=== PATIENT | female | born 1950 | race Caucasian/White ===

== ENCOUNTER → 2016-04-30 | Outpatient (REF) | payer BC ==
[~2016-04-30] MED LIST: ADVA115A INH; AMLO5TAB2 PO; AMOX875T PO; ATOR1TAB19 PO; BENI40TA3 PO; BUSP15TA47 PO; BUSP5TA PO; DITR1TAB PO; MONT10TA2 PO; PANT40TA2 PO; PROA1AER INH
[2016-04-30 11:49] LABS: MEAN CORPUSCULAR HEMOGLOBIN 31.1 pg (27.0-33.0); MEAN CORPUSCULAR VOLUME 94.4 fl (80.0-96.0); RED CELL DISTRIBUTION WIDTH 12.6 % (11.5-14.5); WHITE BLOOD COUNT 11.4 K/mm3 (4.0-10.0)
== END ==
LOC: M SFHCPLAZ 08:26
PROVIDERS: ATTEND Nurse Practitioner Adult Health
DX: I82.492 Acute embolism and thrombosis of other specified deep vein of left lower extremity (principal)

== ENCOUNTER → 2016-08-26 | Outpatient (REF) | payer BC ==
[2016-08-26 11:38] LABS: MEAN CORPUSCULAR HGB CONC 33.9 g/dl (32.0-36.5); MEAN CORPUSCULAR VOLUME 94.3 fl (80.0-96.0); RED CELL DISTRIBUTION WIDTH 11.9 % (11.5-14.5); WHITE BLOOD COUNT 7.6 K/mm3 (4.0-10.0)
[2016-08-26 12:10] LABS: ALBUMIN 3.8 GM/DL (3.2-5.2); ALBUMIN/GLOBULIN RATIO 1.27 (1.00-1.93); ALKALINE PHOSPHATASE 76 U/L (45-117); ALT/SGPT 14 U/L (12-78); ANION GAP 8 MEQ/L (8-16); AST/SGOT 7 U/L (15-37); BILIRUBIN,TOTAL 0.6 MG/DL (0.2-1.0); BLOOD UREA NITROGEN 16 MG/DL (7-18); CALCIUM LEVEL 9.4 MG/DL (8.8-10.2); CARBON DIOXIDE LEVEL 30 MEQ/L (21-32); CHLORIDE LEVEL 109 MEQ/L (98-107); CREATININE FOR GFR 0.58 MG/DL (0.55-1.02); GLOMERULAR FILTRATION RATE > 60.0 (>45); GLUCOSE, FASTING 94 MG/DL (80-110); POTASSIUM SERUM 3.9 MEQ/L (3.5-5.1); SODIUM LEVEL 147 MEQ/L (136-145); TOTAL PROTEIN 6.8 GM/DL (6.4-8.2)
== END ==
LOC: M SFHCPLAZ 07:47
PROVIDERS: ATTEND Internal Medicine
DX: J30.9 Allergic rhinitis, unspecified (principal); I10 Essential (primary) hypertension

== ENCOUNTER → 2017-01-13 | Outpatient (REF) | payer OTHER ==
[~2017-01-13] MED LIST changes: +BENI40TA26 PO; -BENI40TA3 PO; -PROA1AER INH; +PROAAER10 INH
== END ==
LOC: M LAB REF 12:58
PROVIDERS: ATTEND Physician Assistant
DX: N39.0 Urinary tract infection, site not specified (principal)

== ENCOUNTER → 2017-04-16 | Outpatient (REF) | payer MEDICARE ==
[2017-04-16 12:39] LABS: ALBUMIN 3.5 GM/DL (3.2-5.2); ALBUMIN/GLOBULIN RATIO 1.13 (1.00-1.93); ALKALINE PHOSPHATASE 69 U/L (45-117); ALT/SGPT 19 U/L (12-78); ANION GAP 7 MEQ/L (8-16); AST/SGOT 14 U/L (7-37); BILIRUBIN,TOTAL 0.7 MG/DL (0.2-1.0); BLOOD UREA NITROGEN 19 MG/DL (7-18); CALCIUM LEVEL 8.9 MG/DL (8.8-10.2); CARBON DIOXIDE LEVEL 30 MEQ/L (21-32); CHLORIDE LEVEL 107 MEQ/L (98-107); CHOLESTEROL LEVEL 192 MG/DL (<200); CREATININE FOR GFR 0.55 MG/DL (0.55-1.02); GLOMERULAR FILTRATION RATE > 60.0 (>45); GLUCOSE, FASTING 92 MG/DL (80-110); HDL CHOLESTEROL 80 MG/DL (>40); LDL CHOLESTEROL 74.6 MG/DL (<100); MAGNESIUM LEVEL 2.3 MG/DL (1.8-2.4); NON-HDL-C 112 MG/DL; POTASSIUM SERUM 3.6 MEQ/L (3.5-5.1); SODIUM LEVEL 144 MEQ/L (136-145); THYROID STIMULATING HORMONE 0.921 uIU/ML (0.358-3.740); TOTAL PROTEIN 6.6 GM/DL (6.4-8.2); TRIGLYCERIDES LEVEL 187 MG/DL (<150)
== END ==
LOC: M SFHCPLAZ 09:17
DX: I10 Essential (primary) hypertension (principal); E78.00 Pure hypercholesterolemia, unspecified; E06.3 Autoimmune thyroiditis
CPT/HCPCS: 83735

== ENCOUNTER → 2017-06-16 | Outpatient (CLI) | payer MEDICARE ==
[2017-06-16 13:14] LABS: ANION GAP 6 MEQ/L (8-16); BLOOD UREA NITROGEN 18 MG/DL (7-18); CALCIUM LEVEL 8.6 MG/DL (8.8-10.2); CARBON DIOXIDE LEVEL 29 MEQ/L (21-32); CHLORIDE LEVEL 111 MEQ/L (98-107); CREATININE FOR GFR 0.57 MG/DL (0.55-1.30); GLOMERULAR FILTRATION RATE > 60.0 (>45); GLUCOSE, FASTING 95 MG/DL (70-100); POTASSIUM SERUM 3.8 MEQ/L (3.5-5.1); SODIUM LEVEL 146 MEQ/L (136-145)
== END ==
LOC: M LAB 12:09
DX: Z01.818 Encounter for other preprocedural examination (principal); G56.02 Carpal tunnel syndrome, left upper limb
CPT/HCPCS: 80048

== ENCOUNTER → 2017-07-11 | Outpatient (REF) | payer MEDICARE ==
[2017-07-11 13:41] LABS: APPEARANCE, URINE HAZY (CLEAR); BACTERIA, URINE AUTO NEGATIVE (NEGATIVE); BILIRUBIN, URINE AUTO NEGATIVE (NEGATIVE); BLOOD, URINE BLOOD NEGATIVE (NEGATIVE); CALCIUM OXALATE CRYSTALS SMALL; COLOR, URINE YELLOW (YELLOW); GLUCOSE, URINE (UA) AUTO NEGATIVE (NEGATIVE); KETONE, URINE AUTO NEGATIVE (NEGATIVE); LEUKOCYTE ESTERASE, URINE AUTO TRACE (NEGATIVE); MUCUS, URINE LARGE (NEGATIVE); NITRITE, URINE AUTO NEGATIVE (NEGATIVE); PROTEIN, URINE AUTO NEGATIVE (NEGATIVE); RBC, URINE AUTO 0 /HPF (0-3); SPECIFIC GRAVITY URINE AUTO 1.024 (1.002-1.035); SQUAMOUS EPITHELIAL CELL UR AU 1 /HPF (0-6); UROBILINOGEN, URINE AUTO 0.2 mg/dL (0.0-2.0); WBC, URINE AUTO 1 /HPF (0-3)
== END ==
LOC: M LAB REF 13:14
DX: I10 Essential (primary) hypertension (principal); Z79.899 Other long term (current) drug therapy
CPT/HCPCS: 81001

== ENCOUNTER 2017-09-01 11:48 | Day surgery (SDC) | payer MEDICARE ==
[2017-09-01] MEDS ORDERED: LR 1,000 ML IV ×3 (12:00→17:30)
[2017-09-01] MEDS ORDERED: PROPOFOL 200 MG/20 ML VIAL As Ordered ×2 (14:43→14:46)
[2017-09-01] MEDS ORDERED: LIDOCAINE 2% INJ 100 MG/5 ML SDV (FOR ANES.) As Ordered (14:43)
[2017-09-01] MEDS ORDERED: MIDAZOLAM INJ 2 MG/2 ML VIAL (J2250) As Ordered (14:44)
[2017-09-01] MEDS ORDERED: fentaNYL 100 MCG/2 ML INJECTION (J3010) As Ordered (14:44)
[2017-09-01] MEDS ORDERED: dexameTHASONE 4 MG/ML 1ML VIAL (J1100) As Ordered (16:19)
[2017-09-01] MEDS ORDERED: ONDANSETRON 4MG/2ML VIAL (J2405) As Ordered (16:19)
[2017-09-01] MEDS: VASOPRESSIN INJ 20 UNITS/ML VIAL As Ordered (16:36)
[2017-09-01] MEDS ORDERED: PERCOCET 5MG/325MG TAB PO (17:30)
[2017-09-01] MEDS ORDERED: fentaNYL 100 MCG/2 ML INJECTION (J3010) IV (17:30)
[2017-09-01] MEDS ORDERED: NORCO, ANEXSIA 5/325MG TABLET (HYDROcodone/ACETAMINOPHEN) PO (17:30)
[2017-09-01] MEDS ORDERED: ONDANSETRON 4MG/2ML VIAL (J2405) IV (17:30)
[2017-09-01] MEDS ORDERED: IBUPROFEN 600 MG TAB PO (17:30)
[2017-09-01] MEDS ORDERED: METOCLOPRAMIDE INJ 10MG/2ML VIAL (J2765) IV (17:30)
== END 2017-09-01 18:46 | disposition home or self-care (01) ==
LOC: M SDC 11:48
DX: N39.3 Stress incontinence (female) (male) (principal); N36.41 Hypermobility of urethra; I10 Essential (primary) hypertension; E78.5 Hyperlipidemia, unspecified; K21.9 Gastro-esophageal reflux disease without esophagitis; F41.9 Anxiety disorder, unspecified; F32.9 Major depressive disorder, single episode, unspecified; J45.909 Unspecified asthma, uncomplicated; Z79.82 Long term (current) use of aspirin; Z79.51 Long term (current) use of inhaled steroids; Z79.899 Other long term (current) drug therapy
CPT/HCPCS: 57288

== ENCOUNTER → 2017-12-24 | Outpatient (REF) | payer MEDICARE ==
[2017-12-24 16:10] LABS: HEMATOCRIT 47.2 % (36.0-47.0); HEMOGLOBIN 15.8 g/dl (12.0-15.5); MEAN CORPUSCULAR HEMOGLOBIN 31.7 pg (27.0-33.0); MEAN CORPUSCULAR HGB CONC 33.5 g/dl (32.0-36.5); MEAN CORPUSCULAR VOLUME 94.8 fl (80.0-96.0); PLATELET COUNT, AUTOMATED 304 10^3/uL (150-450); RED BLOOD COUNT 4.98 10^6/uL (4.00-5.40); RED CELL DISTRIBUTION WIDTH 12.1 % (11.5-14.5); WHITE BLOOD COUNT 11.8 10^3/uL (4.0-10.0)
[2017-12-24 16:39] LABS: ALBUMIN 4.1 GM/DL (3.2-5.2); ALBUMIN/GLOBULIN RATIO 1.28 (1.00-1.93); ALKALINE PHOSPHATASE 75 U/L (45-117); ALT/SGPT 27 U/L (12-78); ANION GAP 8 MEQ/L (8-16); AST/SGOT 13 U/L (7-37); BILIRUBIN,TOTAL 0.8 MG/DL (0.2-1.0); BLOOD UREA NITROGEN 17 MG/DL (7-18); CALCIUM LEVEL 9.3 MG/DL (8.8-10.2); CARBON DIOXIDE LEVEL 28 MEQ/L (21-32); CHLORIDE LEVEL 106 MEQ/L (98-107); CREATININE FOR GFR 0.68 MG/DL (0.55-1.30); GLOMERULAR FILTRATION RATE > 60.0 (>45); GLUCOSE, FASTING 83 MG/DL (70-100); MAGNESIUM LEVEL 2.3 MG/DL (1.8-2.4); SODIUM LEVEL 142 MEQ/L (136-145); TOTAL PROTEIN 7.3 GM/DL (6.4-8.2); URIC ACID 6.3 MG/DL (2.6-6.0)
== END ==
LOC: M SFHCPLAZ 14:23
DX: G56.02 Carpal tunnel syndrome, left upper limb (principal); Z86.718 Personal history of other venous thrombosis and embolism; I10 Essential (primary) hypertension; E79.0 Hyperuricemia without signs of inflammatory arthritis and tophaceous disease
CPT/HCPCS: 83735

== ENCOUNTER → 2018-03-02 | Outpatient (CLI) | payer MEDICARE | LOC: M RAD 11:22 | DX: I83.892 Varicose veins of left lower extremity with other complications (principal); M79.662 Pain in left lower leg | CPT/HCPCS: 93971 ==

== ENCOUNTER 2018-04-18 18:00 | Inpatient (IN) | payer MEDICARE ==
[~2018-04-18] VITALS: Ht 157.5 cm; Wt 71.2 kg
[~2018-04-18 18:00] MED LIST changes: -AMLO5TAB2 PO; +AMLO5TAB6 PO; +ASPI81TA85 PO; -PANT40TA2 PO; +PANT40TA3 PO; +RANI1SYP PO; +TRAZ-160 PO
[2018-04-18 19:01] LABS: BASO # 0.1 10^3/uL (0.0-0.2); BASO % 0.5 % (0.0-1.0); EOS # 0.1 10^3/uL (0.0-0.50); EOS % 1.1 % (0.0-3.0); HEMATOCRIT 43.1 % (36.0-47.0); HEMOGLOBIN 14.5 g/dl (12.0-15.5); LYMPH # 1.8 10^3/uL (1.5-4.5); LYMPH % 13.7 % (24.0-44.0); MEAN CORPUSCULAR HEMOGLOBIN 30.9 pg (27.0-33.0); MEAN CORPUSCULAR HGB CONC 33.6 g/dl (32.0-36.5); MEAN CORPUSCULAR VOLUME 91.9 fl (80.0-96.0); MONO # 1.2 10^3/uL (0.0-0.8); MONO % 9.4 % (0.0-5.0); NEUTROPHILS # 9.8 10^3/uL (1.8-7.7); NEUTROPHILS % 74.8 % (36.0-66.0); PLATELET COUNT, AUTOMATED 423 10^3/uL (150-450); RED BLOOD COUNT 4.69 10^6/uL (4.00-5.40); WHITE BLOOD COUNT 13.2 10^3/uL (4.0-10.0)
[2018-04-18 19:27] LABS: BLOOD UREA NITROGEN 22 MG/DL (7-18); CALCIUM LEVEL 9.7 MG/DL (8.8-10.2); CARBON DIOXIDE LEVEL 25 MEQ/L (21-32); CHLORIDE LEVEL 105 MEQ/L (98-107); CK-MB VALUE MASS < 1.0 NG/ML (<3.6); CPK CREATINE PHOSPHOKINASE 28 U/L (26-192); GLOMERULAR FILTRATION RATE > 60.0 (>45); GLUCOSE, FASTING 143 MG/DL (70-100); MB/CK RELATIVE INDEX 3.57 (< OR =4); POTASSIUM SERUM 4.2 MEQ/L (3.5-5.1); SODIUM LEVEL 139 MEQ/L (136-145); TROPONIN I < 0.02 NG/ML (< 0.10)
[2018-04-18] MEDS ORDERED: ISOVUE-370 76% 100ML VIAL (Q9967) As Ordered ONE (19:30)
--- NOTE | 2018-04-18 19:45 | REPVR ---
EXAM: US Left Duplex Lower Extremity Veins, Limited EXAM DATE/TIME: 04/18/2018 7:15 PM CLINICAL HISTORY: 67 years old, female; Pain; Leg, upper; Left; Additional info: Leg pain and swelling TECHNIQUE: Real-time Duplex ultrasound of the Left Lower Extremity with 2-D boone scale, color Doppler flow and spectral waveform analysis. Limited exam focused on the left lower extremity veins. COMPARISON: US Duplex, Ext,LOWER veins,unilat LEFT 03/02/2018 11:37 AM FINDINGS: Left deep veins: Extensive deep venous thrombosis involving the left common femoral to left popliteal veins extending into the tibial-peroneal trunk/calf veins. Soft tissues: No popliteal cyst.. IMPRESSION: Extensive deep venous thrombosis involving the left common femoral to left popliteal veins extending into the tibial-peroneal trunk/calf veins. Electronically signed by: Danny Dickson On 04/18/2018 19:44:59 PM
[2018-04-18] MEDS ORDERED: KETOROLAC 30 MG/ML VIAL (J1885) IV ONE (20:00)
--- NOTE | 2018-04-18 20:42 | REPVR ---
EXAM: CT Angiography Chest With Contrast EXAM DATE/TIME: 04/18/2018 7:37 PM CLINICAL HISTORY: 67 years old, female; Signs and symptoms; Cough; Additional info: Cough, chest discomfort (h/o vte) left leg swelling TECHNIQUE: Axial computed tomographic angiography images of the chest with intravenous contrast using CT angiography protocol. All CT scans at this facility use at least one of these dose optimization techniques: automated exposure control; mA and/or kV adjustment per patient size (includes targeted exams where dose is matched to clinical indication); or iterative reconstruction. Coronal and sagittal reformatted images were created and reviewed. MIP reconstructed images were created and reviewed. CONTRAST: 75 ml of ISOVUE 370 administered intravenously. COMPARISON: CT ANGIO CHEST 05/20/2015 12:36 PM FINDINGS: Pulmonary arteries: Normal. No pulmonary emboli. Aorta: Normal. No aortic aneurysm. No aortic dissection. Lungs: Thin reticular opacity in the lingula indicates scar. Thin pleural based reticular opacity in the right middle lobe indicates scar. Pleural space: Unremarkable. No pleural effusion. Heart: Normal. No cardiomegaly. No pericardial effusion. Mediastinum: There is a moderate size sliding hiatal hernia. Gallbladder and bile ducts: Surgical clips noted in the gallbladder fossa. The gallbladder is absent. Lymph nodes: Unremarkable. No enlarged lymph nodes. Bones/joints: Unremarkable. No acute fracture. Soft tissues: Unremarkable. IMPRESSION: 1. No pulmonary embolism. 2. Scarring in the lingula and right middle lobe. 3. Moderate size sliding hiatal hernia. Electronically signed by: Natasha Danielle On 04/18/2018 20:42:20 PM
[2018-04-18] MEDS ORDERED: HEPARIN DRIP 25,000 UNITS in APPROPRIATE DILUENT 1 EA IV SCH (20:55)
[2018-04-18] MEDS: MONTELUKAST 10 MG TAB PO SCH (21:00)
[2018-04-18] MEDS ORDERED: OLMESARTAN MEDOXOMIL 20 MG TAB (BENICAR) PO SCH (21:00)
[2018-04-18] MEDS ORDERED: HEPARIN SOD (PORCINE) 5000 UNITS/ML VIAL IV PRN (21:00)
[2018-04-18] MEDS ORDERED: RANI150T PO (21:52)
[2018-04-18] MEDS ORDERED: FOSA70TA PO (21:54)
[2018-04-18] MEDS ORDERED: BISACODYL 5 MG TAB PO PRN (23:15)
[2018-04-18] MEDS ORDERED: MORPHINE 4 MG/ML 1ML VIAL/SYRINGE (J2270) IV PRN (23:15)
[2018-04-19] MEDS: busPIRone 5 MG TAB PO SCH ×3 (00:18→21:17)
[2018-04-19] MEDS: amLODIPine 5 MG TAB PO SCH ×2 (00:18→21:17)
[2018-04-19] MEDS: PERCOCET 5MG/325MG TAB PO PRN ×2 (00:19→14:53)
[2018-04-19 02:16] VITALS: BP 128/80
--- NOTE | 2018-04-19 02:57 | HPEPDOC ---
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 She denied fever, chills, chest pain, sob, dizziness, nausea, vomiting, diarrhea, dysuria . Patient said she is uptodate on breast and cervical caner screening , both wnl, but never had colonoscopy before. Per ED endorsement , vascular surgeon w3as consulted who rec starting pt on heparin and placing an official consult for AM, He might take patient for thrombectomy. PAST MEDICAL HISTORY: 1. melanoma in remission 2. previous dvt of the same leg PAST SURGICAL HISTORY: 1. melanoma resection of left thigh SOCIAL HISTORY: Tobacco use:[no] ETOH: [no] Illicit drug use: [no ] IV drug use: [no ] ALLERGIES: Please see below. HOME MEDICATIONS: Please see below. ROS - all 14 point review of system is negative except for whats listed in HPI Physical exam Gen: NAD, healthy appearing , HEENT: normocephalic , atraumatic, no discharge from ears or nose, no orophary ngeal erythema or exudate, neck is supple, no lymphadenopathy, trachea midline CVS: RRR, normal S1n S2, no murmurs, rubs, or gallops, no edema, no jvd Resp: LCTAB, no rhochi, wheezes or crackles Abd : soft nontender, normal bowel sounds, no rebound tenderness or guarding MSK: no swelling, full range of motion, strength 5/5 Neuro: AOAx3, no confusion, no focal deficit Psych: normal mood and affect, good judgment LABORATORY DATA: See below. IMAGING: CTA chest wnl doppler of lower extremity extensive dvt ASSESSMENT: . acute LLE dvt PLAN: c/w heparin drip (per vascular surgeon rec) aptt q6h - to be adjusted per protocol vascular surgery consult consider heme/onc consult consider GI consult for colonoscopy or it can be done outpt - I already discussed with patient the importance of having a colonoscopy done f/u protein c and s labs prn pain meds full code, from home Vital Signs Vital Signs Date Time Temp Pulse Resp B/P (MAP) Pulse Ox O2 Delivery O2 Flow Rate FiO2 04/18/18 22:45 101 131/62 (85) 96 04/18/18 22:45 97.3 18 Laboratory Data Labs 24H Laboratory Tests 2 04/18/18 18:56: Immature Granulocyte % (Auto) 0.5, White Blood Count 13.2H, Red Blood Count 4.69, Hemoglobin 14.5, Hematocrit 43.1, Mean Corpuscular Volume 91.9, Mean Corpuscular Hemoglobin 30.9, Mean Corpuscular Hemoglobin Concent 33.6, Red Cell Distribution Width 11.8, Platelet Count 423, Neutrophils (%) (Auto) 74.8H, Lymphocytes (%) (Auto) 13.7L, Monocytes (%) (Auto) 9.4H, Eosinophils (%) (Auto) 1.1, Basophils (%) (Auto) 0.5, Neutrophils # (Auto) 9.8H, Lymphocytes # (Auto) 1.8, Monocytes # (Auto) 1.2H, Eosinophils # (Auto) 0.1, Basophils # (Auto) 0.1, Nucleated Red Blood Cells % (auto) 0.0, Anion Gap 9, Glomerular Filtration Rate > 60.0, Blood Urea Nitrogen 22H, Creatinine 0.80, Sodium Level 139, Potassium Level 4.2, Chloride Level 105, Carbon Dioxide Level 25, Calcium Level 9.7, Total Creatine Kinase 28, Creatine Kinase MB < 1.0, Creatine Kinase MB Relative Index 3.57, Troponin I < 0.02 04/18/18 23:03: CBC/BMP Laboratory Tests 04/18/18 18:56 Red Blood Count 4.69, Mean Corpuscular Volume 91.9, Mean Corpuscular Hemoglobin 30.9, Mean Corpuscular Hemoglobin Concent 33.6, Red Cell Distribution Width 11.8, Neutrophils (%) (Auto) 74.8 H, Lymphocytes (%) (Auto) 13.7 L, Monocytes (%) (Auto) 9.4 H, Eosinophils (%) (Auto) 1.1, Basophils (%) (Auto) 0.5, Neutrophils # (Auto) 9.8 H, Lymphocytes # (Auto) 1.8, Monocytes # (Auto) 1.2 H, Eosinophils # (Auto) 0.1, Basophils # (Auto) 0.1, Calcium Level 9.7, Total Creatine Kinase 28 Home Medications Scheduled Alendronate Sodium (Fosamax) 70 Mg Tab, 70 MG PO 1XWK TAKES ON TUESDAYS Amlodipine Besylate (Amlodipine Besylate) 5 Mg Tab, 5 MG PO QHS Aspirin (Aspir-81) 81 Mg Tab, 81 MG PO DAILY Atorvastatin Calcium (Atorvastatin Calcium) 10 Mg Tab, 5 MG PO 3XW FRIDAY, FRIDAY, FRIDAY Buspirone HCl (Buspirone HCl) 15 Mg Tab, 15 MG PO BID Montelukast Sodium (Montelukast Sodium) 10 Mg Tab, 10 MG PO QHS Olmesartan Medoxomil (Benicar) 40 Mg Tab, 40 MG PO QHS Oxybutynin Chloride (Ditropan Xl) 10 Mg Tab, 10 MG PO DAILY Pantoprazole Sodium (Pantoprazole Sodium) 40 Mg Tab, 40 MG PO Q2D ALTERNATES WITH RANITIDINE Ranitidine HCl (Ranitidine HCl) 150 Mg Tab, 2 TAB PO DAILY ALTERNATES WITH PANTOPRAZOLE Salmeterol/Fluticasone (Advair Hfa 115-21 Mcg/Act) 1 Aer Aer, 2 PUFF INH BID Trazodone HCl (Trazodone HCl) 50 Mg Tab, 50 MG PO QHS Scheduled PRN Albuterol Sulfate (Proair Hfa) 108 Mcg/Act Aer, 2 PUFFS INH Q4H PRN for SHORTNESS OF BREATH Allergies Coded Allergies: Allopurinol (Unverified Allergy, Intermediate, HIVES, 08/28/17) Colchicine (Unverified Allergy, Intermediate, HIVES, 08/28/17) Bee Venom (Unverified Allergy, Unknown, 08/28/17) BILLIE HENDERSON MD Apr 18, 2018 23:16
[2018-04-19] MEDS ORDERED: HEPARIN SOD (PORCINE) 5000 UNITS/ML VIAL IV PRN (03:00)
[2018-04-19] MEDS: ACETAMINOPHEN TAB 650MG DOSE (2X325MG) PO PRN (03:03)
[2018-04-19] MEDS: HEPARIN DRIP 25,000 UNITS in APPROPRIATE DILUENT 1 EA IV SCH ×2 (04:12→23:19)
[2018-04-19 04:36] LABS: BASO # 0.1 10^3/uL (0.0-0.2); BASO % 0.6 % (0.0-1.0); EOS # 0.1 10^3/uL (0.0-0.50); EOS % 0.7 % (0.0-3.0); HEMATOCRIT 39.6 % (36.0-47.0); HEMOGLOBIN 13.4 g/dl (12.0-15.5); LYMPH # 2.1 10^3/uL (1.5-4.5); LYMPH % 17.9 % (24.0-44.0); MEAN CORPUSCULAR HEMOGLOBIN 30.9 pg (27.0-33.0); MEAN CORPUSCULAR HGB CONC 33.8 g/dl (32.0-36.5); MEAN CORPUSCULAR VOLUME 91.2 fl (80.0-96.0); MONO # 1.2 10^3/uL (0.0-0.8); MONO % 10.5 % (0.0-5.0); NEUTROPHILS # 8.1 10^3/uL (1.8-7.7); NEUTROPHILS % 69.9 % (36.0-66.0); PLATELET COUNT, AUTOMATED 370 10^3/uL (150-450); RED BLOOD COUNT 4.34 10^6/uL (4.00-5.40); WHITE BLOOD COUNT 11.5 10^3/uL (4.0-10.0)
[2018-04-19 04:53] LABS: BLOOD UREA NITROGEN 25 MG/DL (7-18); CALCIUM LEVEL 9.3 MG/DL (8.8-10.2); CARBON DIOXIDE LEVEL 24 MEQ/L (21-32); CHLORIDE LEVEL 104 MEQ/L (98-107); GLOMERULAR FILTRATION RATE > 60.0 (>45); GLUCOSE, FASTING 140 MG/DL (70-100); MAGNESIUM LEVEL 2.2 MG/DL (1.8-2.4); POTASSIUM SERUM 3.7 MEQ/L (3.5-5.1); SODIUM LEVEL 139 MEQ/L (136-145)
[2018-04-19 06:00] VITALS: BP 104/60
--- NOTE | 2018-04-19 06:02 | ECGEPIP ---
Stationary ECG Study [facility] - ED Test Date: 2018-04-18 Pat Name: ROLLY LEYVA Department: Room: - Gender: F Manager Book: af : [id number] Requested By: FLAVIO Avendano Order Number: [id number] Reading MD: Ender Iyer Measurements Intervals [place] Rate: 114 P: 2 MI: 133 QRS: -8 QRSD: 82 T: -3 QT: 318 QTc: 438 Interpretive Statements SINUS TACHYCARDIA WITH FREQUENT SUPRAVENTRICULAR PREMATURE COMPLEXES MODERATE VOLTAGE CRITERIA FOR LVH, CONSIDER NORMAL VARIANT NONSPECIFIC ST & T-WAVE ABNORMALITY RATE CHANGE COMPARED TO 06/16/17 Electronically Signed On 04-19-2018 6:02:06 EST by Ender Iyer
[2018-04-19] MEDS ORDERED: FAMOTIDINE 20 MG TAB PO SCH (09:00)
[2018-04-19] MEDS ORDERED: ALBUTEROL SULFATE 2.5 MG/0.5 ML INH NEB SOLN NEB PRN (09:30)
[2018-04-19] MEDS: D5W/0.9% SODIUM CHLORIDE 1,000 ML IV SCH ×2 (09:31→18:15)
[2018-04-19] MEDS: oxyBUTYnin *DITROPAN XL* 5 MG TABCR PO SCH (09:32)
[2018-04-19] MEDS: ADVAIR HFA 115/21MCG INHALER INH SCH ×2 (09:44→21:02)
[2018-04-19 14:00] VITALS: BP 104/56
[2018-04-19] MEDS: traZODone 50 MG TAB PO SCH (21:17)
[2018-04-19] MEDS: MONTELUKAST 10 MG TAB PO SCH (21:17)
[2018-04-19 22:00] VITALS: BP 129/65
--- NOTE | 2018-04-19 22:59 | IPNPDOC ---
Text Note Date of Service The patient was seen on 04/19/18. NOTE SUBJECTIVE: There is some pain and swelling in the left thigh. She did say that she had Flu like symptoms which started 5 days ago and since then she had poor appetite not eating or drinking well and was mostly in bed. Then she noted swelling and heaviness of her left leg so came to the ED. She also complained of small amount of rectal bleeding mixed with stools which she attributed to hemorrhoids. PHYSICAL EXAM: VITALS: As below Gen: NAD, healthy appearing , HEENT: normocephalic , atraumatic, moist mucus membranes, anicteric eyes. CVS: RRR, normal S1n S2, no murmurs, rubs, or gallops, no edema, no jvd Resp: LCTAB, no rhochi, wheezes or crackles Abd : soft nontender, normal bowel sounds, no rebound tenderness or guarding MSK: no swelling, full range of motion, strength 5/5 Neuro: AOAx3, no confusion, no focal deficit Psych: normal mood and affect, good judgment Extremities: swelling of innner aspect of left thigh, no edema. 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 She denied fever, chills, chest pain, sob, dizziness, nausea, vomiting, diarrhea, dysuria . Patient said she is upto date on breast and cervical caner screening , both wnl, but never had colonoscopy before. Per ED endorsement , vascular surgeon was consulted who rec starting pt on heparin and placing an official consult for AM, He might take patient for thrombectomy. Recurrent Acute LLE dvt second episode. Need to rule out underlying malignancy started on heparin gtt Dr Vaughn to see Malignancy work up to be done as outpatient will get CT abdomen pelvis with contrast will also need colonoscopy as outpatient PMD to coordinate this. CT angio no PE. hypercoagulable work up has been ordered. History of Melanoma in [address] Borges consulted will need underlying malignancy work up Hypertension continue amlodipine will hold olmesartan an Bp lowish and patient getting contrast studies. Hyperlipidemia continue statin Moderate persistent asthma continue advair and albuterol, montelukast Dysthymia continue buspirone Insomnia continue trazodone H/o Stress incontinence status post sling procedure on oxybutynin VS,Fishbone, I+O VS, Fishbone, I+O Laboratory Tests 04/18/18 18:56 Red Blood Count 4.69, Mean Corpuscular Volume 91.9, Mean Corpuscular Hemoglobin 30.9, Mean Corpuscular Hemoglobin Concent 33.6, Red Cell Distribution Width 11.8, Neutrophils (%) (Auto) 74.8 H, Lymphocytes (%) (Auto) 13.7 L, Monocytes (%) (Auto) 9.4 H, Eosinophils (%) (Auto) 1.1, Basophils (%) (Auto) 0.5, Neutrophils # (Auto) 9.8 H, Lymphocytes # (Auto) 1.8, Monocytes # (Auto) 1.2 H, Eosinophils # (Auto) 0.1, Basophils # (Auto) 0.1, Calcium Level 9.7, Total Creatine Kinase 28 04/19/18 04:01 Red Blood Count 4.34, Mean Corpuscular Volume 91.2, Mean Corpuscular Hemoglobin 30.9, Mean Corpuscular Hemoglobin Concent 33.8, Red Cell Distribution Width 11.7, Neutrophils (%) (Auto) 69.9 H, Lymphocytes (%) (Auto) 17.9 L, Monocytes (%) (Auto) 10.5 H, Eosinophils (%) (Auto) 0.7, Basophils (%) (Auto) 0.6, Neutrophils # (Auto) 8.1 H, Lymphocytes # (Auto) 2.1, Monocytes # (Auto) 1.2 H, Eosinophils # (Auto) 0.1, Basophils # (Auto) 0.1, Calcium Level 9.3 Vital Signs Date Time Temp Pulse Resp B/P (MAP) Pulse Ox O2 Delivery O2 Flow Rate FiO2 04/19/18 06:00 97.0 86 17 104/60 (75) 95 Room Air I&O- Last 24 Hours up to 6 AM 04/19/18 06:00 Intake Total 100 ml Balance 100 ml RAY,ELE MD Apr 19, 2018 08:50
[2018-04-20] MEDS: PERCOCET 5MG/325MG TAB PO PRN ×3 (03:29→20:23)
[2018-04-20] MEDS: D5W/0.9% SODIUM CHLORIDE 1,000 ML IV SCH ×2 (04:56→13:46)
[2018-04-20 05:59] VITALS: BP 121/61
[2018-04-20 06:32] LABS: BASO # 0.1 10^3/uL (0.0-0.2); BASO % 0.6 % (0.0-1.0); EOS # 0.1 10^3/uL (0.0-0.50); EOS % 0.6 % (0.0-3.0); HEMATOCRIT 34.2 % (36.0-47.0); HEMOGLOBIN 11.7 g/dl (12.0-15.5); LYMPH # 1.7 10^3/uL (1.5-4.5); MEAN CORPUSCULAR HEMOGLOBIN 30.9 pg (27.0-33.0); MEAN CORPUSCULAR HGB CONC 34.2 g/dl (32.0-36.5); MEAN CORPUSCULAR VOLUME 90.2 fl (80.0-96.0); MONO % 10.1 % (0.0-5.0); NEUTROPHILS # 7.3 10^3/uL (1.8-7.7); NEUTROPHILS % 71.3 % (36.0-66.0); PLATELET COUNT, AUTOMATED 313 10^3/uL (150-450); RED BLOOD COUNT 3.79 10^6/uL (4.00-5.40); WHITE BLOOD COUNT 10.2 10^3/uL (4.0-10.0)
[2018-04-20 06:50] LABS: BLOOD UREA NITROGEN 14 MG/DL (7-18); CALCIUM LEVEL 8.1 MG/DL (8.8-10.2); CARBON DIOXIDE LEVEL 23 MEQ/L (21-32); CHLORIDE LEVEL 109 MEQ/L (98-107); CREATININE FOR GFR 0.57 MG/DL (0.55-1.30); GLOMERULAR FILTRATION RATE > 60.0 (>45); GLUCOSE, FASTING 159 MG/DL (70-100); POTASSIUM SERUM 3.5 MEQ/L (3.5-5.1); SODIUM LEVEL 141 MEQ/L (136-145)
[2018-04-20] MEDS: ADVAIR HFA 115/21MCG INHALER INH SCH ×2 (07:25→19:24)
[2018-04-20] MEDS ORDERED: ISOVUE-370 76% 100ML VIAL (Q9967) As Ordered ONE (07:52)
--- NOTE | 2018-04-20 08:15 | CR ---
DATE OF CONSULTATION: 04/19/2018 REASON FOR REFERRAL: History of deep venous thrombosis tibial and peroneal veins March 2016, now with extensive left lower extremity deep venous thrombosis (DVT). Currently on anticoagulation with intravenous heparin. HISTORY OF PRESENT ILLNESS: Mrs. Miller is a 67-year-old woman who underwent surgery for a melanoma on her left thigh in August 2014. She was found to have a left peroneal and tibial vein deep venous thrombosis in March 2016 and was treated with rivaroxaban anticoagulation from March 2016 to September 2015. She was fine until a week ago when she started developing increased tiredness and increased left lower extremity swelling. She came to [facility] emergency room and had a vascular ultrasound, which unfortunately showed extensive DVT in the left common femoral to left popliteal veins, extending into the tibia/peroneal calf veins. She also had a CT angiography study which did not show any pulmonary embolism and did not show any significant lung findings other than scarring in the lingula and right mid lobe. She was referred to hematology for recurrent DVT. PAST MEDICAL HISTORY: Hypertension. As mentioned above, history melanoma left leg 2014. Asthma. ALLERGIES: ALLOPURINOL, COLCHICINE and BEE VENOM. FAMILY HISTORY: No history of thromboembolic disease but her mother does have a history of varicose veins. On physical exam, she was lying comfortably in bed not in distress. She had pinkish conjunctivae, anicteric sclerae. No oral mucosal lesions. No palpable cervical lymph nodes. Lungs were clear. No rales, rhonchi, or wheeze. S1, S2 regular. Abdomen was soft, nontender. No guarding. Positive bowel sounds. Extremities - no calf swelling, no calf tenderness, and no pedal edema on the right lower extremity. Edema on the whole left lower extremity. Dorsalis pedis pulses present. IMPRESSION AND PLAN: Mrs. Miller is a 67-year-old woman with a recent diagnosis of left lower extremity DVT. She has been started on anticoagulation for this. I recommended long-term anticoagulation as she has a proximal DVT which seems to be unprovoked. I also suggested a CT abdomen and pelvis to rule out a pelvic mass. Thank you very much for this referral.
[2018-04-20] MEDS: busPIRone 5 MG TAB PO SCH ×2 (08:52→20:21)
[2018-04-20] MEDS: PANTOPRAZOLE 40MG TAB (PROTONIX) PO SCH (08:52)
[2018-04-20] MEDS: oxyBUTYnin *DITROPAN XL* 5 MG TABCR PO SCH (08:52)
--- NOTE | 2018-04-20 09:39 | REP ---
CT ABDOMEN AND PELVIS WITH IV BUT WITHOUT ORAL CONTRAST: HISTORY: Pelvic mass. Concern for malignancy. CT CONTRAST DOSE: 100 mL of intravenous Isovue [address] STUDY: May 18, 2015. FINDINGS: Preliminary digital editorial specialist radiograph shows mild gaseous distension of the transverse colon. There is minimal pleuroparenchymal fibrosis in the lung bases. The liver and spleen are normal in size, homogeneous in texture. Gallbladder surgically absent. The common bile duct is normal post cholecystectomy at 7 mm. There is a cyst in the uncinate process of the head of the pancreas measuring 2.0 x 1.4 cm. This is slightly larger but not new when compared with the 2016 study when it measured 1.8 x 1.1 cm. No adrenal lesion is seen. There are tiny cortical cysts in the kidneys bilaterally. No hydronephrosis or mass lesion is observed. No retroperitoneal mass or adenopathy is seen. Pelvic CT images show that the uterus is surgically absent. Urinary bladder is small and contracted in appearance. No pelvic mass lesion is seen. No adenopathy is observed. No ovarian lesion is observed. There is evidence of deep venous thrombosis involving the left common, external, internal iliac vein as well as the left common femoral vein. There is edema in the proximal thigh on the left with enlargement of the proximal thighs soft tissues. Small and large intestinal bowel loops are unremarkable in the abdomen and pelvis. The appendix is surgically absent. IMPRESSION: Status post cholecystectomy and hysterectomy. 2.0 cm benign appearing cyst in the pancreatic head. Acute DVT left iliac and proximal femoral veins with edema. No pelvic mass lesion seen. Electronically Signed by Hood Chong MD 04/20/2018 10:57 A
--- NOTE | 2018-04-20 10:38 | IPNPDOC ---
Text Note Date of Service The patient was seen on 04/20/18. NOTE SUBJECTIVE: There is pain and swelling in the left thigh extending down to the leg only when she walks. The swelling goes down when she is in bed then comes back when she gets out of bed. Overall she is feeling better, she was able to eat a good breakfast. Her appetite is coming back. PHYSICAL EXAM: VITALS: As below Gen: NAD, healthy appearing , HEENT: normocephalic , atraumatic, moist mucus membranes, anicteric eyes. CVS: RRR, normal S1n S2, no murmurs, rubs, or gallops, no edema, no jvd Resp: LCTAB, no rhochi, wheezes or crackles Abd : soft nontender, normal bowel sounds, no rebound tenderness or guarding MSK: no swelling, full range of motion, strength 5/5 Neuro: AOAx3, no confusion, no focal deficit Psych: normal mood and affect, good judgment Extremities: swelling of innner aspect of left thigh, no edema. 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 She denied fever, chills, chest pain, sob, dizziness, nausea, vomiting, diarrhea, dysuria . Patient said she is upto date on breast and cervical caner screening , both wnl, but never had colonoscopy before. Per ED endorsement , vascular surgeon was consulted who rec starting pt on heparin and placing an official consult for AM, He might take patient for thrombectomy. Recurrent Acute LLE dvt second episode. Need to rule out underlying malignancy started on heparin gtt Dr Vaughn to see Malignancy work up to be done as outpatient CT abdomen pelvis with contrast negative fro any mass does show that the clot is extensive involving also the common internal and external iliac veins. will also need colonoscopy as outpatient PMD to coordinate this. CT angio no PE. hypercoagulable work up has been ordered. History of Melanoma in 2014 will need underlying malignancy work up seen by Dr Borges no additional reccomendations. Hypertension continue amlodipine will hold olmesartan an Bp lowish and patient getting contrast studies. Hyperlipidemia continue statin Moderate persistent asthma continue advair and albuterol, montelukast Dysthymia continue buspirone Insomnia continue trazodone H/o Stress incontinence status post sling procedure on oxybutynin VS,Fishbone, I+O VS, Fishbone, I+O Laboratory Tests 04/20/18 06:17 Red Blood Count 3.79 L, Mean Corpuscular Volume 90.2, Mean Corpuscular Hemoglobin 30.9, Mean Corpuscular Hemoglobin Concent 34.2, Red Cell Distribution Width 11.7, Neutrophils (%) (Auto) 71.3 H, Lymphocytes (%) (Auto) 17.0 L, Monocytes (%) (Auto) 10.1 H, Eosinophils (%) (Auto) 0.6, Basophils (%) (Auto) 0.6, Neutrophils # (Auto) 7.3, Lymphocytes # (Auto) 1.7, Monocytes # (Auto) 1.0 H, Eosinophils # (Auto) 0.1, Basophils # (Auto) 0.1, Calcium Level 8.1 L Vital Signs Date Time Temp Pulse Resp B/P (MAP) Pulse Ox O2 Delivery O2 Flow Rate FiO2 04/20/18 09:22 18 04/20/18 05:59 97.7 98 121/61 (81) 92 Room Air I&O- Last 24 Hours up to 6 AM 04/20/18 05:59 Intake Total 1600 ml Output Total 650 ml Balance 950 ml ELE FARIAS MD Apr 20, 2018 10:38
[2018-04-20 14:00] VITALS: BP 132/74
[2018-04-20] MEDS: traZODone 50 MG TAB PO SCH (20:21)
[2018-04-20] MEDS: amLODIPine 5 MG TAB PO SCH (20:21)
[2018-04-20] MEDS: MONTELUKAST 10 MG TAB PO SCH (20:21)
[2018-04-20] MEDS: ATORVASTATIN 5MG PER 1/2 TABLET PO SCH (20:21)
[2018-04-20 22:00] VITALS: BP 130/62
[2018-04-21] MEDS: D5W/0.9% SODIUM CHLORIDE 1,000 ML IV SCH ×3 (00:01→20:15)
[2018-04-21 06:00] VITALS: BP 141/67
[2018-04-21] MEDS: ADVAIR HFA 115/21MCG INHALER INH SCH (07:14)
[2018-04-21 08:49] LABS: BASO # 0.1 10^3/uL (0.0-0.2); BASO % 0.7 % (0.0-1.0); EOS # 0.1 10^3/uL (0.0-0.50); EOS % 1.4 % (0.0-3.0); HEMATOCRIT 35.1 % (36.0-47.0); HEMOGLOBIN 11.7 g/dl (12.0-15.5); LYMPH # 2.1 10^3/uL (1.5-4.5); LYMPH % 24.4 % (24.0-44.0); MEAN CORPUSCULAR HEMOGLOBIN 30.9 pg (27.0-33.0); MEAN CORPUSCULAR HGB CONC 33.3 g/dl (32.0-36.5); MEAN CORPUSCULAR VOLUME 92.6 fl (80.0-96.0); MONO % 11.9 % (0.0-5.0); NEUTROPHILS # 5.1 10^3/uL (1.8-7.7); NEUTROPHILS % 60.4 % (36.0-66.0); PLATELET COUNT, AUTOMATED 326 10^3/uL (150-450); RED BLOOD COUNT 3.79 10^6/uL (4.00-5.40); WHITE BLOOD COUNT 8.5 10^3/uL (4.0-10.0)
[2018-04-21 09:12] LABS: BLOOD UREA NITROGEN 5 MG/DL (7-18); CALCIUM LEVEL 8.4 MG/DL (8.8-10.2); CARBON DIOXIDE LEVEL 23 MEQ/L (21-32); CHLORIDE LEVEL 114 MEQ/L (98-107); CREATININE FOR GFR 0.49 MG/DL (0.55-1.30); GLOMERULAR FILTRATION RATE > 60.0 (>45); GLUCOSE, FASTING 110 MG/DL (70-100); POTASSIUM SERUM 3.3 MEQ/L (3.5-5.1); SODIUM LEVEL 146 MEQ/L (136-145)
[2018-04-21 09:13] LABS: INR 1.08; PROTHROMBIN TIME 14.1 SECONDS (12.1-14.4)
[2018-04-21] MEDS: busPIRone 5 MG TAB PO SCH ×2 (09:24→20:28)
[2018-04-21] MEDS: PERCOCET 5MG/325MG TAB PO PRN (09:25)
[2018-04-21] MEDS: oxyBUTYnin *DITROPAN XL* 5 MG TABCR PO SCH (09:25)
[2018-04-21 09:37] LABS: PARTIAL THROMBOPLASTIN TIME 70.2 SECONDS (25.4-37.6)
--- NOTE | 2018-04-21 10:00 | IPNPDOC ---
Date Seen The patient was seen on 04/21/18. Progress Note SUBJECTIVE: still c/o left thigh pain, but improved swelling. ambulating from bed to bathroom but w leg heaviness. still on iv heparin gtt, awaiting vascular surgery evaluation for thrombectomy. no c/o chest pain, sob. ct chest negative for pe. PHYSICAL EXAM: VITALS: As below Gen: NAD, healthy appearing , HEENT: normocephalic , atraumatic, moist mucus membranes, anicteric eyes. CVS: RRR, normal S1n S2, no murmurs, rubs, or gallops, no edema, no jvd Resp: LCTAB, no rhochi, wheezes or crackles Abd : soft nontender, normal bowel sounds, no rebound tenderness or guarding MSK: no swelling, full range of motion, strength 5/5 Neuro: AOAx3, no confusion, no focal deficit Psych: normal mood and affect, good judgment Extremities: swelling of innner aspect of left thigh, no edema. 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 She denied fever, chills, chest pain, sob, dizziness, nausea, vomiting, diarrhea, dysuria . Patient said she is upto date on breast and cervical caner screening , both wnl, but never had colonoscopy before. Per ED endorsement , vascular surgeon was consulted who rec starting pt on heparin and placing an official consult for AM, He might take patient for thrombectomy. Recurrent Acute LLE dvt second episode. Need to rule out underlying malignancy started on heparin gtt Dr Vaughn to see Malignancy work up to be done as outpatient CT abdomen pelvis with contrast negative fro any mass does show that the clot is extensive involving also the common internal and external iliac veins. will also need colonoscopy as outpatient PMD to coordinate this. CT angio no PE. hypercoagulable work up has been ordered. History of Melanoma in 2014 will need underlying malignancy work up seen by Dr Borges no additional reccomendations. Hypertension continue amlodipine will hold olmesartan an Bp lowish and patient getting contrast studies. Hyperlipidemia continue statin Moderate persistent asthma continue advair and albuterol, montelukast Dysthymia continue buspirone Insomnia continue trazodone H/o Stress incontinence status post sling procedure on oxybutynin VS, I&O, 24H, Fishbone Vital Signs/I&O Vital Signs Date Time Temp Pulse Resp B/P (MAP) Pulse Ox O2 Delivery O2 Flow Rate FiO2 04/21/18 09:25 18 04/21/18 06:00 98.5 90 141/67 (91) 91 Room Air I&O- Last 24 Hours up to 6 AM 04/21/18 06:00 Intake Total 2277 ml Output Total 1300 ml Balance 977 ml Laboratory Data 24H LABS Laboratory Tests 2 04/21/18 01:27: Activated Partial Thromboplast Time 108.2H 04/21/18 08:21: Activated Partial Thromboplast Time 70.2H, Immature Granulocyte % (Auto) 1.2, White Blood Count 8.5, Red Blood Count 3.79L, Hemoglobin 11.7L, Hematocrit 35.1L, Mean Corpuscular Volume 92.6, Mean Corpuscular Hemoglobin 30.9, Mean Corpuscular Hemoglobin Concent 33.3, Red Cell Distribution Width 11.9, Platelet Count 326, Neutrophils (%) (Auto) 60.4, Lymphocytes (%) (Auto) 24.4, Monocytes (%) (Auto) 11.9H, Eosinophils (%) (Auto) 1.4, Basophils (%) (Auto) 0.7, Neutroph ils # (Auto) 5.1, Lymphocytes # (Auto) 2.1, Monocytes # (Auto) 1.0H, Eosinophils # (Auto) 0.1, Basophils # (Auto) 0.1, Nucleated Red Blood Cells % (auto) 0.0, Prothrombin Time 14.1, Prothromb Time International Ratio 1.08, Anion Gap 9, Glomerular Filtration Rate > 60.0, Blood Urea Nitrogen 5#L, Creatinine 0.49L, Sodium Level 146H, Potassium Level 3.3L, Chloride Level 114H, Carbon Dioxide Level 23, Calcium Level 8.4L CBC/BMP Laboratory Tests 1/8/19 08:21 Red Blood Count 3.79 L, Mean Corpuscular Volume 92.6, Mean Corpuscular Hemoglobin 30.9, Mean Corpuscular Hemoglobin Concent 33.3, Red Cell Distribution Width 11.9, Neutrophils (%) (Auto) 60.4, Lymphocytes (%) (Auto) 24.4, Monocytes (%) (Auto) 11.9 H, Eosinophils (%) (Auto) 1.4, Basophils (%) (Auto) 0.7, Neutrophils # (Auto) 5.1, Lymphocytes # (Auto) 2.1, Monocytes # (Auto) 1.0 H, Eosinophils # (Auto) 0.1, Basophils # (Auto) 0.1, Calcium Level 8.4 L MING KESSLER MD Apr 21, 2018 10:00
[2018-04-21 10:59] LABS: DRVV SCREEN 62.4 SEC
[2018-04-21 11:07] LABS: PTT LUPUS TYPE ANTICOAG SCREEN 1.5 (0-1.2)
[2018-04-21 11:15] LABS: DRVV CONFIRM 51.9 SEC; LUPUS CONFIRM RATIO 1.3
[2018-04-21 11:28] LABS: NORMALIZED RATIO 1.15 (0.00-1.20)
[2018-04-21 14:00] VITALS: BP 143/65
[2018-04-21] MEDS ORDERED: POTASSIUM CHLORIDE 10 MEQ SR TABLET PO ONE (14:30)
[2018-04-21] MEDS: traZODone 50 MG TAB PO SCH (20:29)
[2018-04-21] MEDS: OLMESARTAN MEDOXOMIL 20 MG TAB (BENICAR) PO SCH (20:29)
[2018-04-21] MEDS: MONTELUKAST 10 MG TAB PO SCH (20:30)
[2018-04-21] MEDS: amLODIPine 5 MG TAB PO SCH (20:30)
[2018-04-21 22:00] VITALS: BP 153/80
[2018-04-22] VITALS (14 sets, daily range): BP systolic 99–177; BP diastolic 54–86
[2018-04-22 00:07] LABS: CARDIOLIPIN IGA ANTIBODY <9 APL U/mL (0-11); CARDIOLIPIN IGG ANTIBODY <9 GPL U/mL (0-14); CARDIOLIPIN IGM ANTIBODY 10 MPL U/mL (0-12); HOMOCYST(E)INE SERUM 11.3 umol/L (0.0-15.0)
[2018-04-22] MEDS: ADVAIR HFA 115/21MCG INHALER INH SCH ×3 (02:19→20:48)
[2018-04-22] MEDS: HEPARIN DRIP 25,000 UNITS in APPROPRIATE DILUENT 1 EA IV SCH ×2 (02:58→16:12)
[2018-04-22] MEDS: D5W/0.9% SODIUM CHLORIDE 1,000 ML IV SCH ×2 (05:36→17:22)
[2018-04-22 06:34] LABS: BASO # 0.1 10^3/uL (0.0-0.2); BASO % 0.6 % (0.0-1.0); EOS # 0.2 10^3/uL (0.0-0.50); EOS % 1.5 % (0.0-3.0); HEMATOCRIT 33.9 % (36.0-47.0); HEMOGLOBIN 11.6 g/dl (12.0-15.5); LYMPH % 19.3 % (24.0-44.0); MEAN CORPUSCULAR HEMOGLOBIN 30.8 pg (27.0-33.0); MEAN CORPUSCULAR HGB CONC 34.2 g/dl (32.0-36.5); MEAN CORPUSCULAR VOLUME 89.9 fl (80.0-96.0); MONO # 1.2 10^3/uL (0.0-0.8); MONO % 11.9 % (0.0-5.0); NEUTROPHILS # 6.7 10^3/uL (1.8-7.7); NEUTROPHILS % 65.3 % (36.0-66.0); PLATELET COUNT, AUTOMATED 366 10^3/uL (150-450); RED BLOOD COUNT 3.77 10^6/uL (4.00-5.40); WHITE BLOOD COUNT 10.3 10^3/uL (4.0-10.0)
[2018-04-22 06:51] LABS: INR 1.07; PROTHROMBIN TIME 14.1 SECONDS (12.1-14.4)
[2018-04-22 06:56] LABS: BLOOD UREA NITROGEN 2 MG/DL (7-18); CALCIUM LEVEL 8.2 MG/DL (8.8-10.2); CARBON DIOXIDE LEVEL 24 MEQ/L (21-32); CHLORIDE LEVEL 113 MEQ/L (98-107); CREATININE FOR GFR 0.48 MG/DL (0.55-1.30); GLOMERULAR FILTRATION RATE > 60.0 (>45); GLUCOSE, FASTING 115 MG/DL (70-100); POTASSIUM SERUM 3.2 MEQ/L (3.5-5.1); SODIUM LEVEL 143 MEQ/L (136-145)
[2018-04-22 08:06] LABS: ANTI THROMBIN 3 ANTIGEN IMMUNO 89 % (72-124); ANTI THROMBIN 3 FUNCT ACTIVITY 101 % (75-135)
[2018-04-22] MEDS: oxyBUTYnin *DITROPAN XL* 5 MG TABCR PO SCH (08:51)
[2018-04-22] MEDS: PANTOPRAZOLE 40MG TAB (PROTONIX) PO SCH (08:51)
[2018-04-22] MEDS: busPIRone 5 MG TAB PO SCH ×2 (08:51→20:11)
[2018-04-22] MEDS ORDERED: POTASSIUM CHLORIDE 10 MEQ SR TABLET PO ONE (09:00)
--- NOTE | 2018-04-22 10:44 | IPNPDOC ---
Date Seen The patient was seen on 04/22/18. Progress Note SUBJECTIVE: Pt was evaluated by Vascular Surgery, Dr. Vaughn last night, and thrombectomy is planned for today per the patient. Her left thigh is improved with decreased swelling, and pain. no redness. She is able to ambulate, but still with some discomfort and leg heaviness. NO c/o chest pain, sob, or palpitations. CT chest angio was negative for PE. PHYSICAL EXAM: VITALS: As below Gen: NAD, healthy appearing , HEENT: normocephalic , atraumatic, moist mucus membranes, anicteric eyes. CVS: RRR, normal S1n S2, no murmurs, rubs, or gallops, no edema, no jvd Resp: LCTAB, no rhochi, wheezes or crackles Abd : soft nontender, normal bowel sounds, no rebound tenderness or guarding MSK: no swelling, full range of motion, strength 5/5 Neuro: AOAx3, no confusion, no focal deficit Psych: normal mood and affect, good judgment Extremities: swelling of innner aspect of left thigh, no edema. LABORATORY DATA And RADIOLOGY : Reviewed ASSESSMENT AND PLAN:This is a 67 yo female with pmhx of melanoma of her left thigh s/p surgical resection in 2015, and left lower extremity dvt 2 yrs ago s/p treatment then, hypertension, Moderate persistent asthma, hyperlipidemia, hyperuricemia, hashimotos thyroiditis, dysthymia, stress incontinence status post urethral sling procedure in 2018, inflammatory arthritis, insomnia , carpal tunnel syndrome status post release in 2018, presented to the ED for left lower extremity swelling and difficulty ambulating for 4 days. She denied fever, chills, chest pain, sob, dizziness, nausea, vomiting, diarrhea, dysuria . Patient said she is upto date on breast and cervical caner screening , both wnl, but never had colonoscopy before. Per ED endorsement , vascular surgeon was consulted who rec starting pt on heparin and placing an official consult for AM, He might take patient for thrombectomy. Recurrent Acute LLE dvt second episode. Need to rule out underlying malignancy on heparin gtt Dr Vaughn to schedule thrombectomy Malignancy work up to be done as outpatient CT abdomen pelvis with contrast negative fro any mass does show that the clot is extensive involving also the common internal and external iliac veins. will also need colonoscopy as outpatient PMD to coordinate this. CT angio no PE. hypercoagulable work up has been ordered. History of Melanoma in 2015 will need underlying malignancy work up seen by Dr Borges no additional reccomendations. Hypertension continue amlodipine will hold olmesartan an Bp lowish and patient getting contrast studies. Hyperlipidemia continue statin Moderate persistent asthma continue advair and albuterol, montelukast Dysthymia continue buspirone Insomnia continue trazodone H/o Stress incontinence status post sling procedure on oxybutynin disposition: pt awaiting thrombectomy to be scheduled by vascular surgery. VS, I&O, 24H, Fishbone Vital Signs/I&O Vital Signs Date Time Temp Pulse Resp B/P (MAP) Pulse Ox O2 Delivery O2 Flow Rate FiO2 04/22/18 06:00 98.5 100 18 135/78 (97) 94 Room Air I&O- Last 24 Hours up to 6 AM 04/22/18 06:00 Intake Total 1554 ml Output Total 900 ml Balance 654 ml Laboratory Data 24H LABS Laboratory Tests 2 04/21/18 14:25: Activated Partial Thromboplast Time 68.7H 04/21/18 20:20: Activated Partial Thromboplast Time 67.8H 04/22/18 05:19: Activated Partial Thromboplast Time 58.0H, Immature Granulocyte % (Auto) 1.4, White Blood Count 10.3H, Red Blood Count 3.77L, Hemoglobin 11.6L, Hematocrit 33.9L, Mean Corpuscular Volume 89.9, Mean Corpuscular Hemoglobin 30.8, Mean Corpuscular Hemoglobin Concent 34.2, Red Cell Distribution Width 11.6, Platelet Count 366, Neutrophils (%) (Auto) 65.3, Lymphocytes (%) (Auto) 19.3L, Monocytes (%) (Auto) 11.9H, Eosinophils (%) (Auto) 1.5, Basophils (%) (Auto) 0.6, Neutrophils # (Auto) 6.7, Lymphocytes # (Auto) 2.0, Monocytes # (Auto) 1.2H, Eosinophils # (Auto) 0.2, Basophils # (Auto) 0.1, Nucleated Red Blood Cells % (auto) 0.0, Prothrombin Time 14.1, Prothromb Time International Ratio 1.07, Fibrinogen 699H, Anion Gap 6L, Glomerular Filtration Rate > 60.0, Blood Urea Nitrogen 2#L, Creatinine 0.48L, Sodium Level 143, Potassium Level 3.2L, Chloride Level 113H, Carbon Dioxide Level 24, Calcium Level 8.2L CBC/BMP Laboratory Tests 04/22/18 05:19 Red Blood Count 3.77 L, Mean Corpuscular Volume 89.9, Mean Corpuscular Hemoglobin 30.8, Mean Corpuscular Hemoglobin Concent 34.2, Red Cell Distribution Width 11.6, Neutrophils (%) (Auto) 65.3, Lymphocytes (%) (Auto) 19.3 L, Monocytes (%) (Auto) 11.9 H, Eosinophils (%) (Auto) 1.5, Basophils (%) (Auto) 0.6, Neutrophils # (Auto) 6.7, Lymphocytes # (Auto) 2.0, Monocytes # (Auto) 1.2 H, Eosinophils # (Auto) 0.2, Basophils # (Auto) 0.1, Calcium Level 8.2 L Microbiology Microbiology 04/21/18 Stool Occult Blood (RAFAELA) - Final, Complete MING KESSLER MD Apr 22, 2018 10:44
[2018-04-22] MEDS ORDERED: ALTEPLASE RECOMBINANT 10 MG in APPROPRIATE DILUENT 1 EA IV ONE (12:00)
[2018-04-22] MEDS ORDERED: ISOVUE-300 61% 50ML VIAL (Q9967) As Ordered ONE ×2 (12:33→14:20)
[2018-04-22] MEDS ORDERED: LIDOCAINE 2% MDV 20 ML VIAL As Ordered ONE ×2 (12:33→12:50)
[2018-04-22] MEDS ORDERED: fentaNYL 100 MCG/2 ML INJECTION (J3010) As Ordered ONE (12:57)
[2018-04-22] MEDS ORDERED: MIDAZOLAM INJ 2 MG/2 ML VIAL (J2250) As Ordered ONE (12:58)
[2018-04-22] MEDS ORDERED: ALTEPLASE 2 MG/2 ML VIAL (J2997 PER 1MG) As Ordered ONE (13:31)
[2018-04-22] MEDS: ALTEPLASE RECOMBINANT 25 MG in NS 225 ML IV SCH (16:11)
[2018-04-22 17:12] LABS: INR 1.11; PROTHROMBIN TIME 14.5 SECONDS (12.1-14.4)
[2018-04-22 17:13] LABS: PARTIAL THROMBOPLASTIN TIME 60.6 SECONDS (25.4-37.6)
[2018-04-22] MEDS: SODIUM CHLORIDE 0.9% INJ 10 ML SYR IV SCH (18:09)
[2018-04-22] MEDS: traZODone 50 MG TAB PO SCH (20:11)
[2018-04-22] MEDS: ATORVASTATIN 5MG PER 1/2 TABLET PO SCH (20:11)
[2018-04-22] MEDS: OLMESARTAN MEDOXOMIL 20 MG TAB (BENICAR) PO SCH (20:11)
[2018-04-22] MEDS: MONTELUKAST 10 MG TAB PO SCH (20:11)
[2018-04-22] MEDS: ACETAMINOPHEN TAB 650MG DOSE (2X325MG) PO PRN (20:11)
[2018-04-22] MEDS: amLODIPine 5 MG TAB PO SCH (20:12)
[2018-04-22 23:40] LABS: HEMATOCRIT 33.1 % (36.0-47.0)
[2018-04-22 23:52] LABS: PARTIAL THROMBOPLASTIN TIME 74.3 SECONDS (25.4-37.6)
[2018-04-23] VITALS (24 sets, daily range): BP systolic 107–161; BP diastolic 54–74
[2018-04-23 00:07] LABS: PROTEIN C RESISTANCE ACTIVATED 2.9 ratio (2.2-3.5)
[2018-04-23] MEDS: SODIUM CHLORIDE 0.9% INJ 10 ML SYR IV PRN (00:50)
[2018-04-23] MEDS: HEPARIN DRIP 25,000 UNITS in APPROPRIATE DILUENT 1 EA IV SCH (05:08)
[2018-04-23] MEDS: SODIUM CHLORIDE 0.9% INJ 10 ML SYR IV SCH ×2 (05:08→17:17)
[2018-04-23] MEDS: ACETAMINOPHEN TAB 650MG DOSE (2X325MG) PO PRN ×2 (05:08→23:32)
[2018-04-23 05:39] LABS: BASO # 0.1 10^3/uL (0.0-0.2); BASO % 0.6 % (0.0-1.0); EOS # 0.1 10^3/uL (0.0-0.50); HEMATOCRIT 34.3 % (36.0-47.0); HEMOGLOBIN 11.7 g/dl (12.0-15.5); LYMPH # 2.3 10^3/uL (1.5-4.5); LYMPH % 18.6 % (24.0-44.0); MEAN CORPUSCULAR HEMOGLOBIN 30.8 pg (27.0-33.0); MEAN CORPUSCULAR HGB CONC 34.1 g/dl (32.0-36.5); MEAN CORPUSCULAR VOLUME 90.3 fl (80.0-96.0); MONO # 1.5 10^3/uL (0.0-0.8); MONO % 12.3 % (0.0-5.0); NEUTROPHILS # 8.2 10^3/uL (1.8-7.7); NEUTROPHILS % 65.8 % (36.0-66.0); PLATELET COUNT, AUTOMATED 340 10^3/uL (150-450); WHITE BLOOD COUNT 12.5 10^3/uL (4.0-10.0)
[2018-04-23 05:50] LABS: PARTIAL THROMBOPLASTIN TIME 72.7 SECONDS (25.4-37.6)
[2018-04-23 06:03] LABS: BLOOD UREA NITROGEN 4 MG/DL (7-18); CALCIUM LEVEL 8.2 MG/DL (8.8-10.2); CARBON DIOXIDE LEVEL 25 MEQ/L (21-32); CHLORIDE LEVEL 111 MEQ/L (98-107); CREATININE FOR GFR 0.53 MG/DL (0.55-1.30); GLOMERULAR FILTRATION RATE > 60.0 (>45); GLUCOSE, FASTING 103 MG/DL (70-100); POTASSIUM SERUM 3.5 MEQ/L (3.5-5.1); SODIUM LEVEL 144 MEQ/L (136-145)
--- NOTE | 2018-04-23 07:46 | IPNPDOC ---
Date Seen The patient was seen on 04/23/18. Progress Note SUBJECTIVE: Pt had some bleeding at the PICC line site while on alteplase. s/p thrombectomy 04/22/18. c/o serous eye discharge, and sinus tenderness and congestion with mucupurulent drainage. no headache. no fever or chills. pt's left LE pain is improved, but worse when she ambulates to the commode with increased swelling and redness. PHYSICAL EXAM: VITALS: As below Gen: NAD, healthy appearing , HEENT: normocephalic , atraumatic, moist mucus membranes, anicteric eyes. maxillary sinus tenderness. CVS: RRR, normal S1n S2, no murmurs, rubs, or gallops, no edema, no jvd Resp: LCTAB, no rhochi, wheezes or crackles Abd : soft nontender, normal bowel sounds, no rebound tenderness or guarding MSK: no swelling, full range of motion, strength 5/5 Neuro: AOAx3, no confusion, no focal deficit Psych: normal mood and affect, good judgment Extremities: swelling of innner aspect of left thigh, no edema. LABORATORY DATA And RADIOLOGY : Reviewed ASSESSMENT AND PLAN:This is a 67 yo female with pmhx of melanoma of her left thigh s/p surgical resection in 2015, and left lower extremity dvt 2 yrs ago s/p treatment then, hypertension, Moderate persistent asthma, hyperlipidemia, hyperuricemia, hashimotos thyroiditis, dysthymia, stress incontinence status post urethral sling procedure in 2018, inflammatory arthritis, insomnia , carpal tunnel syndrome status post release in 2018, presented to the ED for left lower extremity swelling and difficulty ambulating for 4 days. She denied fever, chills, chest pain, sob, dizziness, nausea, vomiting, diarrhea, dysuria . Patient said she is upto date on breast and cervical caner screening , both wnl, but never had colonoscopy before. Per ED endorsement , vascular surgeon was consulted who rec starting pt on heparin and placing an official consult for AM, He might take patient for thrombectomy. Recurrent Acute LLE dvt second episode. Need to rule out underlying malignancy on heparin gtt Dr Vaughn s/p thrombectomy 04/23/18 on alteplase 04/22/18 with bleeding at PICC site, but controlled. Malignancy work up to be done as outpatient CT abdomen pelvis with contrast negative fro any mass does show that the clot is extensive involving also the common internal and external iliac veins. will also need colonoscopy as outpatient PMD to coordinate this. CT angio no PE. hypercoagulable work up has been ordered. Acute sinusitis on amoxicillin x 10 days. History of Melanoma in 2015 will need underlying malignancy work up seen by Dr Borges no additional reccomendations. Hypertension continue amlodipine will hold olmesartan an Bp lowish and patient getting contrast studies. Hyperlipidemia continue statin Moderate persistent asthma continue advair and albuterol, montelukast Dysthymia continue buspirone Insomnia continue trazodone H/o Stress incontinence status post sling procedure on oxybutynin disposition: pending clinical improvement , still on alteplase, per vascular surgery. VS, I&O, 24H, Hungbone Vital Signs/I&O Vital Signs Date Time Temp Pulse Resp B/P (MAP) Pulse Ox O2 Delivery O2 Flow Rate FiO2 04/23/18 06:00 93 133/63 (86) 94 Room Air 04/23/18 04:00 99.3 20 I&O- Last 24 Hours up to 6 AM 04/23/18 06:00 Intake Total 1644 ml Output Total 650 ml Balance 994 ml Laboratory Data 24H LABS Laboratory Tests 2 04/22/18 16:34: Prothrombin Time 14.5H, Prothromb Time International Ratio 1.11, Activated Partial Thromboplast Time 60.6H 04/22/18 16:35: Fibrinogen 676H 04/22/18 23:00: Activated Partial Thromboplast Time 74.3H, Fibrinogen 610H 04/23/18 05:12: Activated Partial Thromboplast Time 72.7H, Fibrinogen 663H, Immature Granulocyte % (Auto) 1.7, White Blood Count 12.5H, Red Blood Count 3.80L, Hemoglobin 11.7L, Hematocrit 34.3L, Mean Corpuscular Volume 90.3, Mean Corpuscular Hemoglobin 30.8, Mean Corpuscular Hemoglobin Concent 34.1, Red Cell Distribution Width 11.9, Platelet Count 340, Neutrophils (%) (Auto) 65.8, Lymphocytes (%) (Auto) 18.6L, Monocytes (%) (Auto) 12.3H, Eosinophils (%) (Auto) 1.0, Basophils (%) (Auto) 0.6, Neutrophils # (Auto) 8.2H, Lymphocytes # (Auto) 2.3, Monocytes # (Auto) 1.5H, Eosinophils # (Auto) 0.1, Basophils # (Auto) 0.1, Nucleated Red Blood Cells % (auto) 0.0, Anion Gap 8, Glomerular Filtration Rate > 60.0, Blood Urea Nitrogen 4#L, Creatinine 0.53L, Sodium Level 144, Potassium Level 3.5, Chloride Level 111H, Carbon Dioxide Level 25, Calcium Level 8.2L CBC/BMP Laboratory Tests 04/22/18 23:00 04/23/18 05:12 Red Blood Count 3.80 L, Mean Corpuscular Volume 90.3, Mean Corpuscular Hemoglobin 30.8, Mean Corpuscular Hemoglobin Concent 34.1, Red Cell Distribution Width 11.9, Neutrophils (%) (Auto) 65.8, Lymphocytes (%) (Auto) 18.6 L, Monocytes (%) (Auto) 12.3 H, Eosinophils (%) (Auto) 1.0, Basophils (%) (Auto) 0.6, Neutrophils # (Auto) 8.2 H, Lymphocytes # (Auto) 2.3, Monocytes # (Auto) 1.5 H, Eosinophils # (Auto) 0.1, Basophils # (Auto) 0.1, Calcium Level 8.2 L Microbiology Microbiology 04/21/18 Stool Occult Blood (RAFAELA) - Final, Complete MING KESSLER MD Apr 23, 2018 07:45
[2018-04-23] MEDS: ADVAIR HFA 115/21MCG INHALER INH SCH ×2 (08:44→21:49)
[2018-04-23] MEDS: POLYVINYL ALCOHOL OPHTH SOLN 15 ML(LIQUITEARS) OU SCH ×3 (09:02→21:07)
[2018-04-23] MEDS: oxyBUTYnin *DITROPAN XL* 5 MG TABCR PO SCH (09:03)
[2018-04-23] MEDS: busPIRone 5 MG TAB PO SCH ×2 (09:03→21:08)
[2018-04-23] MEDS: AMOXICILLIN 500 MG CAP PO SCH ×3 (09:03→21:08)
[2018-04-23] MEDS: ALTEPLASE RECOMBINANT 25 MG in NS 225 ML IV SCH (10:02)
[2018-04-23] MEDS: PERCOCET 5MG/325MG TAB PO PRN ×2 (10:50→19:49)
[2018-04-23 11:09] LABS: HEMATOCRIT 33.2 % (36.0-47.0); HEMOGLOBIN 11.3 g/dl (12.0-15.5)
[2018-04-23 11:49] LABS: PARTIAL THROMBOPLASTIN TIME 87.5 SECONDS (25.4-37.6)
[2018-04-23 17:14] LABS: HEMATOCRIT 32.1 % (36.0-47.0)
[2018-04-23 17:26] LABS: PARTIAL THROMBOPLASTIN TIME 89.6 SECONDS (25.4-37.6)
[2018-04-23] MEDS: MONTELUKAST 10 MG TAB PO SCH (21:09)
[2018-04-23] MEDS: amLODIPine 5 MG TAB PO SCH (21:09)
[2018-04-23] MEDS: traZODone 50 MG TAB PO SCH (21:09)
[2018-04-23] MEDS: OLMESARTAN MEDOXOMIL 20 MG TAB (BENICAR) PO SCH (21:10)
[2018-04-23 23:34] LABS: HEMATOCRIT 32.4 % (36.0-47.0); HEMOGLOBIN 11.1 g/dl (12.0-15.5)
[2018-04-23 23:50] LABS: PARTIAL THROMBOPLASTIN TIME 87.1 SECONDS (25.4-37.6)
[2018-04-24] VITALS (18 sets, daily range): BP systolic 100–179; BP diastolic 50–77
[2018-04-24] MEDS: SODIUM CHLORIDE 0.9% INJ 10 ML SYR IV SCH ×2 (05:02→17:11)
[2018-04-24] MEDS: AMOXICILLIN 500 MG CAP PO SCH ×3 (05:02→21:47)
[2018-04-24] MEDS: HEPARIN DRIP 25,000 UNITS in APPROPRIATE DILUENT 1 EA IV SCH (05:15)
[2018-04-24 05:28] LABS: BASO # 0.1 10^3/uL (0.0-0.2); BASO % 0.7 % (0.0-1.0); EOS # 0.2 10^3/uL (0.0-0.50); EOS % 1.7 % (0.0-3.0); HEMOGLOBIN 11.3 g/dl (12.0-15.5); LYMPH # 2.5 10^3/uL (1.5-4.5); LYMPH % 20.8 % (24.0-44.0); MEAN CORPUSCULAR HEMOGLOBIN 30.6 pg (27.0-33.0); MEAN CORPUSCULAR HGB CONC 34.2 g/dl (32.0-36.5); MEAN CORPUSCULAR VOLUME 89.4 fl (80.0-96.0); MONO # 1.3 10^3/uL (0.0-0.8); MONO % 10.4 % (0.0-5.0); NEUTROPHILS # 7.7 10^3/uL (1.8-7.7); NEUTROPHILS % 64.1 % (36.0-66.0); PLATELET COUNT, AUTOMATED 284 10^3/uL (150-450); RED BLOOD COUNT 3.69 10^6/uL (4.00-5.40)
[2018-04-24 05:46] LABS: PARTIAL THROMBOPLASTIN TIME 75.1 SECONDS (25.4-37.6)
[2018-04-24 06:19] LABS: BLOOD UREA NITROGEN 7 MG/DL (7-18); CALCIUM LEVEL 8.2 MG/DL (8.8-10.2); CARBON DIOXIDE LEVEL 26 MEQ/L (21-32); CHLORIDE LEVEL 110 MEQ/L (98-107); CREATININE FOR GFR 0.55 MG/DL (0.55-1.30); GLOMERULAR FILTRATION RATE > 60.0 (>45); GLUCOSE, FASTING 95 MG/DL (70-100); POTASSIUM SERUM 3.6 MEQ/L (3.5-5.1); SODIUM LEVEL 144 MEQ/L (136-145)
[2018-04-24] MEDS: ADVAIR HFA 115/21MCG INHALER INH SCH ×2 (07:32→20:06)
[2018-04-24] MEDS: busPIRone 5 MG TAB PO SCH ×2 (09:11→21:47)
[2018-04-24] MEDS: oxyBUTYnin *DITROPAN XL* 5 MG TABCR PO SCH (09:11)
[2018-04-24] MEDS: PANTOPRAZOLE 40MG TAB (PROTONIX) PO SCH (09:11)
[2018-04-24] MEDS: POLYVINYL ALCOHOL OPHTH SOLN 15 ML(LIQUITEARS) OU SCH ×3 (09:12→21:48)
[2018-04-24] MEDS: ACETAMINOPHEN TAB 650MG DOSE (2X325MG) PO PRN (09:14)
[2018-04-24] MEDS: ALTEPLASE RECOMBINANT 25 MG in NS 225 ML IV SCH (10:58)
[2018-04-24 11:25] LABS: HEMOGLOBIN 11.2 g/dl (12.0-15.5)
--- NOTE | 2018-04-24 12:11 | IPNPDOC ---
Date Seen The patient was seen on 04/24/18. Progress Note SUBJECTIVE: No complaints this morning. She denies any chest pain, shortness of breath, palpitations, and says the her left leg is feeling better with less swelling and heaviness. no paresthesias on the leg. Her ambulation is still limited but much improved from admission. Her PICC line on right arm continues to have intermittent bleeding controlled with a compressive dressing. H&H remains unchanged with hgb 11.2-11.3, with no indication for RBC transfusion. still on iv alteplace and iv heparin gtt managed by vascular surgery with plans for repeat imaging to check circulation s/p thrombectomy. PHYSICAL EXAM: VITALS: As below Gen: NAD, healthy appearing , HEENT: normocephalic , atraumatic, moist mucus membranes, anicteric eyes. maxillary sinus tenderness. CVS: RRR, normal S1n S2, no murmurs, rubs, or gallops, no edema, no jvd Resp: LCTAB, no rhochi, wheezes or crackles Abd : soft nontender, normal bowel sounds, no rebound tenderness or guarding MSK: no swelling, full range of motion, strength 5/5 Neuro: AOAx3, no confusion, no focal deficit Psych: normal mood and affect, good judgment Extremities: swelling of innner aspect of left thigh, no edema. 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 She denied fever, chills, chest pain, sob, dizziness, nausea, vomiting, diarrhea, dysuria . Patient said she is upto date on breast and cervical caner screening , both wnl, but never had colonoscopy before. Per ED endorsement , vascular surgeon was consulted who rec starting pt on heparin and placing an official consult for AM, He might take patient for thrombectomy. Recurrent Acute LLE dvt second episode. Need to rule out underlying malignancy on heparin gtt Dr Vaughn s/p thrombectomy 04/23/18 on alteplase 04/22/18 with bleeding at PICC site , but controlled. Malignancy work up to be done as outpatient CT abdomen pelvis with contrast negative fro any mass does show that the clot is extensive involving also the common internal and external iliac veins. will also need colonoscopy as outpatient PMD to coordinate this. CT angio no PE. hypercoagulable work up has been ordered. Acute Blood loss anemia at the PICC line site due to alteplase and iv heparin iv gtt for the LLE DVT s/p thrombectomy no acute indication for rbc transfusion hemoglobin is stable at 11.2 to 11.3 with no symptoms of anemia. She denies any chest pain, shortness of breath, palpitations, dizziness, or lightheadedness. Acute sinusitis on amoxicillin x 10 days. History of Melanoma in 2015 will need underlying malignancy work up seen by Dr Borges no additional reccomendations. Hypertension continue amlodipine will hold olmesartan an Bp lowish and patient getting contrast studies. Hyperlipidemia continue statin Moderate persistent asthma continue advair and albuterol, montelukast Dysthymia continue buspirone Insomnia continue trazodone H/o Stress incontinence status post sling procedure on oxybutynin disposition: pending clinical improvement , still on alteplase, per vascular surgery. VS, I&O, 24H, Sonam Vital Signs/I&O Vital Signs Date Time Temp Pulse Resp B/P (MAP) Pulse Ox O2 Delivery O2 Flow Rate FiO2 04/24/18 11:00 90 130/62 (84) 96 Room Air 04/24/18 10:00 16 04/24/18 08:00 99.0 I&O- Last 24 Hours up to 6 AM 04/24/18 05:59 Intake Total 2400 ml Output Total 750 ml Balance 1650 ml Laboratory Data 24H LABS Laboratory Tests 2 04/23/18 16:49: Activated Partial Thromboplast Time 89.6H, Fibrinogen 564H 04/23/18 23:05: Activated Partial Thromboplast Time 87.1H, Fibrinogen 512H 04/24/18 05:00: Activated Partial Thromboplast Time 75.1H, Fibrinogen 498H, Immature Granulocyte % (Auto) 2.3, White Blood Count 12.0H, Red Blood Count 3.69L, Hemoglobin 11.3L, Hematocrit 33.0L, Mean Corpuscular Volume 89.4, Mean Corpuscular Hemoglobin 30.6, Mean Corpuscular Hemoglobin Concent 34.2, Red Cell Distribution Width 1 1.9, Platelet Count 284, Neutrophils (%) (Auto) 64.1, Lymphocytes (%) (Auto) 20.8L, Monocytes (%) (Auto) 10.4H, Eosinophils (%) (Auto) 1.7, Basophils (%) (Auto) 0.7, Neutrophils # (Auto) 7.7, Lymphocytes # (Auto) 2.5, Monocytes # (Auto) 1.3H, Eosinophils # (Auto) 0.2, Basophils # (Auto) 0.1, Nucleated Red Blood Cells % (auto) 0.0, Anion Gap 8, Glomerular Filtration Rate > 60.0, Blood Urea Nitrogen 7#, Creatinine 0.55, Sodium Level 144, Potassium Level 3.6, Chloride Level 110H, Carbon Dioxide Level 26, Calcium Level 8.2L 04/24/18 11:00: Activated Partial Thromboplast Time 84.0H, Fibrinogen 500H CBC/BMP Laboratory Tests 04/23/18 16:49 04/23/18 23:05 04/24/18 05:00 Red Blood Count 3.69 L, Mean Corpuscular Volume 89.4, Mean Corpuscular Hemoglobin 30.6, Mean Corpuscular Hemoglobin Concent 34.2, Red Cell Distribution Width 11.9, Neutrophils (%) (Auto) 64.1, Lymphocytes (%) (Auto) 20.8 L, Monocytes (%) (Auto) 10.4 H, Eosinophils (%) (Auto) 1.7, Basophils (%) (Auto) 0.7, Neutrophils # (Auto) 7.7, Lymphocytes # (Auto) 2.5, Monocytes # (Auto) 1.3 H, Eosinophils # (Auto) 0.2, Basophils # (Auto) 0.1, Calcium Level 8.2 L 04/24/18 11:00 Microbiology Microbiology 04/23/18 Stool Occult Blood (RAFAELA) - Final, Complete 04/21/18 Stool Occult Blood (RAFAELA) - Final, Complete MING KESSLER MD Apr 24, 2018 12:11
[2018-04-24] MEDS ORDERED: LIDOCAINE 2% MDV 20 ML VIAL As Ordered ONE (12:15)
[2018-04-24] MEDS ORDERED: ISOVUE-300 61% 50ML VIAL (Q9967) As Ordered ONE (12:15)
[2018-04-24] MEDS: PERCOCET 5MG/325MG TAB PO PRN (13:49)
[2018-04-24 17:29] LABS: HEMATOCRIT 33.2 % (36.0-47.0); HEMOGLOBIN 11.4 g/dl (12.0-15.5)
[2018-04-24 17:40] LABS: PARTIAL THROMBOPLASTIN TIME 99.7 SECONDS (25.4-37.6)
[2018-04-24] MEDS: traZODone 50 MG TAB PO SCH (21:46)
[2018-04-24] MEDS: amLODIPine 5 MG TAB PO SCH (21:46)
[2018-04-24] MEDS: ATORVASTATIN 5MG PER 1/2 TABLET PO SCH (21:46)
[2018-04-24] MEDS: MONTELUKAST 10 MG TAB PO SCH (21:48)
[2018-04-24] MEDS: OLMESARTAN MEDOXOMIL 20 MG TAB (BENICAR) PO SCH (21:48)
[2018-04-25] VITALS (23 sets, daily range): BP systolic 116–167; BP diastolic 55–75
[2018-04-25 03:23] LABS: BASO # 0.1 10^3/uL (0.0-0.2); EOS # 0.3 10^3/uL (0.0-0.50); EOS % 2.2 % (0.0-3.0); HEMATOCRIT 29.5 % (36.0-47.0); HEMATOCRIT 30.3 % (36.0-47.0); HEMOGLOBIN 10.2 g/dl (12.0-15.5); HEMOGLOBIN 10.3 g/dl (12.0-15.5); LYMPH # 2.4 10^3/uL (1.5-4.5); LYMPH % 20.3 % (24.0-44.0); MEAN CORPUSCULAR HEMOGLOBIN 30.7 pg (27.0-33.0); MEAN CORPUSCULAR VOLUME 90.4 fl (80.0-96.0); MONO # 1.5 10^3/uL (0.0-0.8); MONO % 12.4 % (0.0-5.0); NEUTROPHILS # 7.1 10^3/uL (1.8-7.7); NEUTROPHILS % 60.1 % (36.0-66.0); PLATELET COUNT, AUTOMATED 209 10^3/uL (150-450); RED BLOOD COUNT 3.35 10^6/uL (4.00-5.40); WHITE BLOOD COUNT 11.8 10^3/uL (4.0-10.0)
[2018-04-25 03:34] LABS: PARTIAL THROMBOPLASTIN TIME 78.5 SECONDS (25.4-37.6)
[2018-04-25] MEDS: HEPARIN DRIP 25,000 UNITS in APPROPRIATE DILUENT 1 EA IV SCH (04:25)
[2018-04-25 04:47] LABS: BLOOD UREA NITROGEN 9 MG/DL (7-18); CALCIUM LEVEL 7.9 MG/DL (8.8-10.2); CARBON DIOXIDE LEVEL 28 MEQ/L (21-32); CHLORIDE LEVEL 109 MEQ/L (98-107); CREATININE FOR GFR 0.38 MG/DL (0.55-1.30); GLOMERULAR FILTRATION RATE > 60.0 (>45); GLUCOSE, FASTING 91 MG/DL (70-100); POTASSIUM SERUM 2.8 MEQ/L (3.5-5.1); SODIUM LEVEL 145 MEQ/L (136-145)
[2018-04-25] MEDS ORDERED: POTASSIUM CHLORIDE 10 MEQ SR TABLET PO ONE ×2 (05:00→06:00)
[2018-04-25] MEDS: SODIUM CHLORIDE 0.9% INJ 10 ML SYR IV SCH ×2 (06:17→17:35)
[2018-04-25] MEDS: AMOXICILLIN 500 MG CAP PO SCH ×3 (06:17→21:00)
[2018-04-25] MEDS ORDERED: SODIUM CHLORIDE NASAL 0.65% SPRAY BTL (OCEAN) PRN (07:30)
--- NOTE | 2018-04-25 07:31 | IPNPDOC ---
Date Seen The patient was seen on 04/25/18. Progress Note SUBJECTIVE: Per pt, increased perfusion with 75% of the blockage improved after yesterday's imaging. no recurrent bleeding from PICC line on right arm, currently with a compressive dressing.. She denies any chest pain, shortness of breath, palpitations, and says the her left leg is feeling better with less swelling and heaviness. no paresthesias on the leg. Her ambulation is much improved from admission and feels less heavy. H&H remains stable , with no indication for RBC transfusion. still on iv alteplace and iv heparin gtt managed by vascular surgery. She c/o nasal dryness on prn and tid ocean spray. PHYSICAL EXAM: VITALS: As below Gen: NAD, healthy appearing , HEENT: normocephalic , atraumatic, moist mucus membranes, anicteric eyes. maxillary sinus tenderness. CVS: RRR, normal S1n S2, no murmurs, rubs, or gallops, no edema, no jvd Resp: LCTAB, no rhochi, wheezes or crackles Abd : soft nontender, normal bowel sounds, no rebound tenderness or guarding MSK: no swelling, full range of motion, strength 5/5 Neuro: AOAx3, no confusion, no focal deficit Psych: normal mood and affect, good judgment Extremities: swelling of innner aspect of left thigh, no edema. 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 She denied fever, chills, chest pain, sob, dizziness, nausea, vomiting, diarrhea, dysuria . Patient said she is upto date on breast and cervical caner screening , both wnl, but never had colonoscopy before. Per ED endorsement , vascular surgeon was consulted who rec starting pt on heparin and placing an official consult for AM, He might take patient for thrombectomy. Recurrent Acute LLE dvt second episode. Need to rule out underlying malignancy on heparin gtt Dr Vaughn s/p thrombectomy 04/23/18 on alteplase 04/22/18 with bleeding at PICC site, but controlled. Malignancy work up to be done as outpatient CT abdomen pelvis with contrast negative fro any mass does show that the clot is extensive involving also the common internal and external iliac veins. will also need colonoscopy as outpatient PMD to coordinate this. CT angio no PE. hypercoagulable work up has been ordered. Acute Blood loss anemia at the PICC line site due to alteplase and iv heparin iv gtt for the LLE DVT s/p thrombectomy no acute indication for rbc transfusion hemoglobin is stable at 11.2 to 11.3 with no symptoms of anemia. She denies any chest pain, shortness of breath, palpitations, dizziness, or lightheadedness. Acute sinusitis on amoxicillin x 10 days. Nasal dryness prn ocean spray ocean spray TID History of Melanoma in 2014 will need underlying malignancy work up seen by Dr Borges no additional reccomendations. Hypertension continue amlodipine will hold olmesartan an Bp lowish and patient getting contrast studies. Hyperlipidemia continue statin Moderate persistent asthma continue advair and albuterol, montelukast Dysthymia continue buspirone Insomnia continue trazodone H/o Stress incontinence status post sling procedure on oxybutynin disposition: pending clinical improvement , still on alteplase, per vascular surgery. VS, I&O, 24H, Fishbone Vital Signs/I&O Vital Signs Date Time Temp Pulse Resp B/P (MAP) Pulse Ox O2 Delivery O2 Flow Rate FiO2 04/25/18 06:00 89 129/60 (83) 93 Room Air 04/25/18 04:00 99.7 20 I&O- Last 24 Hours up to 6 AM 04/25/18 05:59 Intake Total 1166 ml Output Total 900 ml Balance 266 ml Laboratory Data 24H LABS Laboratory Tests 2 04/24/18 11:00: Activated Partial Thromboplast Time 84.0H, Fibrinogen 500H 04/24/18 17:12: Activated Partial Thromboplast Time 99.7H, Fibrinogen 246 04/24/18 20:32: Activated Partial Thromboplast Time 130.2*H, Fibrinogen 202L 04/25/18 03:10: Activated Partial Thromboplast Time 78.5H, Fibrinogen 189L, Immature Granulocyte % (Auto) 4.0H, White Blood Count 11.8H, Red Blood Count 3.35L, Hemoglobin 10.3L, Hematocrit 30.3L, Mean Corpuscular Volume 90.4, Mean Corpuscular Hemoglobin 30.7, Mean Corpuscular Hemoglobin Concent 34.0, Red Cell Distribution Width 11.9, Platelet Count 209, Neutrophils (%) (Auto) 60.1, Lymphocytes (%) (Auto) 20.3L, Monocytes (%) (Auto) 12.4H, Eosinophils (%) (Auto) 2.2, Basophils (%) (Auto) 1.0, Neutrophils # (Auto) 7.1, Lymphocytes # (Auto) 2.4, Monocytes # (Auto) 1.5H, Eosinophils # (Auto) 0.3, Basophils # (Auto) 0.1, Nucleated Red Blood Cells % (auto) 0.0, Anion Gap 8, Glomerular Filtration Rate > 60.0, Blood Urea Nitrogen 9, Creatinine 0.38L, Sodium Level 145, Potassium Level 2.8#*L, Chloride Level 109H, Carbon Dioxide Level 28, Calcium Level 7.9L CBC/BMP Laboratory Tests 04/24/18 11:00 04/24/18 17:12 04/25/18 03:10 Red Blood Count 3.35 L, Mean Corpuscular Volume 90.4, Mean Corpuscular Hemoglobin 30.7, Mean Corpuscular Hemoglobin Concent 34.0, Red Cell Distribution Width 11.9, Neutrophils (%) (Auto) 60.1, Lymphocytes (%) (Auto) 20.3 L, Monocytes (%) (Auto) 12.4 H, Eosinophils (%) (Auto) 2.2, Basophils (%) (Auto) 1.0, Neutrophils # (Auto) 7.1, Lymphocytes # (Auto) 2.4, Monocytes # (Auto) 1.5 H, Eosinophils # (Auto) 0.3, Basophils # (Auto) 0.1, Calcium Level 7.9 L Microbiology Microbiology 04/24/18 Stool Occult Blood (RAFAELA) - Final, Complete 04/23/18 Stool Occult Blood (RAFAELA) - Final, Complete 04/21/18 Stool Occult Blood (RAFAELA) - Final, Complete MING KESSLER MD Apr 25, 2018 07:29
[2018-04-25] MEDS: oxyBUTYnin *DITROPAN XL* 5 MG TABCR PO SCH (08:05)
[2018-04-25] MEDS: LACTOBACILLUS ACIDOPHILUS CAP (BACID) PO SCH ×2 (08:05→17:34)
[2018-04-25] MEDS: busPIRone 5 MG TAB PO SCH ×2 (08:05→20:59)
[2018-04-25] MEDS: POLYVINYL ALCOHOL OPHTH SOLN 15 ML(LIQUITEARS) OU SCH ×3 (08:06→20:59)
[2018-04-25] MEDS: ADVAIR HFA 115/21MCG INHALER INH SCH ×2 (08:07→20:01)
[2018-04-25 09:23] LABS: HEMATOCRIT 31.1 % (36.0-47.0); HEMOGLOBIN 10.6 g/dl (12.0-15.5)
[2018-04-25] MEDS: PERCOCET 5MG/325MG TAB PO PRN (09:34)
[2018-04-25 09:35] LABS: PARTIAL THROMBOPLASTIN TIME 66.4 SECONDS (25.4-37.6)
[2018-04-25] MEDS ORDERED: MAG SULF 1GM/100ML (MAG RUN) 1 GM in APPROPRIATE DILUENT 1 EA IV ONE (09:45)
[2018-04-25 10:39] LABS: MAGNESIUM LEVEL 2.1 MG/DL (1.8-2.4)
[2018-04-25] MEDS: SODIUM CHLORIDE NASAL 0.65% SPRAY BTL (OCEAN) SCH ×3 (12:25→20:59)
[2018-04-25 12:48] LABS: BLOOD UREA NITROGEN 11 MG/DL (7-18); CALCIUM LEVEL 8.1 MG/DL (8.8-10.2); CARBON DIOXIDE LEVEL 28 MEQ/L (21-32); CHLORIDE LEVEL 110 MEQ/L (98-107); CREATININE FOR GFR 0.42 MG/DL (0.55-1.30); GLOMERULAR FILTRATION RATE > 60.0 (>45); GLUCOSE, FASTING 82 MG/DL (70-100); POTASSIUM SERUM 3.6 MEQ/L (3.5-5.1); SODIUM LEVEL 145 MEQ/L (136-145)
[2018-04-25 15:04] LABS: HEMATOCRIT 29.9 % (36.0-47.0); HEMOGLOBIN 10.1 g/dl (12.0-15.5)
[2018-04-25 15:13] LABS: PARTIAL THROMBOPLASTIN TIME 65.2 SECONDS (25.4-37.6)
[2018-04-25] MEDS: SODIUM CHLORIDE 0.9% INJ 10 ML SYR IV PRN (20:58)
[2018-04-25] MEDS: amLODIPine 5 MG TAB PO SCH (21:00)
[2018-04-25] MEDS: MONTELUKAST 10 MG TAB PO SCH (21:00)
[2018-04-25] MEDS: traZODone 50 MG TAB PO SCH (21:00)
[2018-04-25] MEDS: OLMESARTAN MEDOXOMIL 20 MG TAB (BENICAR) PO SCH (21:00)
[2018-04-25 21:14] LABS: HEMOGLOBIN 10.2 g/dl (12.0-15.5)
[2018-04-26] VITALS (23 sets, daily range): BP systolic 117–160; BP diastolic 56–81
[2018-04-26 03:50] LABS: HEMATOCRIT 29.2 % (36.0-47.0); HEMOGLOBIN 9.9 g/dl (12.0-15.5)
[2018-04-26] MEDS: HEPARIN DRIP 25,000 UNITS in APPROPRIATE DILUENT 1 EA IV SCH (04:01)
[2018-04-26 04:09] LABS: PARTIAL THROMBOPLASTIN TIME 58.1 SECONDS (25.4-37.6)
[2018-04-26 04:11] LABS: BLOOD UREA NITROGEN 9 MG/DL (7-18); CARBON DIOXIDE LEVEL 27 MEQ/L (21-32); CHLORIDE LEVEL 111 MEQ/L (98-107); GLOMERULAR FILTRATION RATE > 60.0 (>45); GLUCOSE, FASTING 100 MG/DL (70-100); POTASSIUM SERUM 3.2 MEQ/L (3.5-5.1); SODIUM LEVEL 146 MEQ/L (136-145)
[2018-04-26] MEDS ORDERED: POTASSIUM CHLORIDE 10 MEQ SR TABLET PO ONE (06:00)
[2018-04-26] MEDS: AMOXICILLIN 500 MG CAP PO SCH ×3 (06:37→21:11)
[2018-04-26] MEDS: SODIUM CHLORIDE 0.9% INJ 10 ML SYR IV SCH ×2 (06:38→17:24)
[2018-04-26] MEDS: ADVAIR HFA 115/21MCG INHALER INH SCH ×2 (07:55→21:41)
[2018-04-26] MEDS ORDERED: LEVALBUTEROL 1.25 MG/0.5 ML CONCENTRATE NEB INH PRN (08:00)
[2018-04-26] MEDS: LEVALBUTEROL 1.25 MG/0.5 ML CONCENTRATE NEB INH SCH ×5 (08:00→23:46)
--- NOTE | 2018-04-26 08:26 | REP ---
Portable chest x-ray: Sitting AP view. History: Hypoxia. Comparison study: May 18, 2015. Findings: A right-sided PICC line is seen with its tip at the expected location of the superior vena cava. There are clips in right upper quadrant. EKG electrodes are seen. Lungs are well inflated and clear. Heart is not enlarged. Pulmonary vasculature is not increased. Pleural angles are sharp. No significant bony abnormality. Impression: No active disease. Right-sided PICC line. Electronically Signed by Hood Chong MD 04/26/2018 08:18 A
[2018-04-26] MEDS: PANTOPRAZOLE 40MG TAB (PROTONIX) PO SCH (09:25)
[2018-04-26] MEDS: oxyBUTYnin *DITROPAN XL* 5 MG TABCR PO SCH (09:25)
[2018-04-26] MEDS: busPIRone 5 MG TAB PO SCH ×2 (09:25→21:11)
[2018-04-26] MEDS: LACTOBACILLUS ACIDOPHILUS CAP (BACID) PO SCH ×2 (09:25→17:24)
[2018-04-26] MEDS: POLYVINYL ALCOHOL OPHTH SOLN 15 ML(LIQUITEARS) OU SCH ×3 (09:26→21:09)
[2018-04-26] MEDS: SODIUM CHLORIDE NASAL 0.65% SPRAY BTL (OCEAN) SCH ×3 (09:26→21:09)
[2018-04-26 09:38] LABS: HEMATOCRIT 30.1 % (36.0-47.0); HEMOGLOBIN 10.1 g/dl (12.0-15.5)
[2018-04-26 09:46] LABS: PARTIAL THROMBOPLASTIN TIME 53.3 SECONDS (25.4-37.6)
[2018-04-26] MEDS: PERCOCET 5MG/325MG TAB PO PRN ×2 (09:52→21:10)
[2018-04-26 11:48] LABS: BASO # 0.1 10^3/uL (0.0-0.2); EOS # 0.3 10^3/uL (0.0-0.50); EOS % 2.4 % (0.0-3.0); HEMATOCRIT 29.7 % (36.0-47.0); HEMOGLOBIN 9.9 g/dl (12.0-15.5); LYMPH # 2.7 10^3/uL (1.5-4.5); LYMPH % 23.1 % (24.0-44.0); MEAN CORPUSCULAR HEMOGLOBIN 30.7 pg (27.0-33.0); MEAN CORPUSCULAR HGB CONC 33.3 g/dl (32.0-36.5); MEAN CORPUSCULAR VOLUME 92.2 fl (80.0-96.0); MONO # 1.4 10^3/uL (0.0-0.8); NEUTROPHILS # 6.6 10^3/uL (1.8-7.7); NEUTROPHILS % 57.7 % (36.0-66.0); PLATELET COUNT, AUTOMATED 199 10^3/uL (150-450); RED BLOOD COUNT 3.22 10^6/uL (4.00-5.40); WHITE BLOOD COUNT 11.5 10^3/uL (4.0-10.0)
[2018-04-26 15:01] LABS: HEMATOCRIT 29.1 % (36.0-47.0); HEMOGLOBIN 9.8 g/dl (12.0-15.5)
[2018-04-26 15:12] LABS: PARTIAL THROMBOPLASTIN TIME 50.1 SECONDS (25.4-37.6)
--- NOTE | 2018-04-26 16:32 | IPNPDOC ---
Date Seen The patient was seen on 04/26/18. Progress Note SUBJECTIVE: Pt c/o torre when walking from bed to commode. CT chest negative for PE and pt has been on heparin iv gtt and alteplase iv gtt, which was held temporarily. CXR 04/26/18: no edema or infiltrate. no cough no fever. on nebs. no chest pain, heaviness, or dizziness. PHYSICAL EXAM: VITALS: As below Gen: NAD, healthy appearing , HEENT: normocephalic , atraumatic, moist mucus membranes, anicteric eyes. maxillary sinus tenderness. CVS: RRR, normal S1n S2, no murmurs, rubs, or gallops, no edema, no jvd Resp: LCTAB, no rhochi, wheezes or crackles Abd : soft nontender, normal bowel sounds, no rebound tenderness or guarding MSK: no swelling, full range of motion, strength 5/5 Neuro: AOAx3, no confusion, no focal deficit Psych: normal mood and affect, good judgment Extremities: swelling of innner aspect of left thigh, no edema. LABORATORY DATA And RADIOLOGY : Reviewed ASSESSMENT AND PLAN:This is a 67 yo female with pmhx of melanoma of her left thigh s/p surgical resection in 2015, and left lower extremity dvt 2 yrs ago s/p treatment then, hypertension, Moderate persistent asthma, hyperlipidemia, hyperuricemia, hashimotos thyroiditis, dysthymia, stress incontinence status post urethral sling procedure in 2018, inflammatory arthritis, insomnia , carpal tunnel syndrome status post release in 2018, presented to the ED for left lower extremity swelling and difficulty ambulating for 4 days. She denied fever, chills, chest pain, sob, dizziness, nausea, vomiting, diarrhea, dysuria . Patient said she is upto date on breast and cervical caner screening , both wnl, but never had colonoscopy before. Per ED endorsement , vascular surgeon was consulted who rec starting pt on heparin and placing an official consult for AM, He might take patient for thrombectomy. Recurrent Acute LLE dvt second episode. Need to rule out underlying malignancy on heparin gtt Dr Vaughn s/p thrombectomy 04/23/18 on alteplase 04/22/18 with bleeding at PICC site, but controlled. Malignancy work up to be done as outpatient CT abdomen pelvis with contrast negative fro any mass does show that the clot is extensive involving also the common internal and external iliac veins. will also need colonoscopy as outpatient PMD to coordinate this. CT angio no PE. hypercoagulable work up has been ordered. Shortness of breath 04/26/18 no Edema or pna on 04/26/[address] chest negative for PE and had been on iv heparingtt and alteplase started on incentive spirometry and nebs. Acute Blood loss anemia at the PICC line site due to alteplase and iv heparin iv gtt for the LLE DVT s/p thrombectomy no acute indication for rbc transfusion hemoglobin is stable at 11.2 to 11.3 with no symptoms of anemia. She denies any chest pain, shortness of breath, palpitations, dizziness, or lightheadedness. Acute sinusitis on amoxicillin x 10 days. Nasal dryness prn ocean spray ocean spray TID History of Melanoma in 2014 will need underlying malignancy work up seen by Dr Borges no additional reccomendations. Hypertension continue amlodipine will hold olmesartan an Bp lowish and patient getting contrast studies. Hyperlipidemia continue statin Moderate persistent asthma continue advair and albuterol, montelukast Dysthymia continue buspirone Insomnia continue trazodone H/o Stress incontinence status post sling procedure on oxybutynin disposition: pending clinical improvement , still on alteplase, per vascular surgery. VS, I&O, 24H, Hungbone Vital Signs/I&O Vital Signs Date Time Temp Pulse Resp B/P (MAP) Pulse Ox O2 Delivery O2 Flow Rate FiO2 04/26/18 15:00 101 18 157/74 (101) 94 Room Air 04/26/18 12:00 99.3 I&O- Last 24 Hours up to 6 AM 04/26/18 05:59 Intake Total 794 ml Output Total 500 ml Balance 294 ml Laboratory Data 24H LABS Laboratory Tests 2 04/25/18 20:57: Activated Partial Thromboplast Time 57.6H, Fibrinogen 202L 04/26/18 03:38: Activated Partial Thromboplast Time 58.1H, Fibrinogen 192L, Immature Granulocyte % (Auto) 3.8H, White Blood Count 11.5H, Red Blood Count 3.22L, Hemoglobin 9.9L, Hematocrit 29.7L, Mean Corpuscular Volume 92.2, Mean Corpuscular Hemoglobin 30.7, Mean Corpuscular Hemoglobin Concent 33.3, Red Cell Distribution Width 12.0, Platelet Count 199, Neutrophils (%) (Auto) 57.7, Lymphocytes (%) (Auto) 23.1L, Monocytes (%) (Auto) 12.0H, Eosinophils (%) (Auto) 2.4, Basophils (%) (Auto) 1.0, Neutrophils # (Auto) 6.6, Lymphocytes # (Auto) 2.7, Monocytes # (Auto) 1.4H, Eosinophils # (Auto) 0.3, Basophils # (Auto) 0.1, Nucleated Red Blood Cells % (auto) 0.0, Anion Gap 8, Glomerular Filtration Rate > 60.0, Blood Urea Nitrogen 9, Creatinine 0.40L, Sodium Level 146H, Potassium Level 3.2L, Chloride Level 111H, Carbon Dioxide Level 27, Calcium Level 8.0L 04/26/18 09:20: Activated Partial Thromboplast Time 53.3H, Fibrinogen 214L 04/26/18 14:41: Activated Partial Thromboplast Time 50.1H, Fibrinogen 216L CBC/BMP Laboratory Tests 04/25/18 20:58 04/26/18 03:38 Red Blood Count 3.22 L, Mean Corpuscular Volume 92.2, Mean Corpuscular Hemoglobin 30.7, Mean Corpuscular Hemoglobin Concent 33.3, Red Cell Distribution Width 12.0, Neutrophils (%) (Auto) 57.7, Lymphocytes (%) (Auto) 23.1 L, Monocyte s (%) (Auto) 12.0 H, Eosinophils (%) (Auto) 2.4, Basophils (%) (Auto) 1.0, Neutrophils # (Auto) 6.6, Lymphocytes # (Auto) 2.7, Monocytes # (Auto) 1.4 H, Eosinophils # (Auto) 0.3, Basophils # (Auto) 0.1, Calcium Level 8.0 L 04/26/18 09:20 04/26/18 14:41 Microbiology Microbiology 04/24/18 Stool Occult Blood (RAFAELA) - Final, Complete 04/23/18 Stool Occult Blood (RAFAELA) - Final, Complete 04/21/18 Stool Occult Blood (RAFAELA) - Final, Complete MING KESSLER MD Apr 26, 2018 16:31
[2018-04-26 19:28] LABS: BLOOD UREA NITROGEN 8 MG/DL (7-18); CALCIUM LEVEL 8.1 MG/DL (8.8-10.2); CARBON DIOXIDE LEVEL 27 MEQ/L (21-32); CHLORIDE LEVEL 109 MEQ/L (98-107); CREATININE FOR GFR 0.39 MG/DL (0.55-1.30); GLOMERULAR FILTRATION RATE > 60.0 (>45); GLUCOSE, FASTING 95 MG/DL (70-100); MAGNESIUM LEVEL 1.9 MG/DL (1.8-2.4); NT-PRO BNP 215 PG/ML (<125); POTASSIUM SERUM 3.5 MEQ/L (3.5-5.1); SODIUM LEVEL 144 MEQ/L (136-145)
[2018-04-26 20:58] LABS: HEMATOCRIT 30.4 % (36.0-47.0); HEMOGLOBIN 10.2 g/dl (12.0-15.5)
[2018-04-26] MEDS: amLODIPine 5 MG TAB PO SCH (21:10)
[2018-04-26] MEDS: MONTELUKAST 10 MG TAB PO SCH (21:10)
[2018-04-26] MEDS: OLMESARTAN MEDOXOMIL 20 MG TAB (BENICAR) PO SCH (21:11)
[2018-04-26] MEDS: traZODone 50 MG TAB PO SCH (21:11)
[2018-04-26 21:22] LABS: PARTIAL THROMBOPLASTIN TIME 50.5 SECONDS (25.4-37.6)
[2018-04-27] VITALS (25 sets, daily range): BP systolic 108–152; BP diastolic 52–102
[2018-04-27] MEDS: HEPARIN DRIP 25,000 UNITS in APPROPRIATE DILUENT 1 EA IV SCH (03:43)
[2018-04-27] MEDS: SODIUM CHLORIDE 0.9% INJ 10 ML SYR IV PRN (03:44)
[2018-04-27 03:59] LABS: HEMATOCRIT 29.5 % (36.0-47.0); HEMOGLOBIN 9.9 g/dl (12.0-15.5); MEAN CORPUSCULAR HEMOGLOBIN 31.2 pg (27.0-33.0); MEAN CORPUSCULAR HGB CONC 33.6 g/dl (32.0-36.5); MEAN CORPUSCULAR VOLUME 93.1 fl (80.0-96.0); PLATELET COUNT, AUTOMATED 211 10^3/uL (150-450); RED BLOOD COUNT 3.17 10^6/uL (4.00-5.40); WHITE BLOOD COUNT 12.1 10^3/uL (4.0-10.0)
[2018-04-27] MEDS: LEVALBUTEROL 1.25 MG/0.5 ML CONCENTRATE NEB INH SCH ×5 (04:00→20:00)
[2018-04-27 04:11] LABS: PARTIAL THROMBOPLASTIN TIME 58.6 SECONDS (25.4-37.6)
[2018-04-27 04:19] LABS: BLOOD UREA NITROGEN 8 MG/DL (7-18); CALCIUM LEVEL 8.4 MG/DL (8.8-10.2); CARBON DIOXIDE LEVEL 28 MEQ/L (21-32); CHLORIDE LEVEL 110 MEQ/L (98-107); CREATININE FOR GFR 0.49 MG/DL (0.55-1.30); GLOMERULAR FILTRATION RATE > 60.0 (>45); GLUCOSE, FASTING 93 MG/DL (70-100); MAGNESIUM LEVEL 2.1 MG/DL (1.8-2.4); POTASSIUM SERUM 3.4 MEQ/L (3.5-5.1); SODIUM LEVEL 144 MEQ/L (136-145)
[2018-04-27] MEDS: SODIUM CHLORIDE 0.9% INJ 10 ML SYR IV SCH ×2 (06:00→17:52)
[2018-04-27] MEDS ORDERED: POTASSIUM CHLORIDE 10 MEQ SR TABLET PO ONE ×2 (06:30→11:30)
[2018-04-27] MEDS: AMOXICILLIN 500 MG CAP PO SCH ×3 (06:32→22:01)
--- NOTE | 2018-04-27 07:55 | IPNPDOC ---
Date Seen The patient was seen on 04/27/18. Progress Note SUBJECTIVE: Pt briefly desaturated into the mid80's yesterday while in bed and bounced back without intervention. pt has been using her spirometry per RN. CT chest negative for PE and pt has been on heparin iv gtt. s/p alteplase iv gtt, which was been held temporarily x 3days. CXR 04/26/18: no edema or infiltrate. no cough no fever. on nebs. no chest pain, heaviness, or dizziness. PHYSICAL EXAM: VITALS: As below Gen: NAD, healthy appearing , HEENT: normocephalic , atraumatic, moist mucus membranes, anicteric eyes. maxillary sinus tenderness. CVS: RRR, normal S1n S2, no murmurs, rubs, or gallops, no edema, no jvd Resp: LCTAB, no rhochi, wheezes or crackles Abd : soft nontender, normal bowel sounds, no rebound tenderness or guarding MSK: no swelling, full range of motion, strength 5/5 Neuro: AOAx3, no confusion, no focal deficit Psych: normal mood and affect, good judgment Extremities: swelling of innner aspect of left thigh, no edema. 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 She denied fever, chills, chest pain, sob, dizziness, nausea, vomiting, diarrhea, dysuria . Patient said she is upto date on breast and cervical caner screening , both wnl, but never had colonoscopy before. Per ED endorsement , vascular surgeon was consulted who rec starting pt on heparin and placing an official consult for AM, He might take patient for thrombectomy. Recurrent Acute LLE dvt second episode. Need to rule out underlying malignancy on heparin gtt Dr Vaughn s/p thrombectomy 04/23/18 on alteplase 04/22/18 with bleeding at PICC site, but controlled. Malignancy work up to be done as outpatient CT abdomen pelvis with contrast negative fro any mass does show that the clot is extensive involving also the common internal and external iliac veins. will also need colonoscopy as outpatient PMD to coordinate this. CT angio no PE. hypercoagulable work up has been ordered. Shortness of breath 04/26/18 no Edema or pna on 04/26/[address] chest negative for PE and had been on iv heparingtt and alteplase started on incentive spirometry and nebs. Acute Blood loss anemia at the PICC line site due to alteplase and iv heparin iv gtt for the LLE DVT s/p thrombectomy no acute indication for rbc transfusion hemoglobin is stable at 11.2 to 11.3 with no symptoms of anemia. She denies any chest pain, shortness of breath, palpitations, dizziness, or lightheadedness. Acute sinusitis on amoxicillin x 10 days. Nasal dryness prn ocean spray ocean spray TID History of Melanoma in 2014 will need underlying malignancy work up seen by Dr Borges no additional reccomendations. Hypertension continue amlodipine will hold olmesartan an Bp lowish and patient getting contrast studies. Hyperlipidemia continue statin Moderate persistent asthma continue advair and albuterol, montelukast Dysthymia continue buspirone Insomnia continue trazodone H/o Stress incontinence status post sling procedure on oxybutynin disposition: pending clinical improvement , per vascular surgery. VS, I&O, 24H, Sonam Vital Signs/I&O Vital Signs Date Time Temp Pulse Resp B/P (MAP) Pulse Ox O2 Delivery O2 Flow Rate FiO2 04/27/18 06:00 85 131/63 (85) 92 Room Air 04/27/18 04:00 98.4 20 I&O- Last 24 Hours up to 6 AM 04/27/18 06:00 Intake Total 1344.5 ml Output Total 750 ml Balance 594.5 ml Laboratory Data 24H LABS Laboratory Tests 2 04/26/18 09:20: Activated Partial Thromboplast Time 53.3H, Fibrinogen 214L 04/26/18 14:41: Activated Partial Thromboplast Time 50.1H, Fibrinogen 216L 04/26/18 17:27: Anion Gap 8, Glomerular Filtration Rate > 60.0, Blood Urea Nitrogen 8, Creatinine 0.39L, Sodium Level 144, Potassium Level 3.5, Chloride Level 109H, Carbon Dioxide Level 27, Calcium Level 8.1L, Magnesium Level 1.9, RR-[id number]-R-Type Natriuretic Peptide 215H 04/26/18 20:37: Activated Partial Thromboplast Time 50.5H, Fibrinogen 234 04/27/18 03:48: Nucleated Red Blood Cells % (auto) 0.0, Activated Partial Thromboplast Time 58.6H, Fibrinogen 248, Anion Gap 6L, Glomerular Filtration Rate > 60.0, Blood Urea Nitrogen 8, Creatinine 0.49L, Sodium Level 144, Potassium Level 3.4L, Chloride Level 110H, Carbon Dioxide Level 28, Calcium Level 8.4L, Magnesium Level 2.1 CBC/BMP Laboratory Tests 04/26/18 09:20 04/26/18 14:41 04/26/18 17:27 Calcium Level 8.1 L 04/26/18 20:40 04/27/18 03:48 Red Blood Count 3.17 L, Mean Corpuscular Volume 93.1, Mean Corpuscular Hemoglobi n 31.2, Mean Corpuscular Hemoglobin Concent 33.6, Red Cell Distribution Width 12.3, Calcium Level 8.4 L Microbiology Microbiology 04/24/18 Stool Occult Blood (RAFAELA) - Final, Complete 04/23/18 Stool Occult Blood (RAFAELA) - Final, Complete 04/21/18 Stool Occult Blood (RAFAELA) - Final, Complete MING KESSLER MD Apr 27, 2018 07:55
[2018-04-27] MEDS: busPIRone 5 MG TAB PO SCH ×2 (08:02→20:19)
[2018-04-27] MEDS: oxyBUTYnin *DITROPAN XL* 5 MG TABCR PO SCH (08:02)
[2018-04-27] MEDS: POLYVINYL ALCOHOL OPHTH SOLN 15 ML(LIQUITEARS) OU SCH ×3 (08:02→20:22)
[2018-04-27] MEDS: SODIUM CHLORIDE NASAL 0.65% SPRAY BTL (OCEAN) SCH ×3 (08:02→20:22)
[2018-04-27] MEDS: LACTOBACILLUS ACIDOPHILUS CAP (BACID) PO SCH ×2 (08:02→17:51)
[2018-04-27] MEDS: ADVAIR HFA 115/21MCG INHALER INH SCH ×2 (08:33→21:33)
[2018-04-27 10:21] LABS: HEMATOCRIT 30.3 % (36.0-47.0); HEMOGLOBIN 10.2 g/dl (12.0-15.5)
[2018-04-27 10:40] LABS: PARTIAL THROMBOPLASTIN TIME 61.1 SECONDS (25.4-37.6)
[2018-04-27 10:55] LABS: ALBUMIN 2.5 GM/DL (3.2-5.2); ALT/SGPT 45 U/L (12-78); BILIRUBIN,TOTAL 0.3 MG/DL (0.2-1.0); BLOOD UREA NITROGEN 9 MG/DL (7-18); CALCIUM LEVEL 8.4 MG/DL (8.8-10.2); CARBON DIOXIDE LEVEL 25 MEQ/L (21-32); CHLORIDE LEVEL 109 MEQ/L (98-107); CREATININE FOR GFR 0.58 MG/DL (0.55-1.30); GLOMERULAR FILTRATION RATE > 60.0 (>45); GLUCOSE, FASTING 167 MG/DL (70-100); POTASSIUM SERUM 3.4 MEQ/L (3.5-5.1); SODIUM LEVEL 146 MEQ/L (136-145)
[2018-04-27] MEDS ORDERED: NS 1,000 ML IV SCH (11:00)
[2018-04-27] MEDS: PERCOCET 5MG/325MG TAB PO PRN (11:37)
[2018-04-27] MEDS: ACETAMINOPHEN TAB 650MG DOSE (2X325MG) PO PRN (13:49)
[2018-04-27 14:14] LABS: ANTINUCLEAR ANTIBODIES DIRECT Negative (Negative)
[2018-04-27] MEDS ORDERED: ISOVUE-300 61% 50ML VIAL (Q9967) As Ordered ONE (15:48)
[2018-04-27] MEDS ORDERED: MIDAZOLAM INJ 2 MG/2 ML VIAL (J2250) As Ordered ONE (16:21)
[2018-04-27] MEDS ORDERED: fentaNYL 100 MCG/2 ML INJECTION (J3010) As Ordered ONE (16:21)
[2018-04-27 18:44] LABS: HEMATOCRIT 30.2 % (36.0-47.0); HEMOGLOBIN 9.9 g/dl (12.0-15.5)
[2018-04-27 18:59] LABS: PARTIAL THROMBOPLASTIN TIME 72.3 SECONDS (25.4-37.6)
[2018-04-27] MEDS: traZODone 50 MG TAB PO SCH (20:19)
[2018-04-27] MEDS: ATORVASTATIN 5MG PER 1/2 TABLET PO SCH (20:19)
[2018-04-27] MEDS: MONTELUKAST 10 MG TAB PO SCH (20:20)
[2018-04-27] MEDS: amLODIPine 5 MG TAB PO SCH (20:20)
[2018-04-27] MEDS: OLMESARTAN MEDOXOMIL 20 MG TAB (BENICAR) PO SCH (20:21)
[2018-04-28] VITALS (10 sets, daily range): BP systolic 106–131; BP diastolic 51–71
[2018-04-28] MEDS: PERCOCET 5MG/325MG TAB PO PRN (00:18)
[2018-04-28] MEDS: LEVALBUTEROL 1.25 MG/0.5 ML CONCENTRATE NEB INH SCH ×4 (04:00→13:00)
[2018-04-28] MEDS: SODIUM CHLORIDE 0.9% INJ 10 ML SYR IV SCH (06:03)
[2018-04-28] MEDS: AMOXICILLIN 500 MG CAP PO SCH ×2 (06:03→14:02)
[2018-04-28 06:18] LABS: HEMATOCRIT 29.4 % (36.0-47.0); HEMOGLOBIN 9.5 g/dl (12.0-15.5); MEAN CORPUSCULAR HEMOGLOBIN 30.3 pg (27.0-33.0); MEAN CORPUSCULAR HGB CONC 32.3 g/dl (32.0-36.5); MEAN CORPUSCULAR VOLUME 93.6 fl (80.0-96.0); PLATELET COUNT, AUTOMATED 193 10^3/uL (150-450); RED BLOOD COUNT 3.14 10^6/uL (4.00-5.40); WHITE BLOOD COUNT 14.2 10^3/uL (4.0-10.0)
[2018-04-28 06:42] LABS: BLOOD UREA NITROGEN 8 MG/DL (7-18); CALCIUM LEVEL 7.9 MG/DL (8.8-10.2); CARBON DIOXIDE LEVEL 27 MEQ/L (21-32); CHLORIDE LEVEL 107 MEQ/L (98-107); CREATININE FOR GFR 0.48 MG/DL (0.55-1.30); GLOMERULAR FILTRATION RATE > 60.0 (>45); GLUCOSE, FASTING 96 MG/DL (70-100); POTASSIUM SERUM 4.1 MEQ/L (3.5-5.1); SODIUM LEVEL 142 MEQ/L (136-145)
[2018-04-28] MEDS ORDERED: RIVAROXABAN 15 MG TAB (XARELTO) PO SCH (08:00)
[2018-04-28] MEDS: ADVAIR HFA 115/21MCG INHALER INH SCH (08:30)
[2018-04-28] MEDS: busPIRone 5 MG TAB PO SCH (08:42)
[2018-04-28] MEDS: LACTOBACILLUS ACIDOPHILUS CAP (BACID) PO SCH (08:42)
[2018-04-28] MEDS: oxyBUTYnin *DITROPAN XL* 5 MG TABCR PO SCH (08:42)
[2018-04-28] MEDS: PANTOPRAZOLE 40MG TAB (PROTONIX) PO SCH (08:43)
[2018-04-28] MEDS: SODIUM CHLORIDE NASAL 0.65% SPRAY BTL (OCEAN) SCH (08:43)
[2018-04-28] MEDS: POLYVINYL ALCOHOL OPHTH SOLN 15 ML(LIQUITEARS) OU SCH (08:44)
[2018-04-28] MEDS ORDERED: RIVAROXABAN 20 MG TAB (XARELTO) PO ONE (09:30)
[2018-04-28] MEDS ORDERED: XARE15TA PO (09:39)
[2018-04-28] MEDS ORDERED: AMOX500C PO (11:05)
[2018-04-28] MEDS ORDERED: PERCOCET PO (11:05)
--- NOTE | 2018-04-29 22:58 | DS.PDOC ---
Discharge Summary General Date of Admission Apr 18, 2018 at 23:10 Date of Discharge 04/28/18 Attending Physician: ELE FARIAS MD Specialist/Consultants Involve: Christian Vaughn MD Specialist/Consultants Involve Dr Borges. Discharge Summary PROCEDURES PERFORMED DURING STAY: Thrombectomy on left lower extremity on 04/23/18 DISCHARGE DIAGNOSES: Acute recurrent Left lower extremity extensive DVT. 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 HISTORY OF PRESENT ILLNESS: see history and physical HOSPITAL COURSE: Gen: NAD, healthy appearing , HEENT: normocephalic , atraumatic, moist mucus membranes, anicteric eyes. maxillary sinus tenderness. CVS: RRR, normal S1n S2, no murmurs, rubs, or gallops, no edema, no jvd Resp: LCTAB, no rhochi, wheezes or crackles Abd : soft nontender, normal bowel sounds, no rebound tenderness or guarding MSK: no swelling, full range of motion, strength 5/5 Neuro: AOAx3, no confusion, no focal deficit Psych: normal mood and affect, good judgment Extremities: swelling of innner aspect of left thigh, no edema. 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 She denied fever, chills, chest pain, sob, dizziness, nausea, vomiting, diarrhea, dysuria . Pat chikis said she is upto date on breast and cervical caner screening , both wnl, but never had colonoscopy before. Per ED endorsement , vascular surgeon was consulted who rec starting pt on heparin and placing an official consult for AM, He might take patient for thrombectomy. Recurrent Acute LLE dvt second episode. Dr Vaughn s/p thrombectomy 04/23/18 Malignancy work up to be done as outpatient CT abdomen pelvis with contrast negative fro any mass does show that the clot is extensive involving also the common internal and external iliac veins. will also need colonoscopy as outpatient PMD to coordinate this. CT angio no PE. hypercoagulable work up has been unremarkable. will give xarelto Shortness of breath 04/26/18 no Edema or pna on 04/26/[address] chest negative for PE possibly chronic asthma started on incentive spirometry and nebs. Acute Blood loss anemia at the PICC line site due to alteplase and iv heparin iv gtt for the LLE DVT s/p thrombectomy no acute indication for rbc transfusion hemoglobin is stable Acute sinusitis on amoxicillin will complete course. Nasal dryness prn ocean spray ocean spray TID History of Melanoma in 2014 will need underlying malignancy work up seen by Dr Borges no additional reccomendations. Hypertension continue amlodipine will hold olmesartan an Bp lowish and patient getting contrast studies. Hyperlipidemia continue statin Moderate persistent asthma continue advair and albuterol, montelukast Dysthymia continue buspirone Insomnia continue trazodone H/o Stress incontinence status post sling procedure on oxybutynin DISCHARGE MEDICATIONS: Please see below. ALLERGIES: Please see below. PHYSICAL EXAMINATION ON DISCHARGE: VITAL SIGNS: Please see below. GENERAL: NAD, healthy appearing HEENT: normocephalic , atraumatic, moist mucus membranes, anicteric eyes. maxillary sinus tenderness. CVS: RRR, normal S1n S2, no murmurs, rubs, or gallops, no edema, no jvd Resp: LCTAB, no rhochi, wheezes or crackles Abd : soft nontender, normal bowel sounds, no rebound tenderness or guarding MSK: no swelling, full range of motion, strength 5/5 Neuro: AOAx3, no confusion, no focal deficit Psych: normal mood and affect, good judgment Extremities: swelling of innner aspect of left thigh, no edema. LABORATORY DATA: Please see below. PROGNOSIS: good ACTIVITY: [As tolerated]. DIET: As tolerated DISCHARGE PLAN: Home DISPOSITION: 01 Home, Self-Care. DISCHARGE INSTRUCTIONS: 1. Follow up with PMD in 1 week 2. follow up with Dr Vaughn in 1 week DISCHARGE CONDITION: [Stable]. TIME SPENT ON DISCHARGE: Greater than 30 minutes. Vital Signs/I&Os Vital Signs Date Time Temp Pulse Resp B/P (MAP) Pulse Ox O2 Delivery O2 Flow Rate FiO2 04/28/18 12:00 99.0 105 18 122/60 (80) 96 Room Air I&O- Last 24 Hours up to 6 AM 04/29/18 06:00 Intake Total 150 ml Output Total 0 ml Balance 150 ml Laboratory Data CBC/BMP Item Value Date Time White Blood Count 14.2 10^3/uL H 04/28/18 0553 Red Blood Count 3.14 10^6/uL L 04/28/18 0553 Hemoglobin 9.5 g/dl L 04/28/18 0553 Hematocrit 29.4 % L 04/28/18 0553 Mean Corpuscular Volume 93.6 fl 04/28/18 0553 Mean Corpuscular Hemoglobin 30.3 pg 04/28/18 0553 Mean Corpuscular Hemoglobin Concent 32.3 g/dl 04/28/18 0553 Red Cell Distribution Width 12.9 % 04/28/18 0553 Platelet Count 193 10^3/uL 04/28/18 0553 Sodium Level 142 MEQ/L 04/28/18 0553 Potassium Level 4.1 MEQ/L # 04/28/18 0553 Chloride Level 107 MEQ/L 04/28/18 0553 Carbon Dioxide Level 27 MEQ/L 04/28/18 0553 Anion Gap 8 MEQ/L 04/28/18 0553 Blood Urea Nitrogen 8 MG/DL 04/28/18 0553 Creatinine 0.48 MG/DL L 04/28/18 0553 Glomerular Filtration Rate > 60.0 04/28/18 0553 Fasting Glucose 96 MG/DL 04/28/18 0553 Calcium Level 7.9 MG/DL L 04/28/18 0553 Magnesium Level 2.0 MG/DL 04/28/18 0553 Total Protein 6.0 GM/DL L 04/27/18 0946 Albumin 2.5 GM/DL L 04/27/18 0946 Albumin/Globulin Ratio 0.71 L 04/27/18 0946 Microbiology Microbiology 04/27/18 Stool Occult Blood (RAFAELA) - Final, Complete 04/24/18 Stool Occult Blood (RAFAELA) - Final, Complete 04/23/18 Stool Occult Blood (RAFAELA) - Final, Complete 04/21/18 Stool Occult Blood (RAFAELA) - Final, Complete Discharge Medications Scheduled Alendronate Sodium (Fosamax) 70 Mg Tab, 70 MG PO 1XWK, (Reported) TAKES ON TUESDAYS Amlodipine Besylate (Amlodipine Besylate) 5 Mg Tab, 5 MG PO QHS, (Reported) Amoxicillin (Amoxicillin) 500 Mg Cap, 500 MG PO Q8H Atorvastatin Calcium (Atorvastatin Calcium) 10 Mg Tab, 5 MG PO 3XW, (Reported) FRIDAY, FRIDAY, FRIDAY Buspirone HCl (Buspirone HCl) 15 Mg Tab, 15 MG PO BID, (Reported) Montelukast Sodium (Montelukast Sodium) 10 Mg Tab, 10 MG PO QHS, (Reported) Olmesartan Medoxomil (Benicar) 40 Mg Tab, 40 MG PO QHS, (Reported) Oxybutynin Chloride (Ditropan Xl) 10 Mg Tab, 10 MG PO DAILY, (Reported) Pantoprazole Sodium (Pantoprazole Sodium) 40 Mg Tab, 40 MG PO Q2D, (Reported) ALTERNATES WITH RANITIDINE Ranitidine HCl (Ranitidine HCl) 150 Mg Tab, 2 TAB PO DAILY, (Reported) ALTERNATES WITH PANTOPRAZOLE Rivaroxaban (Xarelto) 15 Mg Tab, 15 MG PO BID Salmeterol/Fluticasone (Advair Hfa 115-21 Mcg/Act) 1 Aer Aer, 2 PUFF INH BID, (Reported) Trazodone HCl (Trazodone HCl) 50 Mg Tab, 50 MG PO QHS, (Reported) Scheduled PRN Albuterol Sulfate (Proair Hfa) 108 Mcg/Act Aer, 2 PUFFS INH Q4H PRN for SHORTNESS OF BREATH, (Reported) Oxycodone/Acetaminophen (Percocet 5MG/325MG Tablet) 1 Tab Tab, 1 TAB PO Q8HP PRN for PAIN SCALE 6-10 Allergies Coded Allergies: Allopurinol (Unverified Allergy, Intermediate, HIVES, 08/28/17) Colchicine (Unverified Allergy, Intermediate, HIVES, 08/28/17) Bee Venom (Unverified Allergy, Unknown, 08/28/17) ELE FARIAS MD Apr 29, 2018 22:58
--- NOTE | 2018-05-11 07:49 | REPIR ---
DATE OF PROCEDURE: 04/22/2018 ATTENDING SURGEON: Dr. Sera Vaughn MANAGEMENT LIAISON: Javier Moe and Jana Dominguez PREOPERATIVE DIAGNOSES: 1. Left lower extremity deep venous thrombosis. 2. Left lower extremity pain. 3. Left lower extremity swelling. POSTOPERATIVE DIAGNOSES: 1. Left lower extremity deep venous thrombosis. 2. Left lower extremity pain. 3. Left lower extremity swelling. PROCEDURES: Ultrasound-guided left brachial vein cannulation. Inferior vena cava catheter placement with venogram. Inferior vena cava filter placement with a left retrievable vena cava filter. 39 cm dual-lumen peripherally inserted central catheter (PICC) line insertion. Fluoroscopic guidance for PICC line insertion. INDICATION: The patient is a 67-year-old female admitted with swelling and pain in her left lower extremity and found to have extensive DVT in the left lower extremity. The patient is unable to ambulate due to the swelling and pain in her left lower extremity and has severe venous congestion and discoloration with phlegmasia cerulea dolens. The patient will undergo left lower extremity venous thrombolysis with placement of a retrievable inferior vena cava filter and a PICC line for IV blood draws and medication instillation. The procedure was described and explained to the patient in detail, including drawing pictures demonstrating the procedure and the pertinent anatomy. Risks, benefits and alternative options were discussed with the patient. Alternative treatment options included, but were not limited to, no intervention. Benefits included, but were not limited to, resolution of thrombus within the left lower extremity with decreased swelling and pain and improved ability to ambulate, as well as placement of a filter for prevention of pulmonary embolus during thrombolysis and placement of a central venous catheter for medication instillation and blood draws preventing peripheral venipuncture during thrombolysis. Risks included but were not limited to infection, bleeding, renal failure requiring hemodialysis, possible need for open surgical intervention, cerebrovascular accident, myocardial infarction, pulmonary embolus, DVT, retroperitoneal hematoma, intracranial bleeding, adverse reaction to the prepping and draping materials, adverse reaction to the sedation medications and local anesthetic, possible need for transfusion of blood products, loss of limb, loss of life, poor outcome, poor satisfaction and poor results. Risks of not performing the procedure included, but were not limited to, continued swelling and pain in the left lower extremity with difficulty ambulating. The patient's questions were answered. The patient voices understanding and acceptance of these risks, benefits and alternative treatment options and consents to proceed. No promises or guarantees were made to the patient regarding the procedure, results and/or outcome. ANESTHESIA: Local with sedation with 1 mg Versed, 50 mcg of fentanyl and 10 mL of 2% lidocaine. FLUORO TIME: 7.4 minutes. CONTRAST: 6 mL of ISOVUE-300. SEDATION TIME: Was from 1300 p.m. to 14:05 p.m. for a total of 65 minutes of sedation. The sedation and cardiopulmonary monitoring were performed by the nurse in the room under my direct supervision. I was present for and directed the entire case. There were no sedation related complications and the patient returned to pre-sedation status at the completion of the procedure. COMPLICATIONS: None. DRAINS: None. SPECIMENS: None. IMPLANTS: Celect retrievable inferior vena cava filter placed in the inferior vena cava below the level of the renal veins. PROCEDURE: The patient was taken to the angiography suite, placed supine on the angiography room table, and then prepped and draped in a standard surgical fashion. Ultrasound was used evaluate the veins in the left upper extremity and the brachial vein was noted to be widely patent, easily compressible, free of thrombus and of adequate size for placement of the filter and the PICC line. Ultrasound was then used to direct cannulation of the left brachial vein with real-time concurrent visualization of the entry of the needle into the brachial vein with a hard copy image preserved. Prior to performing the cannulation, the skin and subcutaneous tissue were anesthetized with 2% lidocaine. The micropuncture wire was advanced through the micropuncture needle, which was upsized to a micropuncture sheath. A Bentson wire was advanced through the micropuncture sheath, which was upsized to the introducer sheath for the inferior vena cava filter. The catheter and wire were advanced into the inferior vena cava just above the bifurcation of the iliac veins and a venogram was performed. 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 The location of the renal veins was identified and the filter was then placed below the renal veins under fluoroscopic guidance. The sheath was removed and a PICC line cut to length after the distance from the cannulation to the superior vena cava/right atrial junction was measured and correlated with 39 cm. The PICC line was cut to 39 cm, then advanced through the introducer sheath and positioned with the tip in the superior vena cava/right atrial junction under fluoroscopic guidance. Both ports of the PICC line were aspirated, noted to aspirate easily, and then flushed with heparinized saline. Dressings were then applied. The patient tolerated the procedure well. All instrument, sponge and needle counts were correct at the end the case. There were no complications. Dr. Vaughn was present for and directed the entire case. The patient was then placed prone on the angiography room table for left lower extremity venous thrombolysis. RADIOLOGY SUPERVISION INTERPRETATION: The ultrasound showed the left brachial vein at the antecubital fossa to be widely patent, easily compressible, and free of thrombus. Ultrasound was used to guide cannulation of the left brachial vein with a micropuncture needle with real-time concurrent visualization of the entry of the needle into the brachial vein with a hard copy image preserved. A catheter was then placed in the inferior vena cava and inferior vena cavogram was performed showing reflux of contrast into the right common iliac vein with good flow from the right common iliac vein into the inferior vena cava and the position of the renal veins was noted. 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 The inferior vena cava filter was placed below the level of the renal veins under fluoroscopic guidance. The PICC line was then measured to the superior vena cava/right atrial junction which was 39 cm. The PICC line was cut and fluoroscopic guidance was used to place the PICC line with the tip in the superior vena cava right atrial junction. The PICC line was stable for use for access.
--- NOTE | 2018-05-11 08:10 | REPIR ---
DATE OF PROCEDURE: 04/22/2018 ATTENDING PHYSICIAN: Dr. Sera Vaughn MANAGER ACTIVITIES: Javier Christie and Jana Dominguez PREOPERATIVE DIAGNOSES: Left lower extremity deep vein thrombosis (DVT), left lower extremity swelling, left lower extremity pain, left lower extremity phlegmasia cerulea. POSTOPERATIVE DIAGNOSES: Left lower extremity deep vein thrombosis (DVT), left lower extremity swelling, left lower extremity pain, left lower extremity phlegmasia cerulea. PROCEDURE: Ultrasound-guided left lesser saphenous vein cannulation, left lower extremity venogram, placement of a 50 cm infusion catheter with initiation of left lower extremity thrombolysis. 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 The patient will undergo a left lower extremity venous thrombolysis with possible angioplasty, stent and/or atherectomy. The procedure was described and explained to the patient in detail, including drawing of pictures demonstrating the procedure and pertinent anatomy. Risks, benefits and alternative options were discussed with the patient. Alternative treatment options included, but were not limited to no intervention. Benefits included, but were not limited to resolution of thrombus in the left lower extremity with decreased swelling and pain. Risks included, but were not limited to infection, bleeding, renal failure requiring hemodialysis, possible need for open surgical intervention, adverse reaction to the prepping and draping materials, adverse reaction to the sedation and local anesthetic medication, possible need for transfusion of blood products cerebrovascular accident, myocardial infarction, pulmonary embolus, DVT, loss of limb, loss to life, poor outcome, poor results and poor satisfaction. Risks of not performing the procedure included, but were not limited to continued left lower extremity swelling, pain and difficulty with ambulation with possible worsening of the symptoms with loss of limb and/or loss of life. The patient's questions were answered. The patient voices understanding and acceptance of these risks, benefits and alternative treatment options and consents to proceed. There were no promises or guarantees made to the patient regarding the procedure results and/or outcome. ANESTHESIA: Local with 10 mL of 2% lidocaine. FLUORO TIME: 3.7 minutes. CONTRAST: 2 mL of Isovue-300, TPA 10 mg COMPLICATIONS: None. DRAINS: None. SPECIMENS: None. IMPLANTS: None. DESCRIPTION OF PROCEDURE: The patient was taken to the angiography suite and after undergoing an inferior vena cava filter placement with PICC line placement, the patient was placed in the prone position. The ultrasound was used to evaluate the veins in the left calf after the patient was prepped and draped in a standard surgical fashion and a time-out had been conducted by myself and the team members in the room. The ultrasound showed the left lesser saphenous vein to be patent, enlarged and easily compressible with no thrombus noted. Ultrasound was then used to guide cannulation of the left lesser saphenous vein in the mid calf after anesthetizing the overlying skin with 2% lidocaine. The ultrasound guidance was performed using real-time concurrent visualization of the entry of the micropuncture needle into the lesser saphenous vein with a hard copy image preserved. The micropuncture wire was advanced to the micropuncture needle, which was upsized to a micropuncture sheath. An angled Glidewire was advanced to the micropuncture sheath, which was upsized to #5-Hebrew sheath. A venogram was performed showing collateral veins in the calf and thigh with no visualization of the superficial femoral vein. The distal popliteal vein was noted to be patent, filling via collaterals. Entry was made through the lesser saphenous vein into the popliteal vein and then the wire was used to traverse through the superficial femoral vein, into the common femoral vein, external iliac vein and common iliac vein with difficulty passing through the origin of the common iliac vein. This was eventually crossed and the wire was passed into the inferior vena cava past the inferior vena cava filter. A venogram was performed showing position within the inferior vena cava, after which a 50 cm infusion catheter was placed across the inferior vena cava, left common iliac veins, left external iliac vein, left common femoral vein, left superficial femoral vein and into the left popliteal vein and thrombolysis was initiated. The patient received a 10 mg bolus of TPA through the infusion catheter, after which the TPA drip was initiated. Dressings were then applied. The patient tolerated the procedure well. All instrument, sponge, and needle counts were correct at the end the case. There were no complications. Dr. Vaughn was present for and directed the entire case. The patient was transferred to the intensive care unit (ICU) in stable condition for left lower extremity venous thrombolysis. The procedure results and findings were discussed with the patient in the ICU with all of her questions answered. RADIOLOGIC SUPERVISION INTERPRETATION: The ultrasound showed the left lesser saphenous vein to be widely patent, easily compressible and free of thrombus, although enlarged. Ultrasound was used to guide cannulation of the left lesser saphenous vein with real-time concurrent visualization of the entry of the needle into the vein with a hard copy image preserved. The venogram showed thrombus within the superficial femoral vein, common femoral vein, external iliac veins and no filling of the common iliac vein, which was crossed with reentry into the inferior vena cava with a venogram showing positioning in the inferior vena cava, after which the infusion catheter was placed from the inferior vena cava, across the left common iliac vein, left external iliac vein, left common femoral vein, left superficial femoral vein and into the left popliteal vein with thrombolysis initiated.
--- NOTE | 2018-05-11 10:01 | REPIR ---
DATE OF PROCEDURE: 04/24/2018 PREOPERATIVE DIAGNOSIS: Left lower extremity deep venous thrombosis (DVT). POSTOPERATIVE DIAGNOSIS: Left lower extremity deep venous thrombosis (DVT). PROCEDURE: Left lower extremity venous lysis followup, exchange left lower extremity infusion catheter, left lower extremity venogram, continuation of left lower extremity venous thrombolysis. SURGEON: Dr. Sera Vaughn. CHANNEL MACHINE OPERATOR: Anca Otrega and Jana Dominguez. ANESTHESIA: None. ESTIMATED BLOOD LOSS: Minimal. IV FLUIDS: 100 mL FLUORO TIME: 0.3 minutes. CONTRAST: 4 mL COMPLICATIONS: None DRAINS: None. SPECIMENS: None. IMPLANTS: None. INDICATION: The patient is a 67-year-old female with left lower extremity DVT and swelling and pain who was undergoing thrombolysis. The patient will now undergo a venous lysis followup. Risks, benefits, alternative options were discussed with the patient DESCRIPTION OF PROCEDURE: The patient was taken to the angiography suite, placed prone on the angiography room table and then prepped and draped in standard sutures surgical fashion. A Bentson wire was advanced through the infusion catheter which was removed and a venogram performed showing superficial femoral artery now to be patent as well as common femoral artery. There was still thrombus within the proximal common femoral artery, external iliac artery and common iliac artery. The 50 cm infusion catheter was replaced with a new 50 cm infusion catheter and thrombolysis was reinitiated. Dressings were then applied. The patient tolerated the procedure well. All instrument, sponge and needle counts were correct at the end the case. There were no complications. Dr. Vaughn was present for directed the entire case. The patient was transferred to the ICU for continued left lower extremity venous thrombolysis.
--- NOTE | 2018-05-11 10:17 | REPIR ---
DATE OF PROCEDURE: 04/27/2018 ATTENDING SURGEON: Dr. Sera Vaughn SUPERVISOR [employer]: Jana Dominguez and Lakshmi Chandler PREOPERATIVE DIAGNOSIS: Left lower extremity deep vein thrombosis (DVT), left lower extremity swelling, left lower extremity pain, left lower extremity venous thrombolysis. POSTOPERATIVE DIAGNOSIS: Left lower extremity deep vein thrombosis (DVT), left lower extremity swelling, left lower extremity pain, left lower extremity venous thrombolysis. PROCEDURE: Left lower extremity venous thrombolysis followup, left lower extremity venogram, left common femoral vein angioplasty with 10 x 80 mm balloon and 12 x 80 mm balloon, left external iliac vein angioplasty with 10 x 80 mm balloon and 12 x 80 mm balloon, left common iliac vein angioplasty with 10 x 80 mm balloon and 12 x 80 mm balloon, inferior vena cava angioplasty with 10 x 80 mm balloon and 12 x 80 mm balloon. INDICATION: The patient is a 67-year-old female with left lower extremity DVT who has been undergoing thrombolysis. The patient now presents for thrombolysis followup after significant improvement in her left lower extremity swelling and pain. The patient will undergo a venogram with possible angioplasty stent and/or atherectomy. Risks, benefits and alternative treatment options were discussed with the patient. ANESTHESIA: Local with sedation with 2 mg of Versed, 100 mcg of fentanyl and 11 mL of 1% lidocaine. FLUORO TIME: 8.9 minutes. CONTRAST: 9 mL of Isovue-300. SEDATION TIME: from 1630 to 1709 for a total of 39 minutes. The sedation was administered by the registered nurse in the room. The cardiopulmonary monitoring was performed by the registered nurse in the room. The cardiopulmonary monitoring and sedation administration were done under my direct supervision. I was present for and directed the entire case. The patient had no sedation related complications. The patient returned to pre sedation levels at the completion of the procedure. COMPLICATIONS: None. DRAINS: None. SPECIMENS: None. IMPLANTS: None. DESCRIPTION OF PROCEDURE: The patient was taken to the angiography suite, placed prone on the angiography room table and then prepped and draped in a standard surgical fashion. The infusion catheter was removed over a Bentson wire. A venogram was performed showing resolution of the thrombus, but there was now stenosis remaining in the left common femoral vein, external iliac vein, common iliac vein at the junction of the inferior vena cava. The inferior vena cava, common iliac vein on the left, external iliac vein on the left and common femoral vein on the left underwent angioplasty with a 10 x 80 mm balloon with a followup venogram showing residual stenosis. These were all then further angioplastied with a 12 x 80 mm balloon with a completion venogram showing resolution of the stenoses with excellent flow into the central venous system and no residual stenosis remaining. The catheters and wires were removed. The sheath was removed and manual compression applied at the puncture site for hemostasis. Dressings were then applied. The patient tolerated the procedure well. All instrument, sponge and needle counts were correct at the end the case. There were no complications. Dr. Vaughn was present for and directed the entire case. The patient was transferred to the ICU in stable condition.
== END 2018-04-28 14:45 | disposition home or self-care (01) | DRG 253 ==
LOC: M ED 18:00 → M ED INP 23:10 → M MSPAV 04-19 02:14 → M ICU 04-22 11:43
PROVIDERS: ADMIT Internal Medicine; ATTEND Internal Medicine Nephrology
PROC: 06H03DZ Insertion of Intraluminal Device into Inferior Vena Cava, Percutaneous Approach (ICD-10-PCS; principal; 2018-04-22)
PROC: 3E03317 Introduction of Other Thrombolytic into Peripheral Vein, Percutaneous Approach (ICD-10-PCS; 2018-04-22)
PROC: B51C1ZZ Fluoroscopy of Left Lower Extremity Veins using Low Osmolar Contrast (ICD-10-PCS; 2018-04-22)
PROC: 02HV33Z Insertion of Infusion Device into Superior Vena Cava, Percutaneous Approach (ICD-10-PCS; 2018-04-22)
PROC: B5181ZA Fluoroscopy of Superior Vena Cava using Low Osmolar Contrast, Guidance (ICD-10-PCS; 2018-04-22)
PROC: 06PY33Z Removal of Infusion Device from Lower Vein, Percutaneous Approach (ICD-10-PCS; 2018-04-24)
PROC: 06HY33Z Insertion of Infusion Device into Lower Vein, Percutaneous Approach (ICD-10-PCS; 2018-04-24)
PROC: B51C1ZZ Fluoroscopy of Left Lower Extremity Veins using Low Osmolar Contrast (ICD-10-PCS; 2018-04-24)
PROC: 067D3ZZ Dilation of Left Common Iliac Vein, Percutaneous Approach (ICD-10-PCS; 2018-04-27)
PROC: 067G3ZZ Dilation of Left External Iliac Vein, Percutaneous Approach (ICD-10-PCS; 2018-04-27)
PROC: 067N3ZZ Dilation of Left Femoral Vein, Percutaneous Approach (ICD-10-PCS; 2018-04-27)
PROC: 067Y3ZZ Dilation of Lower Vein, Percutaneous Approach (ICD-10-PCS; 2018-04-27)
PROC: B51C1ZZ Fluoroscopy of Left Lower Extremity Veins using Low Osmolar Contrast (ICD-10-PCS; 2018-04-27)
DX: I82.412 Acute embolism and thrombosis of left femoral vein (principal); J45.41 Moderate persistent asthma with (acute) exacerbation; D62 Acute posthemorrhagic anemia; I87.1 Compression of vein; I82.432 Acute embolism and thrombosis of left popliteal vein; I10 Essential (primary) hypertension; G47.00 Insomnia, unspecified; E78.5 Hyperlipidemia, unspecified; F41.9 Anxiety disorder, unspecified; J01.90 Acute sinusitis, unspecified; N39.3 Stress incontinence (female) (male); Z79.899 Other long term (current) drug therapy; Z88.8 Allergy status to other drugs, medicaments and biological substances; Z91.038 Other insect allergy status; Z79.82 Long term (current) use of aspirin; F34.1 Dysthymic disorder

== ENCOUNTER → 2018-05-25 | Outpatient (CLI) | payer MEDICARE ==
[~2018-05-25] MED LIST changes: +AMOX500C PO; +FOSA70TA PO; +PERCOCET PO; +RANI150T PO; +XARE15TA PO
[2018-05-25 18:03] LABS: HEMATOCRIT 39.9 % (36.0-47.0); HEMOGLOBIN 12.6 g/dl (12.0-15.5); MEAN CORPUSCULAR HEMOGLOBIN 29.3 pg (27.0-33.0); MEAN CORPUSCULAR HGB CONC 31.6 g/dl (32.0-36.5); MEAN CORPUSCULAR VOLUME 92.8 fl (80.0-96.0); PLATELET COUNT, AUTOMATED 333 10^3/uL (150-450); WHITE BLOOD COUNT 7.5 10^3/uL (4.0-10.0)
[2018-05-25 18:10] LABS: BLOOD UREA NITROGEN 13 MG/DL (7-18); CALCIUM LEVEL 9.6 MG/DL (8.8-10.2); CARBON DIOXIDE LEVEL 26 MEQ/L (21-32); CHLORIDE LEVEL 108 MEQ/L (98-107); CREATININE FOR GFR 0.58 MG/DL (0.55-1.30); GLOMERULAR FILTRATION RATE > 60.0 (>45); GLUCOSE, FASTING 103 MG/DL (70-100); POTASSIUM SERUM 3.8 MEQ/L (3.5-5.1); SODIUM LEVEL 143 MEQ/L (136-145)
== END ==
LOC: M WUC 12:28
PROVIDERS: ATTEND Internal Medicine
DX: Z86.718 Personal history of other venous thrombosis and embolism (principal)

== ENCOUNTER 2018-07-05 11:46 | Emergency (ER) | payer MEDICARE ==
[~2018-07-05] VITALS: Ht 157.5 cm; Wt 67.5 kg
[2018-07-05] MEDS ORDERED: CHLO125TA PO (12:41)
[2018-07-05 13:17] VITALS: BP 144/64
== END 2018-07-05 13:27 | disposition home or self-care (01) ==
LOC: M ED 11:46
DX: S00.31XA Abrasion of nose, initial encounter (principal); S80.02XA Contusion of left knee, initial encounter; W00.9XXA Unspecified fall due to ice and snow, initial encounter; Y92.099 Unspecified place in other non-institutional residence as the place of occurrence of the external cause; Y93.9 Activity, unspecified; Y99.9 Unspecified external cause status; I10 Essential (primary) hypertension; J45.909 Unspecified asthma, uncomplicated; M81.0 Age-related osteoporosis without current pathological fracture; E06.3 Autoimmune thyroiditis; Z79.899 Other long term (current) drug therapy; Z88.8 Allergy status to other drugs, medicaments and biological substances; Z91.030 Bee allergy status

== ENCOUNTER → 2018-08-11 | Outpatient (CLI) | payer MEDICARE ==
[~2018-08-11] MED LIST changes: +CHLO125TA PO
--- NOTE | 2018-08-11 09:30 | REP ---
LEFT LOWER EXTREMITY DUPLEX DOPPLER VENOUS ULTRASOUND WITH EVALUATION FOR VENOUS REFLUX: Real-time compression and duplex Doppler interrogation of the left lower extremity deep vein system is performed. There is partial thrombosis of the left common femoral vein and central left superficial femoral vein with occlusive thrombus of the mid to distal left superficial femoral vein and popliteal vein. There is thrombosis of lesser saphenous vein. Evaluation for venous reflux on the left demonstrates reflux in the central aspect of the common femoral vein. There is reflux in the greater saphenous vein at the saphenofemoral function with a duration of 4.4 seconds. Greater saphenous vein at the saphenofemoral junction measures 7 mm. There is no reflux in the greater saphenous vein at the mid thigh which measures 4 mm, nor the knee which measures 3 mm. Large collateral venous structure communicating with the proximal greater saphenous vein. Electronically Signed by Osei Rose MD 08/12/2018 11:37 A
== END ==
LOC: M RAD 06:59
PROVIDERS: ATTEND Surgery Vascular Surgery
DX: I82.412 Acute embolism and thrombosis of left femoral vein (principal)

== ENCOUNTER 2018-09-02 15:23 | Emergency (ER) | payer MEDICARE ==
[~2018-09-02] VITALS: Ht 157.5 cm; Wt 68.2 kg
[2018-09-02] MEDS ORDERED: XARE20TA PO (15:33)
[2018-09-02 16:53] LABS: BASO # 0.1 10^3/uL (0.0-0.2); EOS # 0.2 10^3/uL (0.0-0.50); EOS % 1.9 % (0.0-3.0); HEMATOCRIT 42.3 % (36.0-47.0); HEMOGLOBIN 14.2 g/dl (12.0-15.5); LYMPH # 2.4 10^3/uL (1.5-4.5); LYMPH % 30.1 % (24.0-44.0); MEAN CORPUSCULAR HEMOGLOBIN 29.6 pg (27.0-33.0); MEAN CORPUSCULAR HGB CONC 33.6 g/dl (32.0-36.5); MEAN CORPUSCULAR VOLUME 88.3 fl (80.0-96.0); MONO # 0.9 10^3/uL (0.0-0.8); MONO % 11.1 % (0.0-5.0); NEUTROPHILS # 4.3 10^3/uL (1.8-7.7); NEUTROPHILS % 54.9 % (36.0-66.0); PLATELET COUNT, AUTOMATED 359 10^3/uL (150-450); RED BLOOD COUNT 4.79 10^6/uL (4.00-5.40); WHITE BLOOD COUNT 7.8 10^3/uL (4.0-10.0)
[2018-09-02 16:54] LABS: INR 1.52; PROTHROMBIN TIME 18.5 SECONDS (12.1-14.4)
[2018-09-02 17:09] LABS: ALBUMIN 3.9 GM/DL (3.2-5.2); ALT/SGPT 16 U/L (12-78); BILIRUBIN,DIRECT 0.1 MG/DL (0.0-0.2); BILIRUBIN,TOTAL 0.5 MG/DL (0.2-1.0); BLOOD UREA NITROGEN 24 MG/DL (7-18); CALCIUM LEVEL 9.5 MG/DL (8.8-10.2); CARBON DIOXIDE LEVEL 25 MEQ/L (21-32); CHLORIDE LEVEL 108 MEQ/L (98-107); CK-MB VALUE MASS < 1.0 NG/ML (<3.6); CPK CREATINE PHOSPHOKINASE 35 U/L (26-192); GLOMERULAR FILTRATION RATE > 60.0 (>45); GLUCOSE, FASTING 110 MG/DL (70-100); MB/CK RELATIVE INDEX 2.86 (< OR =4); NT-PRO BNP 59 PG/ML (<125); POTASSIUM SERUM 3.4 MEQ/L (3.5-5.1); SODIUM LEVEL 141 MEQ/L (136-145); THYROID STIMULATING HORMONE 0.626 uIU/ML (0.358-3.740); TOTAL PROTEIN 7.2 GM/DL (6.4-8.2); TROPONIN I < 0.02 NG/ML (< 0.10)
[2018-09-02] MEDS ORDERED: ISOVUE-370 76% 100ML VIAL (Q9967) As Ordered ONE (18:36)
--- NOTE | 2018-09-02 18:59 | REP ---
Clinical: Acute chest pain. Technique: Axial contrast enhanced images from the thoracic inlet to the upper abdomen coronal and sagittal re-formations using pulmonary embolus protocol. 100 ml Isovue 370 intravenous contrast material administered without complication. Comparison: 04/18/2018. Findings: Satisfactory enhancement of the pulmonary vasculature is achieved and no filling defects are identified to suggest pulmonary embolus. Thoracic aorta is normal and without aneurysm or dissection. Heart and pericardium are normal. No axillary, hilar, or mediastinal adenopathy. Bilateral lung mehta demonstrate mild chronic age-related interstitial changes and minimal basilar fibroatelectatic changes. No consolidation. No effusion. No pneumothorax. Musculoskeletal structures demonstrate age-related changes without focal osseous abnormality. Upper abdomen demonstrates normal bilateral adrenal glands and evidence of prior cholecystectomy. Impression: 1. No pulmonary embolus. Normal thoracic aorta. 2. Minimal bibasilar fibroatelectatic changes. No further acute mediastinal or pleuroparenchymal process appreciated. Electronically Signed by Danny Patel MD 09/02/2018 06:50 P
[2018-09-02 19:20] VITALS: BP 150/70
--- NOTE | 2018-09-03 07:24 | ECGEPIP ---
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
== END 2018-09-02 19:23 | disposition home or self-care (01) ==
LOC: M ED 15:23
DX: R07.89 Other chest pain (principal); R06.02 Shortness of breath; R53.83 Other fatigue; Z85.820 Personal history of malignant melanoma of skin; Z86.711 Personal history of pulmonary embolism; Z86.718 Personal history of other venous thrombosis and embolism; Z79.899 Other long term (current) drug therapy; Z79.01 Long term (current) use of anticoagulants; Z88.8 Allergy status to other drugs, medicaments and biological substances; Z91.030 Bee allergy status
CPT/HCPCS: 36415; 71275; 80048; 80076; 82550; 82553; 83880; 84443; 84484; 85025; 85610; 93005; 93041; 94760; 99284; Q9967

== ENCOUNTER → 2018-09-10 | Outpatient (CLI) | payer MEDICARE ==
[~2018-09-10] MED LIST changes: -TRAZ-160 PO; +TRAZ-252 PO; +XARE20TA PO
[2018-09-10 13:09] LABS: HEMOGLOBIN 13.9 g/dl (12.0-15.5); MEAN CORPUSCULAR HGB CONC 33.9 g/dl (32.0-36.5); MEAN CORPUSCULAR VOLUME 88.6 fl (80.0-96.0); PLATELET COUNT, AUTOMATED 317 10^3/uL (150-450); RED BLOOD COUNT 4.63 10^6/uL (4.00-5.40); WHITE BLOOD COUNT 8.6 10^3/uL (4.0-10.0)
[2018-09-10 14:14] LABS: ALBUMIN 3.7 GM/DL (3.2-5.2); ALT/SGPT 16 U/L (12-78); BILIRUBIN,TOTAL 0.7 MG/DL (0.2-1.0); BLOOD UREA NITROGEN 19 MG/DL (7-18); CALCIUM LEVEL 9.5 MG/DL (8.8-10.2); CARBON DIOXIDE LEVEL 26 MEQ/L (21-32); CHLORIDE LEVEL 109 MEQ/L (98-107); CHOLESTEROL LEVEL 222 MG/DL (<200); CHOLESTEROL RISK RATIO 3.762 (<5); CREATININE FOR GFR 0.83 MG/DL (0.55-1.30); GLOMERULAR FILTRATION RATE > 60.0 (>45); GLUCOSE, FASTING 97 MG/DL (70-100); HDL CHOLESTEROL 59 MG/DL (>40); LDL CHOLESTEROL 137 MG/DL (<100); MAGNESIUM LEVEL 2.1 MG/DL (1.8-2.4); NON-HDL-C 163 MG/DL; POTASSIUM SERUM 4.9 MEQ/L (3.5-5.1); SODIUM LEVEL 143 MEQ/L (136-145); TOTAL PROTEIN 7.2 GM/DL (6.4-8.2); TRIGLYCERIDES LEVEL 130 MG/DL (<150)
[2018-09-10 15:34] LABS: TOTAL 25(OH) VITAMIN D 23.7 NG/ML (30.0-100.0)
== END ==
LOC: M WUC 10:33
PROVIDERS: ATTEND Internal Medicine
DX: J45.40 Moderate persistent asthma, uncomplicated (principal); I10 Essential (primary) hypertension; E78.00 Pure hypercholesterolemia, unspecified; E06.3 Autoimmune thyroiditis; Z92.241 Personal history of systemic steroid therapy; Z79.51 Long term (current) use of inhaled steroids

== ENCOUNTER → 2018-11-23 | Outpatient (REF) | payer MEDICARE ==
[2018-11-23 16:38] LABS: FOLATE 11.2 NG/ML
== END ==
LOC: M SFHCPLAZ 14:22
PROVIDERS: ATTEND Internal Medicine
DX: R53.82 Chronic fatigue, unspecified (principal)
CPT/HCPCS: 82607; 82746; G0463

== ENCOUNTER → 2018-12-16 | Outpatient (CLI) | payer MEDICARE ==
[2018-12-16 13:59] LABS: ALBUMIN 3.8 GM/DL (3.2-5.2); ALT/SGPT 18 U/L (12-78); BILIRUBIN,TOTAL 0.6 MG/DL (0.2-1.0); BLOOD UREA NITROGEN 12 MG/DL (7-18); CARBON DIOXIDE LEVEL 31 MEQ/L (21-32); CHLORIDE LEVEL 104 MEQ/L (98-107); CHOLESTEROL LEVEL 198 MG/DL (<200); CREATININE FOR GFR 0.71 MG/DL (0.55-1.30); GLOMERULAR FILTRATION RATE > 60.0 (>45); GLUCOSE, FASTING 91 MG/DL (70-100); HDL CHOLESTEROL 60 MG/DL (>40); LDL CHOLESTEROL 91 MG/DL (<100); MAGNESIUM LEVEL 2.2 MG/DL (1.8-2.4); NON-HDL-C 138 MG/DL; POTASSIUM SERUM 3.4 MEQ/L (3.5-5.1); SODIUM LEVEL 141 MEQ/L (136-145); TOTAL PROTEIN 6.7 GM/DL (6.4-8.2); TRIGLYCERIDES LEVEL 236 MG/DL (<150)
== END ==
LOC: M WUC 10:41
PROVIDERS: ATTEND Internal Medicine
DX: E78.00 Pure hypercholesterolemia, unspecified (principal); I10 Essential (primary) hypertension

== ENCOUNTER → 2019-01-18 | Outpatient (CLI) | payer MEDICARE ==
[~2019-01-18] MED LIST changes: +ISOVUE-370 76% 100ML VIAL (Q9967) As Ordered ONE
--- NOTE | 2019-01-18 15:55 | REP ---
CT of the abdomen and pelvis with IV contrast, without bowel contrast for chronic venous insufficiency. Comparison is 04/20/2018. The visualized lung mehta are unremarkable. The hepatic parenchyma is homogeneous. There are surgical clips in the gallbladder fossa. This is unchanged. There is a 2.1 x 1.1 cm cyst in the uncinate process of the pancreas. This measured 2.0 x 1.4 cm previously. The pancreas is otherwise unremarkable. The spleen is homogeneous and unremarkable. The adrenals, kidneys and abdominal aorta are unremarkable. There is no periaortic adenopathy or mass. There is no bowel distension or obstruction. Pelvis: There is a hysterectomy. Vaginal cuff and adnexa are unremarkable. The ovarian veins are nondilated. This On the comparison study the left femoral and iliac veins were dilated and there was edema in the left thigh. This is compatible with venous thrombosis. These findings are no longer present on the current study. No evidence of venous thrombosis on the study today on the left on the right. The bladder is unremarkable. The pelvic bowel loops are unremarkable. Impression: On the comparison study, there are findings compatible with deep vein thrombus in the left femoral and iliac veins and and soft tissue edema of the left thigh. These findings have resolved and are no longer present today. No evidence of deep venous thrombosis today. There is no distension of the ovarian veins. This is unchanged. Cholecystectomy and hysterectomy. 2.1 cm cyst in the pancreatic uncinate process, not significantly changed. in the pancreatic uncinate process as described, unchanged. Electronically Signed by Osie Mg MD 01/18/2019 03:47 P
== END ==
LOC: M RAD 12:30
PROVIDERS: ATTEND Surgery Vascular Surgery
DX: I87.2 Venous insufficiency (chronic) (peripheral) (principal)
CPT/HCPCS: 74177; Q9967

== ENCOUNTER → 2019-02-15 | Outpatient (CLI) | payer MEDICARE ==
[~2019-02-15] MED LIST changes: -ISOVUE-370 76% 100ML VIAL (Q9967) As Ordered ONE
--- NOTE | 2019-02-15 13:24 | REP ---
PA and lateral chest: Comparison is 05/18/2015. 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 The lung mehta are clear. Cardiac size is normal. The lola and mediastinum are unremarkable. There is mild thoracic scoliosis convex right. There are surgical clips in the abdominal right upper quadrant. Impression: There are no acute cardiopulmonary findings. 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 Electronically Signed by Osei Mg MD 02/15/2019 01:15 P
== END ==
LOC: M WUC 12:41
PROVIDERS: ATTEND Physician Assistant
DX: J20.9 Acute bronchitis, unspecified (principal)

== ENCOUNTER → 2019-03-19 | Outpatient (REF) | payer MEDICARE | LOC: M LAB REF 12:43 | PROVIDERS: ATTEND Nurse Practitioner Family | DX: J45.41 Moderate persistent asthma with (acute) exacerbation (principal) ==

== ENCOUNTER → 2019-06-14 | Outpatient (CLI) | payer MEDICARE ==
[~2019-06-14] MED LIST changes: -MONT10TA2 PO; +MONT10TA4 PO
[2019-06-14 13:43] LABS: HEMATOCRIT 41.9 % (36.0-47.0); HEMOGLOBIN 14.3 g/dl (12.0-15.5); MEAN CORPUSCULAR HEMOGLOBIN 32.2 pg (27.0-33.0); MEAN CORPUSCULAR HGB CONC 34.1 g/dl (32.0-36.5); MEAN CORPUSCULAR VOLUME 94.4 fl (80.0-96.0); PLATELET COUNT, AUTOMATED 315 10^3/uL (150-450); RED BLOOD COUNT 4.44 10^6/uL (4.00-5.40)
[2019-06-14 14:26] LABS: ALBUMIN 3.8 GM/DL (3.2-5.2); ALT/SGPT 19 U/L (12-78); BILIRUBIN,TOTAL 0.6 MG/DL (0.2-1.0); BLOOD UREA NITROGEN 16 MG/DL (7-18); CALCIUM LEVEL 8.9 MG/DL (8.8-10.2); CARBON DIOXIDE LEVEL 28 MEQ/L (21-32); CHLORIDE LEVEL 108 MEQ/L (98-107); CHOLESTEROL LEVEL 174 MG/DL (<200); CHOLESTEROL RISK RATIO 3.346 (<5); GLOMERULAR FILTRATION RATE > 60.0 (>45); GLUCOSE, FASTING 94 MG/DL (70-100); HDL CHOLESTEROL 52 MG/DL (>40); LDL CHOLESTEROL 89 MG/DL (<100); MAGNESIUM LEVEL 2.2 MG/DL (1.8-2.4); NON-HDL-C 122 MG/DL; POTASSIUM SERUM 3.8 MEQ/L (3.5-5.1); SODIUM LEVEL 142 MEQ/L (136-145); THYROID STIMULATING HORMONE 0.834 uIU/ML (0.358-3.740); TOTAL PROTEIN 6.7 GM/DL (6.4-8.2); TRIGLYCERIDES LEVEL 163 MG/DL (<150)
== END ==
LOC: M WUC 09:51
PROVIDERS: ATTEND Internal Medicine
DX: I10 Essential (primary) hypertension (principal); E78.00 Pure hypercholesterolemia, unspecified; J45.40 Moderate persistent asthma, uncomplicated; R53.82 Chronic fatigue, unspecified

== ENCOUNTER → 2019-09-28 | Outpatient (REF) | payer MEDICARE ==
[~2019-09-28] MED LIST changes: +AMLO1TAB24 PO; -AMLO5TAB6 PO; -ASPI81TA85 PO; +ASPI81TA86 PO; +B-122500 PO; +BUSP30TA PO; +CARV6.25 PO; +LEXA1TAB PO; +LOTE5DRO3 OU; +LOVE0.01 SC; +MONT10TA10 PO; -MONT10TA4 PO; +PANT40TA29 PO; -PANT40TA3 PO; +PIND25TA PO; +PROBCAP14 PO
== END ==
LOC: M WUC 16:16
PROVIDERS: ATTEND Physician Assistant
DX: Z20.828 Contact with and (suspected) exposure to other viral communicable diseases (principal)

== ENCOUNTER 2019-10-23 11:41 | Inpatient (IN) | payer MEDICARE ==
[2019-10-20 18:40] VITALS: BP 153/72
[2019-10-22 18:40] VITALS: BP 153/72
[~2019-10-23] VITALS: Ht 157.5 cm; Wt 78.0 kg
[~2019-10-23 11:41] MED LIST changes: -AMLO1TAB24 PO; +AMLO5TAB6 PO; +ASPI81TA85 PO; -ASPI81TA86 PO; -B-122500 PO; -BUSP30TA PO; -CARV6.25 PO; -LEXA1TAB PO; -LOTE5DRO3 OU; -LOVE0.01 SC; -MONT10TA10 PO; +MONT10TA4 PO; -PANT40TA29 PO; +PANT40TA3 PO; -PIND25TA PO; -PROBCAP14 PO
[2019-10-23] MEDS ORDERED: LOTE5DRO3 OU (12:01)
[2019-10-23] MEDS ORDERED: BUSP30TA PO (12:01)
[2019-10-23] MEDS ORDERED: B-122500 PO (12:01)
[2019-10-23] MEDS ORDERED: PROBCAP14 PO (12:01)
[2019-10-23] MEDS ORDERED: PIND25TA PO (12:01)
[2019-10-23] MEDS ORDERED: ACETAMINOPHEN 325 MG TAB PO ONE (12:30)
[2019-10-23 13:34] LABS: BASO # 0.1 10^3/uL (0.0-0.2); BASO % 0.9 % (0.0-1.0); EOS # 0.2 10^3/uL (0.0-0.5); EOS % 2.3 % (0.0-3.0); HEMATOCRIT 44.7 % (36.0-47.0); HEMOGLOBIN 15.4 g/dl (12.0-15.5); LYMPH # 1.9 10^3/uL (1.5-5.0); LYMPH % 21.5 % (24.0-44.0); MEAN CORPUSCULAR HEMOGLOBIN 31.6 pg (27.0-33.0); MEAN CORPUSCULAR HGB CONC 34.5 g/dl (32.0-36.5); MEAN CORPUSCULAR VOLUME 91.8 fl (80.0-96.0); MONO # 0.9 10^3/uL (0.0-0.8); MONO % 9.9 % (0.0-5.0); NEUTROPHILS # 5.6 10^3/uL (1.5-8.5); NEUTROPHILS % 64.5 % (36.0-66.0); PLATELET COUNT, AUTOMATED 222 10^3/uL (150-450); RED BLOOD COUNT 4.87 10^6/uL (4.00-5.40); WHITE BLOOD COUNT 8.7 10^3/uL (4.0-10.0)
[2019-10-23 13:55] LABS: INR 1.85; PROTHROMBIN TIME 21.1 SECONDS (11.8-14.0)
[2019-10-23 13:56] LABS: PARTIAL THROMBOPLASTIN TIME 34.5 SECONDS (25.0-38.4)
[2019-10-23 14:11] LABS: ALT/SGPT 22 U/L (12-78); BILIRUBIN,DIRECT 0.2 MG/DL (0.0-0.2); BILIRUBIN,TOTAL 0.7 MG/DL (0.2-1.0); BLOOD UREA NITROGEN 18 MG/DL (7-18); CALCIUM LEVEL 9.5 MG/DL (8.8-10.2); CARBON DIOXIDE LEVEL 26 MEQ/L (21-32); CHLORIDE LEVEL 111 MEQ/L (98-107); CHOLESTEROL LEVEL 200 MG/DL (<200); CHOLESTEROL RISK RATIO 3.076 (<5); GLOMERULAR FILTRATION RATE > 60.0 (>45); GLUCOSE, FASTING 97 MG/DL (70-100); HDL CHOLESTEROL 65 MG/DL (>40); LDL CHOLESTEROL 111 MG/DL (<100); LIPASE 184 U/L (73-393); NON-HDL-C 135 MG/DL; POTASSIUM SERUM 4.3 MEQ/L (3.5-5.1); SODIUM LEVEL 142 MEQ/L (136-145); TOTAL PROTEIN 7.3 GM/DL (6.4-8.2); TRIGLYCERIDES LEVEL 118 MG/DL (<150)
[2019-10-23] MEDS ORDERED: CARVedilol 12.5 MG TAB PO ONE ×2 (14:15→16:00)
[2019-10-23] MEDS ORDERED: ISOVUE-370 76% 100ML VIAL As Ordered ONE (14:44)
[2019-10-23] MEDS ORDERED: FUROSEMIDE 40MG/4ML VIAL (J1940) IV ONE (16:00)
--- NOTE | 2019-10-23 16:10 | ECGEPIP ---
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
[2019-10-23] MEDS ORDERED: LABETALOL 100MG/20ML VIAL IV STA (16:18)
[2019-10-23] MEDS ORDERED: ALBUTEROL 90 MCG/ACT 8GM HFA INHALER INH PRN (16:30)
[2019-10-23] MEDS ORDERED: CHLORTHALIDONE 12.5MG PER 1/2 TABLET PO PRN (16:30)
[2019-10-23] MEDS ORDERED: hydrALAZINE 20MG/ML 1ML VIAL (J0360 PER 20MG) IV SCH (17:00)
[2019-10-23] MEDS ORDERED: ONDANSETRON 4MG/2ML VIAL As Ordered ONE (17:38)
[2019-10-23] MEDS ORDERED: NS 1,000 ML IV ONE (18:00)
[2019-10-23] MEDS ORDERED: ONDANSETRON 4MG/2ML VIAL IV ONE (18:00)
[2019-10-23] MEDS ORDERED: PERCOCET 5MG/325MG TAB PO PRN (18:15)
[2019-10-23] MEDS ORDERED: ACETAMINOPHEN TAB 650MG DOSE (2X325MG) PO PRN (18:15)
--- NOTE | 2019-10-23 19:03 | HPEPDOC ---
[facility] Medical History & Physical Date of Admission Oct 23, 2019 Date of Service: Oct 23, 2019 Primary Care Physician: Carlos Enamorado Attending Physician: MING KESSLER MD History and Physical CHIEF COMPLAINT: left leg cramping HISTORY OF PRESENT ILLNESS: Sujata Miller is a 68-year-old female who presented to the emergency department today due to cramping in her left lower e xtremity. She has a history of DVT in her left ear extremity for which she takes Inderal to regularly. She states she takes her medications every day and does not miss doses. She first developed a DVT in the left leg when she was . This resolved and she was off medication for a number of years. She then developed recurrent DVT in the left lower extremity Dr. Vaughn performed a thrombectomy in April 2018. She was also evaluated by hematology/oncology at that time and they suggested long-term anticoagulation due to unprovoked DVT. Additionally, she had hypercoagulability workup including factor V Leiden, factor II mutation, antithrombin 3 activity and antigen, protein C antigen activity, protein S activity and antigen, APC resistance, and lupus anticoagulant. She did have a mildly elevated protein S antigen level at 153. She also had a elevated lupus antigen screen with subsequent negative GRETCHEN and anti-cardiolipin antibodies. Since that time she was maintained on Xarelto with no further issues until today when she experienced like cramping. She states the swelling in her left leg is about the same as it typically is. It is always slightly larger than the right leg. She does not have any current pain in the left leg. During evaluation in the emergency department, she was also found to be hypertensive with blood pressures up to 220/110. She received multiple doses of carvedilol and a dose of IV furosemide for this. During my evaluation of the patient in the emergency department, she became suddenly nauseous and appeared pale. Her blood pressure at that time had dropped to 92/44. She was treated with IV Zosyn and a 1 L normal saline bolus with good effect and her blood pressure improved to 150s/60s. PAST MEDICAL HISTORY: 1. 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 Asthma 3. Hypertension 4. Hypercholesterolemia 5. Allergic rhinitis 6. Melanoma s/p resection 7. Insomnia 8. GERD 9. Osteoporosis 10. Hiatal hernia/GERD PAST SURGICAL HISTORY: 1. Appendectomy 2. Cholecystectomy 3. Lumpectomy left breast, benign 4. Hysterectomy 5. Weiner procedure for bladder incontinence 6. Melanoma excision left thigh 7. L hand carpal tunnel release 8. Ureteral sling 9. L leg thrombectomy SOCIAL HISTORY: Never smoker. Drinks 1 glass of wine most nights. No illicit drug use. Retired, previously worked for [employer]. FAMILY HISTORY: Father passed at age 80 of an VA. Mother with atrial fibrillation, HTN. Family history of pancreas cancers. One aunt with breast cancer. ALLERGIES: Please see below. REVIEW OF SYSTEMS: CONSTITUTIONAL: Denies fevers, chills, night sweats, fatigue, unexpected change in weight. HEENT: Denies change in vision, change in hearing. CARDIOVASCULAR: Denies chest pain, palpitations, shortness of breath, lightheadedness. RESPIRATORY: Denies dyspnea, cough, wheezing. GASTROINTESTINAL: Denies nausea, vomiting, abdominal pain, diarrhea, constipati on, blood in stool. GENITOURINARY: Denies dysuria, urinary frequency, urinary urgency. SKIN: Denies rash, lesions. MUSCULOSKELETAL: Endorses leg cramp per HPI. NEUROLOGICAL: Denies headache, dizziness, weakness. PSYCHIATRIC: Denies change in mood. HOME MEDICATIONS: Please see below. PHYSICAL EXAMINATION: VITAL SIGNS: See below GENERAL: Alert, comfortable, in no acute distress HEENT: Normocephalic, atraumatic, sclerae anicteric moist mucous membranes NECK: Supple, trachea midline, no lymphadenopathy, no JVD CARDIOVASCULAR: Regular rate and irregular rhythm, normal S1 and S2. No murmurs, rubs, or gallops RESPIRATORY: Clear to auscultation bilaterally with equal air entry bilaterally. No wheezing, rhonchi, or rales. ABDOMEN: Soft, nontender, nondistended, bowel sounds present EXTREMITIES: Left lower extremity with mild swelling compared to right lower extremity. No erythema or warmth. No visible veins. Well-healed scar on the left mid thigh Pulses 2+/4 in bilateral upper and lower extremities SKIN: [place], warm, dry NEUROLOGIC: Alert and oriented x3 to person, place and time. Cranial nerves 2-12 grossly intact. Diminished sensation over the left mid thigh to the knee which is chronic. Otherwise, no focal deficits noticed. PSYCHIATRIC: Mood and affect appropriate LABORATORY DATA: See below. IMAGING: No official reports available for review. Lower extremity ultrasound CTA chest. CT abdomen/pelvis MICROBIOLOGY: Please see below. ASSESSMENT: 68-year-old female who presented with cramping in the left lower extremity, admitted for worsening DVT and failure of Xarelto as well as hypertensive urgency PLAN: 1. Recurrent left lower extremity DVT Previously on Xarelto, this will be discontinued as she has failed this agent. Started patient on Eliquis as 10 mg twice a day for 7 days, then switch to 5 mg twice a day for maintenance dosing. Case discussed with Dr. Nettles who will see the patient in outpatient follow-up and suggested adding 81 mg aspirin daily. Compression stockings, patient has full length stockings at home, which she should wear if she can have them brought in Hematology/oncology consulted for recurrent DVT, appreciate their input and recommendations. Previous hypercoagulability workup done in April 2018 negative CTA negative for pulmonary embolism 2. Hypertensive urgency Treated with 2 doses of 25 mg carvedilol in the ED and 40 mg IV furosemide. Patient subsequently became hypotensive and was putting out large amounts of urine, improved after 1 L normal saline bolus. Would avoid extensive use of diuretics in this patient due to hypotension in the ED Continue home Benicar. We do not carry pindolol in the hospital, so this has been substituted with carvedilol. Hold home chlorthalidone, she takes this only when necessary for increased leg swelling Monitor on telemetry. CT had ordered in the ED, but unable to complete due to recent contrast administration, reordered for tomorrow morning. 3. Asthma and allergic rhinitis. Continue home until the cast, Advair inhaler, and albuterol when necessary No evidence of acute exacerbation of asthma 4. Insomnia, mood disorder. Continue home BuSpar and trazodone 5. Hiatal hernia/GERD. Continue home Protonix and probiotic 6. Osteoporosis. On bisphosphonate therapy, if she is still admitted on Wednesday 10/25 she will be due for a dose of Fosamax DVT Prophylaxis:on eliquis Disposition: Admitted inpatient to PCU, expect greater than 2 midnights stay, pending stabilization of blood pressure HOSPITALIST ATTENDING PHYSICIAN ADDENDUM: I have independently interviewed and examined the patient at the bedside,and agree with the documented physical findings, and management plans as indicated above. Sports Statistician Dr. Borges, consulted for recurrent hypercoagulable state despite adherance to full anticoagulation. Vascualr Surgeon, Dr. Mccartney consulted for thrombectomy as outpt. Pt had IVC filter placement and removal by Dr. Vaughn in the past. it was unclear why the IVC filter was removed. Vital Signs Vital Signs Date Time Temp Pulse Resp B/P (MAP) Pulse Ox O2 Delivery O2 Flow Rate FiO2 10/23/19 18:15 69 18 154/66 (95) 95 Room Air 10/23/19 13:24 99.3 Laboratory Data Labs 24H Laboratory Tests 2 10/23/19 13:23: Immature Granulocyte % (Auto) 0.9, Neutrophils (%) (Auto) 64.5, Lymphocytes (%) (Auto) 21.5L, Monocytes (%) (Auto) 9.9H, Eosinophils (%) (Auto) 2.3, Basophils (%) (Auto) 0.9, Neutrophils # (Auto) 5.6, Lymphocytes # (Auto) 1.9, Monocytes # (Auto) 0.9H, Eosinophils # (Auto) 0.2, Basophils # (Auto) 0.1, Nucleated Red Blood Cells % (auto) 0.0, Prothrombin Time 21.1H, Prothromb Time International Ratio 1.85, Activated Partial Thromboplast Time 34.5, Anion Gap 5L, Glomerular Filtration Rate > 60.0, Calcium Level 9.5, Total Bilirubin 0.7, Direct Bilirubin 0.2, Aspartate Amino Transf (AST/SGOT) 15, Alanine Aminotransferase (ALT/SGPT) 22, Alkaline Phosphatase 72, Total Protein 7.3, Albumin 4.0, Albumin/Globulin Ratio 1.2, Triglycerides Level 118, Total Cholesterol 200, LDL Cholesterol 111H, Non-HDL Cholesterol (LDL + VLDL) 135, Total HDL Cholesterol 65, Cholesterol/HDL Ratio 3.076, Lipase 184 10/23/19 13:24: Urine Color YELLOW, Urine Appearance CLEAR, Urine pH 5.0, Urine Specific [place] 1.018, Urine Protein NEGATIVE, Urine Glucose (UA) NEGATIVE, Urine Ketones NEGATIVE, Urine Blood NEGATIVE, Urine Nitrite NEGATIVE, Urine Bilirubin NEGATIVE, Urine Urobilinogen 0.2, Urine Leukocyte Esterase NEGATIVE, Urine WBC (Auto) 0, Urine RBC (Auto) 2, Urine Hyaline Casts (Auto) 0, Urine Bacteria (Auto) NEGATIVE, Urine Squamous Epithelial Cells 0, Urine Mucus (Auto) SMALL, Urine Sperm (Auto) CBC/BMP Laboratory Tests 10/23/19 13:23 Home Medications Scheduled Alendronate Sodium (Fosamax) 70 Mg Tab, 70 MG PO 1XWK TAKES ON TUESDAYS Atorvastatin Calcium (Atorvastatin Calcium) 10 Mg Tab, 5 MG PO 3XW FRIDAY, FRIDAY, FRIDAY Buspirone HCl (Buspirone HCl) 30 Mg Tablet, 30 MG PO BID Cyanocobalamin (Vitamin B-12) (Vitamin B12) 2,500 Mcg Tablet, 1,000 MCG PO DAILY Fluticasone Propion/Salmeterol (Advair Hfa 115-21 Mcg Inhaler) 1 Aer Aer, 2 PUFF INH BID Lactobacillus Acidophilus (Probiotic) 1 Each Capsule, 1 CAP PO DAILY Loteprednol Etabonate (Loteprednol Etabonate) 5 Ml Drops.susp, 1 DROP OU QID Montelukast Sodium (Montelukast Sodium) 10 Mg Tab, 10 MG PO DAILY Olmesartan Medoxomil (Benicar) 40 Mg Tab, 40 MG PO DAILY Pantoprazole Sodium (Pantoprazole Sodium) 40 Mg Tab, 40 MG PO DAILY Pindolol (Pindolol) 5 Mg Tablet, 2.5 MG PO BID Rivaroxaban (Xarelto) 20 Mg Tablet, 20 MG PO DAILY Trazodone HCl (Trazodone HCl) 50 Mg Tab, 50 MG PO QHS Scheduled PRN Albuterol Sulfate (Proair Hfa) 108 Mcg/Act Aer, 2 PUFFS INH Q4H PRN for SHORTNESS OF BREATH Chlorthalidone (Chlorthalidone) 12.5 Mg Halftab, 12.5 MG PO DAILY PRN for FLUID RETENTION TAKES NEEDED FOR LEG SWELLING AND FLUID RETENTION Allergies Coded Allergies: allopurinol (Verified Allergy, Unknown, 09/02/18) bee venom protein (honey bee) (Verified Allergy, Unknown, 09/02/18) colchicine (Verified Allergy, Unknown, 09/02/18) ASIYA LONGO D.O. Oct 23, 2019 19:03 MING KESSLER MD Oct 24, 2019 14:54
[2019-10-23 20:00] VITALS: BP 138/63
[2019-10-23] MEDS: ADVAIR HFA 115/21MCG INHALER INH SCH (20:38)
[2019-10-23] MEDS: traZODone 50 MG TAB PO SCH (21:17)
[2019-10-23] MEDS: CARVedilol 6.25 MG TAB PO SCH (21:18)
[2019-10-23 22:04] VITALS: BP 133/61
[2019-10-23] MEDS: ONDANSETRON 4 MG TAB PO PRN (22:13)
[2019-10-23] MEDS: busPIRone 10 MG TAB PO SCH (22:13)
[2019-10-24] VITALS: BP 108/58
[2019-10-24 04:00] VITALS: BP 132/63
[2019-10-24 05:02] LABS: HEMATOCRIT 43.2 % (36.0-47.0); HEMOGLOBIN 14.5 g/dl (12.0-15.5); MEAN CORPUSCULAR HEMOGLOBIN 30.7 pg (27.0-33.0); MEAN CORPUSCULAR HGB CONC 33.6 g/dl (32.0-36.5); MEAN CORPUSCULAR VOLUME 91.5 fl (80.0-96.0); PLATELET COUNT, AUTOMATED 226 10^3/uL (150-450); RED BLOOD COUNT 4.72 10^6/uL (4.00-5.40)
[2019-10-24 05:32] LABS: BLOOD UREA NITROGEN 18 MG/DL (7-18); CALCIUM LEVEL 8.8 MG/DL (8.8-10.2); CARBON DIOXIDE LEVEL 26 MEQ/L (21-32); CHLORIDE LEVEL 107 MEQ/L (98-107); GLOMERULAR FILTRATION RATE > 60.0 (>45); GLUCOSE, FASTING 97 MG/DL (70-100); POTASSIUM SERUM 3.9 MEQ/L (3.5-5.1); SODIUM LEVEL 140 MEQ/L (136-145)
[2019-10-24] MEDS: ADVAIR HFA 115/21MCG INHALER INH SCH ×2 (07:39→20:44)
[2019-10-24 08:00] VITALS: BP 133/66
--- NOTE | 2019-10-24 08:33 | REPVR ---
PROCEDURE INFORMATION: Exam: CT Head Without Contrast Exam date and time: 10/24/2019 6:15 AM Age: 68 years old Clinical indication: Pain; Headache; Additional info: Hypertensive urgency R/O ich TECHNIQUE: Imaging protocol: Computed tomography of the head without contrast. Radiation optimization: All CT scans at this facility use at least one of these dose optimization techniques: automated exposure control; mA and/or kV adjustment per patient size (includes targeted exams where dose is matched to clinical indication); or iterative reconstruction. COMPARISON: No relevant prior studies available. FINDINGS: Brain: Examination of the brain demonstrates normal structure and attenuation.The cortical loeng / white matter interfaces are preserved throughout the brain.No acute infarction, masses or hemorrhage is seen. No acute intracranial abnormality is identified.There is no hyperdense MCA sign. Examination of the posterior fossa demonstrates no significant abnormality. Ventricles: The ventricular system is not dilated and is appropriate for the patient's age. Bones/joints: Unremarkable. No acute fracture. Sinuses: Visualized sinuses are unremarkable. No fluid levels. Mastoid air cells: Visualized mastoid air cells are well aerated. Soft tissues: Unremarkable. IMPRESSION: 1. No acute infarction, masses or hemorrhage is seen. No acute intracranial abnormality is identified. 2. [place] Stroke Program Early CT Score (ASPECTS) = 10 Electronically signed by: Matthew Bernard On 10/24/2019 08:32:53 AM
[2019-10-24] MEDS: OLMESARTAN MEDOXOMIL 20 MG TAB (BENICAR) PO SCH (08:47)
[2019-10-24] MEDS: ONDANSETRON 4 MG TAB PO PRN (08:51)
[2019-10-24] MEDS: PANTOPRAZOLE 40MG TAB (PROTONIX) PO SCH (08:51)
[2019-10-24] MEDS: CYANOCOBALAMIN 500 MCG TAB PO SCH (08:51)
[2019-10-24] MEDS: busPIRone 10 MG TAB PO SCH ×2 (08:51→21:35)
[2019-10-24] MEDS: LACTOBACILLUS ACIDOPHILUS CAP (BACID) PO SCH (08:51)
[2019-10-24] MEDS: MONTELUKAST 10 MG TAB PO SCH (08:51)
[2019-10-24] MEDS: ASPIRIN 81 MG ENTERIC TAB PO SCH (08:51)
[2019-10-24] MEDS: CARVedilol 6.25 MG TAB PO SCH ×4 (09:00→21:34)
[2019-10-24] MEDS ORDERED: ENOXAPARIN 80MG/0.8ML SYRINGE (J1650 PER 10MG) SC SCH (09:00)
[2019-10-24] MEDS ORDERED: APIXABAN 5 MG TAB (ELIQUIS) PO SCH (09:00)
--- NOTE | 2019-10-24 09:47 | REP ---
LEFT LOWER EXTREMITY DOPPLER VENOUS ULTRASOUND: 10/23/2019. CLINICAL HISTORY: Pain, known prior DVT. COMPARISON: 08/11/2018, 03/02/2018. FINDINGS: Standard duplex techniques were utilized to evaluate the left lower extremity. The left common femoral vein shows some nonocclusive clot, and there is occlusive clot through the superficial femoral vein to the popliteal vein. Flow seen in the greater saphenous vein without visible thrombus. On the previous study, the greater saphenous vein was patent. IMPRESSION: 1. Occlusive DVT in the superficial femoral and popliteal veins of the deep system and nonocclusive common femoral vein thrombus. This is the same pattern as seen on the previous study of 08/11/2018. There is good flow in the greater saphenous vein. This represents chronic DVT or blnzy-ev-[id number] DVT. Electronically Signed by Catalino Garcia MD 10/24/2019 06:34 P
--- NOTE | 2019-10-24 11:53 | REP ---
CT ANGIOGRAM CHEST: 10/23/2019. COMPARISON: 09/02/2018 CT. CLINICAL HISTORY: DVT in left lower extremity. Evaluate for pulmonary emboli or other. TECHNIQUE: Bolus of 100 mL Isovue 370 with scanning using our standard CT angiogram protocol along with both coronal and sagittal MIP and standard reformats. FINDINGS: There is minor dependent atelectatic change in the lung mehta posteriorly and some curvilinear atelectatic change in the lateral segment of the right middle lobe. I do not see dense consolidation, pleural effusion, pulmonary nodule, or parenchymal lung mass. Findings similar to the previous study. There is also some inferior lingular segment subsegmental atelectatic change adjacent to the left heart border in the anterior left lung base. Heart size mildly prominent with left atrial enlargement and left ventricular mild enlargement. No pericardial thickening or effusion. There is a small hiatal hernia evident. The aorta is without aneurysm or dissection. Calcifications in the arch and descending portion are mild. The main, right, and left pulmonary arteries are prominent but without filling defects or vessel cutoff. They are well opacified. The lobar, segmental, and subsegmental arteries are bilaterally without filling defect or vessel cutoff. There is no pathologic sized mediastinal, hilar, axillary, or supraclavicular adenopathy. Sternum, manubrium, medial clavicles, visualized portions of scapula and humeral heads, as well as the ribs and thoracic vertebral bodies show no acute bony finding. In the upper abdomen, there is no hepatosplenomegaly, focal hepatic or splenic lesion, nor biliary dilatation. Clips from prior cholecystectomy noted. Adrenal glands and visualized portion of the pancreas are unremarkable. IMPRESSION: 1. There is no CT evidence of pulmonary thromboembolism. 2. No aortic aneurysm or dissection, mediastinal or hilar adenopathy nor parenchymal lung findings of acute nature. Stable CT. 3. Upper abdomen without any new or acute finding. Electronically Signed by Catalino Garcia MD 10/24/2019 06:52 P
--- NOTE | 2019-10-24 11:54 | IPNPDOC ---
Text Note Date of Service The patient was seen on 10/24/19. NOTE SUBJECTIVE: -Feels well this morning, no complaints OBJECTIVE: VITAL SIGNS: See below GENERAL: Alert, NAD HEENT: NCAT, PERRLA, EOMI, MMM NECK: Supple, trachea midline, no lymphadenopathy, no JVD CARDIOVASCULAR: RRR, normal S1 and S2. No noted murmurs, rubs, or gallops RESPIRATORY: CTAB. No wheezing, rhonchi, or rales. ABDOMEN: Normoactive bowel sounds, soft, NTND EXTREMITIES: Left lower extremity with mild swelling compared to right lower extremity. No erythema or warmth. No palpable cords, WWP, 2+ DP pulses SKIN: [place], warm, no rashes or lesions NEUROLOGIC: AOx3. CN 2-12 grossly intact. moving all extremities PSYCHIATRIC: AOx3 LABORATORY DATA: Reviewed WBC 11 Hgb 14.5 platelets 226 na 140 K 3.9 Cr 0.8 IMAGING: Lower extremity ultrasound: LLE DVT CTA chest: negative for PE CT abdomen/pelvis: read pending MICROBIOLOGY: Please see below. ASSESSMENT: 68-year-old female who presented with cramping in the left lower extremity, admitted for worsening DVT and failure of Xarelto as well as hypertensive urgency PLAN: 1. 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 Case discussed with Dr. Nettles who will see the patient in outpatient follow-up and suggested adding 81 mg aspirin daily. Compression stockings Hematology/oncology consulted for recurrent DVT, appreciate their input and recommendations. Previous hypercoagulability workup done in April 2018 negative CTA negative for pulmonary embolism 2. HTN Continue home Benicar. We do not carry pindolol in the hospital, so this has been substituted with carvedilol. Hold home chlorthalidone, she takes this only when necessary for increased leg swelling 3. Asthma and allergic rhinitis. Continue home montelukast, Advair inhaler, and albuterol PRN No evidence of acute exacerbation of asthma 4. Insomnia, mood disorder. Continue home Buspar and trazodone 5. Hiatal hernia/GERD. Continue home Protonix and probiotic 6. Osteoporosis. On bisphosphonate therapy, if she is still admitted on Wednesday 10/25 she will be due for a dose of Fosamax DVT Prophylaxis: On full anticoagulation [facility] Sonam PRECIADO I+O Sonam PRECIADO I+O Laboratory Tests 10/23/19 13:23 10/24/19 04:33 10/24/19 04:34 Vital Signs Date Time Temp Pulse Resp B/P (MAP) Pulse Ox O2 Delivery O2 Flow Rate FiO2 10/24/19 08:47 125/69 10/24/19 08:00 97.5 64 20 97 Room Air I&O- Last 24 Hours up to 6 AM 10/24/19 06:00 Intake Total 350 ml Output Total 425 ml Balance -75 ml LATRICE MURDOCK MD Oct 24, 2019 09:06
[2019-10-24 12:00] VITALS: BP 121/64
--- NOTE | 2019-10-24 12:07 | REP ---
CT ABDOMEN/PELVIS WITH IV CONTRAST ONLY: 10/23/2019. COMPARISON: 01/18/2019 CLINICAL HISTORY: Diffuse abdominal pain, positive left thigh DVT. Evaluate for any clots in the abdomen TECHNIQUE: Bolus of 100 mL Isovue 370 scanning through the abdomen/pelvis with coronal and sagittal reconstructions provided. FINDINGS: CT ABDOMEN: Lung bases with some minor dependent atelectatic changes. Small hiatal hernia. Liver and spleen are not enlarged. There is no biliary dilatation or ascites. No hepatic mass. Clips from prior cholecystectomy noted. Common duct without calcified stone or mass. There is a 1.3 cm cyst in the uncinate portion of the pancreas, unchanged from the previous CT and another on 04/20/2018. No other pancreatic finding, atrophy, mass, or calcification. No peripancreatic fluid collection or adenopathy. Adrenal glands are normal. Kidneys show symmetric function without obstruction, hydronephrosis, mass, or stone. The aorta is without aneurysm. There is no periaortic, other retroperitoneal, or mesenteric pathologic-sized lymphadenopathy. Small bowel loops are unremarkable. Abdominal portion of the colon is without inflammatory change to suggest colitis, diverticulitis, stricture, or mass. There is no evidence for perforation or free air on lung window review of CT abdomen and pelvis. Bone windows show minor degenerative changes in the spine, stable, and the visualized ribs intact. CT PELVIS: The bony sacrum, SI joints, pelvis and hips were all without acute finding. Distal left colon, sigmoid and rectum unremarkable, and small bowel loops in the pelvis are intact. There is no evidence of an appendix. No inflammatory changes about the cecum. There is no ventral or inguinal hernia finding. No pelvic mass or adenopathy. The common femoral veins have similar size bilaterally but are not opacified. There is no dilatation of the right common iliac. The left common and external iliac are small in caliber. IMPRESSION: 1. No CT evidence of deep vein thrombosis in the common femoral veins, which are symmetric in size although some nonocclusive thrombus seen in the left on ultrasound. However, the external iliac and common iliac vein on the left are small caliber while the right is normal caliber. This may reflect chronic low flow. I do not see significant collaterals. 2. The upper abdomen organs show only a 13 mm cyst in the uncinate portion of pancreas, unchanged from the two previous studies and evidence for prior cholecystectomy. There are no inflammatory changes about the colon and small bowel loops. Appendix and gallbladder absent. 3. The liver, spleen, and kidneys unremarkable. 4. No aortic aneurysm or dissection. 5. Stable examination from 01/18/2019. Electronically Signed by Catalino Garcia MD 10/24/2019 06:53 P
[2019-10-24 12:15] VITALS: BP 133/82
--- NOTE | 2019-10-24 15:13 | CR.PDOC ---
General Date of Consultation: Oct 24, 2019 Referring Provider: MING KESSLER MD Primary Care Physician: Carlos Enamorado Attending Physician: LATRICE MURDOCK MD Consultation REASON FOR CONSULTATION/CHIEF COMPLAINT: Recurrent DVT while on anticoagulation. HISTORY OF PRESENT ILLNESS: Ms. Sujata Miller is a 68-year-old woman who underwent surgery for a melanoma on her left thigh in August 2014. She developed a left peroneal and tibial vein deep venous thrombosis a year later in March 2016 and was treated with rivaroxaban anticoagulation from March 2016 to September 2015. She had a DVT recurrence April 2018 when she developed leg pain and swelling with a duplex ultrasound left lower extremity 04/18/2018 showing extensive DVT involving the left common femoral to left popliteal veins, extending into the tibialperoneal trunk/calf veins. She was given IV heparin at that time and underwent thrombectomy and was sent home on rivaroxaban (Xarelto). She has been on this since that time. She presented to the emergency room yesterday because of cramping in her left lower extremity. She had a Doppler ultrasound left lower extremity 10/23/2019 which showed occlusive DVT in the superficial femoral and popliteal veins and nonocclusive common femoral vein thrombus. She was switched from Xarelto to eliquis and also started on aspirin. Ms. Miller reports no major issues with anticoagulation, specifically bleeding. She also reports that she was taking Xarelto just before breakfast. As far as she knows she hasn't missed any doses of Xarelto. She reports that she has had regular annual mammography, but has never had a colonoscopy. She has had sigmoidoscopy and also does cologuard testing under Dr. Enamorado. ALLERGIES: Please see below. HOME MEDICATIONS: Please see below. PAST MEDICAL HISTORY: 1. 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 Asthma 3. Hypertension 4. Hypercholesterolemia 5. Allergic rhinitis 6. Melanoma s/p resection 7. Insomnia 8. GERD 9. Osteoporosis 10. Hiatal hernia/GERD PAST SURGICAL HISTORY: 1. Appendectomy 2. Cholecystectomy 3. Lumpectomy left breast, benign 4. Hysterectomy 5. Weiner procedure for bladder incontinence 6. Melanoma excision left thigh 7. L hand carpal tunnel release 8. Ureteral sling 9. L leg thrombectomy FAMILY HISTORY: No history of DVT/PE in the family. SOCIAL HISTORY: Marital status and/or living arrangements: Employment: Retired at age 65 from working at [employer]. Tobacco use: Never smoker. ETOH: Denies alcohol abuse REVIEW OF SYSTEMS: CONSTITUTIONAL: Normal appetite. Denies chills, fever, malaise, night sweats, weakness, fatigue, weight loss, lethargy. HEENT: Denies eye pain, vision changes, conjunctivae inflammation. Denies head aches, ear pain, dysphagia, sinus congestion. CARDIOVASCULAR: Denies chest pain, palpitations, orthopnea, lightheadedness, edema. RESPIRATORY: Denies dyspnea, cough, pleuritic chest pain. GENITOURINARY: Denies dysuria, frequency, incontinence, hematuria MUSCULOSKELETAL: Denies neck pain, shoulder pain, arm pain, back pain, hand pain, leg pain, muscle pain, spasms, gout, joint swelling, muscle stiffness. GASTROINTESTINAL: Denies vomiting, abdominal pain, diarrhea, constipation, melena, hematochezia. She had nausea shortly after admission, when she was given an antihypertensive medication for significant elevation in BP. SKIN: No skin rash, no jaundice, no bruising. NEUROLOGICAL: Denies weakness, numbness, incoordination, change in speech, confusion, seizures, headaches. PSYCHIATRIC: Reports normal mood. Denies anxiety. ENDOCRINE: Denies polydipsia, polyphagia, polyuria. HEMATOLOGIC/LYMPHATIC: Denies excessive bleeding, petechiae, purpura, enlarged lymph nodes, and bruising. PHYSICAL EXAMINATION: VITAL SIGNS: Please see below. GENERAL APPEARANCE: Alert, cooperative, in no acute distress. Oriented 3. HEENT: Pupils equal and reactive to light. Conjunctivae and lids normal. EOMI. Atraumatic, moist oral mucosa. Pharynx normal. Tongue midline. RESPIRATORY: Clear to auscultation. Normal air movement. No rales. No rhonchi. No wheezing. No diminished sounds. CARDIOVASCULAR: Rate normal. Regular rhythm. Normal S1. Normal S2. No gallops. No murmurs. No rubs. ABDOMEN: Normal bowel sounds. Soft. Nontender. No palpable masses. No hepatosplenomegaly. No hernia. EXTREMITIES: Normal pulses. No clubbing. No cyanosis. No edema. No tenderness. No swelling. NEUROLOGICAL: Normal speech. Oriented 3. Moved all extremities spontaneously area is PSYCHIATRIC: Mental status normal. Morbid normal. No anxiety. LABORATORY DATA: Please see below. ASSESSMENT/PLAN: Left lower extremity DVT recurrence while on anticoagulation with Rivaroxaban (Xarelto). I recommend switching patient to low molecular weight heparin at this time. No clinical data to support that switching from Xarelto to eliquis would be of benefit, unless patient has Xarelto malabsorption. Ms. Miller has no objection to switching to low molecular weight heparin. Above discussed with Dr. Murdock, Hospitalist. Thrombophilia testing 04/2018 included: Negative prothrombin gene mutation. Normal anticardiolipin antibodies. Lupus anticoagulant screen positive but subsequent testing for lupus anticoagulant ratio was normal and therefore Lupus anticoagulant negative. No Protein S deficiency. No protein C deficiency. No anti-thrombin III deficiency. Negative Factor V Leiden mutation. Normal homocystine level. Will arrange follow-up appointment with me one to 2 weeks after discharge. Thank you for referring Ms. Sujata Miller. Vital Signs/I&O Vital Signs Date Time Temp Pulse Resp B/P (MAP) Pulse Ox O2 Delivery O2 Flow Rate FiO2 10/24/19 12:15 97.9 66 16 133/82 (99) 93 10/24/19 12:00 Room Air I&O- Last 24 Hours up to 6 AM 10/24/19 06:00 Intake Total 1350 ml Output Total 425 ml Balance 925 ml Laboratory Data Labs 24H Laboratory Tests 2 10/24/19 04:33: Anion Gap 7L, Glomerular Filtration Rate > 60.0, Calcium Level 8.8 10/24/19 04:34: Nucleated Red Blood Cells % (auto) 0.0 CBC/BMP Laboratory Tests 10/24/19 04:33 10/24/19 04:34 Allergies Coded Allergies: allopurinol (Verified Allergy, Unknown, 09/02/18) bee venom protein (honey bee) (Verified Allergy, Unknown, 09/02/18) colchicine (Verified Allergy, Unknown, 09/02/18) Home Medications Scheduled Alendronate Sodium (Fosamax) 70 Mg Tab, 70 MG PO 1XWK, (Reported) TAKES ON TUESDAYS Atorvastatin Calcium (Atorvastatin Calcium) 10 Mg Tab, 5 MG PO 3XW, (Reported) FRIDAY, FRIDAY, FRIDAY Buspirone HCl (Buspirone HCl) 30 Mg Tablet, 30 MG PO BID, (Reported) Cyanocobalamin (Vitamin B-12) (Vitamin B12) 2,500 Mcg Tablet, 1,000 MCG PO DAILY, (Reported) Fluticasone Propion/Salmeterol (Advair Hfa 115-21 Mcg Inhaler) 1 Aer Aer, 2 PUFF INH BID, (Reported) Lactobacillus Acidophilus (Probiotic) 1 Each Capsule, 1 CAP PO DAILY, (Reported) Loteprednol Etabonate (Loteprednol Etabonate) 5 Ml Drops.susp, 1 DROP OU QID, (Reported) Montelukast Sodium (Montelukast Sodium) 10 Mg Tab, 10 MG PO DAILY, (Reported) Olmesartan Medoxomil (Benicar) 40 Mg Tab, 40 MG PO DAILY, (Reported) Pantoprazole Sodium (Pantoprazole Sodium) 40 Mg Tab, 40 MG PO DAILY, (Reported) Pindolol (Pindolol) 5 Mg Tablet, 2.5 MG PO BID, (Reported) Rivaroxaban (Xarelto) 20 Mg Tablet, 20 MG PO DAILY, (Reported) Trazodone HCl (Trazodone HCl) 50 Mg Tab, 50 MG PO QHS, (Reported) Scheduled PRN Albuterol Sulfate (Proair Hfa) 108 Mcg/Act Aer, 2 PUFFS INH Q4H PRN for SHORTNESS OF BREATH, (Reported) Chlorthalidone (Chlorthalidone) 12.5 Mg Halftab, 12.5 MG PO DAILY PRN for FLUID RETENTION, (Reported) TAKES NEEDED FOR LEG SWELLING AND FLUID RETENTION JAMEL WELCH MD Oct 24, 2019 15:13
[2019-10-24 20:28] VITALS: BP 131/68
[2019-10-24] MEDS ORDERED: ENOXAPARIN 120MG/0.8ML SYRINGE (J1650 PER 10MG) SC SCH (21:00)
[2019-10-24] MEDS ORDERED: MIRALAX *UNIT DOSE* 17GM PACKET PO PRN (21:00)
[2019-10-24] MEDS: traZODone 50 MG TAB PO SCH (21:34)
[2019-10-25 06:17] LABS: HEMATOCRIT 43.1 % (36.0-47.0); HEMOGLOBIN 14.6 g/dl (12.0-15.5); MEAN CORPUSCULAR HEMOGLOBIN 31.1 pg (27.0-33.0); MEAN CORPUSCULAR HGB CONC 33.9 g/dl (32.0-36.5); MEAN CORPUSCULAR VOLUME 91.7 fl (80.0-96.0); PLATELET COUNT, AUTOMATED 226 10^3/uL (150-450); WHITE BLOOD COUNT 9.8 10^3/uL (4.0-10.0)
[2019-10-25 06:41] LABS: BLOOD UREA NITROGEN 17 MG/DL (7-18); CALCIUM LEVEL 9.5 MG/DL (8.8-10.2); CARBON DIOXIDE LEVEL 27 MEQ/L (21-32); CHLORIDE LEVEL 107 MEQ/L (98-107); CREATININE FOR GFR 0.78 MG/DL (0.55-1.30); GLOMERULAR FILTRATION RATE > 60.0 (>45); GLUCOSE, FASTING 93 MG/DL (70-100); POTASSIUM SERUM 3.6 MEQ/L (3.5-5.1); SODIUM LEVEL 142 MEQ/L (136-145)
[2019-10-25] MEDS: OLMESARTAN MEDOXOMIL 20 MG TAB (BENICAR) PO SCH (06:59)
[2019-10-25] MEDS: CARVedilol 6.25 MG TAB PO SCH ×2 (07:00→08:38)
[2019-10-25] MEDS ORDERED: LOVE0.01 SC (07:08)
[2019-10-25] MEDS: ADVAIR HFA 115/21MCG INHALER INH SCH (07:45)
[2019-10-25] MEDS: CYANOCOBALAMIN 500 MCG TAB PO SCH (08:35)
[2019-10-25] MEDS: LACTOBACILLUS ACIDOPHILUS CAP (BACID) PO SCH (08:35)
[2019-10-25] MEDS: PANTOPRAZOLE 40MG TAB (PROTONIX) PO SCH (08:35)
[2019-10-25] MEDS: busPIRone 10 MG TAB PO SCH (08:35)
[2019-10-25] MEDS: MONTELUKAST 10 MG TAB PO SCH (08:35)
[2019-10-25] MEDS: ASPIRIN 81 MG ENTERIC TAB PO SCH (08:35)
[2019-10-25 08:38] VITALS: BP 145/75
[2019-10-25 08:40] VITALS: BP 145/75
[2019-10-25] MEDS ORDERED: ATORVASTATIN 5MG PER 1/2 TABLET PO SCH (09:00)
--- NOTE | 2019-10-25 10:32 | DS.PDOC ---
Discharge Summary General Date of Admission Oct 23, 2019 at 16:20 Date of Discharge 10/25/2019 Attending Physician: LATRICE MURDOCK MD Discharge Summary PROCEDURES PERFORMED DURING STAY: None ADMITTING DIAGNOSES: 1. Left DVT DISCHARGE DIAGNOSES: 1. 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 Hypertensive urgency with a history of essential hypertension 3. Asthma 4. Hypercholesterolemia 5. Allergic rhinitis 6. Melanoma s/p resection 7. Insomnia 8. GERD 9. Osteoporosis 10. Hiatal hernia/GERD COMPLICATIONS/CHIEF COMPLAINT: Hypertensive Urgency,Left Leg Dvt. HISTORY OF PRESENT ILLNESS: Sujata Miller is a 68-year-old W who presented to the emergency department due to cramping in her left lower extremity. She has a history of DVT in her left ear extremity and takes Xarelto. She first developed a DVT in the left leg many years ago that resolved and she was off medication for a number of years. She then developed another DVT in the left lower extremity for which Dr. Vaughn perf ormed a thrombectomy in April 2018. She was also evaluated by hematology/oncology at that time and they suggested long-term anticoagulation due to unprovoked DVT and was placed on xarelto. Additionally, she had immediate hypercoagulability workup including factor V Leiden, factor II mutation, anti thrombin 3 activity and antigen, protein C antigen activity, protein S activity and antigen, APC resistance, and lupus anticoagulant. She did have a mildly elevated protein S antigen level at 153. She also had a elevated lupus antigen screen with subsequent negative GRETCHEN and anti-cardiolipin antibodies. Since that time she was maintained on Xarelto with no further issues until this presentation when she experienced worsening cramping. HOSPITAL COURSE: In the ED, she was hypertensive with blood pressures up to 220/110. She received multiple doses of carvedilol and a dose of IV furosemide for this that was c/b hypotension requiring 1L NS with normalization of her BP. She was Dr. Car was called from the ED and recommended anticoagulation as well as continuing ASA 81 and outpatient follow up. Heme/onc was also consulted and recommended switching from the initial Eliquis to full dose lovenox and outpatient follow up. She is now being discharged home and will follow up with PCP, hematology and vascular surgery. DISCHARGE MEDICATIONS: Please see below. ALLERGIES: Please see below. PHYSICAL EXAMINATION ON DISCHARGE: VITAL SIGNS: Please see below. GENERAL: Alert, NAD HEENT: NCAT, PERRLA, EOMI, MMM NECK: Supple, trachea midline, no lymphadenopathy, no JVD CARDIOVASCULAR: RRR, normal S1 and S2. No noted murmurs, rubs, or gallops RESPIRATORY: CTAB. No wheezing, rhonchi, or rales. ABDOMEN: Normoactive bowel sounds, soft, NTND EXTREMITIES: Left lower extremity with mild swelling compared to right lower extremity. No erythema or warmth. No palpable cords, WWP, 2+ DP pulses SKIN: [place], warm, no rashes or lesions NEUROLOGIC: AOx3. CN 2-12 grossly intact. moving all extremities PSYCHIATRIC: AOx3 LABORATORY DATA: Please see below. IMAGING: LLE doppler venous US: Occlusive DVT in the superficial femoral and popliteal veins of the deep system and nonocclusive common femoral vein thrombus. This is the same pattern as seen on the previous study of 08/11/2018. There is good flow in the greater saphenous vein. This represents chronic DVT or [id number] DVT. CTA chest: 1. There is no CT evidence of pulmonary thromboembolism. 2. No aortic aneurysm or dissection, mediastinal or hilar adenopathy nor parenchymal lung findings of acute nature. Stable CT. 3. Upper abdomen without any new or acute finding. CT A/P: 1. No CT evidence of deep vein thrombosis in the common femoral veins, which are symmetric in size although some nonocclusive thrombus seen in the left on ultrasound. However, the external iliac and common iliac vein on the left are small caliber while the right is normal caliber. This may reflect chronic low flow. I do not see significant collaterals. 2. The upper abdomen organs show only a 13 mm cyst in the uncinate portion of pancreas, unchanged from the two previous studies and evidence for prior cholecystectomy. There are no inflammatory changes about the colon and small bowel loops. Appendix and gallbladder absent. 3. The liver, spleen, and kidneys unremarkable. 4. No aortic aneurysm or dissection. 5. Stable examination from 01/18/2019. CT head without contrast: 1. No acute infarction, masses or hemorrhage is seen. No acute intracranial abnormality is identified. PROGNOSIS: Good ACTIVITY: As tolerated DIET: Regular DISCHARGE PLAN: Home on lovenox SQ once daily with hematology follow up as well as vascular surgery and PCP. DISPOSITION: Home DISCHARGE INSTRUCTIONS: 1. Home on lovenox SQ once daily with hematology follow up as well as vascular surgery and PCP. ITEMS TO FOLLOWUP ON ON OUTPATIENT: 1. Recurrent LLE DVT DISCHARGE CONDITION: Stable TIME SPENT ON DISCHARGE: 36 minutes. Vital Signs/I&Os Vital Signs Date Time Temp Pulse Resp B/P (MAP) Pulse Ox O2 Delivery O2 Flow Rate FiO2 10/24/19 12:15 97.9 66 16 133/82 (99) 93 10/24/19 12:00 Room Air I&O- Last 24 Hours up to 6 AM 10/24/19 06:00 Intake Total 1350 ml Output Total 425 ml Balance 925 ml Laboratory Data Labs 24H Laboratory Tests 2 10/24/19 04:33: Anion Gap 7L, Glomerular Filtration Rate > 60.0, Calcium Level 8.8 10/24/19 04:34: Nucleated Red Blood Cells % (auto) 0.0 CBC/BMP Laboratory Tests 10/24/19 04:33 10/24/19 04:34 Discharge Medications Scheduled Alendronate Sodium (Fosamax) 70 Mg Tab, 70 MG PO 1XWK, (Reported) TAKES ON TUESDAYS Atorvastatin Calcium (Atorvastatin Calcium) 10 Mg Tab, 5 MG PO 3XW, (Reported) FRIDAY, FRIDAY, FRIDAY Buspirone HCl (Buspirone HCl) 30 Mg Tablet, 30 MG PO BID, (Reported) Cyanocobalamin (Vitamin B-12) (Vitamin B12) 2,500 Mcg Tablet, 1,000 MCG PO DAILY, (Reported) Enoxaparin Sodium (Lovenox) 120 Mg/0.8 Ml Syringe, 110 MG SC Q24H Fluticasone Propion/Salmeterol (Advair Hfa 115-21 Mcg Inhaler) 1 Aer Aer, 2 PUFF INH BID, (Reported) Lactobacillus Acidophilus (Probiotic) 1 Each Capsule, 1 CAP PO DAILY, (Reported) Loteprednol Etabonate (Loteprednol Etabonate) 5 Ml Drops.susp, 1 DROP OU QID, (Reported) Montelukast Sodium (Montelukast Sodium) 10 Mg Tab, 10 MG PO DAILY, (Reported) Olmesartan Medoxomil (Benicar) 40 Mg Tab, 40 MG PO DAILY, (Reported) Pantoprazole Sodium (Pantoprazole Sodium) 40 Mg Tab, 40 MG PO DAILY, (Reported) Pindolol (Pindolol) 5 Mg Tablet, 2.5 MG PO BID, (Reported) Trazodone HCl (Trazodone HCl) 50 Mg Tab, 50 MG PO QHS, (Reported) Scheduled PRN Albuterol Sulfate (Proair Hfa) 108 Mcg/Act Aer, 2 PUFFS INH Q4H PRN for SHORTNESS OF BREATH, (Reported) Chlorthalidone (Chlorthalidone) 12.5 Mg Halftab, 12.5 MG PO DAILY PRN for FLUID RETENTION, (Reported) TAKES NEEDED FOR LEG SWELLING AND FLUID RETENTION Allergies Coded Allergies: allopurinol (Verified Allergy, Unknown, 09/02/18) bee venom protein (honey bee) (Verified Allergy, Unknown, 09/02/18) colchicine (Verified Allergy, Unknown, 09/02/18) LATRICE MURDOCK MD Oct 24, 2019 17:34
[2019-10-25] MEDS ORDERED: CARV6.25 PO (11:28)
[2019-10-27 10:59] LABS: DRVV SCREEN 60.8 SEC
[2019-10-27 11:02] LABS: PTT LUPUS TYPE ANTICOAG SCREEN 1.5 (0-1.2)
[2019-10-27 11:15] LABS: DRVV CONFIRM 57.3 SEC; LUPUS CONFIRM RATIO 1.5
== END 2019-10-25 12:40 | disposition home or self-care (01) | DRG 301 ==
LOC: M ED 11:41 → M ED INP 16:20 → ENRESERV 16:52 → M PCU 18:37 → M MS5PR 10-24 12:15
PROVIDERS: ADMIT General Practice; ATTEND Internal Medicine
DX: I82.412 Acute embolism and thrombosis of left femoral vein (principal); I16.0 Hypertensive urgency; J45.909 Unspecified asthma, uncomplicated; K44.9 Diaphragmatic hernia without obstruction or gangrene; K21.9 Gastro-esophageal reflux disease without esophagitis; M81.0 Age-related osteoporosis without current pathological fracture; G47.00 Insomnia, unspecified; J30.9 Allergic rhinitis, unspecified; E78.00 Pure hypercholesterolemia, unspecified; I10 Essential (primary) hypertension; Z79.01 Long term (current) use of anticoagulants; Z79.899 Other long term (current) drug therapy; Z88.8 Allergy status to other drugs, medicaments and biological substances; Z91.030 Bee allergy status; Z85.820 Personal history of malignant melanoma of skin

== ENCOUNTER → 2019-12-17 | Outpatient (CLI) | payer MEDICARE ==
[~2019-12-17] MED LIST changes: +AMLO1TAB24 PO; -AMLO5TAB6 PO; -ASPI81TA85 PO; +ASPI81TA86 PO; +B-122500 PO; +BUSP30TA PO; +CARV6.25 PO; +LOTE5DRO3 OU; +LOVE0.01 SC; +PANT40TA29 PO; -PANT40TA3 PO; +PIND25TA PO; +PROBCAP14 PO
[2019-12-17 13:05] LABS: HEMATOCRIT 41.8 % (36.0-47.0); HEMOGLOBIN 14.4 g/dl (12.0-15.5); MEAN CORPUSCULAR HEMOGLOBIN 31.5 pg (27.0-33.0); MEAN CORPUSCULAR HGB CONC 34.4 g/dl (32.0-36.5); MEAN CORPUSCULAR VOLUME 91.5 fl (80.0-96.0); PLATELET COUNT, AUTOMATED 275 10^3/uL (150-450); RED BLOOD COUNT 4.57 10^6/uL (4.00-5.40); WHITE BLOOD COUNT 7.2 10^3/uL (4.0-10.0)
[2019-12-17 13:51] LABS: ALBUMIN 3.7 GM/DL (3.2-5.2); ALT/SGPT 25 U/L (12-78); BILIRUBIN,TOTAL 0.5 MG/DL (0.2-1.0); BLOOD UREA NITROGEN 11 MG/DL (7-18); CALCIUM LEVEL 8.6 MG/DL (8.8-10.2); CARBON DIOXIDE LEVEL 28 MEQ/L (21-32); CHLORIDE LEVEL 109 MEQ/L (98-107); CHOLESTEROL LEVEL 219 MG/DL (<200); CHOLESTEROL RISK RATIO 4.469 (<5); CREATININE FOR GFR 0.69 MG/DL (0.55-1.30); GLOMERULAR FILTRATION RATE > 60.0 (>45); GLUCOSE, FASTING 96 MG/DL (70-100); HDL CHOLESTEROL 49 MG/DL (>40); LDL CHOLESTEROL 131 MG/DL (<100); MAGNESIUM LEVEL 2.2 MG/DL (1.8-2.4); NON-HDL-C 170 MG/DL; POTASSIUM SERUM 3.4 MEQ/L (3.5-5.1); SODIUM LEVEL 145 MEQ/L (136-145); TOTAL PROTEIN 6.8 GM/DL (6.4-8.2); TRIGLYCERIDES LEVEL 193 MG/DL (<150); URIC ACID 5.8 MG/DL (2.6-6.0)
== END ==
LOC: M WUC 10:05
PROVIDERS: ATTEND Internal Medicine
DX: E79.0 Hyperuricemia without signs of inflammatory arthritis and tophaceous disease (principal); J45.901 Unspecified asthma with (acute) exacerbation; E78.00 Pure hypercholesterolemia, unspecified

== ENCOUNTER → 2019-12-23 | Outpatient (CLI) | payer MEDICARE ==
--- NOTE | 2020-01-13 08:37 | REP ---
ULTRASOUND RIGHT UPPER EXTREMITY SOFT TISSUES HISTORY: Lump antecubital region. FINDINGS: Real-time sonographic evaluation of the right upper extremity soft tissue is performed in the antecubital region at the site of the palpable lump. At that location, there is an oval solid nodule which is predominantly hypoechoic in echotexture with some ill-defined central hyperechoic echotexture. There is internal arterial blood flow with duplex Doppler evaluation. The mass measures 3.1 x 0.9 x 2.1 cm. IMPRESSION: Nonspecific solid mass in the right antecubital region. Since the mass is solid, differential diagnosis would include benign and malignant etiologies. Recommend either MRI with and without contrast or ultrasound-guided biopsy. MTDD
== END ==
LOC: M RAD 11:48
PROVIDERS: ATTEND Internal Medicine Medical Oncology
DX: R22.31 Localized swelling, mass and lump, right upper limb (principal)

== ENCOUNTER → 2020-01-11 | Outpatient (CLI) | payer MEDICARE ==
--- NOTE | 2020-01-19 13:00 | REP ---
BILATERAL LOWER EXTREMITY DUPLEX DOPPLER VENOUS ULTRASOUND COMPARISON: Duplex Doppler venous ultrasound left lower extremity 10/23/2019. FINDINGS: Real-time compression and duplex Doppler interrogation of bilateral lower extremity deep venous systems is performed. On the right, there is excellent compressibility of the common femoral, superficial femoral, and popliteal veins with no evidence of intraluminal thrombus. There is good augmentation but limited phasicity. This could indicate a more proximal venous obstruction. Evaluation of the left lower extremity demonstrates nonocclusive thrombus in the left common femoral vein, unchanged since the prior exam of 10/23/2019. There is again occlusive thrombus throughout the superficial femoral and popliteal veins, unchanged since the prior exam. Note is made of a large Giacomini vein posteriorly extending into the lower thigh from the calf. MTDD
== END ==
LOC: M RAD 13:56
PROVIDERS: ATTEND Physician Assistant
DX: Z86.718 Personal history of other venous thrombosis and embolism (principal); I87.2 Venous insufficiency (chronic) (peripheral)

== ENCOUNTER → 2020-02-29 | Outpatient (REF) | payer MEDICARE | LOC: M LAB REF 14:59 | PROVIDERS: ATTEND Physician Assistant | DX: R30.0 Dysuria (principal) ==

== ENCOUNTER → 2020-04-05 | Outpatient (CLI) | payer MEDICARE ==
[~2020-04-05] MED LIST changes: +LEXA1TAB PO; -MONT10TA4 PO; +MONT5TAB2 PO
== END ==
LOC: M LABSMTC 11:43
PROVIDERS: ATTEND Anesthesiology
DX: Z11.59 Encounter for screening for other viral diseases (principal)

== ENCOUNTER 2020-04-10 12:54 | Day surgery (SDC) | payer MEDICARE ==
[~2020-04-10] VITALS: Ht 157.5 cm; Wt 70.2 kg
[~2020-04-10 12:54] MED LIST changes: +LIDOCAINE 2% 100MG/5ML SDV (FOR ANES.) As Ordered ONE; +LR 1,000 ML IV ONE; +MIDAZOLAM INJ 2MG/2ML VIAL (J2250 PER 1MG) As Ordered ONE; +ONDANSETRON 4MG/2ML VIAL As Ordered ONE; +dexameTHASONE 4 MG/ML 1ML VIAL (J1100 PER 1MG) As Ordered ONE; +fentaNYL 100 MCG/2 ML INJECTION (J3010) As Ordered ONE; +propofoL 500 MG/50 ML VIAL As Ordered ONE
[2020-04-10 13:30] LABS: HEMOGLOBIN 14.4 g/dl (12.0-15.5); MEAN CORPUSCULAR HEMOGLOBIN 30.4 pg (27.0-33.0); MEAN CORPUSCULAR HGB CONC 32.7 g/dl (32.0-36.5); PLATELET COUNT, AUTOMATED 284 10^3/uL (150-450); RED BLOOD COUNT 4.73 10^6/uL (4.00-5.40); WHITE BLOOD COUNT 7.8 10^3/uL (4.0-10.0)
[2020-04-10 14:01] LABS: BLOOD UREA NITROGEN 15 MG/DL (7-18); CALCIUM LEVEL 9.5 MG/DL (8.8-10.2); CARBON DIOXIDE LEVEL 28 MEQ/L (21-32); CHLORIDE LEVEL 110 MEQ/L (98-107); CREATININE FOR GFR 0.72 MG/DL (0.55-1.30); GLOMERULAR FILTRATION RATE > 60.0 (>45); GLUCOSE, FASTING 103 MG/DL (70-100); POTASSIUM SERUM 4.3 MEQ/L (3.5-5.1); SODIUM LEVEL 143 MEQ/L (136-145)
[2020-04-10] MEDS ORDERED: LIDOCAINE W/EPINEPHRINE 1% 20ML VIAL As Ordered ONE ×2 (14:04→15:20)
[2020-04-10] MEDS: LIDOCAINE 1% SDV 30ML VIAL As Ordered ONE (15:02)
[2020-04-10 17:15] VITALS: BP 164/94
--- NOTE | 2020-04-11 06:05 | ECGEPIP ---
[facility] Test Date: 2020-04-10 Pat Name: ROLLY LEYVA Department: Room: - Gender: Female Tunnel Heading Inspector: RF : 1950 Requested By: Ty Zhao Order Number: [id number] Reading MD: Carlos Enamorado Measurements Intervals [place] Rate: 69 P: -6 NE: 140 QRS: -4 QRSD: 88 T: 7 QT: 391 QTc: 422 Interpretive Statements Normal sinus rhythm with occasional PACs Suspect left ventricular hypertrophy Early anterior R-wave progression Nonspecific repolarization abnormalities No significant change since prior tracing of 10/23/2019 Electronically Signed on 04-11-2020 6:05:00 EST by Carlos Enamorado
--- NOTE | 2020-04-11 07:13 | RO ---
OPERATIVE NOTE DATE OF OPERATION: 04/10/2020 PREOPERATIVE DIAGNOSIS: Right antecubital fossa mass. POSTOPERATIVE DIAGNOSIS: Lobulated fibrofatty tissue, right antecubital fossa; possible lipoma. PROCEDURE PERFORMED: Exploration and excision of fibrofatty tissue, right antecubital fossa. SURGEON: Eddie Mulligan MD ANESTHESIA: Monitored anesthesia care with local of 1% Xylocaine. INDICATIONS FOR PROCEDURE: The patient is a 69-year-old woman who had noted some prominence of the fibrofatty tissues on the medial aspect of the antecubital fossa just above the skin fold. An ultrasound was done which suggested a small, solid mass of uncertain etiology. On palpation, there was not a discrete mass palpable, only some prominence of the fibrofatty tissues suggesting a possible lipoma. She is now for exploration and excision of this mass. OPERATIVE PROCEDURE: The patient was brought to the operating room and placed on the table in the supine position. She received sedation from anesthesia. The right upper extremity was prepped circumferentially and draped sterilely. Local anesthesia of 1% Xylocaine was infiltrated over the medial aspect of the antecubital fossa just above the skin fold in an area where there appeared to be some more prominent fibrofatty tissue. An approximately 3.5-4 cm longitudinal skin incision was made over this area. The incision was deepened using a combination of cautery and sharp dissection with tenotomy scissors. The skin was elevated off of the underlying fibrofatty tissue. The fibrofatty tissue was dissected free from the underlying tissues. A vein coursing just deep to the fibrofatty tissue was preserved. There did not appear to be a discrete mass in this portion of tissue. There was some slightly firmer lobulated fatty tissue just below this layer. The superficial fascia overlying this tissue was opened and this second portion of fibrofatty tissue, about 2.5-3 cm in length was also dissected free circumferentially with care to achieve hemostasis. Both fragments of tissue were sent as a specimen for permanent pathology. Palpation did not identify any other areas suggestive of a mass. After ensuring hemostasis, the skin edges were approximated by placement of dermal sutures of 3-0 Vicryl. The skin edges were approximated with a running subcuticular 4-0 Vicryl and Steri-Strips were applied. The wound was covered with several 4x4's and the arm was wrapped with a Kerlix held in place with some Coban. She tolerated the procedure well. She was awakened in the operating room and transported to advanced recovery in stable condition.
== END 2020-04-10 17:08 | disposition home or self-care (01) ==
LOC: M SDC 12:54
PROVIDERS: ATTEND Surgery
DX: D17.21 Benign lipomatous neoplasm of skin and subcutaneous tissue of right arm (principal); I10 Essential (primary) hypertension; E03.9 Hypothyroidism, unspecified; E78.5 Hyperlipidemia, unspecified; K21.9 Gastro-esophageal reflux disease without esophagitis; D64.9 Anemia, unspecified; J45.909 Unspecified asthma, uncomplicated; Z86.718 Personal history of other venous thrombosis and embolism; Z91.030 Bee allergy status; Z88.8 Allergy status to other drugs, medicaments and biological substances; Z79.01 Long term (current) use of anticoagulants; Z79.899 Other long term (current) drug therapy; F41.9 Anxiety disorder, unspecified; F32.9 Major depressive disorder, single episode, unspecified
CPT/HCPCS: 25076; 36415; 80048; 85027; 88304; 93005; J1100; J2250; J2405; J3010

== ENCOUNTER → 2020-04-28 | Outpatient (CLI) | payer MEDICARE ==
[~2020-04-28] MED LIST changes: -LIDOCAINE 2% 100MG/5ML SDV (FOR ANES.) As Ordered ONE; -LR 1,000 ML IV ONE; -MIDAZOLAM INJ 2MG/2ML VIAL (J2250 PER 1MG) As Ordered ONE; -ONDANSETRON 4MG/2ML VIAL As Ordered ONE; -dexameTHASONE 4 MG/ML 1ML VIAL (J1100 PER 1MG) As Ordered ONE; -fentaNYL 100 MCG/2 ML INJECTION (J3010) As Ordered ONE; -propofoL 500 MG/50 ML VIAL As Ordered ONE
== END ==
LOC: M LABSMTC 09:57
PROVIDERS: ATTEND Anesthesiology
DX: Z01.812 Encounter for preprocedural laboratory examination (principal); Z20.822 Contact with and (suspected) exposure to COVID-19

== ENCOUNTER 2020-05-03 09:04 | Day surgery (SDC) | payer MEDICARE ==
[~2020-05-03] VITALS: Ht 157.5 cm; Wt 70.3 kg
[~2020-05-03 09:04] MED LIST changes: +LIDOCAINE 2% 100MG/5ML SDV (FOR ANES.) As Ordered ONE; +MONT10TA10 PO; -MONT5TAB2 PO; +NS 1,000 ML IV ONE; +fentaNYL 100 MCG/2 ML INJECTION (J3010) As Ordered ONE; +propofoL 500 MG/50 ML VIAL As Ordered ONE
--- OUTSIDE RECORDS SUMMARY | 2020-05-03 09:11 | CCD ---
Continuity of Care Document (CCD) Created on: 04/27/2020 Sujata iMller External Reference #: [id number] : 1950 Sex: Female Author Author Sujata PALOMINO M.D Organization Unknown Address [address] [place] [address] Phone [phone] Care Team Providers Care Alteration Inspector Name Role Phone Carlos Enamorado M.D. AUTM [phone] Problems Active Problems Provider Date Screening for malignant neoplasm of colon Rodo lino M.D. Onset: 04/20/2020 Social History Type Date Description Comments Sex Unknown ETOH Use Denies alcohol use Tobacco Use Start: Unknown Patient has never smoked Allergies, Adverse Reactions, Alerts Description No Known Drug Allergies Medications Active Medications SIG Qnty Indications Ordering Provide r Date Sutab [phone] Tablets as directed 1box Rodo Palomino M.D. 04/20/2020 Carvedilol 6.25mg Tablets Carlos Enamorado M.D. Trazodone HCL 50mg Tablets Carlos Enamorado M.D. Atorvastatin Calcium 10mg Tablets Carlos Enamorado M.D. Alendronate Sodium 70mg Tablets Carlos Enamorado M.D. Buspirone HCL 30mg Tablets Carlos Enamorado M.D. Enoxaparin Sodium 120mg/0.8ML Solution Unknown Advair HFA 115-21mcg/Act Aerosol Unknown Albuterol Sulfate 1.25mg/3ML Nebulizer Unknown Lasix 20mg Tablets 1 tab by mouth every morning Unknown Pantoprazole Sodium 40mg Tablets DR Unknown Singulair 10mg Tablets Unknown Benicar 40mg Tablets Unknown Immunizations Description No Information Available Vital Signs Date Vital Result Comment 04/20/2020 1:11pm Height 62 inches 5'2" Weight 155.00 lb BP Systolic 127 mmHg BP Diastolic 77 mmHg Heart Rate 67 /min BMI (Body Mass Index) 28.3 kg/m2 Weight 70.308 kg Body Temperature 97.5 F Results Description No Information Available Procedures Description No Information Available Medical Devices Description No Information Available Encounters Description No Information Available Assessments Date Code Description Provider 04/20/2020 Z12.11 Encounter for screening for nasra gnant neoplasm of colon Rodo Palomino M.D. 04/20/2020 R12 Heartburn Rodo medina M.D. Plan of Treatment Future Appointment(s):* 05/03/2020 10:00 am - Rodo Palomino M.D. at Main Office 04/20/2020 - Rodo Palomino M.D.* Z12.11 Encounter for screening for malignant neoplasm of colon* Comments:* 69 yo wf who presents for a screening colonoscopy, and an egd for heartburn. No c/o abdominal pain, weight loss, change in bowel habits, or rectal bleeding. No family h/o colon cancer. No h/o chest pain, or sob. Plan:1.Schedule patient for a colonoscopy + egd.2.Informed consent given to the patient.3.Pt. advised to stop aspirin,plavix, and anticoagulants at least 3 to 7 days prior to the procedure. * R12 Heartburn* Comments:* Schedule EGD.Informed consent given. Functional Status Description No Information Available Mental Status Description No Information Available Referrals Description No Information Available
--- OUTSIDE RECORDS SUMMARY | 2020-05-03 09:11 | CCD ---
Author Author [facility] Organization [facility] Address Unknown Phone Unavailable Care Team Providers Care Car Dealer Name Role Phone Carlos Enamorado Unavailable PROBLEMS Type Condition ICD9-CM Code QVQ65-AR Code Onset Dates Condition S tatus SNOMED Code Notes Problem Inflammatory arthritis M19.90 Active 5641539 I t is believed that she has inflammatory arthritis. She no longer sees a event sales assistant. She has various arthralgias which are palliated with Tylenol. She is seeing orthopedics periodically. Most recent visit was in May 2019. 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 She apparently saw an address change clerk in the past but no longer requires follow- up by that provider. Problem Hyperuricemia E79.0 Active 43216249 Hyperuric emia was documented with the level of 9.7 in September 2012. She did not tolerate allopurinol. On chlorthalidone she had an elevated uric acid again but off that medication her uric acid was normal, under 7, most recently checked in December 2017. Problem Allergic rhinitis J30.9 Active 60332689 Has a history and immunotherapy is of benefit. She takes s Singulair daily. She should use her intranasal steroid regularly, probably twice daily. The use of azelastine intranasally is of questionable benefit, in my mind. Problem Dysthymia F34.1 Active 11982608 She was start ed on Zoloft in December 2013 but switched to Wellbutrin in February 2014. She has stopped both. Buspirone was added in July 2014, with great benefit. I had intensified the dose to15 mg twice a day as of February 2015, and increased the BuSpar dose to 30 mg twice daily as of September 2018. Problem Female stress incontinence N39.3 Active 21852 006 She no longer takes Ditropan because there was minimal benefit. She had a ureteral sling procedure in October 2017. Problem Personal history of malignant melanoma of skin Z85 .820 Active [id number] Resected from left thigh in July 2014. There is no evidence of recurrence. Problem Primary insomnia F51.01 Active 5691474 We will have her continue trazodone, which has been quite effective and was started in March 2016. Ambien and melatonin have not been effective. Problem History of deep venous thrombosis Z86.718 Active [id number] She had a DVT of her left leg in March 2016. It was in the popliteal fossa and below. She had a course of Xarelto at that time, completing therapy in October 2016, substituting a baby aspirin. She had another clot in April 2018 in her left leg, had a thrombectomy because of the extent of clot, and an IVC filter was placed. She had another clot in 10/2019 and was placed on lovenox; she is following with Dr. Borges and will see her in April. CT of the abdomen was negative, and hematology consultation was negative. Hypercoagulability studies were negative. The patient had a negative Cologuard test in January 2018. She has ongoing vascular surgery follow-up. Problem Moderate persistent asthma without complication J4 5.40 Active [id number] She has a history of asthma which flares when she has bronchitis. She sees her de icer installer regularly. She is using Advair and montelukast daily, and albuterol as needed. She had several courses of prednisone since 2018 at least. Problem Venous insufficiency of left lower extremity I87.2 Active 299000317 She has chronic ongoing venous insufficiency of her left leg related to her prior DVT. She is using support stockings. She should elevate her leg as before. She takes chlothalidone daily and Lasix 20 mg as needed for edema. She has seen a vascular surgeon in [place] in January 2019 and she is getting regular follow-up with him; he is considering surgical procedure in the future. Problem Gastroesophageal reflux K21.9 Active 33959802 4 She had been on Protonix therapy for some time but was admitted with chest pain in Spring 2015 which was felt to be associated with reflux disease. Ranitidine was added to her Protonix therapy after that. She is concerned about the long-term side effects of Protonix and is adjusting the frequency of that medication according to symptoms. She was taking a PPI and H2 eric, each on alternate days, until ranitidine was recall. She is currently taking Protonix on a daily basis again I believe. She has some nocturnal symptoms and might consider using Gaviscon at bedtime. Problem Chronic fatigue R53.82 Active 76236045 B12 and folate levels were ordered as of November 2018. Her B12 level was 296 and I suggested she take a B12 supplement. She thought she developed a rash from that but she may try that again. She may need to be evaluated for sleep apnea. Thyroid testing has been normal as recently as June 2019 Problem Essential (primary) hypertension I10 Active 03399271 She is on Benicar, pindolol and chlorthalidone .Amlodipine was stopped in favor of chlorthalidone as of May 2018. She has left leg swelling intermittently, related to her DVT. She is on a beta eric with BABS because of some orthostatic symptoms as of September 2018. She has Lasix available for edema. Problem History of steroid therapy Z92.241 Active 65634 9683 DEXA study revealed osteoporosis in January 2018 and she is on alendronate. Problem Hypercholesterolemia E78.00 Active 21282121 Sh e is on Lipitor 5 mg 3 times a week. She has reasonable control of her lipids except for a minimal triglyceride elevation as of June 2019. She had a normal stress echocardiogram in 2015. Problem Age-related osteoporosis without current pathological fracture M81.0 Active 07292257 She has a history of steroid therapy. A bone density study in January 2018 demonstrated osteoporosis of the femurs bilaterally. She is now on alendronate. Problem Episodic lightheadedness R42 Active 6231456 08 She has episodic lightheadedness. She has no orthostatic blood pressure drop. She is on pindolol with great benefit as of September 2018. ALLERGIES Allergen (clinical drug ingredient) Drug/Non Drug Allergy do cumented on EMR Reaction Allergy Type Onset Date Status sertraline Zoloft([facility] Code:[address]-38) felt whippy Drug Allergy Active Allopurinol Hives Drug Allergy Active Bees Anaphylaxis Non Drug Allergy Active colchicine Colchicine([facility] Code:[address]-12) Hives Drug Allergy Active ENCOUNTERS from 1950 to 2020-04-19 Encounter Location Date Provider Diagnosis [facility] [place] [address] Apr, Carlos Enamorado History of deep venous thrombosis Z86.71 8 IMMUNIZATIONS Vaccine Route Administration Date Status Influenza (Pharmacy Given) Unknown Feb 18, 2020 Admin istered Influenza (Pharmacy Given) Unknown Feb 02, 2019 Admin istered Depo-Medrol 40mg (Methylpredisolone Acetate) IM Intramuscular No v 2018 Administered Influenza (High Dose 65 & up) Unknown Feb 28, 2017 Ad ministered Pneumococcal Adult 0.5mL (Pneumovax 23) IM Intramuscular Dec Administered Pneumococcal 0.5mL (Prevnar 13) Unknown Feb 28, 2017 Administered Influenza (6mo & up) Fluzone Unknown Jan 16, 2016 Adm inistered SOCIAL HISTORY Tobacco Use: Social History Observation Description Date Details (start date - stop date) Never Smoker Sex Assigned At : Social History Observation Description Sex Assigned At Unknown Education: Question Answer Notes Level of Education: High School Audit Question Answer Notes Total Score: 1 Interpretation: Alcohol Education Scientologist: Question Answer Notes Scientologist 21 Scientologist Sexual Hx: Question Answer Notes Had sex in the last 12 months (vaginal, oral, or anal)? No Have you ever had an STD? No Drug and Alcohol Question Answer Notes Total Score: 0 Interpretation: No problems reported Alcohol Screening: Question Answer Notes Did you have a drink containing alcohol in the past year? Ye s Points 1 Interpretation Negative How often did you have six or more drinks on one occas ion in the past year? Never (0 points) How many drinks did you have on a typica l day when you were drinking in the past year? 1 or 2 (0 points) How often did you have a drink containing alcohol in t he past year? Monthly or less (1 point) Tobacco Use: Question Answer Notes Are you a: never smoker REASON FOR REFERRAL No Information VITAL SIGNS No information MEDICATIONS Medication SIG (Take, Route, Frequency, Duration) Notes Start Da te End Date Status Chlorthalidone 25 mg 1/2 tablet Orally Once a day prn 2018 Active Alendronate Sodium 70 MG 1 tablet Orally Weekly Active Lovenox 120 MG/0.8ML 110 mg Subcutaneous once daily for 30 Days Active Albuterol Sulfate 1.25 MG/3ML 3 ml as needed Inhalation qid prn cough wheezing May, Active Nebulizer - as directed mouthe piece and tubing J45.909 qid prn for 30 day(s) May, Active Cyanocobalamin 1000 MCG 1 tablet Orally Once a day Active Loteprednol Etabonate 0.5 % 1 drop into affected eye O phthalmic Four times a day for 7 day(s) Not-Taking Pantoprazole Sodium 40 mg 1 tablet Orally Once a day Active Carvedilol 6.25 MG 1 tablet with food Orally Twice a day Active Montelukast Sodium 10 MG 1 tablet in the evening Orally Once a day Active BusPIRone HCl 30 MG 1 tab Orally twice daily Active Lactobacillus - as directed Orally A ctive ProAir HFA 108 (90 Base) MCG/ACT 2 puffs Inhalation as needed every 4 hours for cough Active Atorvastatin Calcium 10MG 1/2 tab orally three times a week Active Lexapro 10 MG 1 tablet Orally Once a day Active TraZODone HCl 50 MG 1 tablet at bedtime as needed Orally Once a day Active Advair HFA 115-21 MCG/ACT 2 puffs Inhalation Twice a day Active Benicar 40 mg 1 tablet Orally Once a day Active PROCEDURES No Information RESULTS No Results REASON FOR VISIT refill-lovenox MEDICAL (GENERAL) HISTORY Type Description Date Medical History Essential (primary) hypertension Medical History Candace's thyroiditis Medical History Inflammatory arthritis Medical History History of deep venous thrombosis Medical History Hypercholesterolemia Medical History Hyperuricemia Medical History Allergic rhinitis Medical History Dysthymia Medical History Moderate persistent asthma without compl ication Medical History Primary insomnia Medical History Age-related osteoporosis without current pathological fracture Medical History melanoma Surgical History Weiner procedure for bladder incontinence years ago Surgical History Appendectomy 1972 Surgical History Hysterectomy without oophorectomy 1984 Surgical History Breast biopsy, left 2000 Surgical History Cholecystectomy years ago Surgical History melanoma excision upper left thigh 08/31 14 Surgical History Left hand carpal tunnel release 07/2017 Surgical History Ureteral sling-Dr. Crisostomo 10/2017 Surgical History Thrombectomy of left lower e xtremity with IVC filter placement- Dr. Vaughn 04/23/2018 Hospitalization History Recurrent left lower extremity exten sive DVT 04/18-04/28/2018 Hospitalization History [facility] recurrent DVT in left leg, hyper tension urgency 10/22- Goals Section No Information Health Concerns No Information MEDICAL EQUIPMENT No Information MENTAL STATUS No Information FUNCTIONAL STATUS No Information ASSESSMENTS Encounter Date Diagnosis Assessment Notes Treatment Notes Treatm ent Clinical Notes Apr, History of deep venous thrombosis (ICD-10 - Z86. 718) PLAN OF TREATMENT Medication Medication Name Sig Start Date Stop Date Carvedilol 6.25 MG 1 tablet with food Orally Twice a day TraZODone HCl 50 MG 1 tablet at bedtime as needed Orally Once a day Cyanocobalamin 1000 MCG 1 tablet Orally Once a day Pantoprazole Sodium 40 mg 1 tablet Orally Once a day Montelukast Sodium 10 MG 1 tablet in the evening Orally Once a d ay BusPIRone HCl 30 MG 1 tab Orally twice daily Lovenox 120 MG/0.8ML 110 mg Subcutaneous once daily for 30 Days Advair HFA 115-21 MCG/ACT 2 puffs Inhalation Twice a day Lactobacillus - as directed Orally Albuterol Sulfate 1.25 MG/3ML 3 ml as needed Inhalation qid prn cough wheezing May, Atorvastatin Calcium 10MG 1/2 tab orally three times a week Lexapro 10 MG 1 tablet Orally Once a day Benicar 40 mg 1 tablet Orally Once a day ProAir HFA 108 (90 Base) MCG/ACT 2 puffs Inhalation as needed every 4 hours for cough Chlorthalidone 25 mg 1/2 tablet Orally Once a day prn Nov, Alendronate Sodium 70 MG 1 tablet Orally Weekly Next Appt Details Provider Name:Carlos Enamorado, 2020-06-27 02 :00:00 PM, [address] [place], [address], Insurance Providers Payer Name Payer Address Payer Phone Insured Name Patient Relati onship to Insured Coverage Start Date Coverage End Date MEDICARE COMPLETE [employer] [address] [address] [facility] [phone] ROLLY MILLER self
--- OUTSIDE RECORDS SUMMARY | 2020-05-03 09:11 | CCD | Continuity of Care Document ---
Author Author Sujata PALOMINO M.D Organization Unknown Address [address] [place] [address] Phone [phone] Care Team Providers Care Power Press Tender Name Role Phone Carlos Enamorado M.D. AUTM [phone] Problems Active Problems Provider Date Screening for malignant neoplasm of colon Rodo lino M.D. Onset: 04/20/2020 Social History Type Date Description Comments Sex Unknown ETOH Use Denies alcohol use Tobacco Use Start: Unknown Patient has never smoked Allergies, Adverse Reactions, Alerts Description No Known Drug Allergies Medications Active Medications SIG Qnty Indications Ordering Provide r Date Sutab [id number] Tablets as directed 1box Rodo Palomino M.D. [...] Medical Devices Description No Information Available Encounters Type Date Location Provider Dx Diagnosis Office Visit 04/20/2020 1:00p Main Office Rodo Palomino M.D. Z 12.11 Encounter for screening for malignant neoplasm of colon R12 Heartburn Assessments Date Code Description Provider 04/20/2020 Z12.11 [...]
--- OUTSIDE RECORDS SUMMARY | 2020-05-03 09:12 | CCD | Continuity of Care Document ---
Author Author Sujata ALVAREZ M.D. Organization Unknown Address [address] [facility] [facility], [address] [place] [address] Phone [phone] Care Team Providers Care Clinical Administrative Coordinator Name Role Phone Carlos Enamorado M.D. AUTM [phone] Amy Borges M.D. AUTM [phone] Problems Active Problems Provider Date Acute exacerbation of chronic obstructive airways disease La sanchez Gtz MD Onset: 01/20/2013 Sleep apnea Lupillo Gtz MD Onset: 07/21/2012 Asthma without status asthmaticus Lupillo Gtz MD Onset: 05/04/2012 Cough Lupillo Gtz MD Onset: 05/04/2012 Allergic rhinitis Lupillo Gtz MD Onset: 05/04/2012 Disturbance of consciousness Lupillo Gtz MD Onset: 04/15 Overweight Lupillo Gtz MD Onset: 05/04/2012 Allergic asthma without status asthmaticus Sera Vaughn M.D. Onset: 01/31/2020 Essential hypertension Sera Vaughn M.D. Onset: 020 Social History Type Date Description Comments Sex Unknown ETOH Use Denies alcohol use Tobacco Use Start: Unknown Denies Smoking Recreational Drug Use Denies Drug Use Smoking Status Reviewed: 02/17/20 Denies Smoking Allergies, Adverse Reactions, Alerts Active Allergies Reaction Severity Comments Date Allopurinol Urticaria 01/20/2013 Bee Sting 03/31/2012 Colchicine 05/12/2018 Augmentin Nausea Mild Denies history o f hives or anaphylaxis with taking Augmentin 03/17/2019 Medications Active Medications SIG Qnty Indications Ordering Provide r Date Singulair 10mg Tablets 1 po q hs 30tabs Unknown Benicar 20mg Tablets 1 by mouth every day Unknown Buspirone HCL 30mg Tablets 1 by mouth twice a day Unknown Atorvastatin Calcium 10mg Tablets 1/2 by mouth 3 times a week Unknown Pantoprazole Sodium 40mg Tablets D R 1 by mouth Every 2 Days Unknown Fosamax 70mg Tablets every we ek Unknown Trazodone HCL 50mg Tablets 1 QHS Unknown Albuterol Sulfate (2 .5mg/3ML) 0.083% Nebulizer 1 vial four times a day as needed 360ml J45.40 Clark Baez N.P. Budesonide 0.5mg/2ML Suspension inhale twice a day with neb prn Unknown 000 Vitamin B12 TR 1000mcg Tablets ER 1 by mouth every day Unknown Coreg 6.25mg Tablets 1 by mouth twice a day Unknown Enoxaparin Sodium 120mg/0.8ML Solu tion 110units injection daily Cesar Hernandez Proair HFA 108(90Base) mcg/Act Aer osol 2 puffs four times a day as needed Unknown Lexapro 10mg Tablets 1 by mouth every day Unknown Immunizations CPT Code Status Date Vaccine Lot # 36629 Given 01/10/2016 Influenza Virus Split 3 Yrs And Above For Intramuscular Use Q2036 Given 02/17/2013 Influenza Vaccine 3 Years Of Age Or Older (Flulaval) Q2036 Given 12/10/2011 Influenza Vaccine 3 Years Of Age Or Older (Flulaval) Vital Signs Date Vital Result Comment 04/17/2020 2:15pm BP Systolic 128 mmHg BP Diastolic 60 mmHg Height 61 inches 5'1" Weight 155.12 lb BMI (Body Mass Index) 29.3 kg/m2 [place] Body Weight 105 lb Weight 70.365 kg BSA (Body Surface Area) 1.70 m2 03/27/2020 9:14am BP Systolic 146 mmHg BP Diastolic 80 mmHg Height 61 inches 5'1" Weight 155.25 lb BMI (Body Mass Index) 29.3 kg/m2 [place] Body Weight 105 lb Weight 70.421 kg BSA (Body Surface Area) 1.70 m2 Results Test Acquired Date Facility Test Result H/L Range Note Laboratory test finding 04/10/2020 [facility] [address] [place] [address] [phone] Pathology Request For Service (SEE NOTE) 1 Complete Blood Count 04/10/2020 [facility] [address] [place] [address] [phone] White Blood Count 7.8 10 Normal 4.0-10.0 Red Blood Count 4.73 10 Normal 4.00-5.40 Hemoglobin 14.4 g/dL Normal 12.0-15.5 Hematocrit 44.0 % Normal 36.0-47.0 Mean Corpuscular Volume 93.0 fl Normal 80.0-96.0 Mean Corpuscular Hemoglobin 30.4 pg Normal 27.0-33.0 Mean Corpuscular HGB Conc 32.7 g/dL Normal 32.0-36.5 Red Cell Distribution Width 12.2 % Normal 11.5-14.5 Platelet Count, Automated 284 10 Normal 150-450 Nucleated Red Blood Cell % 0.0 % Normal 0-0 Basic Metabolic Profile 04/10/2020 [facility] [address] [place] [address] [phone] Glucose, Fasting 103 mg/dL High 70-100 Blood Urea Nitrogen 15 mg/dL Normal 7-18 Creatinine For GFR 0.72 mg/dL Normal 0.55-1.30 Glomerular Filtration Rate > 60.0 Normal >45 2 Sodium Level 143 mEq/L Normal 136-145 Potassium Serum 4.3 mEq/L Normal 3.5-5.1 Chloride Level 110 mEq/L High 98-107 Carbon Dioxide Level 28 mEq/L Normal 21-32 Anion Gap 5 mEq/L Low 8-16 Calcium Level 9.5 mg/dL Normal 8.8-10.2 1 FINAL DIAGNOSIS Submitted as "fatty mass from right antecubital fossa": Mature adipose tissue, compatible with lipoma. 04/12/2020 - 954 CLINICAL DIAGNOSIS Antecubital fossa mass 04/11/2020 - 943 GROSS DIAGNOSIS Received in formalin labeled "fatty mass from right antecubital fossa" and consists of fragments of adipose tissue, 5 x 4 x 1 cm in aggregate. The specimen is grossly unremarkable. Ophthalmic Surgical Assistant sections submitted in one. -OA 04/12/2020 - 0955 Signed LUANN STONE MD 04/12/2020 0955 2 Units are mL/min/1.73 m2 Chronic Kidney Disease Staging per NKF: Stage I & II GFR >=60 Normal to Mildly Decreased Stage III GFR 30-59 Moderately Decreased Stage IV GFR 15-29 Severely Decreased Stage V GFR <15 Very Little GFR Left ESRD GFR <15 on MONITORING COORDINATOR Procedures Date Code Description Status 04/10/2020 64767 Excision Tumor Forearm/Wrist Sub cutaneous Completed Medical Devices Description No Information Available Encounters Type Date Location Provider Dx Diagnosis Office Visit 02/16/2020 9:30a [facility] BEREKET Beasley Z86.718 Personal history of other venous thrombo sis and embolism Z79.01 snf (current) use of a nticoagulants I87.2 Venous insufficiency (chroni c) (peripheral) Office Visit 01/31/2020 9:15a [facility] Eddie aparicio M.D. D17.21 Benign lipomatous neoplasm of skin, subc u of right arm Office Visit 11/05/2019 10:30a [facility] Lawrchelo Gtz MD J45.40 Moderate persistent asthma, uncomplicate d J30.9 Allergic rhinitis, unspecifi ed Office Visit 10/26/2019 9:15a [facility] BEREKET Beasley I82.402 Acute embolism and thombos unsp deep vei ns of l low extrem Z86.718 Personal history of other ve nous thrombosis and embolism Z79.01 management professional (current) use of a nticoagulants Assessments Date Code Description Provider 04/10/2020 D17.21 Benign lipomatous ne oplasm of skin and subcutaneous tissue of right arm Eddie Alvarez M.D. 03/27/2020 D17.21 Benign lipomatous ne oplasm of skin and subcutaneous tissue of right arm Eddie Alvarez M.D. 02/16/2020 Z86.718 Personal history of other venous thrombosis and embolism BEREKET Hernandez 02/16/2020 Z79.01 management professional (current) use of antic oagulants BEREKET Hernandez 02/16/2020 I87.2 Venous insufficiency (chronic) ( peripheral) BEREKET Hernandez 01/31/2020 D17.21 Benign lipomatous ne oplasm of skin and subcutaneous tissue of right arm Eddie Alvarez M.D. 11/05/2019 J45.40 Moderate persistent asthma, unco mplicated Lupillo Gtz MD 11/05/2019 J30.9 Allergic rhinitis, unspecified L kalli Gtz MD 10/26/2019 I82.402 Acute embolism and t hrombosis of unspecified deep veins of left lower extremity BEREKET Hernandez 10/26/2019 Z86.718 Personal history of other venous thrombosis and embolism BEREKET Hernandez 10/26/2019 Z79.01 management professional (current) use of antic oagulants BEREKET Hernadnez Plan of Treatment Future Appointment(s):* 05/24/2020 11:45 am - Lupillo Gtz MD at [facility] 03/27/2020 - Eddie Alvarez M.D.* D17.21 Benign lipomatous neoplasm of skin and subcutaneous tissue of right arm* Comments:* Patient was counseled that the lesion is no more prominent than it was previously. I cannot feel a discrete mass that I can put a finger on though there may be a slight prominence to the underlying tissues. The radiologist had identified a solid but hypoechoic structure that would be consistent with a lipoma. It may be that this represents a definite lipoma or this could just represent some lobulated fibrofatty subcutaneous tissue. The patient and I discussed the option of ex ploring this and removing tissue versus continuing to observe this and she prefers to go ahead with excision. I Counseled her that I would recommend doing this in an operating room with her under some sedation and local anesthesia. She was counseled regarding the risks versus benefits of the procedure and still desires to proceed. She will be scheduled for an exploration of this area with excision in the operating room. I will request preoperative clearance from her primary physician particularly in regard to her anticoagulation. Functional Status Description No Information Available Mental Status Description No Information Available Referrals Refer to Reason for Referral Status Appt Date Eddie Alvarez M.D. Created [facility] [address] [place] [id number] [phone] Eddie Alvarez M.D. SOLID MASS RIGHT ANTECUBITAL SPACE Closed 01/31/2020 [facility] [address] [address] [phone]
--- OUTSIDE RECORDS SUMMARY | 2020-05-03 09:13 | CCD ---
Author Author [facility] Organization [facility] Address Unknown Phone Unavailable Care Team Providers Care Merchandise Team Manager Name Role Phone Nick Palomino MD Unavailable Unavailable Nick Palomino MD Unavailable Unavailable Nick Palomino MD Unavailable Unavailable Nick Palomino MD Unavailable Unavailable Nick Palomino MD Unavailable Unavailable Nick Palomino MD Unavailable Unavailable Ncik Palomino MD Unavailable Unavailable Nick Palomino MD Unavailable Unavailable Nick Palomino MD Unavailable Unavailable Nick Palomino MD Unavailable Unavailable Nick Palomino MD Unavailable Unavailable Nick Palomnio MD Unavailable Unavailable Nick Palomino MD Unavailable Unavailable Nick Palomino MD Unavailable Unavailable Nick Palomino MD Unavailable Unavailable Nick Palomino MD Unavailable Unavailable Nick Palomino MD Unavailable Unavailable GeorgetteNick MD Unavailable Unavailable GeorgetteNick MD Unavailable Unavailable GeorgetteNick MD Unavailable Unavailable GeorgetteNick MD Unavailable Unavailable Georgette S Rodo DORSEY Unavailable Unavailable Georgette S Rodo DORSEY Unavailable Unavailable Georgette S Rodo DORSEY Unavailable Unavailable Georgette S Rodo DORSEY Unavailable Unavailable Georgette S Rodo DORSEY Unavailable Unavailable Georgette S Rodo DORSEY Unavailable Unavailable Georgette S Rodo DORSEY Unavailable Unavailable Georgette S Rodo DORSEY Unavailable Unavailable Georgette S Rodo DORSEY Unavailable Unavailable Georgette S Rodo DORSEY Unavailable Unavailable Georgette S Rodo DORSEY Unavailable Unavailable Georgette S Rodo DORSEY Unavailable Unavailable Georgette S Rodo DORSEY Unavailable Unavailable Georgette, S Rodo DORSEY Unavailable Unavailable GeorgetteNick navas MD Unavailable Unavailable GeorgetteNick navas MD Unavailable Unavailable GeorgetteNick navas MD Unavailable Unavailable Nick Palomino MD Unavailable Unavailable Nick Palomino MD Unavailable Unavailable Nick Palomino MD Unavailable Unavailable Nick Palomino MD Unavailable Unavailable Nick Palomino MD Unavailable Unavailable Nick Palomino MD Unavailable Unavailable Nick Palomino MD Unavailable Unavailable Nick Palomino MD Unavailable Unavailable Nick Palomino MD Unavailable Unavailable Nick Palomino MD Unavailable Unavailable Dannie Womack MD Unavailable Unavailable Dannie Womack MD Unavailable Unavailable Dannie Womack MD Unavailable Unavailable Dannie Womack MD Unavailable Unavailable Dannie Womack MD Unavailable Unavailable Dannie Womack MD Unavailable Unavailable Dannie Womack MD Unavailable Unavailable Dannie Womack MD Unavailable Unavailable WomackDannie france MD Unavailable Unavailable Dannie Womack MD Unavailable Unavailable WomackDannie france MD Unavailable Unavailable Dannie Womack MD Unavailable Unavailable Dannie Womack MD Unavailable Unavailable Dannie Womack MD Unavailable Unavailable Dannie Womack MD Unavailable Unavailable Dannie Womack MD Unavailable Unavailable Dannie Womack MD Unavailable Unavailable Dannie Womack MD Unavailable Unavailable Dannie Womack MD Unavailable Unavailable Dannie Womack MD Unavailable Unavailable Dannie Womack MD Unavailable Unavailable Dannie Womack MD Unavailable Unavailable Dannie Womack MD Unavailable Unavailable Dannie Womack MD Unavailable Unavailable Dannie Womack MD Unavailable Unavailable Dannie Womack MD Unavailable Unavailable Dannie Womack MD Unavailable Unavailable Womack, Dannie Shi MD Unavailable Unavailable Womack, Dannie Shi MD Unavailable Unavailable Womack, Dannie Shi MD Unavailable Unavailable Womack, L Jose Guadalupe DORSEY Unavailable Unavailable Womack, Dannie Shi MD Unavailable Unavailable Womack, Dannie Shi MD Unavailable Unavailable Womack, Dannie Shi MD Unavailable Unavailable Womack, Dannie Shi MD Unavailable Unavailable Womack, Dannie Shi MD Unavailable Unavailable Womack, Dannie Shi MD Unavailable Unavailable Womack, Dannie Shi MD Unavailable Unavailable Womack, Dannie Shi MD Unavailable Unavailable Womack, Dannie Shi MD Unavailable Unavailable Womack, Dannie Shi MD Unavailable Unavailable Womack, Dannie Shi MD Unavailable Unavailable Womack, Dannie Shi MD Unavailable Unavailable Womack, Dannie Shi MD Unavailable Unavailable Womack, Dannie Shi MD Unavailable Unavailable Womack, Dannie Shi MD Unavailable Unavailable Womack, Dannie Shi MD Unavailable Unavailable DON, VINCENT SUSANA APPLICATION ADMINISTRATOR-C Unavailable Unavailable DON, VINCENT SUSANA APPLICATION ADMINISTRATOR-C Unavailable Unavailable DON, VINCENT SUSANA APPLICATION ADMINISTRATOR-C Unavailable Unavailable DON, VINCENT SUSANA APPLICATION ADMINISTRATOR-C Unavailable Unavailable DON, VINCENT SUSANA APPLICATION ADMINISTRATOR-C Unavailable Unavailable DON, VINCENT SUSANA APPLICATION ADMINISTRATOR-C Unavailable Unavailable DON, VINCENT SUSANA APPLICATION ADMINISTRATOR-C Unavailable Unavailable DON, VINCENT SUSANA APPLICATION ADMINISTRATOR-C Unavailable Unavailable DON, VINCENT SUSANA APPLICATION ADMINISTRATOR-C Unavailable Unavailable DON, VINCENT SUSANA APPLICATION ADMINISTRATOR-C Unavailable Unavailable DON, VINCENT SUSANA APPLICATION ADMINISTRATOR-C Unavailable Unavailable DON, VINCENT SUSANA APPLICATION ADMINISTRATOR-C Unavailable Unavailable DON, VINCENT SUSANA APPLICATION ADMINISTRATOR-C Unavailable Unavailable DON, VINCENT SUSANA APPLICATION ADMINISTRATOR-C Unavailable Unavailable DON, VINCENT SUSANA APPLICATION ADMINISTRATOR-C Unavailable Unavailable Dunlap, L Shaina RPA Unavailable Unavailable Dunlap, L Shaina RPA Unavailable Unavailable Dunlap, L Shaina RPA Unavailable Unavailable Dunlap, L Shaina RPA Unavailable Unavailable Dunlap, L Shaina RPA Unavailable Unavailable Dunlap, L Shaina RPA Unavailable Unavailable Dunlap, L Shaina RPA Unavailable Unavailable Dunlap, L Shaina RPA Unavailable Unavailable Dunlap, L Shaina RPA Unavailable Unavailable Dunlap, L Shaina RPA Unavailable Unavailable Dunlap, L Shaina RPA Unavailable Unavailable Dunlap, L Shaina RPA Unavailable Unavailable Dunlap, L Shaina RPA Unavailable Unavailable Dunlap, L Shaina RPA Unavailable Unavailable Dunlap, L Shaina RPA Unavailable Unavailable Dunlap, L Shaina RPA Unavailable Unavailable Dunlap, L Shaina RPA Unavailable Unavailable Dunlap, L Shaina RPA Unavailable Unavailable Dunlap, L Shaina RPA Unavailable Unavailable Dunlap, L Shaina RPA Unavailable Unavailable Dunlap, L Shaina RPA Unavailable Unavailable Dunlap, L Shaina RPA Unavailable Unavailable Dunlap, L Shaina RPA Unavailable Unavailable Dunlap, L Shaina RPA Unavailable Unavailable Dunlap, L Shaina RPA Unavailable Unavailable Dunlap, L Shaina RPA Unavailable Unavailable Dunlap, L Shaina RPA Unavailable Unavailable Dunlap, L Shaina RPA Unavailable Unavailable Dunlap, L Shaina RPA Unavailable Unavailable Dunlap, L Shaina RPA Unavailable Unavailable Dunlap, L Shaina RPA Unavailable Unavailable Dunlap, L Shaina RPA Unavailable Unavailable ANTONIO, O VIRY MD Unavailable Unavailable ANTONIO, O VIRY MD Unavailable Unavailable ANTONIO, O VIRY MD Unavailable Unavailable ANTONIO, O VIRY MD Unavailable Unavailable ANTONIO, O VIRY DORSEY Unavailable Unavailable ANTONIO, O VIRY DORSEY Unavailable Unavailable ANTONIO, O VIRY DORSEY Unavailable Unavailable ANTONIO, O VIRY DORSEY Unavailable Unavailable ANTONIO, O VIRY DORSEY Unavailable Unavailable ANTONIO, O VIRY DORSEY Unavailable Unavailable ANTONIO, O VIRY DORSEY Unavailable Unavailable ANTONIO, O VIRY DORSEY Unavailable Unavailable ANTONIO, O VIRY DORSEY Unavailable Unavailable ANTONIO, O VIRY DORSEY Unavailable Unavailable ANTONIO, O VIRY MD Unavailable Unavailable ANTONIO, O VIRY MD Unavailable Unavailable ANTONIO, O VIRY MD Unavailable Unavailable ANTONIO, O VIRY MD Unavailable Unavailable ANTONIO, O VIRY MD Unavailable Unavailable ANTONIO, O VIRY MD Unavailable Unavailable ANTONIO, O VIRY MD Unavailable Unavailable ANTONIO, O VIRY MD Unavailable Unavailable ANTONIO, O VIRY MD Unavailable Unavailable ANTONIO, O VIRY DORSEY Unavailable Unavailable ANTONIO, O VIRY MD Unavailable Unavailable ANTONIO, O VIRY DORSEY Unavailable Unavailable ANTONIO, O VIRY DORSEY Unavailable Unavailable ANTONIO, O VIRY DORSEY Unavailable Unavailable ANTONIO, O VIRY DORSEY Unavailable Unavailable ANTONIO, O VIRY DORSEY Unavailable Unavailable ANTONIO, O VIRY DORSEY Unavailable Unavailable ANTONIO, O VIRY DORSEY Unavailable Unavailable ANTONIO, O VIRY DORSEY Unavailable Unavailable ANTONIO, O VIRY MD Unavailable Unavailable ANTONIO, O VIRY MD Unavailable Unavailable ANTONIO, O VIRY MD Unavailable Unavailable ANTONIO, O VIRY MD Unavailable Unavailable ANTONIO, O VIRY MD Unavailable Unavailable ANTONIO, O VIRY MD Unavailable Unavailable ANTONIO, O VIRY DORSEY Unavailable Unavailable ANTONIO, O VIRY DORSEY Unavailable Unavailable NarayananViolette bossina WEB PUBLISHER Unavailable Unavailable Narayanan, Wendy WEB PUBLISHER Unavailable Unavailable Narayanan, Wendy WEB PUBLISHER Unavailable Unavailable Narayanan, Wendy WEB PUBLISHER Unavailable Unavailable Narayanan, Wendy WEB PUBLISHER Unavailable Unavailable Narayanan, Wendy WEB PUBLISHER Unavailable Unavailable Narayanan, Wendy WEB PUBLISHER Unavailable Unavailable Narayanan, Wendy WEB PUBLISHER Unavailable Unavailable Narayanan, Wendy WEB PUBLISHER Unavailable Unavailable Narayanan, Wendy WEB PUBLISHER Unavailable Unavailable Narayanan, Wendy WEB PUBLISHER Unavailable Unavailable Koch, Griselda Tanya PA Unavailable Unavailable Koch, Griselda Tanya PA Unavailable Unavailable Koch, Griselda Tanya PA Unavailable Unavailable Koch, Griselda Tanya PA Unavailable Unavailable Koch, Griselda Tanya PA Unavailable Unavailable Koch, Griselda Tanya PA Unavailable Unavailable Koch, Griselda Tanya PA Unavailable Unavailable Koch, Griselda Tanya PA Unavailable Unavailable Koch, Griselda Tanya PA Unavailable Unavailable Koch, Griselda Tanya PA Unavailable Unavailable Ana M Gtz MD Unavailable Unavailable Ana M Gtz MD Unavailable Unavailable Ana M Gtz MD Unavailable Unavailable Ana M Gtz MD Unavailable Unavailable Ana M Gtz MD Unavailable Unavailable Ana M Gtz MD Unavailable Unavailable Ana M Gtz MD Unavailable Unavailable Ana M Gtz MD Unavailable Unavailable Ana M Gtz MD Unavailable Unavailable Ana M Gtz MD Unavailable Unavailable Ana M Gtz MD Unavailable Unavailable Ana M Gtz MD Unavailable Unavailable Ana M Gtz MD Unavailable Unavailable Ana M Gtz MD Unavailable Unavailable Ana M Gtz MD Unavailable Unavailable Ana M Gtz MD Unavailable Unavailable Ana M Gtz MD Unavailable Unavailable Ana M Gtz MD Unavailable Unavailable Ana M Gtz MD Unavailable Unavailable Ana M Gtz MD Unavailable Unavailable Ana M Gtz MD Unavailable Unavailable Ana M Gtz MD Unavailable Unavailable Ana M Gtz MD Unavailable Unavailable Ana M Gtz MD Unavailable Unavailable Ana M Gtz MD Unavailable Unavailable Ana M Gtz MD Unavailable Unavailable Ana M Gtz MD Unavailable Unavailable Ana M Gtz MD Unavailable Unavailable Ana M Gtz MD Unavailable Unavailable Ana M Gtz MD Unavailable Unavailable Ana M Gtz MD Unavailable Unavailable Ana M Gtz MD Unavailable Unavailable Ana M Gtz MD Unavailable Unavailable Ana M Gtz MD Unavailable Unavailable Ana M Gtz MD Unavailable Unavailable Ana M Gtz MD Unavailable Unavailable Ana M Gtz MD Unavailable Unavailable Ana M Gtz MD Unavailable Unavailable Ana M Gtz MD Unavailable Unavailable Ana M Gtz MD Unavailable Unavailable Ana M Gtz MD Unavailable Unavailable Gtz, Ana M Wesley MD Unavailable Unavailable Gtz, Ana M Wesley MD Unavailable Unavailable Gtz, Ana M Wesley MD Unavailable Unavailable Gtz, Ana M Wesley MD Unavailable Unavailable Gtz, Ana M Wesley MD Unavailable Unavailable Gtz, Ana M Wesley MD Unavailable Unavailable Gtz, Ana M Wesley MD Unavailable Unavailable Gtz, Ana M Wesley MD Unavailable Unavailable Gtz, Ana M Wesley MD Unavailable Unavailable Gtz, Ana M Wesley MD Unavailable Unavailable Womack, Dannie Shi MD Unavailable Unavailable Womack, Dannie Shi MD Unavailable Unavailable Womack, Dannie Shi MD Unavailable Unavailable Womack, Dannie Shi MD Unavailable Unavailable Womack, Dannie Shi MD Unavailable Unavailable Womack, Dannie Shi MD Unavailable Unavailable Womack, Dannie Shi MD Unavailable Unavailable Womack, Dannie Shi MD Unavailable Unavailable Womack, Dannie Shi MD Unavailable Unavailable Womack, Dannie Shi MD Unavailable Unavailable Womack, Dannie Shi MD Unavailable Unavailable Womack, Dannie Shi MD Unavailable Unavailable Womack, Dannie Shi MD Unavailable Unavailable Womack, Dannie Shi MD Unavailable Unavailable Womack, Dannie Shi MD Unavailable Unavailable Womack, Dannie Shi MD Unavailable Unavailable Womack, Dannie Shi MD Unavailable Unavailable Womack, Dannie Shi MD Unavailable Unavailable Womack, Dannie Shi MD Unavailable Unavailable Womack, Dannie Shi MD Unavailable Unavailable Womack, Dannie Shi MD Unavailable Unavailable Womack, Dannie Shi MD Unavailable Unavailable Womack, Dannie Shi MD Unavailable Unavailable Womack, Dannie Shi MD Unavailable Unavailable Womack, Dannie Shi MD Unavailable Unavailable Womack, Dannie Shi MD Unavailable Unavailable Womack, Dannie Shi MD Unavailable Unavailable Womack, Dannie Shi MD Unavailable Unavailable Womack, Dannie Shi MD Unavailable Unavailable Womack, Dannie Shi MD Unavailable Unavailable Womack, Dannie Shi MD Unavailable Unavailable Womack, Dannie Shi MD Unavailable Unavailable Womack, Dannie Shi MD Unavailable Unavailable Womack, Dannie Shi MD Unavailable Unavailable Womack, Dannie Shi MD Unavailable Unavailable Womack, Dannie Shi MD Unavailable Unavailable Womack, Dannie Shi MD Unavailable Unavailable Womack, Dannie Shi MD Unavailable Unavailable Womack, Dannie Shi MD Unavailable Unavailable Womack, Dannie Shi MD Unavailable Unavailable Womack, Dannie Shi MD Unavailable Unavailable Womack, Dannie Shi MD Unavailable Unavailable Womack, Dannie Shi MD Unavailable Unavailable Womack, Dannie Shi MD Unavailable Unavailable Womack, Dannie Shi MD Unavailable Unavailable Womack, Dannie Shi MD Unavailable Unavailable Womack, Dannie Shi MD Unavailable Unavailable Scott, L Tiana FERMENTATION MANAGER Unavailable Unavailable Scott, L Tiana FERMENTATION MANAGER Unavailable Unavailable Scott, L Tiana FERMENTATION MANAGER Unavailable Unavailable [place], L Tiana FERMENTATION MANAGER Unavailable Unavailable [place], L Tiana FERMENTATION MANAGER Unavailable Unavailable Scott, L Tiana FERMENTATION MANAGER Unavailable Unavailable [place], L Tiana FERMENTATION MANAGER Unavailable Unavailable Scott, L Tiana FERMENTATION MANAGER Unavailable Unavailable [place], L Tiana FERMENTATION MANAGER Unavailable Unavailable Scott, L Tiana FERMENTATION MANAGER Unavailable Unavailable [place], L Tiana FERMENTATION MANAGER Unavailable Unavailable Scott, L Tiana FERMENTATION MANAGER Unavailable Unavailable Scott, L Tiana FERMENTATION MANAGER Unavailable Unavailable Scott, L Tiana FERMENTATION MANAGER Unavailable Unavailable [place], L Tiana FERMENTATION MANAGER Unavailable Unavailable Scott, L Tiana FERMENTATION MANAGER Unavailable Unavailable Scott, L Tiana FERMENTATION MANAGER Unavailable Unavailable [place], L Tiana FERMENTATION MANAGER Unavailable Unavailable [place], L Tiana FERMENTATION MANAGER Unavailable Unavailable [place], L Tiana FERMENTATION MANAGER Unavailable Unavailable [place], L Tiana FERMENTATION MANAGER Unavailable Unavailable [place], L Tiana FERMENTATION MANAGER Unavailable Unavailable Scott, L Tiana FERMENTATION MANAGER Unavailable Unavailable Scott, L Tiana FERMENTATION MANAGER Unavailable Unavailable [place], L Tiana FERMENTATION MANAGER Unavailable Unavailable Scott, L Tiana FERMENTATION MANAGER Unavailable Unavailable Scott, L Tiana FERMENTATION MANAGER Unavailable Unavailable [place], L Tiana FERMENTATION MANAGER Unavailable Unavailable [place], L Tiana FERMENTATION MANAGER Unavailable Unavailable [place], L Tiana FERMENTATION MANAGER Unavailable Unavailable Scott, L Tiana FERMENTATION MANAGER Unavailable Unavailable [place], L Tiana FERMENTATION MANAGER Unavailable Unavailable LETTIERE, A LETICIA PA Unavailable Unavailable LETTIERE, A LETICIA PA Unavailable Unavailable LETTIERE, A LETICIA PA Unavailable Unavailable LETTIERE, A LETICIA PA Unavailable Unavailable LETTIERE, A LETICIA PA Unavailable Unavailable LETTIERE, A LETICIA PA Unavailable Unavailable LETTIERE, A LETICIA PA Unavailable Unavailable LETTIERE, A LETICIA PA Unavailable Unavailable LETTIERE, A LETICIA PA Unavailable Unavailable LETTIERE, A LETICIA PA Unavailable Unavailable LETTIERE, A LETICIA PA Unavailable Unavailable LETTIERE, A LETICIA PA Unavailable Unavailable LETTIERE, A LETICIA PA Unavailable Unavailable LETTIERE, A LETICIA PA Unavailable Unavailable LETTIERE, A LETICIA PA Unavailable Unavailable LETTIERE, A LETICIA PA Unavailable Unavailable LETTIERE, A LETICIA PA Unavailable Unavailable LETTIERE, A LETICIA PA Unavailable Unavailable LETTIERE, A LETICIA PA Unavailable Unavailable LETTIERE, A LETICIA PA Unavailable Unavailable LETTIERE, A LETICIA PA Unavailable Unavailable LETTIERE, A LETICIA PA Unavailable Unavailable LETTIERE, A LETICIA PA Unavailable Unavailable LETTIERE, A LETICIA PA Unavailable Unavailable LETTIERE, A LETICIA PA Unavailable Unavailable LETTIERE, A LETICIA PA Unavailable Unavailable LETTIERE, A LETICIA PA Unavailable Unavailable LETTIERE, A LETICIA PA Unavailable Unavailable LETTIERE, A LETICIA PA Unavailable Unavailable Re-disclosure Warning The records that you are about to access may contain information from federally-assisted alcohol or drug abuse programs. If such information is present, then the following federally mandated warning applies: This information has been disclosed to you from records protected by federal confidentiality rules (42 CFR part 2). The federal rules prohibit you from making any further disclosure of this information unless further disclosure is expressly permitted by the written consent of the person to whom it pertains or as otherwise permitted by 42 CFR part 2. A general authorization for the release of medical or other information is NOT sufficient for this purpose. The Federal rules restrict any use of the information to criminally investigate or prosecute any alcohol or drug abuse patient.The records that you are about to access may contain highly sensitive health information, the redisclosure of which is protected by Article 27-F of the [facility] Public Health law. If you continue you may have access to information: Regarding HIV / AIDS; Provided by facilities licensed or operated by the [facility] Office of Mental Health; or Provided by the [facility] Office for People With Developmental Disabilities. If such information is present, then the following [facility] mandated warning applies: This information has been disclosed to you from confidential records which are protected by state law. State law prohibits you from making any further disclosure of this information without the specific written consent of the person to whom it pertains, or as otherwise permitted by law. Any unauthorized further disclosure in violation of state law may result in a fine or nursing home sentence or both. A general authorization for the release of medical or other information is NOT sufficient authorization for further disc losure. Allergies and Adverse Reactions Type Description Substance Reaction Status Data Source(s ) Drug allergy Colchicine Colchicine Hives Active eCW1 ([facility]) Drug allergy Allopurinol Drug allergy Hives Active eCW1 ([facility]) Drug allergy Zoloft S[facility]) Bees Bees Bees Anaphylaxis Active eCW1 ([facility]) Bees Bees Bees Anaphylaxis Active eCW1 ([facility]) Bees Bees Bees Anaphylaxis Active eCW1 ([facility]) Augmentin Augmentin Amoxicillin 500 MG / Clavulanate 125 MG Oral Tablet [Augmentin] Pt unaware of reaction Active eCW1 ([facility]) Family History Family Member Name Family Member Gender Family Member Status Date o f Status Description Data Source(s) Unknown Male Problem MEDENT ([facility]) Unknown Unknown Problem MEDENT ([facility]) MGM, maternal uncle Unknown Unknown Problem MEDENT ([facility] [employer]) Unknown Male Problem MEDENT ([facility] () Unknown Male Problem MEDENT ([facility]) Unknown Male Problem MEDENT ([facility]) () Encounters Encounter Providers Location Date Indications Data Source(s ) Outpatient Attender: Rodo Palomino MD Main Office 04/20/2020 12:00:00 PM EST MEDENT ([facility]) Unknown [address] [facility] [id number] 04/18/2020 12:00:00 AM EST eCW1 ([facility]) Outpatient [address] [facility] [address] 03/30/2020 12:00:00 AM EST eCW1 ([facility]) Outpatient Attender: LETICIA Mooney Prim loree 03/08/2020 12:50:00 PM EST MEDENT ([facility]) Outpatient Attender: LETICIA Mooney Prim loree 02/29/2020 11:50:00 AM EST MEDENT ([facility]) Outpatient Attender: LETICIA Mooney Prim loree 02/24/2020 03:15:00 PM EST MEDENT ([facility]) [facility] [address] [place] [address] 02/24/2020 12:00:00 AM EST eCW1 ([facility]) Outpatient Attender: Shaina Ko/Olga/Kalpesh/R eindl 02/16/2020 08:30:00 AM EST MEDENT ([facility]) Outpatient Attender: VIRY Ko/Olga/Kalpesh/Re indl 01/31/2020 09:15:00 AM EDT MEDENT ([facility]) [facility] [address] [facility] [address] 12/22/2019 12:00:00 AM EDT eCW1 ([facility]) Outpatient Attender: LETICIA Mooney Prim loree 11/17/2019 02:00:00 PM EDT MEDENT ([facility]) Outpatient Attender: Lupillo Ko/Meservey/Kalpesh/R eindl 11/05/2019 10:30:00 AM EDT MEDENT ([facility]) Office Visit, Est Pt., Level 2 FC [address] [place] [address] 11/01/2019 12:00:00 AM EDT eCW1 ([facility]) Outpatient Attender: Shaina Ko/Meservey/Kalpesh/R eindl 10/26/2019 09:15:00 AM EDT MEDENT ([facility]) [place] [address] [facility] [address] 10/26/2019 12:00:00 AM EDT eCW1 ([facility]) [place] [address] [facility] [address] 10/26/2019 12:00:00 AM EDT eCW1 ([facility]) Outpatient Attender: Tanya Mooney Prim loree 10/10/2019 12:20:00 PM EDT MEDENT ([facility]) Outpatient Attender: LETICIA Mooney Prim loree 09/28/2019 01:50:00 PM EDT MEDENT ([facility]) Outpatient Attender: LETICIA Mooney Prim loree 08/26/2019 11:50:00 AM EDT MEDENT ([facility]) [facility] [address] [facility] [address] 08/22/2019 12:00:00 AM EDT eCW1 ([facility]) [address] [address] 08/03/2019 12:00:00 AM EDT eCW1 ([facility]) [address] [address] 06/22/2019 12:00:00 AM EDT eCW1 ([facility]) Outpatient Attender: Tiana SIGALA Main Office 06/17/2019 12:00:0 0 PM EST MEDENT ([facility]) Outpatient Attender: Jose Guadalupe Womack MD Physical Therapy 06/01/2019 1 2:30:00 PM EST MEDENT ([facility]) Outpatient Referrer: Jose Guadalupe Womack MD 05/25/2019 12:15:00 PM EST [facility] Outpatient Referrer: Jose Guadalupe Womack MD 05/25/2019 12:14:00 PM EST [facility] Outpatient Referrer: Jose Guadalupe Womack MD 05/17/2019 11:17:00 AM EST [facility] [facility] Out[facility] Referrer: Jose Guadalupe Womack MD 05/17/2019 11:06:00 AM EST [facility] 05/17/2019 11:05:00 AM EST [facility] Attender: Jose Guadalupe Womack MD Physical Therapy 05/14/2019 1 2:00:00 PM EST MED[facility] ([facility]) [address] [address] 05/11/2019 12:00:00 AM EST eCW1 ([facility]) Outpatient Attender: Wendy griffin 04/22/2019 11:00:00 AM EST MEDENT ([facility]) [address] [address] 04/20/2019 12:00:00 AM EST eCW1 ([facility]) Outpatient Attender: LETICIA ralph 04/16/2019 03:45:00 PM EST MEDENT ([facility]) Outpatient Attender: SUSANA Ko/Olga/Kalpesh/Zack lynne 03/17/2019 01:15:00 PM EST MEDENT ([facility]) Outpatient Attender: LETICIA ralph 03/12/2019 01:35:00 PM EST MEDENT ([facility], [facility]) [facility] [address] [address] 03/08/2019 12:00:00 AM EST eCW1 ([facility]) [facility] [address] [address] 03/08/2019 12:00:00 AM EST eCW1 ([facility]) Immunizations Vaccine Date Status Description Data Source(s) IIV3. This is one of two codes replacing CVX 15, which is being retired. 02/18/2020 03:09:00 PM EST completed eCW1 ([facility]) IIV3. This is one of two codes replacing CVX 15, which is being retired. 02/18/2020 03:09:00 PM EST completed eCW1 ([facility]) Medications Medication Brand Name Start Date Product Form Dose Route Admi nistrative Instructions Pharmacy Instructions Status Indications Reaction Description Data Source(s) Pj Oliva 04/20/2020 12:00:00 AM EST active MEDENT ([facility]) Oseltamivir 75 MG Oral Capsule Oseltamivir Phosphate 03/08/2020 12:00:00 AM EST ORAL active MEDENT ( [facility], [facility]) Codeine Phosphate 2 MG/ML / Guaifenesin 20 MG/ML Oral Soluti on Cheratussin ac 02/29/2020 12:00:00 AM EST ORAL completed MEDENT ([facility]) Phenazopyridine hydrochloride 200 MG Delayed Release O ral Tablet Phenazopyridine HCL 02/29/2020 12:00:00 AM EST ORAL active MEDENT ([facility]) Fluconazole 150 MG Oral Tablet Fluconazole 02/29/2020 12:00:00 AM EST ORAL active MEDENT ([facility], [facility]) cefdinir 300 MG Oral Capsule Cefdinir 02/24/2020 12:00:00 AM EST ORAL completed MEDENT ([facility]) Prednisone 20 MG Oral Tablet Prednisone 02/24/2020 12:00:00 AM EST active MEDENT ([facility]) cefdinir 300 MG Oral Capsule Cefdinir 11/17/2019 12:00:00 AM EDT ORAL completed MEDENT ([facility]) Benadryl/Diphenhydramine Hci Injectionto 50 MG 10/10/2019 12:00:00 AM EDT completed MEDENT ([facility]) Medication administered onsite Prednisone 20 MG Oral Tablet Prednisone 10/10/2019 12:00:00 AM EDT completed MEDENT ([facility]) cefdinir 300 MG Oral Capsule Cefdinir 09/28/2019 12:00:00 AM EDT ORAL completed MEDENT ([facility]) Allergy Injection Single 07/20/2019 12:00:00 AM EDT completed MEDENT ([facility]) Medication administered onsite Prednisone 10 MG Oral Tablet Prednisone 07/05/2019 12:00:00 AM EDT ORAL completed MEDENT ([facility], ) Allergy Injection Single 06/30/2019 12:00:00 AM EDT completed MEDENT ([facility]) Medication administered onsite Doxycycline Monohydrate 100 MG Oral Capsule Doxycycline [place] hydrate 06/17/2019 12:00:00 AM EST ORAL active M EDENT ([facility]) Azelastine HCL (Nasal) Azelastine HCL (Nasal) 06/17/2019 12:00:[address] active [facility] ([facility]) Fluticasone Propionate Nasal [place] Fluticasone Propionate Na jocelynn [place] 06/17/2019 12:00:00 AM EST active [facility] ([facility]) Fluconazole 150 MG Oral Tablet [Diflucan] Diflucan 06/17/2019 1 2:00:00 AM EST active [facility] ([facility]) Allergy Injection Single 06/09/2019 12:00:00 AM EST completed [facility] ([facility]) Medication administered onsite Allergy Injection Single 06/09/2019 12:00:00 AM EST completed [facility] ([facility]) Medication administered onsite Allergy Injection Single 05/18/2019 12:00:00 AM EST completed [facility] ([facility]) Medication administered onsite gabapentin 100 MG Oral Capsule Gabapentin 05/14/2019 12:00:00 AM EST active MEDENT ([facility] ) Diazepam 5 MG Oral Tablet [Valium] Valium 05/14/2019 12:00:00 AM EST active MEDENT ([facility] ) Acetaminophen 325 MG / Hydrocodone Pastor trate 5 MG Oral Tablet Hydrocodone- Acetaminophen 5-325 MG Hydrocodone-Acetaminophen 5-325 MG 05/11/2019 12:00:00 AM EST active 1 tablet as neede d eCW1 ([facility]) Acetaminophen 325 MG / Hydrocodone Pastor trate 5 MG Oral Tablet Hydrocodone- Acetaminophen 5-325 MG Hydrocodone-Acetaminophen 5-325 MG 05/11/2019 12:00:00 AM EST active 1 tablet as neede d eCW1 ([facility]) MethylPREDNISolone 4 MG MethylPREDNISolone 4 MG 05/11/2019 12:00:00 A M EST active as directed eCW1 ([facility]) Acetaminophen 325 MG / Hydrocodone Pastor trate 5 MG Oral Tablet Hydrocodone- Acetaminophen 5-325 MG Hydrocodone-Acetaminophen 5-325 MG 05/11/2019 12:00:00 AM EST 1.0 {tablet_as_needed} suspended Hydrocodone-Acetaminophen 5- 325 MG eCW1 ([facility]) Acetaminophen 325 MG / Hydrocodone Pastor trate 5 MG Oral Tablet Hydrocodone- Acetaminophen 5-325 MG Hydrocodone-Acetaminophen 5-325 MG 05/11/2019 12:00:00 AM EST 1.0 {tablet_as_needed} suspended Hydrocodone-Acetaminophen 5- 325 MG eCW1 ([facility]) Azelastine HCL (Nasal) Azelastine HCL (Nasal) 04/22/2019 12:00:[address] completed MEDENT ([facility], [facility]) Prednisone 20 MG Oral Tablet Prednisone 04/22/2019 12:00:00 AM EST completed MEDENT ([facility], [facility]) Amoxicillin 875 MG / Clavulanate 125 MG Oral Tablet Amoxicillin-Pot Clavulanate 875-125 MG Amoxicillin-Pot Clavulanate 875-125 MG 04/20/2019 12:00:00 AM ES T active 1 tablet eCW1 ([facility]) Allergy Injection Single 04/20/2019 12:00:00 AM EST completed [facility] ([facility]) Medication administered onsite Allergy Injection Single 03/25/2019 12:00:00 AM EST completed [facility] ([facility]) Medication administered onsite Prednisone 10 MG Oral Tablet Prednisone 03/17/2019 12:00:00 AM EST ORAL completed MEDENT ([facility], ) Amoxicillin 875 MG / Clavulanate 125 MG Oral Tablet Am oxicillin/Clavulanate Potassium 03/17/2019 12:00:00 AM EST completed MEDENT ([facility], ) Codeine Phosphate 2 MG/ML / Guaifenesin 20 MG/ML Oral Soluti on Cheratussin ac 03/12/2019 12:00:00 AM EST ORAL completed MEDENT ([facility], [facility]) Budesonide 0.25 MG/ML Inhalant Solution [Pulmicort] Pu lmicort 0.5 MG/2ML Pulmicort 0.5 MG/2ML 03/08/2019 12:00:00 AM EST ac tive 2 ml eCW1 ([facility]) arformoterol 0.0075 MG/ML Inhalant Solution [Brovana] Brovana 15 MCG/2ML Brovana 15 MCG/2ML 03/08/2019 12:00:00 AM EST active 2 ml eCW1 ([facility]) Budesonide 0.25 MG/ML Inhalant Solution [Pulmicort] Pu lmicort 0.5 MG/2ML Pulmicort 0.5 MG/2ML 03/08/2019 12:00:00 AM EST ac tive 2 ml eCW1 ([facility]) Prednisone 10 MG Oral Tablet Prednisone 02/12/2019 12:00:00 AM EDT ORAL completed MEDENT ([facility], ) fluticasone 50 mcg/actuation nasal spray,suspension Fl uticasone propionate 0.05 MG/ACTUAT Metered Dose Nasal [place] 06/18/2018 11:56:23 AM EST 0 puff completed fluticasone [place] ([facility]) doxycycline hyclate 100 MG Oral Tablet Doxycycline Hyc late 100 MG Doxycycline Hyclate 100 MG active 1 tablet e CW1 ([facility]) Insurance Providers Payer name Policy type / Coverage type Policy ID Covered republican ID Covered republican's relationship to bah Policy Bah Plan Information MEDICARE COMPLETE [id number] SP [id number] MEDICARE COMPLETE [id number] SP [id number] MEDICARE COMPLETE [id number] SP [id number] MEDICARE COMPLETE-[facility] O [id number] S [id number] MEDICARE [id number] SP [id number] MEDICARE COMPLETE [id number] SP [id number] MEDICARE COMPLETE [id number] SP [id number] MEDICARE COMPLETE-[facility] O [id number] S [id number] ANSI-Medicare Part B [id number] ANSI-Commercial [id number] MEDICARE COMPLETE [id number] SP [id number] [facility] Medicare Commercial [id number] Self [id number] BC/BS [place] [facility] Part B [id number] Self [id number] Blue Choice Health Maintenance Organization (HMO) [id number] Self [id number] ANSI-Medicare Part B [id number] ANSI-Commercial [id number] ANSI-Commercial [id number] ANSI-Medicare Part B [id number] ANSI-Commercial [id number] ANSI-Medicare Part B [id number] BCBS/Blue Card Medigap Part B [id number] Self [id number] [facility]/Medicare Solu Commercial [id number] Self [id number] ANSI-Medicare Part B [id number] ANSI-Commercial [id number] BCBS 2..[id number] Blue Cross/Blue Shield 2..[id number] [employer] [id number] Medic are Part B [id number] ANSI-Medicare Part B [id number] ANSI-Commercial [id number] BCBS/Blue Card Medigap Part B [id number] Self [id number] United HLCR/Medicare Solu Commercial [id number] Self [id number] BCBS/Blue Card Medigap Part B [id number] Self [id number] United HLCR/Medicare Solu Commercial [id number] Self [id number] ANSI-Medicare Part B [id number] ANSI-Commercial [id number] BCBS/Blue Card Medigap Part B [id number] Self [id number] [place] HLCR/Medicare Solu Commercial [id number] Self [id number] BCBS/Blue Card Medigap Part B [id number] Self [id number] United HLCR/Medicare Solu Commercial [id number] Self [id number] ANSI-Commercial [id number] ANSI-Medicare Part B [id number] ANSI-Commercial [id number] ANSI-Medicare Part B [id number] BCBS/Blue Card Medigap Part B [id number] Self [id number] United HLCR/Medicare Solu Commercial [id number] Self [id number] MEDICARE COMPLETE-[facility] [id number] S [id number] ANSI-Commercial [id number] ANSI-Medicare Part B [id number] BCBS/Blue Card Medigap Part B [id number] Self [id number] [place] HLCR/Medicare Solu Commercial [id number] Self [id number] ANSI-Medicare Part B [id number] ANSI-Commercial [id number] BCBS/Blue Card Medigap Part B [id number] Self [id number] [place] HLCR/Medicare Solu Commercial [id number] Self [id number] [employer] Medicare Health Maintenance Organization (HMO) [id number] Self [id number] MEDICARE COMPLETE [id number] 93 [id number] BCBS/Blue Card Medigap Part B [id number] Self [id number] [place] HLCR/Medicare Solu Commercial [id number] Self [id number] BCBS/Blue Card Medigap Part B [id number] Self [id number] United HLCR/Medicare Solu Commercial [id number] Self [id number] [place] Medigap Part B [id number] Self [id number] [place] Medigap Part B [id number] Self [id number] [place] Medigap Part B [id number] Self [id number] [facility] Commercial [id number] Self [id number] BCBS/Blue Card Medigap Part B [id number] Self [id number] [place] HLCR/Medicare Solu Commercial [id number] Self [id number] [place] Medigap Part B [id number] Self [id number] BS [place] Medigap Part B [id number] Self [id number] BCBS/Blue Card Medigap Part B [id number] Self [id number] [place] HLCR/Medicare Solu Commercial [id number] Self [id number] BCBS/Blue Card Medigap Part B [id number] Self [id number] [facility] [id number] Self [id number] [employer] Medicare Commercial [id number] Self [id number] [place] BC/BS Other Medigap Part B [id number] Self [id number] [place] BCBS [place] Commercial [id number] Self [id number] [facility] [id number] SP [id number] [place] HLCR/Medicare Solu Medigap Part B [id number] Self [id number] BCBS/Blue Card Commercial [id number] Self [id number] [facility] O [id number] S [id number] [facility] O UNAVAILABLE S UNAVAILABLE United HLCR/Medicare Solu Medigap Part B [id number] Self [id number] BCBS/Blue Card Commercial [id number] Self [id number] [place] HLCR/Medicare Solu Medigap Part B [id number] Self [id number] BCBS/Blue Card Commercial [id number] Self [id number] [place] Commercial [id number] Self [id number] BCBS [place] PPO 302/307 [id number] SP [id number] BCBS [place] PPO 302/307 [id number] SP [id number] [place] BCBS B [id number] S [id number] BCBS/Blue Card Commercial Self BS/PP0/Prefix [id number]&[id number] Commercial Self BCBS [place] [facility] 303/803 [id number] SP [id number] BCBS E[place] [facility] 303/803 P [id number] S [id number] Problems, Conditions, and Diagnoses Code Display Name Description Problem Type Effective Dates Data Source(s) 020156734 Screening for malignant neoplasm of colo n Screening for malignant neoplasm of colon Problem 04/20/2020 12:00:00 AM EST MEDENT ([facility]) [id number] Essential hypertension Essential hypertension Problem 01/31/2020 12:00:00 AM EDT MEDENT ([facility], ) [id number] Allergic asthma without status asthmatic us Allergic asthma without status asthmaticus Problem 01/31/2020 12:00:00 AM EDT MEDENT ([facility], ) [id number] Essential hypertension Essential hypertension Problem 06/17/2019 12:00:00 AM EST MEDENT ([facility] ) Surgeries/Procedures Procedure Description Date Indications Data Source(s) EXC TUMOR SOFT TISSUE FOREARM &/WRIST SUBQ <3CM 2019 12:00:00 AM EST MEDENT ([facility], ) Therapeutic, Prophylactic Or Diagnostic Injection Subq/Im 10/10/2019 12:00:00 AM EDT MEDENT ([facility] PROF MUELLER ALLG IMMNTX X W/PRV ALLGIC XTRCS 1 NJX 07/19 12:00:00 AM EDT MEDENT ([facility]) PROF MUELLER ALLG IMMNTX X W/PRV ALLGIC XTRCS 1 NJX 06/29 12:00:00 AM EDT MEDENT ([facility]) Office Visit, Est Pt., Level 2 FC 06/22/2019 12:00:00 AM EDT eCW1 ([facility]) Office Visit, Est Pt., Level 4 PC 06/22/2019 12:00:00 AM EDT eCW1 ([facility]) PROF MUELLER ALLG IMMNTX X W/PRV ALLGIC XTRCS 1 NJX 06/09 12:00:00 AM EST MEDENT ([facility]) PROF AMI HERNANDEZ IMMNTX X W/PRV ALLGIC XTRCS 1 NJX 06/09 12:00:00 AM EST MEDENT ([facility]) PROF AMI HERNANDEZ IMMNTX X W/PRV ALLGIC XTRCS 1 NJX 05/18 12:00:00 AM EST MEDENT ([facility]) X-Ray Spine Lumbosacral Complete Inc Bending Views Min Of 6 05/14/2019 12:00:00 AM EST MEDENT ([facility]) X-Ray Hip Unilateral With Pelvis 2-3 Views 05/14/2019 12:00:00 AM EST MEDENT ([facility]) Spirometry 04/26/2019 12:00:00 AM EST M EDENT ([facility], ) PROF AMI HERNANDEZ IMMNTX X W/PRV ALLGIC XTRCS 1 NJX 04/20 12:00:00 AM EST MEDENT ([facility]) Office Visit, Est Pt., Level 3 PC 04/20/2019 12:00:00 AM EST eCW1 ([facility]) Therapeutic, Prophylactic Or Diagnostic Injection Subq/Im 04/16/2019 12:00:00 AM EST MEDENT ([facility]) PREPJ& ALLERGEN IMMUNOTHERAPY 1/PATHOLOGY SECRETARY/TRANSCRIPTIONIST ANTIGEN 04/02/2019 12:00:00 AM EST MEDENT ([facility]) PROF AMI HERNANDEZ IMMNTX X W/PRV ALLGIC XTRCS 1 NJX 03/25 12:00:00 AM EST MED[facility] ([facility]) Results ID Date Data Source [id number] 04/28/2020 10:00:00 AM EST [facility] Name Value Range Interpretation Code Description Data Kassandra rce(s) Supporting Document(s) SARS coronavirus 2 RNA Not Detected [facility] This lab was ordered by [facility] and reported by [facility]. ID Date Data Source [id number] 04/10/2020 03:25:00 PM EST MEDENT ([facility], ) Name Value Range Interpretation Code Description Data Kassandra rce(s) Supporting Document(s) Surgical pathology study Laboratory test result [facility] ([facility]) FINAL DIAGNOSIS Submitted as "fatty mass from right antecubital fossa": Mature adipose tissue, compatible with lipoma. 04/12/2020954 CLINICAL DIAGNOSIS Antecubital fossa mass 04/11/2020943 GROSS DIAGNOSIS Received in formalin labeled "fatty mass from right antecubital fossa" and consists of fragments of adipose tissue, 5 x 4 x 1 cm in aggregate. The specimen is grossly unremarkable. [employer] sections submitted in one. -OA 04/12/2020954 Signed LUANN STONE MD 04/12/2020954 ID Date Data Source [id number] 04/10/2020 01:11:00 PM EST [facility] ([facility]) Name Value Range Interpretation Code Description Data Kassandra rce(s) Supporting Document(s) Glucose, Fasting 103 mg/dL 70-100 Above high normal [facility] Blood Urea Nitrogen 15 mg/dL 7-18 Normal (applies to non-nume charley results) [facility] ([facility]) Sodium Level 143 meq/L 136-145 Normal (applies to non-numeric res ults) [facility] ([facility]) Creatinine For GFR 0.72 mg/dL 0.55-1.30 Normal (applies to non -numeric results) [facility] ([facility]) Glomerular Filtration Rate Laboratory test result Normal (applies to non- numeric results) [facility] ([facility]) <content>Units are mL/min/1.73 m2</content>
<content></content>
<content>Chronic Kidney Disease Staging per NKF:</content>
<content></content>
<content>Stage I & II GFR >=60 Normal to Mildly Decreased</content>
<content>Stage III GFR 30- 59 Moderately Decreased</content>
<content>Stage IV GFR 15-29 Severely Decreased</content>
<content>Stage V GFR <15 Very Little GFR Left</content>
<content>ESRD GFR <15 on POWER LINEWORKER</content>
<content></content> Potassium Serum 4.3 meq/L 3.5-5.1 Normal (applies to non-numeric results) [facility]) Anion Gap 5 meq/L 8-16 Below low normal [facility]) Carbon Dioxide Level 28 meq/L 21-32 Normal (applies to non-num edgar results) [facility]) Chloride Level 110 meq/L 98-107 Above high normal [facility] ([facility]) Calcium Level 9.5 mg/dL 8.8-10.2 Normal (applies to non-numeric re sults) [facility]) ID Date Data Source [id number] 04/10/2020 01:11:00 PM EST [facility]) Name Value Range Interpretation Code Description Data Kassandra rce(s) Supporting Document(s) White Blood Count 7.8 10 4.0-10.0 Normal (applies to non-numeri c results) [facility]) Red Blood Count 4.73 10 4.00-5.40 Normal (applies to non-numeric results) [facility]) Mean Corpuscular Volume 93.0 fl 80.0-96.0 Normal ( applies to non-numeric results) [facility]) Hematocrit 44.0 % 36.0-47.0 Normal (applies to non-numeric resul ts) [facility]) Hemoglobin 14.4 g/dL 12.0-15.5 Normal (applies to non-numeric resul ts) [facility]) Mean Corpuscular HGB Conc 32.7 g/dL 32.0-36.5 Normal (applies to non-numeric results) [facility]) Red Cell Distribution Width 12.2 % 11.5-14.5 Norm al (applies to non-numeric results) [facility]) Mean Corpuscular Hemoglobin 30.4 pg 27.0-33.0 Norm al (applies to non-numeric results) [facility]) Platelet Count, Automated 284 10 150-450 Normal (applies to non-numeric results) [facility] ([facility], ) Nucleated Red Blood Cell % 0.0 % 0-0 Normal (applies to n on-numeric results) [facility] ([facility], ) ID Date Data Source [id number] 04/05/2020 10:00:00 AM EST [facility] Name Value Range Interpretation Code Description Data Kassandra rce(s) Supporting Document(s) SARS coronavirus 2 RNA [facility] This lab was ordered by [facility] and reported by [facility]. ID Date Data Source [id number] 03/20/2020 12:00:00 AM EST [facility] Name Value Range Interpretation Code Description Data Kassandra rce(s) Supporting Document(s) SARS coronavirus 2 Ag [facility] This lab was ordered by [facility] and reported by [facility]. ID Date Data Source [id number] 02/29/2020 12:16:00 PM EST [facility] ([facility]) Name Value Range Interpretation Code Description Data Kassandra rce(s) Supporting Document(s) Bacteria identified in Urine by Culture Laboratory test result [facility] ([facility]) patient notified. ID Date Data Source [id number] 01/24/2020 12:00:00 AM EDT [facility] Carlos Enamorado MD Patient Name: ROLLY [id number] [facility] Date of : [address] [place] [address] Date of Exam: 01/24/2020YIN Garcia [id number]#: Fax: [id number] EXAM: MAMMO SCREENING WITH CADCLINICAL INFORMATION: Screening.Based on the personal and family history information your patient suppliedat the time of imaging, her lifetime risk of breast cancer estimated by theTyrer-Cuzick model is 2.9%. Given that this patient has less than 20% TCrisk score, no further medical management is currently recommended at thistime.Your patient's personal and/or family history of cancer submitted at thetime of imaging is suggestive of a hereditary cancer syndrome. She meetsthe criteria for genetic testing established by [facility] and [employer] guidelines. She should pursue arisk assessment with a hereditary cancer specialist which may includetesting based on these criteria. The benefits and limitations of genetictesting would be discussed, including potential changes to medicalmanagement based on the results. Your patient declined myRisk genetictesting at this time.Digital screening (2D) mammography was performed bilaterally in the CC andMLO projections. Additionally, breast tomosynthesis (3D mammography) wasperformed bilaterally in the CC and MLO projections. Today's exam wascompared to the prior exam(s).By history, the patient has no complaints of a palpable breast abnormalityor other significant breast complaints.The patient states that a clinical breast exam was not performed.The breasts are unchanged in size and shape. There are no shell-soft tissuedensities or spiculated masses. There is no internal architecturaldistortion. There are no suspicious shell-calcific clusters. Skinthickening or nipple retraction is not present. Benign calcifications areagain seen bilaterally.The Volpara volumetric breast density category is B, there are scatteredareas of fibroglandular density.IMPRESSION:BI-RADS Category 2 - Benign Finding(s). Stable mammogram. There is noevidence of malignant alteration of the breasts. Followup examinationrecommended in one year.This mammogram was read with the assistance of Alem SNOW, an FDAapproved computer aided detection system for mammography.Negative x-ray reports should not delay surgical consultation if a dominantor clinically suspicious mass is present.Not all breast cancers can be identified by mammography. Therefore, werecommend that you continue to perform regular breast self-examination andphysical examination and then promptly contact your physician of anyconcerns or changes.Adenosis and dense breasts may obscure an underlying neoplasm.Gali Youssef, ТАТЬЯНА/jmcTwill you for referring ROLLY MILLER to our office. Electronically Signed - GALI YOUSSEF DO 01/24/20 15:58 Name Value Range Interpretation Code Description Data Kassandra rce(s) Supporting Document(s) ID Date Data Source [id number] 09/28/2019 02:09:00 PM EDT MEDENT ([facility], [facility]) Name Value Range Interpretation Code Description Data Kassandra rce(s) Supporting Document(s) Coronavirus 2019 Nasopharygeal Laboratory test result MEDENT ([facility], [facility]) Patient notified. ID Date Data Source [id number] 09/28/2019 02:09:00 PM EDT [facility] Name Value Range Interpretation Code Description Data Kassandra rce(s) Supporting Document(s) SARS CORONAVIRUS 2 RNA [facility] This lab was ordered by [facility] and reported by [facility]. ID Date Data Source [id number] 05/25/2019 12:00:00 AM EST [facility] Jose Guadalupe Womack MD Patient Name: ROLLY MILLER [id number] [facility] Date of : 1950[place] [address] Date of Exam: 05/25/2019#: Fax: [phone] EXAM: MRI LUMBAR SPINE WITHOUT CONTRASTPROCEDURE INFORMATION:Exam: MR Lumbar Spine Without Contrast.Exam date and time: 05/25/2019 12:59 PM Age: 68 years oldClinical indication: Low back painTECHNIQUE: Imaging protocol: Multiplanar magnetic resonance images of thelumbar spine without intravenous contrast.COMPARISON: No relevant prior studies available.FINDINGS:Vertebrae: The alignment is anatomic. The vertebral body heights aremaintained. No compression fracture. No suspicious marrow replacinglesions.Spinal cord: The demonstrated cord is normal in signal intensity. The conusmedullaris terminates normally.L1- L2: Disc desiccation with anterior endplate spurring. Mild annularbulging. A CSF space remains about the conus. The exiting roots aredemonstrated. Facets intact.L2-L3: Mild annular bulging impressing on the ventral aspect of the sacslightly asymmetric toward the right. There is a small annular fissureposterior laterally toward the right, series 601, image 18. No discherniation. No central canal or neural foraminal stenosis. Facets intact.L3- L4: Disc desiccation bulging asymmetrically toward the neural foramen onthe left. Left foraminal protrusion with the left L3 root may be minimallydisplaced. Please correlate clinically. No central canal stenosis.L4-L5: No disc herniation. Mild facet degenerative change with mildligamentous infolding. No central canal stenosis. No neural foraminalencroachment.L5-S1: Disc desiccation. Mild annular bulging impressing on the ventralepidural fat. The thecal sac normal in size. The exiting L5 and traversingS1 roots normally demonstrated. Mild to moderate facet degenerative changewithout central canal or neural foraminal stenosis.Soft tissues: No paraspinal soft tissue mass.IMPRESSION:1. Multilevel degenerative changes within the lumbar spine.2. At L1-L2, disc desiccation with anterior endplate spurring. Mild annularbulging.3. At L2-L3, mild annular bulging impressing on the ventral aspect of thesac slightly asymmetric toward the right. There is a small annular fissureposterior laterally toward the right.4. At L3-L4, disc desiccation bulging asymmetrically toward the neuralforamen on the left. Left foraminal protrusion with the left L3 root may beminimally displaced.5. At L4-L5, mild facet degenerative change with mild ligamentousinfolding.6. At L5-S1, mild annular bulging impressing on the ventral epidural fat.Mild to moderate facet degenerative change without central canal or neuralforaminal stenosis.Thank you for allowing us to participate in the care of your patient.Dictated and Authenticated by: Danny Dickson MD 05/26/2019 11:20 AMEastern Time ([place] & [place])Justina/Marlena you for referring ROLLY MILLER to our office. Electronically Signed - [facility] 05/26/19 12:50 Name Value Range Interpretation Code Description Data Kassandra rce(s) Supporting Document(s) ID Date Data Source [id number] 03/19/2019 09:00:00 AM EST MED[facility] ([facility], ) Name Value Range Interpretation Code Description Data Kassandra rce(s) Supporting Document(s) Gram Stain (SEE NOTE) Normal (applies to non-numeric resul ts) MEDENT ([facility]) QUALITY: GOOD MANY WBCS FEW EPITHELIAL CELLS MODERATE GRAM POSITIVE COCCI IN PAIRS, CHAINS AND CLUSTERS FEW GRAM NEGATIVE RODS Sputum Culture FULL REPORT IN L <SEE NOTE> Norm al (applies to non-numeric results) MED[facility] ([facility]) FULL REPORT IN LAB NOTES (eCW and Medent ). NORMAL TOMER PRESENT Procedure Social History Code Duration Value Status Description Data Source(s ) Smoking 03/30/2020 12:00:00 AM EST Never Smoker completed Never S moker eCW1 ([facility]) Smoking 03/30/2020 12:00:00 AM EST Never Smoker completed Never S moker eCW1 ([facility]) Smoking 03/08/2020 12:00:00 AM EST Patient has never smoked co mpleted Patient has never smoked MEDENT ([facility], [facility]) Smoking 11/01/2019 12:00:00 AM EDT Never Smoker completed Never S moker eCW1 ([facility]) Smoking 06/22/2019 12:00:00 AM EDT Never Smoker completed Never S moker eCW1 ([facility]) Smoking 06/22/2019 12:00:00 AM EDT Never Smoker completed Never S moker eCW1 ([facility]) Vital Signs ID Date Data Source UNK Name Value Range Interpretation Code Description Data Source(s) Body weight 155.00 [lb_av] 155.00 [lb_av] MEDEN T ([facility]) Body height 62 [in_i] 62 [in_i] [facility] ([facility]) 5'2" Body temperature 97.5 [degF] 97.5 [degF] [facility] ([facility]) Body weight 70.308 kg 70.308 kg [facility] ([facility]) Body mass index (BMI) [Ratio] 28.3 kg/m2 28.3 k g/m2 [facility] ([facility]) Heart rate 67 /min 67 /min [facility] ([facility]) Diastolic blood pressure 77 mm[Hg] 77 mm[Hg] [facility] ([facility]) Systolic blood pressure 127 mm[Hg] 127 mm[Hg] M EDENT ([facility]) Body surface area Derived from formula 1.70 m2 1.70 m2 [facility] ([facility]) Body weight 70.365 kg 70.365 kg [facility] ([facility]) [place] body weight 105 [lb_av] 105 [lb_av] MEDEN T ([facility]) Body mass index (BMI) [Ratio] 29.3 kg/m2 29.3 k g/m2 [facility] ([facility]) Body weight 155.12 [lb_av] 155.12 [lb_av] [facility] ([facility]) Body height 61 [in_i] 61 [in_i] MEDENT ([facility]) 5'1" Diastolic blood pressure 60 mm[Hg] 60 mm[Hg] [facility] Systolic blood pressure 128 mm[Hg] 128 mm[Hg] M EDENT ([facility]) Diastolic blood pressure 80 mm[Hg] 80 mm[Hg] eCW1 ([facility]) Systolic blood pressure 142 mm[Hg] 142 mm[Hg] e CW1 ([facility]) Body temperature 96.5 [degF] 96.5 [degF] eCW1 ( [facility]) Respiratory rate 20 /min 20 /min eCW1 ([facility]) Heart rate 89 /min 89 /min eCW1 ([facility]) Body mass index (BMI) [Ratio] 28.35 kg/m2 28.35 kg/m2 eCW1 ([facility]) Body height 62 [in_i] 62 [in_i] eCW1 ([facility]) Body weight 155 [lb_av] 155 [lb_av] eCW1 ([facility]) Body surface area Derived from formula 1.70 m2 1.70 m2 [facility] ([facility]) Body weight 70.421 kg 70.421 kg [facility] ([facility]) [place] body weight 105 [lb_av] 105 [lb_av] MEDEN T ([facility]) Body mass index (BMI) [Ratio] 29.3 kg/m2 29.3 k g/m2 [facility] ([facility]) Body weight 155.25 [lb_av] 155.25 [lb_av] MEDEN T ([facility]) Body height 61 [in_i] 61 [in_i] [facility] ([facility]) 5'1" Diastolic blood pressure 80 mm[Hg] 80 mm[Hg] [facility] ([facility]) Systolic blood pressure 146 mm[Hg] 146 mm[Hg] [facility] Body mass index (BMI) [Ratio] 27.1 kg/m2 27.1 k g/m2 [facility] ([facility]) Body height 62 [in_i] 62 [in_i] [facility] ([facility]) 5'2" Body weight 148.00 [lb_av] 148.00 [lb_av] MEDEN T ([facility], [facility]) Body temperature 98.3 [degF] 98.3 [degF] [facility] ([facility], [facility]) Oxygen saturation in Arterial blood by Pulse oximetry 98 % 98 % [facility] ([facility], [facility]) Respiratory rate 18 /min 18 /min [facility] ( [facility], [facility]) Heart rate 70 /min 70 /min [facility] ([facility], [facility]) Diastolic blood pressure 98 mm[Hg] 98 mm[Hg] [facility] ([facility], [facility]) Systolic blood pressure 160 mm[Hg] 160 mm[Hg] [facility], [facility]) Body weight 148.00 [lb_av] 148.00 [lb_av] MEDEN T ([facility], [facility]) Body temperature 98.0 [degF] 98.0 [degF] [facility] ([facility], [facility]) Oxygen saturation in Arterial blood by Pulse oximetry 99 % 99 % [facility] ([facility], [facility]) Respiratory rate 16 /min 16 /min [facility] ( [facility], [facility]) Heart rate 56 /min 56 /min [facility] ([facility], [facility]) Diastolic blood pressure 89 mm[Hg] 89 mm[Hg] [facility] ([facility], [facility]) Systolic blood pressure 172 mm[Hg] 172 mm[Hg] [facility], [facility]) Body mass index (BMI) [Ratio] 27.1 kg/m2 27.1 k g/m2 [facility] ([facility], [facility]) Body height 62 [in_i] 62 [in_i] [facility] ([facility], [facility]) 5'2" Body weight 148.00 [lb_av] 148.00 [lb_av] MEDEN T ([facility], [facility]) Body temperature 97.9 [degF] 97.9 [degF] [facility] ([facility], [facility]) Oxygen saturation in Arterial blood by Pulse oximetry 97 % 97 % [facility] ([facility], [facility]) Respiratory rate 16 /min 16 /min [facility] ( [facility], [facility]) Heart rate 73 /min 73 /min [facility] ([facility], [facility]) Diastolic blood pressure 86 mm[Hg] 86 mm[Hg] [facility] ([facility], [facility]) Systolic blood pressure 138 mm[Hg] 138 mm[Hg] [facility], [facility]) Body surface area Derived from formula 1.69 m2 1.69 m2 [facility] ([facility], ) Body weight 69.628 kg 69.628 kg [facility] ([facility]) [place] body weight 105 [lb_av] 105 [lb_av] MEDEN T ([facility]) Body mass index (BMI) [Ratio] 29.0 kg/m2 29.0 k g/m2 [facility] ([facility]) Body weight 153.50 [lb_av] 153.50 [lb_av] MEDEN T ([facility]) Body height 61 [in_i] 61 [in_i] [facility] ([facility]) 5'1" Diastolic blood pressure 62 mm[Hg] 62 mm[Hg] [facility] ([facility]) Systolic blood pressure 120 mm[Hg] 120 mm[Hg] [facility] ([facility]) Body weight 67.586 kg 67.586 kg [facility] ([facility]) [place] body weight 105 [lb_av] 105 [lb_av] MEDEN T ([facility]) Body mass index (BMI) [Ratio] 28.2 kg/m2 28.2 k g/m2 [facility] ([facility]) Body weight 149.00 [lb_av] 149.00 [lb_av] MEDEN T ([facility]) Body height 61 [in_i] 61 [in_i] [facility] ([facility]) 5'1" Diastolic blood pressure 80 mm[Hg] 80 mm[Hg] [facility] ([facility]) Systolic blood pressure 130 mm[Hg] 130 mm[Hg] [facility] ([facility]) Body mass index (BMI) [Ratio] 28.5 kg/m2 28.5 k g/m2 [facility] ([facility]) Body height 62 [in_i] 62 [in_i] [facility] ([facility]) 5'2" Body weight 156.00 [lb_av] 156.00 [lb_av] MEDEN T ([facility]) Body temperature 96.8 [degF] 96.8 [degF] [facility] ([facility], [facility]) Oxygen saturation in Arterial blood by Pulse oximetry 98 % 98 % [facility] ([facility], [facility]) Respiratory rate 20 /min 20 /min [facility] ( [facility], [facility]) Heart rate 65 /min 65 /min [facility] ([facility], [facility]) Diastolic blood pressure 110 mm[Hg] 110 mm[Hg] MED[facility] ([facility], [facility]) Systolic blood pressure 203 mm[Hg] 203 mm[Hg] M EDENT ([facility], [facility]) Body weight 71.215 kg 71.215 kg [facility] ([facility]) [place] body weight 105 [lb_av] 105 [lb_av] [facility] ([facility]) Body mass index (BMI) [Ratio] 29.7 kg/m2 29.7 k g/m2 [facility] ([facility]) Body weight 157.00 [lb_av] 157.00 [lb_av] [facility] ([facility]) Body height 61 [in_i] 61 [in_i] [facility] ([facility]) 5'1" Body temperature 98.7 [degF] 98.7 [degF] [facility] ([facility]) Oxygen saturation in Arterial blood by Pulse oximetry 97 % 97 % [facility] ([facility]) Room Air Heart rate 85 /min 85 /min [facility] ([facility]) Diastolic blood pressure 80 mm[Hg] 80 mm[Hg] [facility] ([facility]) Systolic blood pressure 124 mm[Hg] 124 mm[Hg] [facility]) Diastolic blood pressure 110 mm[Hg] 110 mm[Hg] eCW1 ([facility]) Systolic blood pressure 150 mm[Hg] 150 mm[Hg] e CW1 ([facility]) Body temperature 98.1 [degF] 98.1 [degF] eCW1 ( [facility]) Respiratory rate 18 /min 18 /min eCW1 ([facility]) Heart rate 66 /min 66 /min eCW1 ([facility]) Body mass index (BMI) [Ratio] 28.79 kg/m2 28.79 kg/m2 eCW1 ([facility]) Body height 62 [in_i] 62 [in_i] [facility] ([facility]) Body weight 157.4 [lb_av] 157.4 [lb_av] W1 ([facility]) Body weight 69.571 kg 69.571 kg [facility] ([facility]) Body mass index (BMI) [Ratio] 29.0 kg/m2 29.0 k g/m2 [facility] ([facility]) Body weight 153.38 [lb_av] 153.38 [lb_av] MEDEN T ([facility]) Body height 61 [in_i] 61 [in_i] [facility] ([facility]) 5'1" Diastolic blood pressure 62 mm[Hg] 62 mm[Hg] [facility] ([facility]) Systolic blood pressure 102 mm[Hg] 102 mm[Hg] [facility] ([facility]) Body mass index (BMI) [Ratio] 28.9 kg/m2 28.9 k g/m2 [facility] ([facility], [facility]) Body height 62 [in_i] 62 [in_i] [facility] ([facility], [facility]) 5'2" Body weight 158.00 [lb_av] 158.00 [lb_av] MEDEN T ([facility], [facility]) Body temperature 98.5 [degF] 98.5 [degF] [facility] ([facility], [facility]) Oxygen saturation in Arterial blood by Pulse oximetry 96 % 96 % [facility] ([facility], [facility]) Respiratory rate 17 /min 17 /min [facility] ( [facility], [facility]) Heart rate 76 /min 76 /min [facility] ([facility], [facility]) Diastolic blood pressure 88 mm[Hg] 88 mm[Hg] [facility] ([facility], [facility]) Systolic blood pressure 163 mm[Hg] 163 mm[Hg] [facility], [facility]) Body mass index (BMI) [Ratio] 28.9 kg/m2 28.9 k g/m2 MED[facility] ([facility], [facility]) Body height 62 [in_i] 62 [in_i] [facility] ([facility], [facility]) 5'2" Body weight 158.00 [lb_av] 158.00 [lb_av] MEDEN T ([facility], [facility]) Body temperature 98.3 [degF] 98.3 [degF] MEDENT ([facility], [facility]) Oxygen saturation in Arterial blood by Pulse oximetry 97 % 97 % MED[facility] ([facility], [facility]) Respiratory rate 17 /min 17 /min MEDENT ( [facility], [facility]) Heart rate 73 /min 73 /min [facility] ([facility], [facility]) Diastolic blood pressure 102 mm[Hg] 102 mm[Hg] [facility] ([facility], [facility]) Systolic blood pressure 200 mm[Hg] 200 mm[Hg] [facility] ([facility], [facility]) Body mass index (BMI) [Ratio] 28.3 kg/m2 28.3 k g/m2 [facility] ([facility], [facility]) Body height 62 [in_i] 62 [in_i] [facility] ([facility]) 5'2" Body weight 155.00 [lb_av] 155.00 [lb_av] MEDEN T ([facility], [facility]) Body temperature 98.2 [degF] 98.2 [degF] [facility] ([facility], [facility]) Oxygen saturation in Arterial blood by Pulse oximetry 97 % 97 % [facility] ([facility], [facility]) Respiratory rate 20 /min 20 /min [facility] ( [facility], [facility]) Heart rate 74 /min 74 /min [facility] ([facility], [facility]) Diastolic blood pressure 87 mm[Hg] 87 mm[Hg] [facility] ([facility], [facility]) Systolic blood pressure 155 mm[Hg] 155 mm[Hg] [facility], [facility]) Body height 62 [in_us] 62 [in_us] eCW1 ([facility]) Body weight Measured 162.2 [lb_av] 162.2 [lb_av ] eCW1 ([facility]) Diastolic blood pressure 86 mm[Hg] 86 mm[Hg] eCW1 ([facility]) Systolic blood pressure 132 mm[Hg] 132 mm[Hg] e CW1 ([facility]) Body temperature 97.2 [degF] 97.2 [degF] eCW1 ( [facility]) Respiratory rate 18 /min 18 /min eCW1 ([facility]) Heart rate 84 /min 84 /min eCW1 ([facility]) Body mass index (BMI) [Ratio] 29.66 kg/m2 29.66 kg/m2 eCW1 ([facility]) Body mass index (BMI) [Ratio] 29.2 kg/m2 29.2 k g/m2 MEDENT ([facility]) Diastolic blood pressure 93 mm[Hg] 93 mm[Hg] [facility] ([facility]) BP medication recently decreased Systolic blood pressure 177 mm[Hg] 177 mm[Hg] M EDENT ([facility]) BP medication recently decreased Respiratory rate 16 /min 16 /min MED[facility] ( [facility]) Heart rate 71 /min 71 /min [facility] ([facility] Body height 62.5 [in_i] 62.5 [in_i] [facility] ([facility] 5'2.50" Body weight 162.50 [lb_av] 162.50 [lb_av] MEDEN T ([facility]) Body mass index (BMI) [Ratio] 27.1 kg/m2 27.1 k g/m2 MEDENT ([facility]) Body weight 148.19 [lb_av] 148.19 [lb_av] MEDEN T ([facility]) Body height 62 [in_i] 62 [in_i] MEDENT ([facility]) 5'2" Body temperature 98.7 [degF] 98.7 [degF] MEDENT ([facility]) Body weight 69.401 kg 69.401 kg [facility] ([facility], ) Body mass index (BMI) [Ratio] 28.9 kg/m2 28.9 k g/m2 [facility] ([facility]) Body weight 153.00 [lb_av] 153.00 [lb_av] MEDEN T ([facility]) Body height 61 [in_i] 61 [in_i] [facility] ([facility]) 5'1" Oxygen saturation in Arterial blood by Pulse oximetry 96 % 96 % [facility] ([facility]) Room Air Heart rate 80 /min 80 /min [facility] ([facility]) Diastolic blood pressure 70 mm[Hg] 70 mm[Hg] [facility] ([facility]) Systolic blood pressure 110 mm[Hg] 110 mm[Hg] [facility]) Body mass index (BMI) [Ratio] 28.5 kg/m2 28.5 k g/m2 [facility] ([facility], [facility]) Body height 62 [in_i] 62 [in_i] [facility] ([facility]) 5'2" Body weight 156.00 [lb_av] 156.00 [lb_av] MEDEN T ([facility], [facility]) Body temperature 97.8 [degF] 97.8 [degF] [facility] ([facility], [facility]) Oxygen saturation in Arterial blood by Pulse oximetry 97 % 97 % [facility] ([facility], [facility]) Respiratory rate 12 /min 12 /min [facility] ( [facility], [facility]) Heart rate 98 /min 98 /min [facility] ([facility], [facility]) Diastolic blood pressure 68 mm[Hg] 68 mm[Hg] [facility] [facility] Systolic blood pressure 117 mm[Hg] 117 mm[Hg] M EDENT ([facility], [facility]) Diastolic blood pressure 80 mm[Hg] 80 mm[Hg] eCW1 ([facility]) Systolic blood pressure 132 mm[Hg] 132 mm[Hg] e CW1 ([facility]) Body temperature 97.6 [degF] 97.6 [degF] eCW1 ( [facility]) Respiratory rate 18 /min 18 /min eCW1 ([facility]) Heart rate 96 /min 96 /min eCW1 ([facility]) Body mass index (BMI) [Ratio] 28.53 kg/m2 28.53 kg/m2 eCW1 ([facility]) Body height 62 [in_us] 62 [in_us] eCW1 ([facility]) Body weight Measured 156 [lb_av] 156 [lb_av] eC W1 ([facility]) Body mass index (BMI) [Ratio] 27.4 kg/m2 27.4 k g/m2 MEDENT ([facility], [facility]) Body height 62 [in_i] 62 [in_i] MEDENT ([facility], [facility]) 5'2" Body weight 150.00 [lb_av] 150.00 [lb_av] MEDEN T ([facility], [facility]) Body temperature 97.9 [degF] 97.9 [degF] MEDENT ([facility], [facility]) Oxygen saturation in Arterial blood by Pulse oximetry 97 % 97 % [facility] ([facility], [facility]) Respiratory rate 17 /min 17 /min MEDENT ( [facility], [facility]) Heart rate 77 /min 77 /min MEDENT ([facility], [facility]) Diastolic blood pressure 72 mm[Hg] 72 mm[Hg] MEDENT ([facility], [facility]) Systolic blood pressure 122 mm[Hg] 122 mm[Hg] M EDENT ([facility], [facility]) Body weight 71.215 kg 71.215 kg MEDENT ([facility], ) Body mass index (BMI) [Ratio] 29.7 kg/m2 29.7 k g/m2 MEDENT ([facility], ) Body weight 157.00 [lb_av] 157.00 [lb_av] MEDEN T ([facility], ) Body height 61 [in_i] 61 [in_i] MEDENT ([facility], ) 5'1" Oxygen saturation in Arterial blood by Pulse oximetry 96 % 96 % [facility] ([facility], ) Heart rate 84 /min 84 /min [facility] ([facility], ) Diastolic blood pressure 80 mm[Hg] 80 mm[Hg] MEDENT ([facility], ) Systolic blood pressure 102 mm[Hg] 102 mm[Hg] M EDENT ([facility], ) Body mass index (BMI) [Ratio] 27.4 kg/m2 27.4 k g/m2 [facility] ([facility], [facility]) Body height 62 [in_i] 62 [in_i] [facility] ([facility], [facility]) 5'2" Body weight 150.00 [lb_av] 150.00 [lb_av] MEDEN T ([facility], [facility]) Body temperature 98.2 [degF] 98.2 [degF] [facility] ([facility], [facility]) Oxygen saturation in Arterial blood by Pulse oximetry 97 % 97 % [facility] ([facility], [facility]) Heart rate 78 /min 78 /min [facility] ([facility], [facility]) Diastolic blood pressure 86 mm[Hg] 86 mm[Hg] [facility] ([facility], [facility]) Systolic blood pressure 116 mm[Hg] 116 mm[Hg] [facility], [facility]) Diastolic blood pressure 80 mm[Hg] 80 mm[Hg] eCW1 ([facility]) Systolic blood pressure 122 mm[Hg] 122 mm[Hg] e CW1 ([facility]) Body temperature 97.6 [degF] 97.6 [degF] eCW1 ( [facility]) Respiratory rate 18 /min 18 /min eCW1 ([facility]) Heart rate 77 /min 77 /min eCW1 ([facility]) Body mass index (BMI) [Ratio] 28.86 kg/m2 28.86 kg/m2 eCW1 ([facility]) Body height 62 [in_us] 62 [in_us] eCW1 ([facility]) Body weight Measured 157.8 [lb_av] 157.8 [lb_av ] eCW1 ([facility]) Patient Treatment Plan of Care Planned Activity Planned Date Details Description Data Source (s) MethylPREDNISolone 4 MG 05/11/2019 12:00:00 AM EST eCW1 ([facility]) Acetaminophen 325 MG / Hydrocodone Bitartrate 5 MG Ora l Tablet 05/11/2019 12:00:00 AM EST eCW1 ([facility]) Amoxicillin 875 MG / Clavulanate 125 MG Oral Tablet 04/20/19 12:00:00 AM EST eCW1 ([facility]) Budesonide 0.25 MG/ML Inhalant Solution [Pulmicort] 03/08/20 19 12:00:00 AM EST eCW1 ([facility]) arformoterol 0.0075 MG/ML Inhalant Solution [Brovana] 03/08/2019 12:00:00 AM EST eCW1 ([facility]) fluticasone 50 mcg/actuation nasal spray,suspension 06/19/19 19 11:56:23 AM EST [place] ([facility])
--- NOTE | 2020-05-03 10:32 | ROOR ---
Patient Name: Sujata Miller Procedure Date: 05/03/2020 10:15 AM Date of : 1950 Age: 69 Room: [facility] Gender: Female Note Status: Finalized Procedure: Upper Endoscopy + Biopsies Indications: Heartburn, Exclusion of Gonzales's esophagus Providers: Rodo Palomino MD Referring MD: Carlos Enamorado MD Requesting Provider: Medicines: Monitored Anesthesia Care Complications: No immediate complications. Procedure: Pre-Anesthesia Assessment: - The heart rate, respiratory rate, oxygen saturations, blood pressure, adequacy of pulmonary ventilation, and response to care were monitored throughout the procedure. The Endoscope was introduced through the mouth, and advanced to the second part of duodenum. The upper GI endoscopy was accomplished without difficulty. The patient tolerated the procedure well. Findings: The Z-line was regular and was found 35 cm from the incisors. Multiple biopsies were obtained with cold forceps for evaluation to rule out Gonzales's Esophagus randomly at the gastroesophageal junction. Multiple pedunculated and sessile fundic gland polyps with no stigmata of recent bleeding were found on the greater curvature of the stomach. The exam of the duodenum was otherwise normal. The exam was otherwise without abnormality. Impression: - Z-line regular, 35 cm from the incisors. - Multiple fundic gland polyps. - The examination was otherwise normal. - Multiple biopsies were obtained at the gastroesophageal junction. - The examination was otherwise normal. Recommendation: - Patient has a contact number available for emergencies. The signs and symptoms of potential delayed complications were discussed with the patient. Return to normal activities tomorrow. Written discharge instructions were provided to the patient. - High fiber diet. - Discharge patient to home. - Follow an antireflux regimen. - Continue present medications. - Await pathology results. - Telephone GI clinic for pathology results in 1 week. - Return to referring physician. - The findings and recommendations were discussed with the patient. Procedure Code(s): --- Professional --- 78561, Esophagogastroduodenoscopy, flexible, transoral; with biopsy, single or multiple Diagnosis Code(s): --- Professional --- K31.7, Polyp of stomach and duodenum R12, Heartburn CPT copyright 2019 [employer]. All rights reserved. The codes documented in this report are preliminary and upon artillery specialist review may be revised to meet current compliance requirements. Rodo Palomino MD Rodo Palomino MD 05/03/2020 10:32:09 AM Electronically signed by Rodo Palomino MD Number of Addenda: 0 Note Initiated On: 05/03/2020 10:15 AM Estimated Blood Loss: Estimated blood loss: none.
[2020-05-03] MEDS ORDERED: ePHEDrine SULFATE 25 MG/5 ML(5MG/ML) SYRINGE As Ordered ONE (10:50)
--- NOTE | 2020-05-03 11:02 | ROOR ---
Patient Name: Sujata Miller Procedure Date: 05/03/2020 10:15 AM Date of : 1950 Age: 69 Room: [facility] Gender: Female Note Status: Finalized Procedure: Total Colonoscopy to Cecum + Cold Snare Polypectomy + Hemoclips Indications: Screening for colorectal malignant neoplasm Providers: Rodo Palomino MD Referring MD: Carlos Enamorado MD Requesting Provider: Medicines: Monitored Anesthesia Care Complications: No immediate complications. Procedure: Pre-Anesthesia Assessment: - The heart rate, respiratory rate, oxygen saturations, blood pressure, adequacy of pulmonary ventilation, and response to care were monitored throughout the procedure. The Colonoscope was introduced through the anus and advanced to the cecum, identified by appendiceal orifice and ileocecal valve. The colonoscopy was performed without difficulty. The patient tolerated the procedure well. The quality of the bowel preparation was excellent. Findings: The perianal and digital rectal examinations were normal. Non-bleeding internal hemorrhoids were found during retroflexion. The hemorrhoids were small and Grade I (internal hemorrhoids that do not prolapse). Scattered small-mouthed diverticula were found in the recto-sigmoid colon, sigmoid colon and descending colon. A large polyp was found in the cecum. The polyp was sessile. The polyp was removed with a cold snare. Polyp resection was incomplete. The resected tissue was retrieved. To prevent bleeding after the polypectomy, four hemostatic clips were successfully placed (MR conditional). There was no bleeding at the end of the procedure. The exam was otherwise without abnormality on direct and retroflexion views. Impression: - Non-bleeding internal hemorrhoids. - Diverticulosis in the recto-sigmoid colon, in the sigmoid colon and in the descending colon. - One large polyp in the cecum, removed with a cold snare. Incomplete resection. Resected tissue retrieved. Clips (MR conditional) were placed. - The examination was otherwise normal on direct and retroflexion views. - The exam was otherwise normal to the cecum. Recommendation: - Patient has a contact number available for emergencies. The signs and symptoms of potential delayed complications were discussed with the patient. Return to normal activities tomorrow. Written discharge instructions were provided to the patient. - High fiber diet. - Discharge patient to home. - Resume Lovenox (enoxaparin) at prior dose today. - Await pathology results. - Telephone GI clinic for pathology results in 1 week. - Repeat colonoscopy for surveillance based on pathology results. - Return to referring physician. - The findings and recommendations were discussed with the patient. Procedure Code(s): --- Professional --- 58519, Colonoscopy, flexible; with removal of tumor(s), polyp(s), or other lesion(s) by snare technique Diagnosis Code(s): --- Professional --- Z12.11, Encounter for screening for malignant neoplasm of colon K64.0, First degree hemorrhoids K63.5, Polyp of colon K57.30, Diverticulosis of large intestine without perforation or abscess without bleeding CPT copyright 2019 [employer]. All rights reserved. The codes documented in this report are preliminary and upon global cmo review may be revised to meet current compliance requirements. Rodo Palomino MD Rodo Palomino MD 05/03/2020 11:01:40 AM Electronically signed by Rodo Palomino MD Number of Addenda: 0 Note Initiated On: 05/03/2020 10:15 AM Estimated Blood Loss: Estimated blood loss: none.
[2020-05-03 11:35] VITALS: BP 160/85
== END 2020-05-03 11:43 | disposition home or self-care (01) ==
LOC: M OPP 09:04
PROVIDERS: ATTEND Internal Medicine Gastroenterology
DX: Z12.11 Encounter for screening for malignant neoplasm of colon (principal); R12 Heartburn; D12.0 Benign neoplasm of cecum; K64.0 First degree hemorrhoids; K57.30 Diverticulosis of large intestine without perforation or abscess without bleeding; D13.0 Benign neoplasm of esophagus; K31.7 Polyp of stomach and duodenum; I10 Essential (primary) hypertension; E78.5 Hyperlipidemia, unspecified; F41.9 Anxiety disorder, unspecified; F32.9 Major depressive disorder, single episode, unspecified; J45.909 Unspecified asthma, uncomplicated; Z86.718 Personal history of other venous thrombosis and embolism; Z88.8 Allergy status to other drugs, medicaments and biological substances; Z91.030 Bee allergy status; Z79.899 Other long term (current) drug therapy
CPT/HCPCS: 43239; 45385; 88305; J3010

== ENCOUNTER → 2020-06-08 | Outpatient (CLI) | payer MEDICARE ==
[~2020-06-08] MED LIST changes: -LIDOCAINE 2% 100MG/5ML SDV (FOR ANES.) As Ordered ONE; -NS 1,000 ML IV ONE; +ULTR5TAB PO; -fentaNYL 100 MCG/2 ML INJECTION (J3010) As Ordered ONE; -propofoL 500 MG/50 ML VIAL As Ordered ONE
[2020-06-10 13:33] LABS: ANTINUCLEAR ANTIBODIES DIRECT Negative (Negative)
== END ==
LOC: M WUC 10:24
PROVIDERS: ATTEND Nurse Practitioner Family
DX: L65.9 Nonscarring hair loss, unspecified (principal)

== ENCOUNTER → 2020-06-08 | Outpatient (CLI) | payer MEDICARE ==
[~2020-06-08] MED LIST changes: -ULTR5TAB PO
[2020-06-08 16:38] LABS: BASO # 0.1 10^3/uL (0.0-0.2); BASO % 1.2 % (0.0-1.0); EOS # 0.4 10^3/uL (0.0-0.5); EOS % 5.8 % (0.0-3.0); HEMATOCRIT 43.3 % (36.0-47.0); HEMOGLOBIN 14.2 g/dl (12.0-15.5); LYMPH # 2.1 10^3/uL (1.5-5.0); LYMPH % 31.4 % (24.0-44.0); MEAN CORPUSCULAR HEMOGLOBIN 31.3 pg (27.0-33.0); MEAN CORPUSCULAR HGB CONC 32.8 g/dl (32.0-36.5); MEAN CORPUSCULAR VOLUME 95.4 fl (80.0-96.0); MONO # 0.6 10^3/uL (0.0-0.8); MONO % 8.7 % (2.0-8.0); NEUTROPHILS # 3.4 10^3/uL (1.5-8.5); NEUTROPHILS % 52.4 % (36.0-66.0); PLATELET COUNT, AUTOMATED 267 10^3/uL (150-450); RED BLOOD COUNT 4.54 10^6/uL (4.00-5.40); WHITE BLOOD COUNT 6.6 10^3/uL (4.0-10.0)
[2020-06-08 17:15] LABS: ALBUMIN 3.9 GM/DL (3.2-5.2); ALT/SGPT 26 U/L (12-78); BILIRUBIN,TOTAL 0.5 MG/DL (0.2-1.0); BLOOD UREA NITROGEN 19 MG/DL (7-18); CALCIUM LEVEL 9.5 MG/DL (8.8-10.2); CARBON DIOXIDE LEVEL 30 MEQ/L (21-32); CHLORIDE LEVEL 110 MEQ/L (98-107); CHOLESTEROL LEVEL 190 MG/DL (<200); CHOLESTEROL RISK RATIO 3.725 (<5); CREATININE FOR GFR 0.71 MG/DL (0.55-1.30); GLOMERULAR FILTRATION RATE > 60.0 (>45); GLUCOSE, FASTING 106 MG/DL (70-100); HDL CHOLESTEROL 51 MG/DL (>40); LDL CHOLESTEROL 106 MG/DL (<100); MAGNESIUM LEVEL 2.1 MG/DL (1.8-2.4); NON-HDL-C 139 MG/DL; POTASSIUM SERUM 3.8 MEQ/L (3.5-5.1); SODIUM LEVEL 143 MEQ/L (136-145); TOTAL PROTEIN 6.8 GM/DL (6.4-8.2); TRIGLYCERIDES LEVEL 166 MG/DL (<150)
[2020-06-08 17:43] LABS: ERYTHROCYTE SEDIMENTATION RATE 8 mm/hr (0-30)
== END ==
LOC: M WUC 10:30
PROVIDERS: ATTEND Internal Medicine
DX: E06.3 Autoimmune thyroiditis (principal); I10 Essential (primary) hypertension; M19.90 Unspecified osteoarthritis, unspecified site; E78.00 Pure hypercholesterolemia, unspecified; J45.40 Moderate persistent asthma, uncomplicated; Z11.59 Encounter for screening for other viral diseases
CPT/HCPCS: 36415; 80053; 80061; 83735; 84443; 85025; 85652; 86038; 86140; G0472

== ENCOUNTER → 2020-06-12 | Outpatient (CLI) | payer MEDICARE ==
[~2020-06-12] MED LIST changes: +ULTR5TAB PO
--- NOTE | 2020-06-12 12:44 | REP ---
INDICATION: PERSONAL HISTORY OF OTHER VENOUS THROMBOSIS AND EMBOLISM COMPARISON: 01/11/2020. TECHNIQUE: Real time compression and duplex Doppler interrogation of the bilateral lower extremity deep venous system is performed. FINDINGS: The right common femoral, superficial femoral and popliteal veins are fully compressible with transducer pressure and demonstrate normal spontaneous and phasic flow without evidence of deep vein thrombosis. On the left there is chronic thrombus extending from the common femoral vein, through the femoral vein into the popliteal vein. More proximally the thrombus is partially occlusive. The thrombus appears occlusive in the region of the distal superficial femoral and in the popliteal vein. Collateral veins are noted on the left. IMPRESSION: No significant change compared to the prior study. No deep vein thrombosis on the right. On the left there is chronic deep vein thrombosis diffusely as discussed in detail above. <Electronically signed by Osei Rose > 06/12/20 0811
== END ==
LOC: M RAD 11:12
PROVIDERS: ATTEND Physician Assistant
DX: I87.2 Venous insufficiency (chronic) (peripheral) (principal); Z86.718 Personal history of other venous thrombosis and embolism

== ENCOUNTER → 2020-12-06 | Outpatient (CLI) | payer MEDICARE | LOC: M LABSMTC 13:41 | PROVIDERS: ATTEND Pediatrics | DX: Z20.822 Contact with and (suspected) exposure to COVID-19 (principal) | CPT/HCPCS: C9803; U0003 ==

== ENCOUNTER → 2020-12-13 | Outpatient (CLI) | payer MEDICARE ==
[2020-12-13 11:32] LABS: BASO # 0.1 10^3/uL (0.0-0.2); BASO % 1.3 % (0.0-1.0); EOS # 0.3 10^3/uL (0.0-0.5); EOS % 2.9 % (0.0-3.0); HEMATOCRIT 43.9 % (36.0-47.0); HEMOGLOBIN 14.6 g/dl (12.0-15.5); LYMPH # 2.8 10^3/uL (1.5-5.0); LYMPH % 28.3 % (24.0-44.0); MEAN CORPUSCULAR HEMOGLOBIN 32.2 pg (27.0-33.0); MEAN CORPUSCULAR HGB CONC 33.3 g/dl (32.0-36.5); MEAN CORPUSCULAR VOLUME 96.7 fl (80.0-96.0); MONO # 0.9 10^3/uL (0.0-0.8); MONO % 9.1 % (2.0-8.0); NEUTROPHILS # 5.7 10^3/uL (1.5-8.5); NEUTROPHILS % 56.6 % (36.0-66.0); PLATELET COUNT, AUTOMATED 291 10^3/uL (150-450); RED BLOOD COUNT 4.54 10^6/uL (4.00-5.40)
[2020-12-13 12:22] LABS: ALBUMIN 3.5 GM/DL (3.2-5.2); ALT/SGPT 25 U/L (12-78); BILIRUBIN,TOTAL 0.5 MG/DL (0.2-1.0); BLOOD UREA NITROGEN 20 MG/DL (7-18); CALCIUM LEVEL 9.5 MG/DL (8.8-10.2); CARBON DIOXIDE LEVEL 27 MEQ/L (21-32); CHLORIDE LEVEL 107 MEQ/L (98-107); CHOLESTEROL LEVEL 210 MG/DL (<200); CREATININE FOR GFR 0.69 MG/DL (0.55-1.30); GLOMERULAR FILTRATION RATE > 60.0 (>45); GLUCOSE, FASTING 115 MG/DL (70-100); HDL CHOLESTEROL 70 MG/DL (>40); LDL CHOLESTEROL 88 MG/DL (<100); MAGNESIUM LEVEL 2.3 MG/DL (1.8-2.4); NON-HDL-C 140 MG/DL; POTASSIUM SERUM 4.4 MEQ/L (3.5-5.1); SODIUM LEVEL 141 MEQ/L (136-145); TOTAL PROTEIN 6.6 GM/DL (6.4-8.2); TRIGLYCERIDES LEVEL 260 MG/DL (<150)
== END ==
LOC: M WUC 09:54
PROVIDERS: ATTEND Internal Medicine
DX: E78.00 Pure hypercholesterolemia, unspecified (principal); I10 Essential (primary) hypertension; Z85.820 Personal history of malignant melanoma of skin

== ENCOUNTER → 2021-01-29 | Outpatient (CLI) | payer MEDICARE ==
--- NOTE | 2021-01-29 14:50 | REPMRS ---
Patient History The patient states she has not had a clinical breast exam in over a year. Patient has history of melanoma at age 65. Family history of breast cancer at age 50 or over in maternal aunt, breast cancer under age 50 in maternal aunt, breast cancer under age 50 in maternal cousin, unknown cancer at age 50 or over in maternal grandmother, unknown cancer at age 50 or over in maternal uncle, unknown cancer at age 50 or over in maternal aunt. Benign mammogram-guided core biopsy. Took hormonal contraceptives for 6 months. Took estrogen for 6 months. Tomosynthesis is performed. Volpara breast density is b. [facility] lifetime risk of breast cancer 5.5%. Patient states no breast complaints today. Patient has signed MRS History Sheet. Digital Woman Screen Mammo: January 29, 2021 - Exam #: [id number] Bilateral CC and MLO view(s) were taken. Technologist: Jillian Sheppard, Technologist Prior study comparison: January 12, 2014, bilateral bilat screen digital mammo, performed at [facility] ([facility]). December 22, 2012, bilateral bilat screen digital mammo, performed at [facility] ([facility]). FINDINGS: There are scattered fibroglandular densities. There has been no change in the appearance of the mammogram from the prior studies. There is a mild amount of residual fibroglandular tissue which is fairly symmetric. There is no interval development of dominant mass, architectural distortion, or clustered microcalcification suggestive of malignancy. Assessment: BI-RADS/ACR category 1 mammogram. Negative Mammogram. Recommendation Routine screening mammogram in 1 year (for women over age 40). This mammogram was interpreted with the aid of an FDA-approved computer-aided dectection system. Electronically Signed By: Osei Rose MD 01/29/21 [id number]
== END ==
LOC: M WHC 13:59
PROVIDERS: ATTEND Internal Medicine
DX: Z12.31 Encounter for screening mammogram for malignant neoplasm of breast (principal); Z85.820 Personal history of malignant melanoma of skin; Z86.018 Personal history of other benign neoplasm; Z92.0 Personal history of contraception; Z92.23 Personal history of estrogen therapy

== ENCOUNTER → 2021-01-29 | Outpatient (CLI) | payer MEDICARE ==
--- NOTE | 2021-01-29 10:03 | REPVR ---
PROCEDURE INFORMATION: Exam: CT Maxillofacial Without Contrast, Sinus Exam date and time: 01/29/2021 9:20 AM Age: 70 years old Clinical indication: Sinusitis TECHNIQUE: Imaging protocol: CT Maxillofacial without contrast. Focus on the sinuses. Radiation optimization: All CT scans at this facility use at least one of these dose optimization techniques: automated exposure control; mA and/or kV adjustment per patient size (includes targeted exams where dose is matched to clinical indication); or iterative reconstruction. COMPARISON: CT Head without contrast 10/24/2019 6:10 AM FINDINGS: Frontal sinuses: Normal. No air-fluid levels. Ethmoid air cells: Normal. No air-fluid levels. Sphenoid sinuses: Normal. No air-fluid levels. Maxillary sinuses: Normal. No air-fluid levels. Ostiomeatal units are patent. Nasal cavity/Septum: Unremarkable. Orbital cavity: Orbits are normal. Globes are unremarkable. Bones/joints: Unremarkable. Soft tissues: Unremarkable. IMPRESSION: Unremarkable sinuses. Electronically signed by: Alec Camilo On 01/29/2021 10:02:50 AM
== END ==
LOC: M RAD 09:14
PROVIDERS: ATTEND Otolaryngology
DX: J32.9 Chronic sinusitis, unspecified (principal)

== ENCOUNTER → 2021-03-16 | Outpatient (CLI) | payer MEDICARE ==
--- NOTE | 2021-03-16 14:55 | REP ---
INDICATION: PAIN. COMPARISON: None. TECHNIQUE: Four views FINDINGS: There is a fracture at the tip of the distal fibula with associated soft tissue swelling. The mortise is intact. IMPRESSION: Distal fibular fracture with soft tissue swelling <Electronically signed by Jonatan Olson > 03/16/21 [id number]
--- NOTE | 2021-03-16 15:00 | REP ---
INDICATION: PAIN. COMPARISON: None. TECHNIQUE: Four views FINDINGS: The joint spaces are symmetric and relatively well maintained. There is no evidence of acute fracture or destructive osseous lesion. See the ankle report. There are no additional fractures. IMPRESSION: No acute osseous abnormality involving the foot <Electronically signed by Jonatan Olson > 03/16/21 1758
== END ==
LOC: M WUC 14:04
PROVIDERS: ATTEND Physician Assistant
DX: S82.492A Other fracture of shaft of left fibula, initial encounter for closed fracture (principal); X58.XXXA Exposure to other specified factors, initial encounter; Y92.9 Unspecified place or not applicable; Y93.9 Activity, unspecified; Y99.9 Unspecified external cause status

== ENCOUNTER → 2021-06-18 | Outpatient (CLI) | payer MEDICARE ==
[~2021-06-18] MED LIST changes: -MONT10TA10 PO; +MONT10TA97 PO
[2021-06-18 16:25] LABS: BASO # 0.1 10^3/uL (0.0-0.2); BASO % 1.4 % (0.0-1.0); EOS # 0.3 10^3/uL (0.0-0.5); EOS % 3.5 % (0.0-3.0); HEMATOCRIT 43.5 % (36.0-47.0); HEMOGLOBIN 14.6 g/dl (12.0-15.5); LYMPH # 1.9 10^3/uL (1.5-5.0); LYMPH % 26.6 % (24.0-44.0); MEAN CORPUSCULAR HEMOGLOBIN 31.1 pg (27.0-33.0); MEAN CORPUSCULAR HGB CONC 33.6 g/dl (32.0-36.5); MEAN CORPUSCULAR VOLUME 92.8 fl (80.0-96.0); MONO # 0.7 10^3/uL (0.0-0.8); MONO % 9.9 % (2.0-8.0); NEUTROPHILS # 4.2 10^3/uL (1.5-8.5); NEUTROPHILS % 58.2 % (36.0-66.0); PLATELET COUNT, AUTOMATED 288 10^3/uL (150-450); RED BLOOD COUNT 4.69 10^6/uL (4.00-5.40); WHITE BLOOD COUNT 7.2 10^3/uL (4.0-10.0)
[2021-06-18 16:43] LABS: ALBUMIN 3.8 GM/DL (3.2-5.2); ALT/SGPT 18 U/L (12-78); BILIRUBIN,TOTAL 0.5 MG/DL (0.2-1.0); BLOOD UREA NITROGEN 16 MG/DL (7-18); CALCIUM LEVEL 9.3 MG/DL (8.8-10.2); CARBON DIOXIDE LEVEL 29 MEQ/L (21-32); CHLORIDE LEVEL 107 MEQ/L (98-107); CHOLESTEROL LEVEL 193 MG/DL (<200); CHOLESTEROL RISK RATIO 3.063 (<5); GLOMERULAR FILTRATION RATE > 60.0 (>45); GLUCOSE, FASTING 102 MG/DL (70-100); HDL CHOLESTEROL 63 MG/DL (>40); LDL CHOLESTEROL 99 MG/DL (<100); MAGNESIUM LEVEL 1.9 MG/DL (1.8-2.4); NON-HDL-C 130 MG/DL; POTASSIUM SERUM 3.9 MEQ/L (3.5-5.1); SODIUM LEVEL 142 MEQ/L (136-145); TOTAL PROTEIN 6.8 GM/DL (6.4-8.2); TRIGLYCERIDES LEVEL 153 MG/DL (<150); URIC ACID 5.7 MG/DL (2.6-6.0)
== END ==
LOC: M WUC 10:54
PROVIDERS: ATTEND Internal Medicine
DX: I10 Essential (primary) hypertension (principal); E79.0 Hyperuricemia without signs of inflammatory arthritis and tophaceous disease; E78.00 Pure hypercholesterolemia, unspecified; J45.40 Moderate persistent asthma, uncomplicated; Z12.39 Encounter for other screening for malignant neoplasm of breast

== ENCOUNTER → 2021-07-24 | Outpatient (CLI) | payer MEDICARE | LOC: M PLAIMG 08:28 | PROVIDERS: ATTEND Nurse Practitioner Adult Health | DX: R07.89 Other chest pain (principal); R09.89 Other specified symptoms and signs involving the circulatory and respiratory systems; R06.02 Shortness of breath; J45.40 Moderate persistent asthma, uncomplicated; Z86.718 Personal history of other venous thrombosis and embolism ==

== ENCOUNTER → 2021-08-06 | Outpatient (CLI) | payer MEDICARE | LOC: M CARPUL 10:33 | PROVIDERS: ATTEND Nurse Practitioner Adult Health | DX: R06.02 Shortness of breath (principal); R07.89 Other chest pain; I08.0 Rheumatic disorders of both mitral and aortic valves ==

== ENCOUNTER → 2021-09-23 | Outpatient (CLI) | payer MEDICARE ==
[~2021-09-23] MED LIST changes: +ELIQ5TAB PO; +FAMO20TA5 PO
== END ==
LOC: M LABSMTC 10:52
PROVIDERS: ATTEND Anesthesiology
DX: Z01.818 Encounter for other preprocedural examination (principal); Z11.52 Encounter for screening for COVID-19

== ENCOUNTER 2021-09-26 07:41 | Day surgery (SDC) | payer MEDICARE ==
[~2021-09-26] VITALS: Ht 157.5 cm; Wt 72.1 kg
[~2021-09-26 07:41] MED LIST changes: +LIDOCAINE 2% 100MG/5ML SDV (FOR ANES.) As Ordered ONE; +NS 1,000 ML IV ONE; +fentaNYL 100 MCG/2 ML INJECTION As Ordered ONE; +propofoL 500 MG/50 ML VIAL As Ordered ONE
[2021-09-26 09:59] VITALS: BP 139/63
== END 2021-09-26 09:59 | disposition home or self-care (01) ==
LOC: M OPP 07:41
PROVIDERS: ATTEND Internal Medicine Gastroenterology
DX: Z86.010 Personal history of colon polyps (principal); D12.0 Benign neoplasm of cecum; K57.30 Diverticulosis of large intestine without perforation or abscess without bleeding; K64.0 First degree hemorrhoids; K44.9 Diaphragmatic hernia without obstruction or gangrene; K29.50 Unspecified chronic gastritis without bleeding; K31.7 Polyp of stomach and duodenum; R12 Heartburn; Z79.02 Long term (current) use of antithrombotics/antiplatelets; Z79.51 Long term (current) use of inhaled steroids; Z79.899 Other long term (current) drug therapy; Z88.8 Allergy status to other drugs, medicaments and biological substances; Z91.030 Bee allergy status
CPT/HCPCS: 43239; 45385; 88305; J3010

== ENCOUNTER → 2022-01-26 | Outpatient (REF) | payer MEDICARE ==
[~2022-01-26] MED LIST changes: +ALEN70TA87 PO; -BENI40TA26 PO; -FOSA70TA PO; -LIDOCAINE 2% 100MG/5ML SDV (FOR ANES.) As Ordered ONE; -NS 1,000 ML IV ONE; +OLME40TA56 PO; -fentaNYL 100 MCG/2 ML INJECTION As Ordered ONE; -propofoL 500 MG/50 ML VIAL As Ordered ONE
== END ==
LOC: M LAB REF 18:44
PROVIDERS: ATTEND Physician Assistant
DX: R05.9 Cough, unspecified (principal)

== ENCOUNTER → 2022-02-04 | Outpatient (CLI) | payer MEDICARE ==
[2022-02-04 12:51] LABS: BASO # 0.1 10^3/uL (0.0-0.2); EOS # 0.3 10^3/uL (0.0-0.5); EOS % 2.7 % (0.0-3.0); HEMATOCRIT 46.5 % (36.0-47.0); HEMOGLOBIN 14.9 g/dl (12.0-15.5); LYMPH # 3.1 10^3/uL (1.5-5.0); LYMPH % 27.3 % (24.0-44.0); MEAN CORPUSCULAR HEMOGLOBIN 30.8 pg (27.0-33.0); MEAN CORPUSCULAR VOLUME 96.3 fl (80.0-96.0); MONO # 1.1 10^3/uL (0.0-0.8); MONO % 9.7 % (2.0-8.0); NEUTROPHILS # 6.5 10^3/uL (1.5-8.5); PLATELET COUNT, AUTOMATED 312 10^3/uL (150-450); RED BLOOD COUNT 4.83 10^6/uL (4.00-5.40); WHITE BLOOD COUNT 11.5 10^3/uL (4.0-10.0)
[2022-02-04 13:55] LABS: ALBUMIN 3.3 GM/DL (3.2-5.2); ALT/SGPT 22 U/L (12-78); BILIRUBIN,TOTAL 0.5 MG/DL (0.2-1.0); BLOOD UREA NITROGEN 15 MG/DL (7-18); CALCIUM LEVEL 8.9 MG/DL (8.8-10.2); CARBON DIOXIDE LEVEL 27 MEQ/L (21-32); CHLORIDE LEVEL 109 MEQ/L (98-107); CHOLESTEROL LEVEL 216 MG/DL (<200); CHOLESTEROL RISK RATIO 3.042 (<5); CREATININE FOR GFR 0.74 MG/DL (0.55-1.30); GLOMERULAR FILTRATION RATE > 60.0 (>39); GLUCOSE, FASTING 104 MG/DL (70-100); HDL CHOLESTEROL 71 MG/DL (>40); LDL CHOLESTEROL 112 MG/DL (<100); MAGNESIUM LEVEL 2.3 MG/DL (1.8-2.4); NON-HDL-C 145 MG/DL; POTASSIUM SERUM 3.6 MEQ/L (3.5-5.1); SODIUM LEVEL 141 MEQ/L (136-145); TOTAL PROTEIN 6.8 GM/DL (6.4-8.2); TRIGLYCERIDES LEVEL 167 MG/DL (<150)
== END ==
LOC: M WUC 10:24
PROVIDERS: ATTEND Internal Medicine
DX: I10 Essential (primary) hypertension (principal); Z23 Encounter for immunization; Z86.718 Personal history of other venous thrombosis and embolism; E06.3 Autoimmune thyroiditis

== ENCOUNTER → 2022-02-06 | Outpatient (CLI) | payer MEDICARE | LOC: M WHC 15:16 | PROVIDERS: ATTEND Internal Medicine Hematology | DX: Z12.31 Encounter for screening mammogram for malignant neoplasm of breast (principal) ==

== ENCOUNTER → 2022-02-07 | Outpatient (CLI) | payer MEDICARE ==
[2022-02-07 20:37] LABS: IMMUNOGLOBULIN M 61.4 MG/DL (40-230)
== END ==
LOC: M WUC 10:59
PROVIDERS: ATTEND Internal Medicine Hematology
DX: J32.8 Other chronic sinusitis (principal)

== ENCOUNTER → 2022-06-12 | Outpatient (CLI) | payer MEDICARE ==
[~2022-06-12] MED LIST changes: +ALBU6.7H6 INH
== END ==
LOC: M LABSMTC 10:34
PROVIDERS: ATTEND Anesthesiology
DX: Z01.812 Encounter for preprocedural laboratory examination (principal); Z20.822 Contact with and (suspected) exposure to COVID-19

== ENCOUNTER 2022-06-17 09:48 | Day surgery (SDC) | payer MEDICARE ==
[~2022-06-17] VITALS: Ht 158.8 cm; Wt 72.6 kg
[~2022-06-17 09:48] MED LIST changes: +NS 1,000 ML IV ONE
[2022-06-17] MEDS ORDERED: LIDOCAINE 2% 100MG/5ML SDV (FOR ANES.) As Ordered ONE (10:35)
[2022-06-17] MEDS ORDERED: propofoL 200 MG/20 ML VIAL As Ordered ONE (10:35)
[2022-06-17 11:49] VITALS: BP 135/65
== END 2022-06-17 11:48 | disposition home or self-care (01) ==
LOC: M OPP 09:48
PROVIDERS: ATTEND Internal Medicine Gastroenterology
DX: Z86.010 Personal history of colon polyps (principal); D12.6 Benign neoplasm of colon, unspecified; K64.8 Other hemorrhoids; K57.30 Diverticulosis of large intestine without perforation or abscess without bleeding; I10 Essential (primary) hypertension; E78.00 Pure hypercholesterolemia, unspecified; E06.3 Autoimmune thyroiditis; J45.909 Unspecified asthma, uncomplicated; Z79.01 Long term (current) use of anticoagulants; Z79.02 Long term (current) use of antithrombotics/antiplatelets; Z79.52 Long term (current) use of systemic steroids; Z79.83 Long term (current) use of bisphosphonates; Z79.899 Other long term (current) drug therapy; Z88.8 Allergy status to other drugs, medicaments and biological substances; Z91.030 Bee allergy status; Z86.711 Personal history of pulmonary embolism

== ENCOUNTER 2022-08-10 13:26 | Emergency (ER) | payer MEDICARE ==
[~2022-08-10] VITALS: Ht 157.5 cm; Wt 75.4 kg
[~2022-08-10 13:26] MED LIST changes: -LOTE5DRO3 OU; +LOTE5DRO9 OU; -NS 1,000 ML IV ONE
[2022-08-10] MEDS ORDERED: FLUT50SP17 (13:43)
[2022-08-10] MEDS ORDERED: DOXY100T (13:43)
[2022-08-10] MEDS ORDERED: MECLIZINE 25 MG TABLET PO ONE (13:55)
[2022-08-10 14:17] LABS: BASO # 0.1 10^3/uL (0.0-0.2); BASO % 0.7 % (0.0-1.0); EOS # 0.2 10^3/uL (0.0-0.5); EOS % 2.4 % (0.0-3.0); HEMATOCRIT 44.4 % (36.0-47.0); HEMOGLOBIN 15.1 g/dl (12.0-15.5); LYMPH # 1.9 10^3/uL (1.5-5.0); LYMPH % 22.3 % (24.0-44.0); MEAN CORPUSCULAR HEMOGLOBIN 31.5 pg (27.0-33.0); MEAN CORPUSCULAR VOLUME 92.5 fl (80.0-96.0); MONO # 0.6 10^3/uL (0.0-0.8); MONO % 7.1 % (2.0-8.0); NEUTROPHILS # 5.7 10^3/uL (1.5-8.5); NEUTROPHILS % 66.9 % (36.0-66.0); PLATELET COUNT, AUTOMATED 254 10^3/uL (150-450); WHITE BLOOD COUNT 8.5 10^3/uL (4.0-10.0)
[2022-08-10 14:40] LABS: LIPASE 33 U/L (12-53)
[2022-08-10 14:42] LABS: ALBUMIN 3.7 G/DL (3.2-5.2); ALKALINE PHOSPHATASE 76 U/L (46-116); ALT/SGPT 14 U/L (7.0-40); AST/SGOT 11 U/L (<34); BILIRUBIN,DIRECT 0.3 MG/DL (<0.4); BILIRUBIN,TOTAL 0.9 MG/DL (0.3-1.2); BLOOD UREA NITROGEN 15 MG/DL (9-23); CALCIUM LEVEL 9.1 MG/DL (8.3-10.6); CARBON DIOXIDE LEVEL 26 MMOL/L (20-31); CHLORIDE LEVEL 111 MMOL/L (98-107); CREATININE FOR GFR 0.61 MG/DL (0.55-1.30); GLOMERULAR FILTRATION RATE > 60.0 (>39); GLUCOSE, FASTING 97 MG/DL (74-106); POTASSIUM SERUM 3.7 MMOL/L (3.5-5.1); SODIUM LEVEL 143 MMOL/L (136-145); TOTAL PROTEIN 6.7 G/DL (5.7-8.2)
[2022-08-10] MEDS ORDERED: ACETAMINOPHEN 500 MG TAB PO ONE (16:20)
[2022-08-10] MEDS ORDERED: LORazepam 0.5 MG TAB PO STA (16:21)
[2022-08-10] MEDS ORDERED: MECL1TAB31 PO (17:13)
[2022-08-10] MEDS ORDERED: MORPHINE 2 MG/ML 1ML VIAL IV PRN (18:20)
[2022-08-10] MEDS ORDERED: ASPI81TA26 PO (18:31)
[2022-08-10 18:54] VITALS: BP 168/95
== END 2022-08-10 18:59 | disposition home or self-care (01) ==
LOC: M ED 13:26
DX: J01.90 Acute sinusitis, unspecified (principal); R42 Dizziness and giddiness; I10 Essential (primary) hypertension; E78.5 Hyperlipidemia, unspecified; J45.909 Unspecified asthma, uncomplicated; E06.3 Autoimmune thyroiditis; M13.80 Other specified arthritis, unspecified site; Z86.711 Personal history of pulmonary embolism; Z79.01 Long term (current) use of anticoagulants; Z79.899 Other long term (current) drug therapy; Z88.8 Allergy status to other drugs, medicaments and biological substances; Z91.030 Bee allergy status

== ENCOUNTER → 2022-08-15 | Outpatient (CLI) | payer MEDICARE ==
[~2022-08-15] MED LIST changes: +ASPI81TA26 PO; +DOXY100T; +FLUT50SP17; +MECL1TAB31 PO
[2022-08-15 14:16] LABS: CHOLESTEROL RISK RATIO 2.87 (<5); HDL CHOLESTEROL 59.9 MG/DL (>40); LDL CHOLESTEROL 86.3 MG/DL (<100); NON-HDL-C 112.1 MG/DL
== END ==
LOC: M PLALAB 09:27
PROVIDERS: ATTEND Internal Medicine Hematology
DX: E78.5 Hyperlipidemia, unspecified (principal); H81.91 Unspecified disorder of vestibular function, right ear; Z86.73 Personal history of transient ischemic attack (TIA), and cerebral infarction without residual deficits
CPT/HCPCS: 36415; 80061; G0463

== ENCOUNTER → 2022-10-10 | Outpatient (CLI) | payer MEDICARE ==
[2022-10-10 12:27] LABS: BLOOD UREA NITROGEN 16 MG/DL (9-23); CARBON DIOXIDE LEVEL 29 MMOL/L (20-31); CHLORIDE LEVEL 109 MMOL/L (98-107); CREATININE FOR GFR 0.74 MG/DL (0.55-1.30); GLOMERULAR FILTRATION RATE > 60.0 (>39); GLUCOSE, FASTING 110 MG/DL (74-106); POTASSIUM SERUM 3.9 MMOL/L (3.5-5.1); SODIUM LEVEL 141 MMOL/L (136-145)
[2022-10-10 12:29] LABS: THYROID STIMULATING HORMONE 1.051 uIU/ML (0.55-4.78)
== END ==
LOC: M PLALAB 08:28
PROVIDERS: ATTEND Internal Medicine Hematology
DX: Z01.818 Encounter for other preprocedural examination (principal); E06.3 Autoimmune thyroiditis

== ENCOUNTER → 2022-11-26 | Outpatient (CLI) | payer MEDICARE ==
[2022-11-26 17:28] LABS: BLOOD UREA NITROGEN 23 MG/DL (9-23); CREATININE FOR GFR 0.73 MG/DL (0.55-1.30); GLOMERULAR FILTRATION RATE > 60.0 (>39)
== END ==
LOC: M WUC 10:34
PROVIDERS: ATTEND Student in an Organized Health Care Education/Training Program
DX: I66.21 Occlusion and stenosis of right posterior cerebral artery (principal)

== ENCOUNTER 2022-12-12 14:36 | Emergency (ER) | payer MEDICARE ==
[~2022-12-12] VITALS: Ht 157.5 cm; Wt 76.2 kg
[2022-12-12 14:39] VITALS: TEMP 98
[2022-12-12 16:23] LABS: BASO # 0.1 10^3/uL (0.0-0.2); BASO % 0.9 % (0.0-1.0); EOS # 0.2 10^3/uL (0.0-0.5); EOS % 1.7 % (0.0-3.0); LYMPH # 2.1 10^3/uL (1.5-5.0); LYMPH % 16.7 % (24.0-44.0); MEAN CORPUSCULAR HEMOGLOBIN 31.8 pg (27.0-33.0); MEAN CORPUSCULAR HGB CONC 33.3 g/dl (32.0-36.5); MEAN CORPUSCULAR VOLUME 95.3 fl (80.0-96.0); MONO # 1.4 10^3/uL (0.0-0.8); MONO % 10.8 % (2.0-8.0); NEUTROPHILS # 8.7 10^3/uL (1.5-8.5); NEUTROPHILS % 69.1 % (36.0-66.0); PLATELET COUNT, AUTOMATED 269 10^3/uL (150-450); RED BLOOD COUNT 4.72 10^6/uL (4.00-5.40); WHITE BLOOD COUNT 12.6 10^3/uL (4.0-10.0)
[2022-12-12 16:34] LABS: INR 1.11
[2022-12-12 16:35] LABS: PARTIAL THROMBOPLASTIN TIME 27.9 SECONDS (24.8-34.2)
[2022-12-12 16:40] LABS: ERYTHROCYTE SEDIMENTATION RATE 32 mm/hr (0-30)
[2022-12-12 16:48] LABS: ALBUMIN 3.5 G/DL (3.2-5.2); ALKALINE PHOSPHATASE 105 U/L (46-116); ALT/SGPT 26 U/L (7.0-40); AST/SGOT < 8 U/L (<34); BILIRUBIN,DIRECT 0.2 MG/DL (<0.4); BILIRUBIN,TOTAL 0.6 MG/DL (0.3-1.2); CK-MB VALUE MASS < 1.0 NG/ML (<3.6); CPK CREATINE PHOSPHOKINASE 28 U/L (34-145); MB/CK RELATIVE INDEX 3.57 (< OR =4); TOTAL PROTEIN 6.6 G/DL (5.7-8.2)
[2022-12-12 16:49] LABS: C REACTIVE PROTEIN QUANTITATIV < 0.40 MG/DL (<1.0)
[2022-12-12] MEDS ORDERED: ISOVUE-370 76% 100ML VIAL As Ordered ONE (16:51)
[2022-12-12 16:52] LABS: THYROXINE (T4) 9.4 UG/DL (4.5-10.9)
[2022-12-12 16:53] LABS: THYROID STIMULATING HORMONE 1.945 uIU/ML (0.55-4.78)
[2022-12-12 18:08] VITALS: BP 160/92; O2SAT 95
== END 2022-12-12 18:41 | disposition home or self-care (01) ==
LOC: M ED 14:36
DX: R06.02 Shortness of breath (principal); I10 Essential (primary) hypertension; E78.5 Hyperlipidemia, unspecified; Z86.718 Personal history of other venous thrombosis and embolism; Z79.01 Long term (current) use of anticoagulants; Z79.82 Long term (current) use of aspirin; Z79.899 Other long term (current) drug therapy; Z88.8 Allergy status to other drugs, medicaments and biological substances; Z91.030 Bee allergy status
CPT/HCPCS: 71045; 71275; 80047; 80076; 82550; 82553; 83605; 83880; 84436; 84443; 84484; 85025; 85610; 85652; 85730; 86140; 93005; 93971; 94760; 99284; Q9967

== ENCOUNTER → 2023-01-02 | Outpatient (CLI) | payer MEDICARE ==
[~2023-01-02] MED LIST changes: +MECL-209 PO; -MECL1TAB31 PO
== END ==
LOC: M PLALAB 10:31
PROVIDERS: ATTEND Internal Medicine Hematology
DX: R06.02 Shortness of breath (principal)

== ENCOUNTER → 2023-02-07 | Outpatient (CLI) | payer MEDICARE | LOC: M WHC 12:47 | PROVIDERS: ATTEND Internal Medicine Hematology | DX: Z12.31 Encounter for screening mammogram for malignant neoplasm of breast (principal) ==

== ENCOUNTER 2023-03-06 13:46 | Emergency (ER) | payer MEDICARE ==
[~2023-03-06] VITALS: Ht 157.5 cm; Wt 73.6 kg
[2023-03-06] MEDS ORDERED: ESCITALOPRAM (14:16)
[2023-03-06 14:50] LABS: BASO # 0.1 10^3/uL (0.0-0.2); BASO % 0.9 % (0.0-1.0); EOS # 0.1 10^3/uL (0.0-0.5); EOS % 1.6 % (0.0-3.0); HEMATOCRIT 43.9 % (36.0-47.0); HEMOGLOBIN 15.2 g/dl (12.0-15.5); LYMPH # 1.7 10^3/uL (1.5-5.0); LYMPH % 20.3 % (24.0-44.0); MEAN CORPUSCULAR HEMOGLOBIN 32.1 pg (27.0-33.0); MEAN CORPUSCULAR HGB CONC 34.6 g/dl (32.0-36.5); MEAN CORPUSCULAR VOLUME 92.6 fl (80.0-96.0); MONO # 0.7 10^3/uL (0.0-0.8); MONO % 7.9 % (2.0-8.0); NEUTROPHILS # 5.7 10^3/uL (1.5-8.5); NEUTROPHILS % 68.9 % (36.0-66.0); PLATELET COUNT, AUTOMATED 331 10^3/uL (150-450); RED BLOOD COUNT 4.74 10^6/uL (4.00-5.40); WHITE BLOOD COUNT 8.2 10^3/uL (4.0-10.0)
[2023-03-06 14:52] LABS: CALCIUM LEVEL 10.2 MG/DL (8.3-10.6); CREATININE FOR GFR 1.21 MG/DL (0.55-1.30); GLOMERULAR FILTRATION RATE 46.7 (>39); MAGNESIUM LEVEL 1.7 MG/DL (1.8-2.4); POTASSIUM SERUM 4.3 MMOL/L (3.5-5.1)
[2023-03-06] MEDS ORDERED: MAG SULF 1GM/100ML (MAG RUN) 1 GM in IV 1 EA IV ONE (14:55)
[2023-03-06] MEDS ORDERED: NS 500 ML IV ONE (15:00)
[2023-03-06] MEDS ORDERED: ACETAMINOPHEN TAB 650MG DOSE (2X325MG) PO ONE (15:50)
[2023-03-06 16:00] VITALS: BP 150/72; TEMP 98.1; O2SAT 95
== END 2023-03-06 16:25 | disposition home or self-care (01) ==
LOC: M ED 13:46
DX: E83.42 Hypomagnesemia (principal); T50.1X5A Adverse effect of loop [high-ceiling] diuretics, initial encounter; I95.1 Orthostatic hypotension; I10 Essential (primary) hypertension; J45.909 Unspecified asthma, uncomplicated; E78.5 Hyperlipidemia, unspecified; G47.33 Obstructive sleep apnea (adult) (pediatric); Z86.79 Personal history of other diseases of the circulatory system; Z88.8 Allergy status to other drugs, medicaments and biological substances; Z91.030 Bee allergy status; Z79.52 Long term (current) use of systemic steroids; Z79.01 Long term (current) use of anticoagulants; Z79.83 Long term (current) use of bisphosphonates; Z79.899 Other long term (current) drug therapy
CPT/HCPCS: 80048; 83735; 85025; 93005; 96374; 99285; J3475

== ENCOUNTER → 2023-03-10 | Outpatient (CLI) | payer MEDICARE ==
[~2023-03-10] MED LIST changes: +ESCITALOPRAM
[2023-03-10 11:30] LABS: BASO # 0.1 10^3/uL (0.0-0.2); BASO % 1.4 % (0.0-1.0); EOS # 0.1 10^3/uL (0.0-0.5); EOS % 1.5 % (0.0-3.0); HEMATOCRIT 44.2 % (36.0-47.0); HEMOGLOBIN 14.9 g/dl (12.0-15.5); LYMPH # 2.2 10^3/uL (1.5-5.0); LYMPH % 28.3 % (24.0-44.0); MEAN CORPUSCULAR HEMOGLOBIN 31.6 pg (27.0-33.0); MEAN CORPUSCULAR HGB CONC 33.7 g/dl (32.0-36.5); MEAN CORPUSCULAR VOLUME 93.6 fl (80.0-96.0); MONO # 0.7 10^3/uL (0.0-0.8); MONO % 9.2 % (2.0-8.0); NEUTROPHILS # 4.6 10^3/uL (1.5-8.5); NEUTROPHILS % 59.2 % (36.0-66.0); PLATELET COUNT, AUTOMATED 320 10^3/uL (150-450); RED BLOOD COUNT 4.72 10^6/uL (4.00-5.40); WHITE BLOOD COUNT 7.8 10^3/uL (4.0-10.0)
[2023-03-10 11:59] LABS: CALCIUM LEVEL 10.6 MG/DL (8.3-10.6); CREATININE FOR GFR 1.01 MG/DL (0.55-1.30); GLOMERULAR FILTRATION RATE 57.5 (>39); POTASSIUM SERUM 4.6 MMOL/L (3.5-5.1); TOTAL PROTEIN 7.2 G/DL (5.7-8.2)
== END ==
LOC: M LAB 10:39
PROVIDERS: ATTEND Internal Medicine Cardiovascular Disease
DX: I50.32 Chronic diastolic (congestive) heart failure (principal); I27.23 Pulmonary hypertension due to lung diseases and hypoxia; R94.31 Abnormal electrocardiogram [ECG] [EKG]; I11.0 Hypertensive heart disease with heart failure

== ENCOUNTER → 2023-03-18 | Outpatient (CLI) | payer MEDICARE ==
[~2023-03-18] MED LIST changes: -FLUT50SP17; +FLUTISP
== END ==
LOC: M SLEEP HO 11:57
PROVIDERS: ATTEND Internal Medicine Cardiovascular Disease
DX: G47.33 Obstructive sleep apnea (adult) (pediatric) (principal); I27.23 Pulmonary hypertension due to lung diseases and hypoxia; R06.83 Snoring

== ENCOUNTER → 2023-05-21 | Outpatient (CLI) | payer MEDICARE | LOC: M EKG 12:00 | PROVIDERS: ATTEND Internal Medicine Cardiovascular Disease | DX: I49.40 Unspecified premature depolarization (principal) ==

== ENCOUNTER → 2023-06-19 | Outpatient (CLI) | payer MEDICARE ==
[2023-06-19 15:43] LABS: HEMATOCRIT 41.8 % (36.0-47.0); MEAN CORPUSCULAR HEMOGLOBIN 31.6 pg (27.0-33.0); MEAN CORPUSCULAR HGB CONC 33.5 g/dl (32.0-36.5); MEAN CORPUSCULAR VOLUME 94.4 fl (80.0-96.0); PLATELET COUNT, AUTOMATED 296 10^3/uL (150-450); RED BLOOD COUNT 4.43 10^6/uL (4.00-5.40)
[2023-06-19 16:17] LABS: C REACTIVE PROTEIN QUANTITATIV < 0.40 MG/DL (<1.0)
[2023-06-19 16:19] LABS: ALBUMIN 3.6 G/DL (3.2-5.2); ALKALINE PHOSPHATASE 94 U/L (46-116); ALT/SGPT 15 U/L (7.0-40); AST/SGOT < 8 U/L (<34); BILIRUBIN,TOTAL 1.1 MG/DL (0.3-1.2); BLOOD UREA NITROGEN 17 MG/DL (9-23); CALCIUM LEVEL 9.4 MG/DL (8.3-10.6); CARBON DIOXIDE LEVEL 32 MMOL/L (20-31); CHLORIDE LEVEL 107 MMOL/L (98-107); CHOLESTEROL LEVEL 142 MG/DL (<200); CHOLESTEROL RISK RATIO 2.81 (<5); CREATININE FOR GFR 0.75 MG/DL (0.55-1.30); FREE T4 1.12 NG/DL (0.89-1.76); GLOMERULAR FILTRATION RATE > 60.0 (>39); GLUCOSE, FASTING 112 MG/DL (74-106); HDL CHOLESTEROL 50.5 MG/DL (>40); LDL CHOLESTEROL 66.9 MG/DL (<100); NON-HDL-C 91.5 MG/DL; POTASSIUM SERUM 4.1 MMOL/L (3.5-5.1); SODIUM LEVEL 141 MMOL/L (136-145); THYROID STIMULATING HORMONE 0.911 uIU/ML (0.55-4.78); TOTAL PROTEIN 6.7 G/DL (5.7-8.2); TRIGLYCERIDES LEVEL 123 MG/DL (<150)
[2023-06-19 16:20] LABS: TOTAL 25(OH) VITAMIN D 24.5 NG/ML (20.0-100.0)
[2023-06-19 16:21] LABS: VITAMIN B12 LEVEL 567 PG/ML (211-911)
[2023-06-19 16:40] LABS: CREATININE, URINE 258.6 MG/DL; MAU/CREAT RATIO 6.5 MCG/MG (0.0-30.0)
[2023-06-19 16:53] LABS: HEMOGLOBIN A1c 5.2 % (4.0-6.0)
== END ==
LOC: M PLALAB 12:08
PROVIDERS: ATTEND Internal Medicine Hematology
DX: I50.82 Biventricular heart failure (principal); I11.0 Hypertensive heart disease with heart failure; E06.3 Autoimmune thyroiditis; E78.00 Pure hypercholesterolemia, unspecified; M81.0 Age-related osteoporosis without current pathological fracture; Z79.899 Other long term (current) drug therapy

== ENCOUNTER → 2023-07-08 | Outpatient (CLI) | payer MEDICARE | LOC: M WUC 10:08 | PROVIDERS: ATTEND Physician Assistant | DX: M19.071 Primary osteoarthritis, right ankle and foot (principal) ==

== ENCOUNTER → 2023-07-29 | Outpatient (CLI) | payer MEDICARE | LOC: M SOG 14:21 | PROVIDERS: ATTEND Physician Assistant | DX: M79.671 Pain in right foot (principal) ==

== ENCOUNTER → 2023-10-01 | Outpatient (CLI) | payer MEDICARE | LOC: M WUC 12:16 | PROVIDERS: ATTEND Student in an Organized Health Care Education/Training Program | DX: M17.12 Unilateral primary osteoarthritis, left knee (principal) ==

== ENCOUNTER → 2023-10-15 | Outpatient (CLI) | payer MEDICARE ==
[2023-10-15 15:21] LABS: BASO # 0.1 10^3/uL (0.0-0.2); EOS # 0.2 10^3/uL (0.0-0.5); EOS % 1.9 % (0.0-3.0); HEMATOCRIT 45.5 % (36.0-47.0); HEMOGLOBIN 15.4 g/dl (12.0-15.5); LYMPH # 2.2 10^3/uL (1.5-5.0); LYMPH % 23.2 % (24.0-44.0); MEAN CORPUSCULAR HEMOGLOBIN 32.3 pg (27.0-33.0); MEAN CORPUSCULAR HGB CONC 33.8 g/dl (32.0-36.5); MEAN CORPUSCULAR VOLUME 95.4 fl (80.0-96.0); MONO # 1.1 10^3/uL (0.0-0.8); MONO % 10.9 % (2.0-8.0); NEUTROPHILS % 62.3 % (36.0-66.0); PLATELET COUNT, AUTOMATED 357 10^3/uL (150-450); RED BLOOD COUNT 4.77 10^6/uL (4.00-5.40); WHITE BLOOD COUNT 9.7 10^3/uL (4.0-10.0)
[2023-10-15 15:59] LABS: BLOOD UREA NITROGEN 20 MG/DL (9-23); CALCIUM LEVEL 10.6 MG/DL (8.3-10.6); CARBON DIOXIDE LEVEL 30 MMOL/L (20-31); CHLORIDE LEVEL 103 MMOL/L (98-107); CREATININE FOR GFR 0.79 MG/DL (0.55-1.30); GLOMERULAR FILTRATION RATE > 60.0 (>39); GLUCOSE, FASTING 100 MG/DL (74-106); POTASSIUM SERUM 4.4 MMOL/L (3.5-5.1); SODIUM LEVEL 139 MMOL/L (136-145)
== END ==
LOC: M PLALAB 14:00
PROVIDERS: ATTEND Internal Medicine Hematology
DX: J45.20 Mild intermittent asthma, uncomplicated (principal)

== ENCOUNTER → 2023-12-12 | Outpatient (CLI) | payer MEDICARE ==
[~2023-12-12] MED LIST changes: +GASTROGRAFIN SOLUTION 30ML As Ordered ONE; +ISOVUE-370 76% 100ML VIAL As Ordered ONE
== END ==
LOC: M RAD 14:08
PROVIDERS: ATTEND Internal Medicine Hematology
DX: R10.13 Epigastric pain (principal); Z90.49 Acquired absence of other specified parts of digestive tract; N28.1 Cyst of kidney, acquired; K59.00 Constipation, unspecified
CPT/HCPCS: 74178; Q9963; Q9967

== ENCOUNTER → 2024-01-31 | Outpatient (CLI) | payer MEDICARE ==
[~2024-01-31] MED LIST changes: -GASTROGRAFIN SOLUTION 30ML As Ordered ONE; -ISOVUE-370 76% 100ML VIAL As Ordered ONE
== END ==
LOC: M SLEEP 20:00
PROVIDERS: ATTEND Internal Medicine Pulmonary Disease
DX: G47.33 Obstructive sleep apnea (adult) (pediatric) (principal)

== ENCOUNTER → 2024-02-12 | Outpatient (CLI) | payer MEDICARE | LOC: M WHC 12:53 | PROVIDERS: ATTEND Internal Medicine Hematology | DX: Z12.31 Encounter for screening mammogram for malignant neoplasm of breast (principal); M80.0 Age-related osteoporosis with current pathological fracture; N63.11 Unspecified lump in the right breast, upper outer quadrant; R59.0 Localized enlarged lymph nodes; M85.89 Other specified disorders of bone density and structure, multiple sites ==

== ENCOUNTER → 2024-02-18 | Outpatient (CLI) | payer MEDICARE | LOC: M WHC 12:53 | PROVIDERS: ATTEND Internal Medicine Hematology | DX: R92.8 Other abnormal and inconclusive findings on diagnostic imaging of breast (principal); N63.11 Unspecified lump in the right breast, upper outer quadrant ==

== ENCOUNTER → 2024-03-04 | Outpatient (CLI) | payer MEDICARE | LOC: M PLAIMG 10:28 | PROVIDERS: ATTEND Internal Medicine Pulmonary Disease | DX: R06.02 Shortness of breath (principal); J98.11 Atelectasis ==

== ENCOUNTER → 2024-04-20 | Outpatient (CLI) | payer MEDICARE | LOC: M PLAIMG 10:52 | PROVIDERS: ATTEND Internal Medicine Pulmonary Disease | DX: R05.9 Cough, unspecified (principal) ==

== ENCOUNTER → 2024-06-01 | Outpatient (CLI) | payer MEDICARE ==
[2024-06-01 15:35] LABS: ALBUMIN 3.8 G/DL (3.2-5.2); ALKALINE PHOSPHATASE 96 U/L (35-104); ALT/SGPT 20 U/L (7.0-40); AST/SGOT 14 U/L (<34); BILIRUBIN,TOTAL 1.2 MG/DL (0.3-1.2); BLOOD UREA NITROGEN 16 MG/DL (9-23); CALCIUM LEVEL 10.1 MG/DL (8.3-10.6); CARBON DIOXIDE LEVEL 27 MMOL/L (20-31); CHLORIDE LEVEL 102 MMOL/L (98-107); CHOLESTEROL LEVEL 154 MG/DL (<200); CHOLESTEROL RISK RATIO 2.41 (<5); CREATININE FOR GFR 0.88 MG/DL (0.55-1.30); GLOMERULAR FILTRATION RATE > 60.0 (>39); GLUCOSE, FASTING 184 MG/DL (74-106); HDL CHOLESTEROL 63.9 MG/DL (>40); LDL CHOLESTEROL 64.9 MG/DL (<100); NON-HDL-C 90.1 MG/DL; SODIUM LEVEL 140 MMOL/L (136-145); TOTAL 25(OH) VITAMIN D 21.5 NG/ML (20.0-100.0); TOTAL PROTEIN 7.2 G/DL (5.7-8.2); TRIGLYCERIDES LEVEL 126 MG/DL (<150)
== END ==
LOC: M PLALAB 13:40
PROVIDERS: ATTEND Family Medicine
DX: I50.32 Chronic diastolic (congestive) heart failure (principal); E78.5 Hyperlipidemia, unspecified; M81.0 Age-related osteoporosis without current pathological fracture

== ENCOUNTER → 2024-06-28 | Outpatient (CLI) | payer MEDICARE ==
[~2024-06-28] MED LIST changes: +ADVA230A; +ALBU2.5V10; +ALBU8.5H; +BUME0.5T2 PO; +LEXA1TAB2 PO; +POTA10CA70 PO; +SPIR-10 PO
== END ==
LOC: M PLAIMG 08:54
PROVIDERS: ATTEND Orthopaedic Surgery
DX: M25.562 Pain in left knee (principal); R93.6 Abnormal findings on diagnostic imaging of limbs

== ENCOUNTER 2024-06-30 09:15 | Day surgery (SDC) | payer MEDICARE ==
[~2024-06-30] VITALS: Ht 157.5 cm; Wt 77.8 kg
[2024-06-30] MEDS: LIDOCAINE 3.5 % 1ML OPHTH TOPICAL GEL OU ONE (07:00)
[2024-06-30] MEDS: OFLOXACIN 0.3 % (OCUFLOX) OPTH SOL 5ML OS ONE (07:00)
[~2024-06-30 09:15] MED LIST changes: +PHENYLEPHRINE 10% OPHTH SOL 5ML OS PRN
[2024-06-30] MEDS: TROPICAMIDE 1% OPHTH SOLN 15ML OS SCH (10:24)
[2024-06-30] MEDS: CYCLOPENTOLATE 1% OPHTH SOLN 2ML BTL OS SCH (10:24)
[2024-06-30] MEDS: PHENYLEPHRINE 2.5% OPHTH SOL 2ML OS SCH (10:24)
[2024-06-30] MEDS ORDERED: fentaNYL 100 MCG/2 ML INJECTION As Ordered ONE (11:03)
[2024-06-30] MEDS ORDERED: MIDAZOLAM INJ 2MG/2ML VIAL As Ordered ONE (11:03)
[2024-06-30] MEDS: CEFUROXIME 1MG/0.1ML INTRACAMERAL INJ As Ordered ONE (11:34)
[2024-06-30] MEDS: LIDOCAINE 1% SDV 5ML VIAL As Ordered ONE (11:34)
[2024-06-30] MEDS: BSS IRRIG/VANCO(10MG)/TOBRA(5MG)/EPINEPH(1:1000-0.5CC)500ML BAG-ORONLY As Ordered ONE (11:34)
[2024-06-30 11:50] VITALS: BP 153/74; TEMP 97.4; O2SAT 97
== END 2024-06-30 12:12 | disposition home or self-care (01) ==
LOC: M SDC 09:15
PROVIDERS: ATTEND Ophthalmology
DX: H25.12 Age-related nuclear cataract, left eye (principal); I10 Essential (primary) hypertension; E78.00 Pure hypercholesterolemia, unspecified; E06.3 Autoimmune thyroiditis; K21.9 Gastro-esophageal reflux disease without esophagitis; G47.30 Sleep apnea, unspecified; J45.909 Unspecified asthma, uncomplicated; Z79.899 Other long term (current) drug therapy; Z79.01 Long term (current) use of anticoagulants; Z86.718 Personal history of other venous thrombosis and embolism; Z88.8 Allergy status to other drugs, medicaments and biological substances; Z91.030 Bee allergy status; F32.A Depression, unspecified; F41.9 Anxiety disorder, unspecified
CPT/HCPCS: 66984; J0697; J2250; J3010; V2632

== ENCOUNTER 2024-07-14 08:02 | Day surgery (SDC) | payer MEDICARE ==
[~2024-07-14] VITALS: Ht 157.5 cm; Wt 76.1 kg
[~2024-07-14 08:02] MED LIST changes: +PHENYLEPHRINE 10% OPHTH SOL 5ML OD PRN; -PHENYLEPHRINE 10% OPHTH SOL 5ML OS PRN
[2024-07-14] MEDS ORDERED: fentaNYL 100 MCG/2 ML INJECTION As Ordered ONE (08:09)
[2024-07-14] MEDS ORDERED: MIDAZOLAM INJ 2MG/2ML VIAL As Ordered ONE (08:09)
[2024-07-14] MEDS: PHENYLEPHRINE 2.5% OPHTH SOL 2ML OD SCH (08:40)
[2024-07-14] MEDS: TROPICAMIDE 1% OPHTH SOLN 15ML OD SCH (08:40)
[2024-07-14] MEDS: LIDOCAINE 3.5 % 1ML OPHTH TOPICAL GEL OU ONE (08:40)
[2024-07-14] MEDS: CYCLOPENTOLATE 1% OPHTH SOLN 2ML BTL OD SCH (08:40)
[2024-07-14] MEDS: OFLOXACIN 0.3 % (OCUFLOX) OPTH SOL 5ML OD ONE (08:40)
[2024-07-14] MEDS: LIDOCAINE 1% SDV 5ML VIAL As Ordered ONE (09:23)
[2024-07-14] MEDS: BSS IRRIG/VANCO(10MG)/TOBRA(5MG)/EPINEPH(1:1000-0.5CC)500ML BAG-ORONLY As Ordered ONE (09:23)
[2024-07-14] MEDS: CEFUROXIME 1MG/0.1ML INTRACAMERAL INJ As Ordered ONE (09:23)
[2024-07-14 09:35] VITALS: BP 146/78; TEMP 97.8; O2SAT 97
== END 2024-07-14 09:47 | disposition home or self-care (01) ==
LOC: M SDC 08:02
PROVIDERS: ATTEND Ophthalmology
DX: H25.11 Age-related nuclear cataract, right eye (principal); I10 Essential (primary) hypertension; E78.5 Hyperlipidemia, unspecified; R60.0 Localized edema; E03.9 Hypothyroidism, unspecified; K21.9 Gastro-esophageal reflux disease without esophagitis; K44.9 Diaphragmatic hernia without obstruction or gangrene; Z79.899 Other long term (current) drug therapy; F41.9 Anxiety disorder, unspecified; F32.A Depression, unspecified; J45.909 Unspecified asthma, uncomplicated; Z79.01 Long term (current) use of anticoagulants; Z79.51 Long term (current) use of inhaled steroids
CPT/HCPCS: 66984; J0697; J2250; J3010; V2632

== ENCOUNTER 2024-11-17 09:38 | Day surgery (SDC) | payer MEDICARE ==
[~2024-11-17] VITALS: Ht 157.5 cm; Wt 74.1 kg
[~2024-11-17 09:38] MED LIST changes: +ATOR40TA75 PO; -PHENYLEPHRINE 10% OPHTH SOL 5ML OD PRN; -PIND25TA PO; +PIND5TAB2 PO; +SUCR1TAB56 PO
[2024-11-17] MEDS ORDERED: LIDOCAINE 2% 100 MG/5 ML SDV (FOR ANES.) As Ordered ONE (10:22)
[2024-11-17 10:55] VITALS: TEMP 97
[2024-11-17 11:18] VITALS: BP 161/76; O2SAT 95
== END 2024-11-17 11:19 | disposition home or self-care (01) ==
LOC: M OPP 09:38
PROVIDERS: ATTEND Internal Medicine Gastroenterology
DX: K44.9 Diaphragmatic hernia without obstruction or gangrene (principal); K31.7 Polyp of stomach and duodenum; R10.13 Epigastric pain; R11.2 Nausea with vomiting, unspecified; G47.30 Sleep apnea, unspecified; Z88.8 Allergy status to other drugs, medicaments and biological substances; Z91.048 Other nonmedicinal substance allergy status; Z79.01 Long term (current) use of anticoagulants; Z79.899 Other long term (current) drug therapy; J45.909 Unspecified asthma, uncomplicated
CPT/HCPCS: 43239; J3010

== ENCOUNTER → 2024-12-01 | Outpatient (REF) | payer MEDICARE ==
[2024-12-01 19:00] LABS: ALT/SGPT 18.0 U/L (7.0-40); AST/SGOT 18.0 U/L (<34); CALCIUM LEVEL 10.0 MG/DL (8.3-10.6); CARBON DIOXIDE LEVEL 30.0 MMOL/L (20-31); CHLORIDE LEVEL 108.0 MMOL/L (98-107); CREATININE FOR GFR 0.88 MG/DL (0.55-1.30); GLOMERULAR FILTRATION RATE 69.4 (>39); POTASSIUM SERUM 4.3 MMOL/L (3.5-5.1); SODIUM LEVEL 146.0 MMOL/L (136-145)
[2024-12-01 19:02] LABS: TOTAL 25(OH) VITAMIN D 29.5 NG/ML (20.0-100.0)
[2024-12-01 19:19] LABS: ESTIMATED AVERAGE GLUCOSE 114.0 MG/DL (60-110)
== END ==
LOC: M SFHCPLAZ 14:58
PROVIDERS: ATTEND Family Medicine
DX: E66.811 Obesity, class 1 (principal); M81.0 Age-related osteoporosis without current pathological fracture; I50.32 Chronic diastolic (congestive) heart failure; Z79.899 Other long term (current) drug therapy

== ENCOUNTER → 2024-12-17 | Outpatient (CLI) | payer MEDICARE | LOC: M RAD 09:24 | PROVIDERS: ATTEND Surgery | DX: K44.9 Diaphragmatic hernia without obstruction or gangrene (principal); K22.89 Other specified disease of esophagus ==

== ENCOUNTER 2025-02-17 06:02 | Day surgery (SDC) | payer MEDICARE ==
[~2025-02-17] VITALS: Ht 157.5 cm; Wt 78.9 kg
[~2025-02-17 06:02] MED LIST changes: +DENO60SY2 SC; -PIND5TAB2 PO; +[UNRECOGNIZED DRUG - CODE] PO
[2025-02-17] MEDS ORDERED: LR 1,000 ML IV SCH (06:20)
[2025-02-17] MEDS ORDERED: FAMOTIDINE 20 MG/2 ML VIAL IVP ONE (06:40)
[2025-02-17 06:49] LABS: PLATELET COUNT, AUTOMATED 304 10^3/uL (150-450)
[2025-02-17] MEDS ORDERED: dexmedeTOMIDine (4 MCG/ML) 200 MCG/50 ML BTL As Ordered ONE (07:09)
[2025-02-17] MEDS ORDERED: HYDROmorphone HCL 2 MG/ML 1 ML VIAL As Ordered ONE (07:09)
[2025-02-17] MEDS ORDERED: MIDAZOLAM INJ 2 MG/2 ML VIAL As Ordered ONE (07:09)
[2025-02-17] MEDS ORDERED: SUGAMMADEX SODIUM 200 MG/2 ML VIAL As Ordered ONE (07:10)
[2025-02-17] MEDS ORDERED: ACETAMINOPHEN 1000MG/100ML IV BAG As Ordered ONE (07:10)
[2025-02-17] MEDS ORDERED: LIDOCAINE 2% 100 MG/5 ML SDV (FOR ANES.) As Ordered ONE (07:10)
[2025-02-17] MEDS ORDERED: ONDANSETRON 4MG/2ML VIAL As Ordered ONE (07:10)
[2025-02-17] MEDS ORDERED: KETOROLAC 30 MG/ML 1 ML VIAL As Ordered ONE (07:10)
[2025-02-17] MEDS ORDERED: ROCURONIUM BROMIDE 50MG/5ML VIAL As Ordered ONE (07:10)
[2025-02-17] MEDS ORDERED: dexAMETHasone 4 MG/ML 1 ML VIAL As Ordered ONE (07:10)
[2025-02-17 07:20] LABS: CALCIUM LEVEL 9.3 MG/DL (8.3-10.6); CARBON DIOXIDE LEVEL 25.0 MMOL/L (20-31); CHLORIDE LEVEL 107.0 MMOL/L (98-107); CREATININE FOR GFR 0.85 MG/DL (0.55-1.30); GLOMERULAR FILTRATION RATE 72.3 (>39); POTASSIUM SERUM 4.5 MMOL/L (3.5-5.1); SODIUM LEVEL 142.0 MMOL/L (136-145)
[2025-02-17] MEDS: ceFAZolin SOD 2 GM IV ONCE IV ONE (07:59)
[2025-02-17] MEDS: HEPARIN SOD 5000 UNITS/ML 1 ML VIAL/SYRINGE SQ ONE (07:59)
[2025-02-17] MEDS ORDERED: CALCIUM CHLORIDE 10% 1 GM/10 ML SYR As Ordered ONE (08:17)
[2025-02-17] MEDS ORDERED: MORPHINE 4 MG/ML 1 ML VIAL IV PRN (10:35)
[2025-02-17] MEDS ORDERED: HYDROMORPHONE HCL 0.5 MG/0.5 ML SYRINGE IV PRN (10:35)
[2025-02-17] MEDS ORDERED: ALBUTEROL SULFATE 2.5 MG/0.5 ML INH CONCENTRATE NEB SOLN INH ONE (10:35)
[2025-02-17] MEDS ORDERED: HYDR-3713 PO (10:46)
[2025-02-17] MEDS ORDERED: SIME1CAP4 PO (10:46)
[2025-02-17] MEDS ORDERED: REGL5TAB2 PO (10:46)
[2025-02-17] MEDS: ONDANSETRON 4MG/2ML VIAL IV PRN (11:39)
[2025-02-17 13:26] VITALS: BP 140/61; TEMP 98.4; O2SAT 92
== END 2025-02-17 13:28 | disposition home or self-care (01) ==
LOC: M SDC 06:02
PROVIDERS: ATTEND Surgery
DX: K44.9 Diaphragmatic hernia without obstruction or gangrene (principal); I10 Essential (primary) hypertension; E06.3 Autoimmune thyroiditis; J45.909 Unspecified asthma, uncomplicated; E78.00 Pure hypercholesterolemia, unspecified; Z79.899 Other long term (current) drug therapy; Z86.718 Personal history of other venous thrombosis and embolism; Z79.01 Long term (current) use of anticoagulants; Z88.8 Allergy status to other drugs, medicaments and biological substances; F41.9 Anxiety disorder, unspecified; F32.A Depression, unspecified
CPT/HCPCS: 36415; 43281; 80048; 85027; C1781; J0131; J0618; J0665; J0666; J0688; J1100; J1171; J1885; J2250; J2405; J3010